=== PATIENT | female | born 1945 | race Caucasian/White ===

== ENCOUNTER 2021-09-23 13:00 | Outpatient (REF) | payer OTHER, SELFPAY | END 2021-09-23 13:01 | disposition home or self-care (01) | LOC: HO.HMGCLDS 13:00 | PROVIDERS: Visit Provider Internal Medicine | DX: Z20.822 Contact with and (suspected) exposure to COVID-19 (principal) | CPT/HCPCS: C9803; U0003; U0005 ==

== ENCOUNTER 2023-06-17 12:40 | Outpatient (AMB) | payer OTHER, SELFPAY ==
--- OUTSIDE RECORDS SUMMARY | 2023-06-17 12:43 | XMS_ITS | Continuity of Care Document ---
Author Name Unknown Organization [facility] ter Address [address] [place] [address]- Care Team Providers Care Senior Gl Accountant Name Role Phone Natanael Rodas MD Primary Care Physician [facility] Date(s): 10/05/19 - 10/12/[address] [address]- [facility] Attending Physician: Natanael Rodas MD Allergies, Adverse Reactions, Alerts Substance Reaction Severity Status NKA Active Immunizations Given and Recorded Vaccine Date Status Refusal Reason Influenza Virus Vaccine (oldterm) 07/10/19 Recorde d Influenza Virus Vaccine (oldterm) 09/26/18 Recorde d influenza virus vaccine, inactivated 1 08/10/18 Gi sarah influenza virus vaccine, inactivated 2 07/19/18 Re corded influenza virus vaccine, inactivated 3, 4 07/25/17 Given pneumococcal 13-valent vaccine 5 02/13/18 Given tetanus/diphtheria/pertussis, acel(Tdap) 6, 7 07/25/17 Given pneumococcal 23-valent vaccine 8 09/26/16 Recorded 1Result Comment: [08/10/2018] [facility] [id number] 2Result Comment: [08/10/2018] big y[08/10/2018 Uncharted] pt states she has not had the flu vaccine this year as previously stated 3Result Comment: enterred in error 4Result Comment: [07/25/2017] [id number] 5Result Comment: [02/13/2018] [facility] 0005 1971 01 6Result Comment: [07/25/2017] [id number] 7Admin Note: [id number] 8Result Comment: [07/25/2017] historical Medications acetaminophen 325 mg oral tablet 650 mg, By Mouth, Every 4 hours, PRN, Refills 0, Maintenance, Pain , Moderate, 05/18/18 9:59:35 EDT Start Date: 05/18/18 Status: Ordered amLODIPine 10 mg oral tablet 10 mg, 1, tablet, By Mouth, Daily, # 90 tablet, Refills 1, Tot. Refills 1, Maintenance, 06/11/19 16:50:00 EDT, Route to Pharmacy Electronically, [id number], [facility]/pharmacy #[id number] Start Date: 06/11/19 Status: Ordered atenolol-chlorthalidone 100 mg-25 mg oral tablet 1 tablet, By Mouth, Daily, # 90 tablet, 1 Refills, Maintenance, 06/11/19 16:49:08 EDT, 1 tablet By Mouth Daily Start Date: 06/11/19 Status: Ordered atorvastatin 40 mg oral tablet 1 tablet = 40 mg, By Mouth, Daily, # 90 tablet, 1 Refills, Maintenance, 06/11/19 15:16:54 EDT Start Date: 06/11/19 Status: Ordered Finacea 15% topical gel 1 application, Topically, 2 times a day, # 30 Gm, 0 Refills, Maintenance, 03/25/17 16:55:18, Gel Start Date: 03/25/17 Status: Ordered sertraline 100 mg oral tablet 2 tablet = 200 mg, By Mouth, Daily, # 180 tablet, 1 Refills, Maintenance, 06/11/19 15:51:08 EDT, D/C rx on file for 100mg 1 tab daily Start Date: 06/11/19 Status: Ordered Problem List Condition Effective Dates Status Health Status Inform ant Benign hypertension(Confirmed) Active Vitamin B 12 deficiency(Confirmed) Active History of osteopenia(Confirmed) Active Personal history of colonic polyps(Confirmed) Active Hyperlipidemia(Confirmed) Active Anxiety and depression(Confirmed) Active Varicose vein(Confirmed) Active Edema of both lower legs due to peripheral venous insufficiency(Confirmed) Active Social History Social History Type Response Smoking Status Former smoker entered on: 05/30/18 Sex
--- OUTSIDE RECORDS SUMMARY | 2023-06-17 12:44 | XMS_ITS | Continuity of Care Document ---
Author Name Unknown Organization [facility] lt Address [address] [place] [address]- Care Team Providers Care Ballistics Professor Name Role Phone Natanael Rodas MD Primary Care Physician [phone] [facility]counter [facility] Date(s): 11/13/20 - 11/20/20 [facility] [address] [place] [address]- Attending Physician: Natanael Rodas MD Allergies, Adverse Reactions, Alerts Substance Reaction Severity Status NKA Active Immunizations Given and Recorded Vaccine Date Status Refusal Reason SARS-CoV-2 (COVID-19) mRNA BNT-162b2 vac 11/05/20 Given Influenza Virus Vaccine (oldterm) 1 06/09/20 Recor ded Influenza Virus Vaccine (oldterm) 07/10/19 Recorde d Influenza Virus Vaccine (oldterm) 09/26/18 Recorde d influenza virus vaccine, inactivated 2 08/10/18 Gi sarah influenza virus vaccine, inactivated 3 07/19/18 Re corded influenza virus vaccine, inactivated 4, 5 07/25/17 Given pneumococcal 13-valent vaccine 6 02/13/18 Given tetanus/diphtheria/pertussis, acel(Tdap) 7, 8 07/25/17 Given pneumococcal 23-valent vaccine 9 09/26/16 Recorded 1Result Comment: influenza [facility] 2Result Comment: [08/10/2018] [facility] [id number] 3Result Comment: [08/10/2018] big y[08/10/2018 Uncharted] pt states she has not had the flu vaccine this year as previously stated 4Result Comment: enterred in error 5Result Comment: [07/25/2017] [id number] 6Result Comment: [02/13/2018] [facility] 0005 1971 01 7Result Comment: [07/25/2017] [id number] 8Admin Note: [id number] 9Result Comment: [07/25/2017] historical Medications amLODIPine 10 mg oral tablet 1 tablet, By Mouth, Daily, # 90 tablet, 11 Refills, Maintenance, 12/05/19 16:46:00 EDT, [facility], 164, cm, 11/27/19 13:41:00 EST, Height, 74.5, kg, 01/03/19 18:01:00 EDT, Dry Weight Start Date: 12/05/19 Status: Ordered atenolol-chlorthalidone 100 mg-25 mg oral tablet 1 tablet, By Mouth, Daily, # 90 tablet, 11 Refills, Maintenance, 12/05/19 16:47:00 EDT, [facility], 90, TAKE 1 TABLET BY MOUTH EVERY DAY, 164, cm, 11/27/19 13:41:00 EST, Height, 74.5, kg, 01/03/19 18:01:00 EDT, Dry Weight Start Date: 12/05/19 Status: Ordered atorvastatin 40 mg oral tablet 1 tablet = 40 mg, By Mouth, Daily, # 90 tablet, 1 Refills, Maintenance, 12/05/19 14:01:00 EDT, [facility]/pharmacy #[id number], 164, cm, 11/27/19 13:41:00 EST, Height, 74.5, kg, 01/03/19 18:01:00 EDT, Dry Weight Start Date: 12/05/19 Status: Ordered Colace sodium 100 mg oral capsule 100 mg, 1, capsule, By Mouth, 2 times a day, PRN, with plenty of water, # 20 capsule, Refills 1, Tot. Refills 1, Maintenance, for constipation, 06/13/20 8:34:00 EDT, Route to Pharmacy Electronically,[facility], 168, cm, 06/13/20 5:15:00... Start Date: 06/13/20 Status: Ordered Finacea 15% topical gel 1 application, Topically, 2 times a day, # 30 Gm, 0 Refills, Maintenance, 03/25/17 16:55:18, Gel Start Date: 03/25/17 Status: Ordered sertraline 100 mg oral tablet 2 tablet = 200 mg, By Mouth, Daily, # 180 tablet, 0 Refills, Maintenance, 05/27/20 16:27:00 EDT, [facility]/pharmacy #[id number], D/C rx on file for 100mg 1 tab daily, 164, cm, 05/24/20 8:51:00 EDT, Height, 74.5,kg, 01/03/19 18:01:00 EDT, Dry Weight Start Date: 05/27/20 Status: Ordered spironolactone 25 mg oral tablet 25 mg, 1, tablet, By Mouth, Daily, # 90 tablet, Refills 3, Tot. Refills 3, Maintenance, 11/08/19 10:43:00 EST, Route to Pharmacy Electronically, [facility]/pharmacy #[id number], 164, cm, 11/08/19 9:45:00 EST, Height, 74.5, kg, 01/03/19 18:01:00 EDT, Dry Weight Start Date: 11/08/19 Status: Ordered Problem List Condition Effective Dates Status Health Status Inform ant AAA - Abdominal aortic aneurysm(Confirmed) Active Benign hypertension(Confirmed) Active Vitamin B 12 deficiency(Confirmed) Active History of osteopenia(Confirmed) Active Personal history of colonic polyps(Confirmed) Active Hyperlipidemia(Confirmed) Active Anxiety and depression(Confirmed) Active Varicose vein(Confirmed) Active Edema of both lower legs due to peripheral venous insufficiency(Confirmed) Active Vital Signs Most recent to oldest [Reference Range]: 1 Height 167 cm (11/13/20 9:26 AM) Weight 84.0 kg (11/13/20 9:26 AM) Body Mass Index [18.5-24.99] 30.12 *>HHI* (11/13/20 9:26 AM) Social History Social History Type Response Smoking Status Former smoker entered on: 05/30/18 Sex Medical Equipment Implanted Date:06/11/20Target Site:Abdomen Description Quantity MRI Company Model MESH VENTRALIGHT ECHO CIR 6 - BARD ([id number]) 1 Bard Unknown BÁRBARA:No Information Assigning Authority: FDA MESH VENTRALIGHT ECHO20.3X25 .4 - BARD ([id number]) 1 Bard Unknown BÁRBARA:No Information Assigning Authority: FDA
--- OUTSIDE RECORDS SUMMARY | 2023-06-17 12:44 | XMS_ITS | Continuity of Care Document ---
Author Name Unknown Organization [facility] Address [address] [place] [address]- Care Team Providers Care Distributor Publications Name Role Phone Natanael Rodas MD Primary Care Physician Encounter [facility] Date(s): 06/22/21 - 06/29/21 [facility] [address] [place] [address]- Attending Physician: Victor M Bryson MD Admitting Physician: Victor M Bryson MD Referring Physician: Natanael Rodas MD Allergies, Adverse Reactions, Alerts Substance Reaction Severity Status NKA Active Immunizations Given and Recorded Vaccine Date Status Refusal Reason SARS-CoV-2 (COVID-19) mRNA BNT-162b2 vac 11/26/20 Given SARS-CoV-2 (COVID-19) mRNA BNT-162b2 vac 11/05/20 Given [...] 1Result Comment: influenza [facility] 2Result Comment: [08/10/2018] [facility] [id number] 3Result Comment: [08/10/2018] big y[08/10/2018 Uncharted] pt states she has not had the flu vaccine this year as previously stated 4Result Comment: enterred in error 5Result Comment: [07/25/2017] [id number] 6Result Comment: [02/13/2018] [facility] 0005 1971 01 7Result Comment: [07/25/2017] [id number] 8Admin Note: [id number] 9Result Comment: [07/25/2017] historical Medications amLODIPine 10 mg oral tablet 1 tablet, By Mouth, Daily, # 90 tablet, 11 Refills, Maintenance, 12/05/19 16:46:00 EDT, [facility], 164, cm, 11/27/19 13:41:00 EST, Height, 74.5, kg, 01/03/19 18:01:00 EDT, Dry Weight Start Date: 12/05/19 Status: Ordered atenolol-chlorthalidone 100 mg-25 mg oral tablet 1 tablet, By Mouth, Daily, # 90 tablet, 11 Refills, Maintenance, 12/05/19 16:47:00 EDT, [facility], 90, TAKE 1 TABLET BY MOUTH EVERY DAY, 164, cm, 11/27/19 13:41:00 EST, Height, 74.5, kg, 01/03/19 18:01:00 EDT, Dry Weight Start Date: 12/05/19 Status: Ordered atorvastatin 40 mg oral tablet 1 tablet = 40 mg, By Mouth, Daily, # 90 tablet, 1 Refills, Maintenance, 12/05/19 14:01:00 EDT, [facility]/pharmacy #[id number], 164, cm, 11/27/19 13:41:00 EST, Height, 74.5, kg, 01/03/19 18:01:00 EDT, Dry Weight Start Date: 12/05/19 Status: Ordered Colace sodium 100 mg oral capsule 100 mg, 1, capsule, By Mouth, 2 times a day, PRN, with plenty of water, # 20 capsule, Refills 1, Tot. Refills 1, Maintenance, for constipation, 06/13/20 8:34:00 EDT, Route to Pharmacy Electronically,[facility], 168, cm, 06/13/20 5:15:00... Start Date: 06/13/20 Status: Ordered Finacea 15% topical gel 1 application, Topically, 2 times a day, # 30 Gm, 0 Refills, Maintenance, 03/25/17 16:55:18, Gel Start Date: 03/25/17 Status: Ordered sertraline 100 mg oral tablet 2 tablet = 200 mg, By Mouth, Daily, # 180 tablet, 0 Refills, Maintenance, 05/27/20 16:27:00 EDT, [facility]/pharmacy #[id number], D/C rx on file for 100mg 1 tab daily, 164, cm, 05/24/20 8:51:00 EDT, Height, 74.5,kg, 01/03/19 18:01:00 EDT, Dry Weight Start Date: 05/27/20 Status: Ordered spironolactone 25 mg oral tablet 25 mg, 1, tablet, By Mouth, Daily, # 90 tablet, Refills 3, Tot. Refills 3, Maintenance, 11/08/19 10:43:00 EST, Route to Pharmacy Electronically, [facility]/pharmacy #[id number], 164, cm, 11/08/19 9:45:00 EST, Height, 74.5, kg, 01/03/19 18:01:00 EDT, Dry Weight Start Date: 11/08/19 Status: Ordered Problem List Condition Effective Dates Status Health Status Inform ant AAA - Abdominal aortic aneur ysm - 4.1 cm, next CTA due 05/2021(Confirmed) Active Benign hypertension(Confirmed) Active Vitamin B 12 [...] MESH VENTRALIGHT ECHO CIR 6 - BARD ([id number]) 1 Bard Unknown BÁRBARA:No Information Assigning Authority: FDA MESH VENTRALIGHT ECHO20.3X25 .4 - BARD ([id number]) 1 Bard Unknown BÁRBARA:No Information Assigning Authority: FDA
--- OUTSIDE RECORDS SUMMARY | 2023-06-17 12:44 | XMS_ITS | Continuity of Care Document ---
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 Name Role Phone Natanael Rodas MD Primary Care Physician [facility] Date(s): 07/28/21 - 08/27/21 [facility] Adult [address] [place] [address]- Allergies, Adverse Reactions, Alerts Substance Reaction Severity Status NKA Active Immunizations Given and Recorded Vaccine Date Status Refusal Reason influenza virus vaccine, inactivated 07/01/21 Sundeep rded influenza virus vaccine, inactivated 1 08/10/18 Gi sarah influenza virus vaccine, inactivated 2 07/19/18 Re corded influenza virus vaccine, inactivated 3, 4 07/25/17 Given SARS-CoV-2 (COVID-19) mRNA BNT-162b2 vac 07/01/21 Recorded SARS-CoV-2 (COVID-19) mRNA BNT-162b2 vac 11/26/20 Given SARS-CoV-2 (COVID-19) mRNA BNT-162b2 vac 11/05/20 Given Influenza Virus Vaccine (oldterm) 5 06/09/20 Recor ded Influenza Virus Vaccine (oldterm) 07/10/19 Recorde d Influenza Virus Vaccine (oldterm) 09/26/18 Recorde d pneumococcal 13-valent vaccine 6 02/13/18 Given tetanus/diphtheria/pertussis, acel(Tdap) 7, 8 07/25/17 Given pneumococcal 23-valent vaccine 9 09/26/16 Recorded 1Result Comment: [08/10/2018] [facility] [id number] 2Result Comment: [08/10/2018] big y[08/10/2018 Uncharted] pt states she has not had the flu vaccine this year as previously stated 3Result Comment: enterred in error 4Result Comment: [07/25/2017] [id number] 5Result Comment: influenza [facility] 6Result Comment: [02/13/2018] [facility] 0005 1971 01 7Result Comment: [07/25/2017] [id number] 8Admin Note: [id number] 9Result Comment: [07/25/2017] historical Medications amLODIPine 10 mg oral tablet 1 tablet, By Mouth, Daily, # 90 tablet, 11 Refills, [facility], 168, cm, 08/07/21 12:51:00 EST, Height, 83.8, kg, 06/17/21 13:41:00 EDT, Dry Weight Start Date: 08/13/21 Status: Ordered atenolol-chlorthalidone 100 mg-25 mg oral tablet 1 tablet, By Mouth, Daily, # 90 tablet, 11 Refills, [facility], 90, TAKE 1 TABLET BY MOUTH EVERY DAY, 168, cm, 08/07/21 12:51:00 EST, Height, 83.8, kg, 06/17/21 13:41:00 EDT, Dry Weight Start Date: 08/13/21 Status: Ordered atorvastatin 40 mg oral tablet 1 tablet, By Mouth, Daily, # 90 tablet, 1 Refills, [facility], 168, cm, 08/07/21 12:51:00 EST,Height, 83.8, kg, 06/17/21 13:41:00 EDT, Dry Weight Start Date: 08/13/21 Status: Ordered Finacea 15% topical gel 1 application, Topically, 2 times a day, # 30 Gm, 0 Refills, Maintenance, 03/25/17 16:55:18, Gel Start Date: 03/25/17 Status: Ordered sertraline 100 mg oral tablet 2 tablet, By Mouth, Daily, # 180 tablet, 0 Refills, [facility], 168, cm, 08/07/21 12:51:00 EST, Height, 83.8, kg, 06/17/21 13:41:00 EDT, Dry Weight Start Date: 08/13/21 Status: Ordered spironolactone 50 mg oral tablet 1 tablet = 50 mg, By Mouth, Daily, # 90 tablet, 3 Refills, Maintenance, 08/07/21 13:07:00 EST, Tablet, [facility]/pharmacy #[id number], Partial fill upon patient request if the prescription is for a schedule II opioid drug., 168, cm, 08/07/21 12:51:00 EST, Height,... Start Date: 08/07/21 Status: Ordered Problem List Condition Effective Dates Status Health Status Inform ant AAA - Abdominal aortic aneur ysm - 4.1 cm, next CTA due 05/2021(Confirmed) Active Benign hypertension(Confirmed) Active Vitamin B 12 deficiency(Confirmed) Active History of osteopenia(Confirmed) Active Personal history of colonic polyps(Confirmed) Active Hyperlipidemia(Confirmed) Active Anxiety and depression(Confirmed) Active Obese class I(Confirmed) Active Varicose vein(Confirmed) Active Edema of both lower legs due to peripheral venous insufficiency(Confirmed) Active Social History Social History Type Response Smoking Status Former smoker entered on: 05/30/18 Sex Medical Equipment Implanted Date:06/11/20Target Site:Abdomen Description Quantity MRI Company Model MESH VENTRALIGHT ECHO CIR 6 - BARD ([id number]) 1 Bard Unknown BÁRBARA:No Information Assigning Authority: FDA MESH VENTRALIGHT ECHO20.3X25 .4 - BARD ([id number]) 1 Bard Unknown BÁRBARA:No Information Assigning Authority: FDA
--- OUTSIDE RECORDS SUMMARY | 2023-06-17 12:44 | XMS_ITS | Continuity of Care Document ---
Author Name Unknown Organization [facility] Address [address] [place] [address]- Care Team Providers Care Manager Organizational Name Role Phone Natanael Rodas MD Primary Care Physician [facility] Date[facility]s): 08/11/21 - 09/10/21 [facility] Adult [address] [place] [address]- Allergies, Adverse Reactions, Alerts Substance Reaction Severity [...] vaccine 9 09/26/16 Recorded 1Result Comment: [08/10/2018] [facility] [id number] 2Result Comment: [08/10/2018] big y[08/10/2018 Uncharted] pt states she has not had the flu vaccine this year as previously stated 3Result Comment: enterred in error 4Result Comment: [07/25/2017] [id number] 5Result Comment: influenza [facility] 6Result Comment: [02/13/2018] [facility] 0005 1971 01 7Result Comment: [07/25/2017] [id number] 8Admin Note: [id number] 9Result Comment: [07/25/2017] historical Medications amLODIPine 10 mg oral tablet 1 tablet, By Mouth, Daily, # 90 tablet, 11 Refills, [facility], 168, cm, 08/07/21 12:51:00 EST, Height, 83.8, kg, 06/17/21 13:41:00 EDT, Dry Weight Start Date: 08/13/21 Status: Ordered atenolol-chlorthalidone 100 mg-25 mg oral tablet 1 tablet, By Mouth, Daily, # 90 tablet, 11 Refills, [facility], 90, TAKE 1 TABLET BY MOUTH EVERY DAY, 168, cm, 08/07/21 12:51:00 EST, Height, 83.8, kg, 06/17/21 13:41:00 EDT, Dry Weight Start Date: 08/13/21 Status: Ordered atorvastatin 40 mg oral tablet 1 tablet, By Mouth, Daily, # 90 tablet, 1 Refills, [facility], 168, cm, 08/07/21 12:51:00 EST,Height, 83.8, kg, 06/17/21 13:41:00 EDT, Dry Weight Start Date: 08/13/21 Status: Ordered Finacea 15% topical gel 1 application, Topically, 2 times a day, # 30 Gm, 0 Refills, Maintenance, 03/25/17 16:55:18, Gel Start Date: 03/25/17 Status: Ordered sertraline 100 mg oral tablet 2 tablet, By Mouth, Daily, # 180 tablet, 0 Refills, [facility], 168, cm, 08/07/21 12:51:00 EST, Height, 83.8, kg, 06/17/21 13:41:00 EDT, Dry Weight Start Date: 08/13/21 Status: Ordered spironolactone 50 mg oral tablet 1 tablet = 50 mg, By Mouth, Daily, # 90 tablet, 3 Refills, Maintenance, 08/07/21 13:07:00 EST, Tablet, [facility]/pharmacy #[id number], Partial fill upon patient request if the [...] MESH VENTRALIGHT ECHO CIR 6 - BARD ([id number]) 1 Bard Unknown BÁRBARA:No Information Assigning Authority: FDA MESH VENTRALIGHT ECHO20.3X25 .4 - BARD ([id number]) 1 Bard Unknown BÁRBARA:No Information Assigning Authority: FDA
--- OUTSIDE RECORDS SUMMARY | 2023-06-17 12:44 | XMS_ITS | Continuity of Care Document ---
Author Name Unknown Organization [facility] Address [address] [place] [address]- Care Team Providers Care Support Specialist Name Role Phone Alaina WEBB, Hill Jones Primary Care Physician [place] [facility] [place](s): 04/13/22 - 08/07/22 [facility] [address] [address]- Attending Physician: Leticia Savage MD Admitting Physician: Leticia Savage MD Referring Physician: Hill Foley MD Allergies, Adverse Reactions, Alerts No Known Allergies Immunizations Given and Recorded Vaccine Date Status [...] vaccine 9 09/26/16 Recorded 1Result Comment: [08/10/2018] ndc [id number] 2Result Comment: [08/10/2018] big y[08/10/2018 Uncharted] pt states she has not had the flu vaccine this year as previously stated 3Result Comment: enterred in error 4Result Comment: [07/25/2017] [id number] 5Result Comment: influenza [facility] 6Result Comment: [02/13/2018] [facility] 0005 1971 01 7Result Comment: [07/25/2017] [id number] 8Admin Note: [id number] 9Result Comment: [07/25/2017] historical Medications atenolol-chlorthalidone 100 mg-25 mg oral tablet 1 tablet, By Mouth, Daily, # 90 tablet, 11 Refills, 12/01/21 12:21:00 EST, [facility]/pharmacy #[id number], 90, 1 tablet By Mouth Daily, 168, cm, 12/01/21 11:53:00 EST, Height, 83.8, kg, 06/17/21 13:41:00 EDT, Dry Weight Start Date: 12/01/21 Status: Ordered atorvastatin 80 mg oral tablet 1 tablet = 80 mg, By Mouth, Daily, DOSAGE INCREASE, # 90 tablet, 1 Refills, Maintenance, 12/10/21 11:32:00 EDT, Tablet, [id number], Partial fill upon patient request if the prescription is for a schedule II opioid drug., 168, cm, 12/10/21 10:1... Start Date: 12/10/21 Status: Ordered Cane See Instructions, # 1 each, Maintenance, Unsteady gait, 12/01/21 12:24:00 EST, Supply Start Date: 12/01/21 Status: Ordered Cane Cane, See Instructions, # 1 each, Refills 0, Tot. Refills 0, Maintenance, Use daaily Dx: Unsteady gait., 07/28/22 11:02:00 EDT, Supply Start Date: 07/28/22 Status: Ordered Centrum Silver Ultra Women's oral tablet By Mouth, Daily, 0 Refills, Maintenance, 12/01/21 12:40:00 EST, Partial fill upon patient request if the prescription is for a schedule II opioid drug. Start Date: 12/01/21 Status: Ordered cyanocobalamin 1000 mcg/ml injectable solution See Instructions, 1,000 mcg Intramuscular Vitamin B12 1000mcg q1week x 1 month and then monthly x 6months, # 10 mL, 0 Refills, Maintenance, 12/14/21 10:09:00 EDT, Partial fill upon patient request if the prescription is for a schedule II opioid drug. Start Date: 12/14/21 Status: Ordered Eligen B12 1000 mcg oral tablet 1 tablet, By Mouth, Daily, # 30 tablet, 11 Refills, Maintenance, 07/23/22 10:48:00 EDT, [id number], Partial fill upon patient request if the prescription is for a schedule II opioid drug., 167, cm, 06/14/22 15:45:00 EDT, Height, 83.8, kg, 05/28... Start Date: 07/23/22 Status: Ordered Finacea 15% topical gel 1 application, Topically, 2 times a day, # 30 Gm, 0 Refills, Maintenance, 03/25/17 16:55:18, Gel Start Date: 03/25/17 Status: Ordered sertraline 100 mg oral tablet 2 tablet, By Mouth, Daily, # 180 tablet, 3 Refills, 12/01/21 12:21:00 EST, [id number], 168,cm, 12/01/21 11:53:00 EST, Height, 83.8, kg, 06/17/21 13:41:00 EDT, Dry Weight Start Date: 12/01/21 Status: Ordered spironolactone 50 mg oral tablet 1 tablet = 50 mg, By Mouth, Daily, # 90 tablet, 3 Refills, Maintenance, 12/01/21 12:21:00 EST, Tablet, [id number], Partial fill upon patient request if the prescription is for a schedule II opioid drug., 168, cm, 12/01/21 11:53:00 EST, Height,... Start Date: 12/01/21 Status: Ordered Problem List Condition Confirmation Course Effective Dates Status H ealth Status Informant AAA - Abdominal aortic aneurysm - 4.1 cm, next CTA due 05/2021 1 Confirmed Active Benign hypertension Confirmed Active Vitamin B 12 deficiency Confirmed Active History of osteopenia Confirmed Active Personal history of colonic polyps Confirmed Active Hyperlipidemia Confirmed Active Depression, major, in partial remission Confirmed Active Abnormal pulmonary function test Confirmed Active Pulmonary hypertension 2 Confirmed Active Varicose vein of leg Confirmed Active Edema of both lower legs due to peripheral venous insufficiency Confirmed Active 1F/U with Vascular 05/2022 Social History Social History Type Response Smoking Status Former smoker entered on: 05/30/18 Sex Implantable Device List Procedure Provider Procedure Date Device Type Site Repair Hernia Ventral Laparoscopic Cory WEBB, Ian 06/11/20 Unknown Abdomen Device Identifier Serial Number Lot or Batch Number Manufacturing Date Expiration Date Distinct Identification Code MRI Safety Implantable Status Assigning Authority Unknown Unknown Unknown Unknown 11/23/20 Unknown Unknown Active Unk nown Procedure Provider Procedure Date Device Type Site Repair Hernia Ventral Laparoscopic Cory WEBB, Ian 06/11/20 Unknown Abdomen Device Identifier Serial Number Lot or Batch Number Manufacturing Date Expiration Date Distinct Identification Code MRI Safety Implantable Status Assigning Authority Unknown Unknown Unknown Unknown 07/23/21 Unknown Unknown Active Un known Patient Care team information Care Team Personnel Name: Claire Serra RN Position: [facility] RN Member Role: Primary Care Nurse Name: Hill Foley MD Position: [facility] Primary Care Physician Member Role: PCP Address: Address: [address] [place] [address]- Name: Katy Romo RN Position: [facility] RN Member Role: Primary Care Nurse Name: Neha Bey RN Position: [facility] SN RN Member Role: Primary Care Nurse Name: Margarita Olson RN Position: [facility] RN Member Role: Primary Care Nurse Name: Thelma Sifuentes RN Position: [facility] RN Member Role: Primary Care Nurse Name: Loren Johnson RN Position: [facility] RN Member Role: Primary Care Nurse Name: Zaida Alan RN Position: [facility] RN Member Role: Primary Care Nurse Name: Carol Brar RN Position: [facility] Onco RN Member Role: Primary Care Nurse Name: Charlotte Thompson RN Position: [facility] Hospital Steam And Gas Turbine Assembler Member Role: Primary Care Nurse Care Team Related Persons Name: LOUIE PACHECO Address: home [address] [place] [address] Name: LOGAN JANE Name: PRAVIN RYAN Address: [place] [address]
--- OUTSIDE RECORDS SUMMARY | 2023-06-17 12:44 | XMS_ITS | Continuity of Care Document ---
Author Name Unknown Organization [facility] Address [address] [place] [address]- Care Team Providers Care Extractive Metallurgist Name Role Phone Natanael Rodas MD Primary Care Physician [place] [facility] [place] 11/25/20 [facility] [address] [place] [address]- Attending Physician: Brady Ruelas Admitting Physician: Brady Ruelas Referring Physician: Brady Ruelas Allergies, Adverse Reactions, Alerts Substance Reaction Severity [...] 1Result Comment: influenza [facility] 2Result Comment: [08/10/2018] [facility] [id number] 3Result Comment: [08/10/2018] big y[08/10/2018 Uncharted] pt states she has not had the flu vaccine this year as previously stated 4Result Comment: enterred in error 5Result Comment: [07/25/2017] [id number] 6Result Comment: [02/13/2018] [facility] 0005 1971 01 7Result Comment: [07/25/2017] [id number] 8Admin Note: [id number] 9Result Comment: [07/25/2017] historical Medications amLODIPine 10 mg oral tablet 1 tablet, By Mouth, Daily, # 90 tablet, 11 Refills, Maintenance, 12/05/19 16:46:00 EDT, [id number], 164, cm, 11/27/19 13:41:00 EST, Height, 74.5, kg, 01/03/19 18:01:00 EDT, Dry Weight Start Date: 12/05/19 Status: Ordered atenolol-chlorthalidone 100 mg-25 mg oral tablet 1 tablet, By Mouth, Daily, # 90 tablet, 11 Refills, Maintenance, 12/05/19 16:47:00 EDT, [id number], 90, TAKE 1 TABLET BY MOUTH EVERY DAY, 164, cm, 11/27/19 13:41:00 EST, Height, 74.5, kg, 01/03/19 18:01:00 EDT, Dry Weight Start Date: 12/05/19 Status: Ordered atorvastatin 40 mg oral tablet 1 tablet = 40 mg, By Mouth, Daily, # 90 tablet, 1 Refills, Maintenance, 12/05/19 14:01:00 EDT, [facility]/pharmacy #[id number], 164, cm, 11/27/19 13:41:00 EST, Height, 74.5, kg, 01/03/19 18:01:00 EDT, Dry Weight Start Date: 12/05/19 Status: Ordered Colace sodium 100 mg oral capsule 100 mg, 1, capsule, By Mouth, 2 times a day, PRN, with plenty of water, # 20 capsule, Refills 1, Tot. Refills 1, Maintenance, for constipation, 06/13/20 8:34:00 EDT, Route to Pharmacy Electronically,[facility], 168, cm, 06/13/20 5:15:00... Start Date: 06/13/20 Status: Ordered Finacea 15% topical gel 1 application, Topically, 2 times a day, # 30 Gm, 0 Refills, Maintenance, 03/25/17 16:55:18, Gel Start Date: 03/25/17 Status: Ordered sertraline 100 mg oral tablet 2 tablet = 200 mg, By Mouth, Daily, # 180 tablet, 0 Refills, Maintenance, 05/27/20 16:27:00 EDT, [facility]/pharmacy #[id number], D/C rx on file for 100mg 1 tab daily, 164, cm, 05/24/20 8:51:00 EDT, Height, 74.5,kg, 01/03/19 18:01:00 EDT, Dry Weight Start Date: 05/27/20 Status: Ordered spironolactone 25 mg oral tablet 25 mg, 1, tablet, By Mouth, Daily, # 90 tablet, Refills 3, Tot. Refills 3, Maintenance, 11/08/19 10:43:00 EST, Route to Pharmacy Electronically, [facility]/pharmacy #[id number], 164, cm, 11/08/19 9:45:00 EST, [...] MESH VENTRALIGHT ECHO CIR 6 - BARD ([id number]) 1 Bard Unknown BÁRBARA:No Information Assigning Authority: FDA MESH VENTRALIGHT ECHO20.3X25 .4 - BARD ([id number]) 1 Bard Unknown BÁRBARA:No Information Assigning Authority: FDA
--- OUTSIDE RECORDS SUMMARY | 2023-06-17 12:44 | XMS_ITS | Continuity of Care Document ---
Author Name Unknown Organization [facility] Milind Address [address] [place] [address]- Care Team Providers Care Merchandise Worker Name Role Phone Alaina WEBB, Hill Jones Primary Care Physician [phone] Encounter [facility] [place] Date(s): 05/13/23 - 06/12/23 [facility] Adult [address] [place] [address]- Attending Physician: Brady Ruelas Admitting Physician: AdmBrady molina Referring Physician: AdmBrady molina Allergies, Adverse Reactions, Alerts No Known Allergies Immunizations Given and Recorded Vaccine Date Status Refusal Reason pneumococcal 20-valent conjugate vaccine 04/22/23 Recorded influenza virus vaccine, inactivated 1 11/02/22 Gi sarah influenza virus vaccine, inactivated 07/01/21 Sundeep rded influenza virus vaccine, inactivated 2 08/10/18 Gi sarah zoster vaccine, inactivated 09/06/22 Recorded [id number] 12y+ bivalent booster vax 09/06/22 Recorded SARS-CoV-2 mRNA ([id number]) vax 03/24/22 Recorded SARS-CoV-2 (COVID-19) mRNA BNT-162b2 vac 07/01/21 Recorded SARS-CoV-2 (COVID-19) mRNA BNT-162b2 vac 11/26/20 Given SARS-CoV-2 (COVID-19) mRNA BNT-162b2 vac 11/05/20 Given Influenza Virus Vaccine (oldterm) 3 06/09/20 Recor ded Influenza Virus Vaccine (oldterm) 07/10/19 Recorde d Influenza Virus Vaccine (oldterm) 09/26/18 Recorde d pneumococcal 13-valent vaccine 4 02/13/18 Given tetanus/diphtheria/pertussis, acel(Tdap) 5, 6 07/25/17 Given pneumococcal 23-valent vaccine 7 09/26/16 Recorded 1Result Comment: Flu [facility]#[id number] 2Result Comment: [08/10/2018] [facility] [id number] 3Result Comment: influenza [facility] 4Result Comment: [02/13/2018] [facility] 0005 1971 01 5Result Comment: [07/25/2017] [id number] 6Admin Note: [id number] 7Result Comment: [07/25/2017] historical Medications amLODIPine 10 mg oral tablet 1 tablet, By Mouth, Daily, # 90 tablet, 1 Refills, Maintenance, 12/27/22 15:59:00 EDT, [facility]/pharmacy#[id number], 167, cm, 12/23/22 9:51:00 EDT, Height, 83.8, kg, 06/17/21 13:41:00 EDT, Dry Weight Start Date: 12/27/22 Status: Ordered aspirin 325 mg oral tablet 325 mg, By Mouth, Daily, # 14 tablet, Refills 0, Tot. Refills 0, Maintenance, 04/20/23 7:14:00 EDT,Print Requisition, Partial fill upon patient request if the prescription is for a schedule II opioid drug. Start Date: 04/20/23 Status: Ordered atenolol-chlorthalidone 100 mg-25 mg oral tablet 1 tablet, By Mouth, Daily, # 90 tablet, 1 Refills, Maintenance, 12/27/22 10:08:00 EDT, [facility], 90, TAKE 1 TABLET BY MOUTH EVERY DAY, 167, cm, 12/23/22 9:51:00 EDT, Height, 83.8, kg, 06/17/2113:41:00 EDT, Dry Weight Start Date: 12/27/22 Status: Ordered atorvastatin 80 mg oral tablet 1 tablet, By Mouth, Daily, # 90 tablet, 1 Refills, Maintenance, 12/27/22 10:10:00 EDT, [id number], 167, cm, 12/23/22 9:51:00 EDT, Height, 83.8, kg, 06/17/21 13:41:00 EDT, Dry Weight Start Date: 12/27/22 Status: Ordered Cane See Instructions, # 1 [...] opioid drug. Start Date: 12/01/21 Status: Ordered CPAP Machine See Instructions, # 1 each, Maintenance, AutoCPAP 8-20 cm H20, use Daily when sleeping, 12/23/22 10:29:00 EDT, Supply Start Date: 12/23/22 Status: Ordered docusate sodium 100 mg oral capsule 100 mg, 1, capsule, By Mouth, 2 times a day, # 60 capsule, Refills 0, Tot. Refills 0, Maintenance, 04/20/23 7:12:00 EDT, Print Requisition, Partial fill upon patient request if the prescription is for a schedule II opioid drug. Start Date: 04/20/23 Status: Ordered Eligen B12 1000 mcg oral tablet 1 tablet, By Mouth, Daily, # 30 tablet, 11 Refills, Maintenance, 07/23/22 10:48:00 EDT, [facility]/pharmacy #[id number], Partial fill upon patient request if [...] tablet, By Mouth, Daily, # 180 tablet, 1 Refills, 12/21/22 14:38:00 EDT, [id number], 167,cm, 11/26/22 11:40:00 EST, Height, 83.8, kg, 06/17/21 13:41:00 EDT, Dry Weight Start Date: 12/21/22 Status: Ordered spironolactone 50 mg oral tablet 1 tablet = 50 mg, By Mouth, Daily, # 90 tablet, 1 Refills, Maintenance, 12/21/22 14:36:00 EDT, Tablet, [id number], Partial fill upon patient request if the prescription is for a schedule II opioid drug., 167, cm, 11/26/22 11:40:00 EST, Height,... Start Date: 12/21/22 Status: Ordered Problem List Condition Confirmation Course Effective Dates Status H ealth Status Informant AAA - Abdominal aortic aneurysm - 4.1 cm, next CTA due 05/2021 1 Confirmed Active Benign hypertension Confirmed Active Vitamin B 12 deficiency Confirmed Active History of osteopenia Confirmed Active History of arthroplasty of left shoulder Confirmed Active Personal history of colonic polyps Confirmed Active Hyperlipidemia Confirmed Active Depression, major, in partial remission Confirmed Active Obese class I Confirmed Active Abnormal pulmonary function test Confirmed Active Pulmonary hypertension 2 Confirmed Active Varicose vein of leg Confirmed Active Edema of both lower legs due to peripheral venous insufficiency Confirmed Active 1F/U with Vascular 05/2022 2Echo 2021 Social History Social History Type Response Smoking Status Former smoker; Other : 0.5 ppd x 15 yrs. quit in .; entered on: 03/25/17 Sex Implantable Device List Procedure Provider Procedure Date Device Type Site Repair Hernia Ventral Laparoscopic Ian Ray MD 06/11/20 Unknown Abdomen Device Identifier Serial Number Lot or Batch Number Manufacturing Date Expiration Date Distinct Identification Code MRI Safety Implantable Status Assigning Authority Unknown Unknown Unknown Unknown 11/23/20 Unknown Unknown Active Unk nown Procedure Provider Procedure Date Device Type Site Repair Hernia Ventral Laparoscopic Ian Ray MD 06/11/20 Unknown Abdomen Device Identifier Serial Number Lot or Batch Number Manufacturing Date Expiration Date Distinct Identification Code MRI Safety Implantable Status Assigning Authority Unknown Unknown Unknown Unknown 07/23/21 Unknown Unknown Active Un known EKG study * Event Display: EKG Authored Date: * Event Display: EKG Authored Date: Laboratory * Event Display: Non BH Lab Results Authored Date: Radiology * Event Display: CT Scan Shoulder, Non- BH Authored Date: Patient Care team information Care Team Personnel Name: Claire Serra RN Position: [facility] RN Member Role: Primary Care Nurse Name: Elana Warren RN Position: [facility] RN Member Role: Primary Care Nurse Name: Hill Foley MD Position: [facility] Physician - Primary Care Member Role: PCP Address: Address: [address] [place] [address] [facility] Name: Christy Peacock RN Position: [facility] RN Member Role: Primary Care Nurse Name: Katy Romo RN Position: [facility] RN Member Role: Primary Care Nurse Name: Neha Bey RN Position: [facility] SN RN Member Role: Primary Care Nurse Name: Zayra Arevalo RN Position: [facility] RN Member Role: Primary Care Nurse Name: Margarita Olson RN Position: [facility] RN Member Role: Primary Care Nurse Name: Thelma Sifuentes RN Position: [facility] RN Member Role: Primary Care Nurse Name: Kandi Cabrera Position: [facility] Dental Director Member Role: Animal Attendant Name: Jyoti Caal RN Position: [facility] RN Member Role: Primary Care Nurse Name: Loren Johnson RN Position: [facility] RN Member Role: Primary Care Nurse Name: Zaida Alan RN Position: [facility] RN Member Role: Primary Care Nurse Name: Carol Brar RN Position: [facility] Onco RN Member Role: Primary Care Nurse Name: Charlotte Thompson RN Position: [facility] Hospital Certified Pesticide Applicator Member Role: Primary Care Nurse Care Team Related Persons Name: JUNIOR LOUIE Address: [address] [place] [address] Name: LOGAN JANE Name: PRAVIN RYAN Address: [place] [address]
--- OUTSIDE RECORDS SUMMARY | 2023-06-17 12:44 | XMS_ITS | Continuity of Care Document ---
Author Name Unknown Organization [facility] Milind Address [address] [place] [address]- Care Team Providers Care Counter Pocket Sewer Name Role Phone Alaina WEBB, Hill Jones Primary Care Physician Encounter [facility] Date(s): 09/02/22 - 10/02/22 [facility] Adult [address] [place] [address]- Allergies, Adverse Reactions, Alerts No Known Allergies [...] vaccine 9 09/26/16 Recorded 1Result Comment: [08/10/2018] [facility] [id number] 2Result Comment: [08/10/2018] big y[08/10/2018 Uncharted] pt states she has not had the flu vaccine this year as previously stated 3Result Comment: enterred in error 4Result Comment: [07/25/2017] [id number] 5Result Comment: influenza [facility] 6Result Comment: [02/13/2018] [facility] 0005 1971 01 7Result Comment: [07/25/2017] [id number] 8Admin Note: [id number] 9Result Comment: [07/25/2017] historical Medications atenolol-chlorthalidone 100 mg-25 mg oral tablet 1 tablet, By Mouth, Daily, # 90 tablet, 11 Refills, 12/01/21 12:21:00 EST, [facility]/pharmacy #[id number], 90, 1 tablet By Mouth Daily, 168, cm, 12/01/21 11:53:00 EST, Height, 83.8, kg, 06/17/21 13:41:00 EDT, Dry Weight Start Date: 12/01/21 Status: Ordered atorvastatin 80 mg oral tablet 1 tablet = 80 mg, By Mouth, Daily, DOSAGE INCREASE, # 90 tablet, 1 Refills, Maintenance, 12/10/21 11:32:00 EDT, Tablet, [facility]/pharmacy #[id number], Partial fill upon patient request [...] Team Personnel Name: Claire Serra RN Position: [facility] RN Member Role: Primary Care Nurse Name: Hill Foley MD Position: [facility] Primary Care Physician Member Role: PCP Address: Address: [address] [place] [address]- Name: Katy Romo RN Position: [facility] RN Member Role: Primary Care Nurse Name: Neha Bey RN Position: [facility] SN RN Member Role: Primary Care Nurse Name: Margarita Olson RN Position: [facility] RN Member Role: Primary Care Nurse Name: Thelma Sifuentes RN Position: [facility] RN Member Role: Primary Care Nurse Name: Loren Johnson RN Position: [facility] RN Member Role: Primary Care Nurse Name: Zaida Alan RN Position: [facility] RN Member Role: Primary Care Nurse Name: Carol Brar RN Position: [facility] Onco RN Member Role: Primary Care Nurse Name: Charlotte Thompson RN Position: [facility] Hospital Color Dipper Member Role: Primary Care Nurse Care Team Related Persons Name: JUNIOR, LOUIE Address: [address] [place] [address] Name: LOGAN JANE Name: PRAVIN RYAN Address: [place] [address]
--- OUTSIDE RECORDS SUMMARY | 2023-06-17 12:44 | XMS_ITS | Continuity of Care Document ---
Author Name Unknown Organization [facility] Address [address] [place] [id number]- Care Team Providers Care Arts Therapist Name Role Phone Alaina WEBB, Hill Jones Primary Care Physician Encounter [facility] Date(s): 03/02/23 - 04/01/23 [facility] [address] [place] [id number]- Allergies, Adverse Reactions, Alerts No Known Allergies Immunizations Given and Recorded Vaccine Date Status Refusal Reason influenza virus vaccine, inactivated 1 11/02/22 Gi sarah influenza virus vaccine, inactivated 07/01/21 Sundeep rded influenza virus vaccine, inactivated 2 08/10/18 Gi sarah influenza virus vaccine, inactivated 3 07/19/18 Re corded influenza virus vaccine, inactivated 4, 5 07/25/17 Given zoster vaccine, inactivated 09/06/22 Recorded [id number] 12y+ bivalent booster vax 09/06/22 Recorded SARS-CoV-2 mRNA ([id number]) vax 03/24/22 Recorded SARS-CoV-2 (COVID-19) mRNA BNT-162b2 vac 07/01/21 Recorded SARS-CoV-2 (COVID-19) mRNA BNT-162b2 vac 11/26/20 Given SARS-CoV-2 (COVID-19) mRNA BNT-162b2 vac 11/05/20 Given Influenza Virus Vaccine (oldterm) 6 06/09/20 Recor ded Influenza Virus Vaccine (oldterm) 07/10/19 Recorde d Influenza Virus Vaccine (oldterm) 09/26/18 Recorde d pneumococcal 13-valent vaccine 7 02/13/18 Given tetanus/diphtheria/pertussis, acel(Tdap) 8, 9 07/25/17 Given pneumococcal 23-valent vaccine 10 09/26/16 Recorde d 1Result Comment: Flu [facility]#[id number] 2Result Comment: [08/10/2018] [facility] 14063 [id number] 3Result Comment: [08/10/2018] big y[08/10/2018 Uncharted] pt states she has not had the flu vaccine this year as previously stated 4Result Comment: enterred in error 5Result Comment: [07/25/2017] [id number] 6Result Comment: influenza [facility] 7Result Comment: [02/13/2018] [facility] 0005 1971 01 8Result Comment: [07/25/2017] [id number] 9Admin Note: [id number] 10Result Comment: [07/25/2017] historical Medications amLODIPine 10 mg oral tablet 1 tablet, By Mouth, Daily, # 90 tablet, 1 Refills, Maintenance, 12/27/22 15:59:00 EDT, [facility], 167, cm, 12/23/22 9:51:00 EDT, Height, 83.8, kg, 06/17/21 13:41:00 EDT, Dry Weight Start Date: 12/27/22 Status: Ordered atenolol-chlorthalidone 100 mg-25 mg oral tablet 1 tablet, By Mouth, Daily, # 90 tablet, 1 Refills, Maintenance, 12/27/22 10:08:00 EDT, [facility], 90, TAKE 1 TABLET BY MOUTH EVERY [...] EDT, Supply Start Date: 12/23/22 Status: Ordered cyanocobalamin 1000 mcg/ml injectable solution [...] Refills, Maintenance, 12/21/22 14:36:00 EDT, Tablet, [facility], Partial fill upon patient request if the [...] Team Personnel Name: Claire Serra RN Position: S RN Member Role: Primary Care Nurse Name: Elana Warren RN Position: S RN Member Role: Primary Care Nurse Name: Hill Foley MD Position: S Physician - Primary Care Member Role: PCP Address: Address: [address] [place] [id number] Name: Katy Romo RN Position: S RN Member Role: Primary Care Nurse Name: Neha Bey RN Position: [facility] SN RN Member Role: Primary Care Nurse Name: Margarita Olson RN Position: [facility] RN Member Role: Primary Care Nurse Name: Thelma Sifuentes RN Position: [facility] RN Member Role: Primary Care Nurse Name: Loren Johnson RN Position: [facility] RN Member Role: Primary Care Nurse Name: Zaida Alan RN Position: [facility] RN Member Role: Primary Care Nurse Name: Carol Brar RN Position: [facility] Onco RN Member Role: Primary Care Nurse Name: Charlotte Thompson RN Position: [facility] Hospital Drapery Sewer Hand Member Role: Primary Care Nurse Care Team Related Persons Name: LOUIE PACHECO Address: home [address] [place] [id number] Name: LOGAN JANE Name: PRAVIN RYAN Address: [place] [address]
--- OUTSIDE RECORDS SUMMARY | 2023-06-17 12:44 | XMS_ITS | Continuity of Care Document ---
Author Name Unknown Organization [facility] Address [address] [place] [address]- Care Team Providers Care Management Technician Name Role Phone Adrianna WEBB, Natanael Yoo Primary Care Physician [facility]counter [facility] Date(s): 05/27/20 - 06/26/20 [facility] Adult [address] [place] [address]- [facility] Allergies, Adverse Reactions, Alerts Substance Reaction Severity [...] vaccine 8 09/26/16 Recorded 1Result Comment: [08/10/2018] [facility] [id number] 2Result Comment: [08/10/2018] big y[08/10/2018 Uncharted] pt states she has not had the flu vaccine this year as previously stated 3Result Comment: enterred in error 4Result Comment: [07/25/2017] [id number] 5Result Comment: [02/13/2018] [facility] 0005 1971 01 6Result Comment: [07/25/2017] [id number] 7Admin Note: [id number] 8Result Comment: [07/25/2017] historical Medications amLODIPine 10 mg oral tablet 1 tablet, By Mouth, Daily, # 90 tablet, 11 Refills, Maintenance, 12/05/19 16:46:00 EDT, [facility] STORE 85143, 164, cm, 11/27/19 13:41:00 EST, Height, 74.5, kg, 01/03/19 18:01:00 EDT, Dry Weight Start Date: 12/05/19 Status: Ordered atenolol-chlorthalidone 100 mg-25 mg oral tablet 1 tablet, By Mouth, Daily, # 90 tablet, 11 Refills, Maintenance, 12/05/19 16:47:00 EDT, [facility] STORE 23550, 90, TAKE 1 TABLET BY MOUTH EVERY DAY, 164, cm, 11/27/19 13:41:00 EST, Height, 74.5, kg, 01/03/19 18:01:00 EDT, Dry Weight Start Date: 12/05/19 Status: Ordered atorvastatin 40 mg oral tablet 1 tablet = 40 mg, By Mouth, Daily, # 90 tablet, 1 Refills, Maintenance, 12/05/19 14:01:00 EDT, [facility]/pharmacy #0693, 164, cm, 11/27/19 13:41:00 EST, Height, 74.5, kg, 01/03/19 18:01:00 EDT, Dry Weight Start Date: 12/05/19 Status: Ordered Colace sodium 100 mg oral capsule 100 mg, 1, capsule, By Mouth, 2 times a day, PRN, with plenty of water, # 20 capsule, Refills 1, Tot. Refills 1, Maintenance, for constipation, 06/13/20 8:34:00 EDT, Route to Pharmacy Electronically,[facility], 168, cm, 06/13/20 5:15:00... Start Date: 06/13/20 Status: Ordered Finacea 15% topical gel 1 application, Topically, 2 times a day, # 30 Gm, 0 Refills, Maintenance, 03/25/17 16:55:18, Gel Start Date: 03/25/17 Status: Ordered gabapentin 100 mg oral capsule 200 mg, 2, capsule, By Mouth, 3 times a day, # 84 capsule, Refills 0, Tot. Refills 0, Maintenance, 06/17/20 13:06:00 EDT, Route to Pharmacy Electronically, [facility], 167, cm, 202:46:00 EDT, Height, 85.6, kg, 06/15/20 14:56:00 ED... Start Date: 06/17/20 Stop Date: 07/01/20 Status: Ordered mupirocin 2% topical ointment small amt, Topically, 3 times a day, 0 Refills, Maintenance, 06/06/20 15:53:00 EDT Start Date: 06/06/20 Status: Ordered oxyCODONE 5 mg oral tablet 5 mg, 1, tablet, By Mouth, Every 4 hours, PRN, The patient may fill in an amount not to exceed the recommended full quantity indicated., # 20 tablet, Refills 0, Tot. Refills 0, Maintenance, for pain,06/17/20 13:06:00 EDT, Route to Pharmacy Electronic... Start Date: 06/17/20 Stop Date: 06/22/20 Status: Ordered sertraline 100 mg oral tablet 2 tablet = 200 mg, By Mouth, Daily, # 180 tablet, 0 Refills, Maintenance, 05/27/20 16:27:00 EDT, [facility]/pharmacy #0693, D/C rx on file for 100mg 1 tab daily, 164, cm, 05/24/20 8:51:00 EDT, Height, 74.5,kg, 01/03/19 18:01:00 EDT, Dry Weight Start Date: 05/27/20 Status: Ordered spironolactone 25 mg oral tablet 25 mg, 1, tablet, By Mouth, Daily, # 90 tablet, Refills 3, Tot. Refills 3, Maintenance, 11/08/19 10:43:00 EST, Route to Pharmacy Electronically, [facility]/pharmacy #[id number], 164, cm, 11/08/19 9:45:00 EST, [...] MESH VENTRALIGHT ECHO CIR 6 - BARD ([id number]) 1 Bard Unknown BÁRBARA:No Information Assigning Authority: FDA MESH VENTRALIGHT ECHO20.3X25 .4 - BARD ([id number]) 1 Bard Unknown BÁRBARA:No Information Assigning Authority: FDA
--- OUTSIDE RECORDS SUMMARY | 2023-06-17 12:44 | XMS_ITS | Continuity of Care Document ---
Author Name Unknown Organization [facility] Address [address] [place] [address]- Care Team Providers Care Card Seller Name Role Phone Alaina WEBB, Hill Jones Primary Care Physician [facility] Date(s): 09/13/22 - 10/13/22 [facility] Adult [address] [place] [address]- Attending Physician: Brady Ruelas Admitting Physician: AdmBrady molina Referring Physician: AdmtrBrady Allergies, Adverse Reactions, Alerts No Known Allergies [...] vaccine 9 09/26/16 Recorded 1Result Comment: [08/10/2018] [facility] [id number] 2Result Comment: [08/10/2018] big y[08/10/2018 Uncharted] pt states she has not had the flu vaccine this year as previously stated 3Result Comment: enterred in error 4Result Comment: [07/25/2017] [id number] 5Result Comment: influenza [facility] 6Result Comment: [02/13/2018] [facility] 0005 1971 01 7Result Comment: [07/25/2017] [id number] 8Admin Note: [id number] 9Result Comment: [07/25/2017] historical Medications atenolol-chlorthalidone 100 mg-25 mg oral tablet 1 tablet, By Mouth, Daily, # 90 tablet, 11 Refills, 12/01/21 12:21:00 EST, [facility]/pharmacy #0693, 90, 1 tablet By Mouth Daily, [...] Date: * Event Display: EKG Authored Date: Note * Event Display: Non BH Lab Results Authored Date: Patient Care team information Care Team Personnel Name: Claire Serra RN Position: [facility] RN Member Role: Primary Care Nurse Name: Hill Foley MD Position: [facility] Primary Care Physician Member Role: PCP Address: Address: [address] [place] [address]- Name: Katy Romo RN Position: [facility] RN Member Role: Primary Care Nurse Name: Neha Bey RN Position: [facility] SN RN Member Role: Primary Care Nurse Name: Margarita Olson RN Position: [facility] RN Member Role: Primary Care Nurse Name: Thelma Sifuentes RN Position: [facility] RN Member Role: Primary Care Nurse Name: Loren Johnson RN Position: [facility] RN Member Role: Primary Care Nurse Name: Zaida Alan RN Position: [facility] RN Member Role: Primary Care Nurse Name: Carol Brar RN Position: [facility] Onco RN Member Role: Primary Care Nurse Name: Charlotte Thompson RN Position: [facility] Hospital Cleaning Laborer Member Role: Primary Care Nurse Care Team Related Persons Name: LOUIE PACHECO Address: home [address] [place] [address] Name: LOGAN JANE Name: PRAVIN RYAN Address: [place] [address]
--- OUTSIDE RECORDS SUMMARY | 2023-06-17 12:44 | XMS_ITS | Continuity of Care Document ---
Author Name Unknown Organization [facility] Address [address] [place] [address]- Care Team Providers Care Inside Finisher Name Role Phone Adrianna WEBB, Natanael Yoo Primary Care Physician [facility] Date(s): 05/24/20 - 06/23/20 [facility] [address] [place] [address]- [facility] Attending Physician: Brady Ruelas Admitting Physician: Brady Ruelas Referring Physician: AdmtrBrady Allergies, Adverse Reactions, Alerts Substance Reaction Severity [...] vaccine 8 09/26/16 Recorded 1Result Comment: [08/10/2018] [facility] [id number] 403 [id number] 2Result Comment: [08/10/2018] big y[08/10/2018 Uncharted] pt states she has not had the flu vaccine this year as previously stated 3Result Comment: enterred in error 4Result Comment: [07/25/2017] [id number] 5Result Comment: [02/13/2018] [facility] 0005 1971 01 6Result Comment: [07/25/2017] [id number] 7Admin Note: [id number] 8Result Comment: [07/25/2017] historical Medications amLODIPine 10 mg oral tablet 1 tablet, By Mouth, Daily, # 90 tablet, 11 Refills, Maintenance, 12/05/19 16:46:00 EDT, [facility] STORE 00391, 164, cm, 11/27/19 13:41:00 EST, Height, 74.5, kg, 01/03/19 18:01:00 EDT, Dry Weight Start Date: 12/05/19 Status: Ordered atenolol-chlorthalidone 100 mg-25 mg oral tablet 1 tablet, By Mouth, Daily, # 90 tablet, 11 Refills, Maintenance, 12/05/19 16:47:00 EDT, [facility] STORE 51279, 90, TAKE 1 TABLET BY MOUTH EVERY DAY, 164, cm, 11/27/19 13:41:00 EST, Height, 74.5, kg, 01/03/19 18:01:00 EDT, Dry Weight Start Date: 12/05/19 Status: Ordered atorvastatin 40 mg oral tablet 1 tablet = 40 mg, By Mouth, Daily, # 90 tablet, 1 Refills, Maintenance, 12/05/19 14:01:00 EDT, [facility]/pharmacy #0693, 164, cm, 11/27/19 13:41:00 EST, Height, 74.5, kg, 01/03/19 18:01:00 EDT, Dry Weight Start Date: 12/05/19 Status: Ordered Colace sodium 100 mg oral capsule 100 mg, 1, capsule, By Mouth, 2 times a day, PRN, with plenty of water, # 20 capsule, Refills 1, Tot. Refills 1, Maintenance, for constipation, 06/13/20 8:34:00 EDT, Route to Pharmacy Electronically,[facility], 168, cm, 06/13/20 5:15:00... Start Date: [...] 06/17/20 13:06:00 EDT, Route to Pharmacy Electronically, [facility], 167, cm, :46:00 EDT, Height, 85.6, kg, 06/15/20 14:56:00 ED... [...] tablet, 0 Refills, Maintenance, 05/27/20 16:27:00 EDT, [facility]/pharmacy #0693, D/C rx on file for 100mg 1 tab daily, 164, cm, 05/24/20 8:51:00 EDT, Height, 74.5,kg, 01/03/19 18:01:00 EDT, Dry Weight Start Date: 05/27/20 Status: Ordered spironolactone 25 mg oral tablet 25 mg, 1, tablet, By Mouth, Daily, # 90 tablet, Refills 3, Tot. Refills 3, Maintenance, 11/08/19 10:43:00 EST, Route to Pharmacy Electronically, [facility]/pharmacy #0693, 164, cm, 11/08/19 9:45:00 [...] MESH VENTRALIGHT ECHO CIR 6 - BARD ([id number]) 1 Bard Unknown BÁRBARA:No Information Assigning Authority: FDA MESH VENTRALIGHT ECHO20.3X25 .4 - BARD ([id number]) 1 Bard Unknown BÁRBARA:No Information Assigning Authority: FDA
--- OUTSIDE RECORDS SUMMARY | 2023-06-17 12:44 | XMS_ITS | Continuity of Care Document ---
Author Name Unknown Organization [facility] Address [address] [place] [address]- Care Team Providers Care Soda Room Operator Name Role Phone Natanael Rodas MD Primary Care Physician [facility] Date(s): 11/19/20 - 11/26/20 [facility] Adult [address] [place] [address]- Attending Physician: Dean Rushing MD Referring Physician: Natanael Rodas MD Allergies, [...] [facility] 2Result Comment: [08/10/2018] [facility] [address] 403 [id number] 3Result Comment: [08/10/2018] big y[08/10/2018 Uncharted] pt states she has not had the flu vaccine this year as previously stated 4Result Comment: enterred in error 5Result Comment: [07/25/2017] [id number] 6Result Comment: [02/13/2018] [facility] 0005 1971 01 7Result Comment: [07/25/2017] [id number] 8Admin Note: [id number] 9Result Comment: [07/25/2017] historical Medications amLODIPine 10 mg oral tablet 1 tablet, By Mouth, Daily, # 90 tablet, 11 Refills, Maintenance, 12/05/19 16:46:00 EDT, [facility], 164, cm, 11/27/19 13:41:00 EST, Height, 74.5, kg, 01/03/19 18:01:00 EDT, Dry Weight Start Date: 12/05/19 Status: Ordered atenolol-chlorthalidone 100 mg-25 mg oral tablet 1 tablet, By Mouth, Daily, # 90 tablet, 11 Refills, Maintenance, 12/05/19 16:47:00 EDT, [facility], 90, TAKE 1 TABLET BY MOUTH EVERY DAY, 164, cm, 11/27/19 13:41:00 EST, Height, 74.5, kg, 01/03/19 18:01:00 EDT, Dry Weight Start Date: 12/05/19 Status: Ordered atorvastatin 40 mg oral tablet 1 tablet = 40 mg, By Mouth, Daily, # 90 tablet, 1 Refills, Maintenance, 12/05/19 14:01:00 EDT, [facility]/pharmacy #0693, 164, cm, 11/27/19 13:41:00 EST, Height, 74.5, kg, 01/03/19 18:01:00 EDT, Dry Weight Start Date: 12/05/19 Status: Ordered Colace sodium 100 mg oral capsule 100 mg, 1, capsule, By Mouth, 2 times a day, PRN, with plenty of water, # 20 capsule, Refills 1, Tot. Refills 1, Maintenance, for constipation, 06/13/20 8:34:00 EDT, Route to Pharmacy Electronically,[facility], 168, cm, 06/13/20 5:15:00... Start Date: 06/13/20 Status: Ordered Finacea 15% topical gel 1 application, Topically, 2 times a day, # 30 Gm, 0 Refills, Maintenance, 03/25/17 16:55:18, Gel Start Date: 03/25/17 Status: Ordered sertraline 100 mg oral tablet 2 tablet = 200 mg, By Mouth, Daily, # 180 tablet, 0 Refills, Maintenance, 05/27/20 16:27:00 EDT, [facility]/pharmacy #0693, D/C rx on file for 100mg 1 tab daily, 164, cm, 05/24/20 8:51:00 EDT, Height, 74.5,kg, 01/03/19 18:01:00 EDT, Dry Weight Start Date: 05/27/20 Status: Ordered spironolactone 25 mg oral tablet 25 mg, 1, tablet, By Mouth, Daily, # 90 tablet, Refills 3, Tot. Refills 3, Maintenance, 11/08/19 10:43:00 EST, Route to Pharmacy Electronically, [facility]/pharmacy #0693, 164, cm, 11/08/19 9:45:00 EST, [...] oldest [Reference Range]: 1 Height 167 cm (11/19/20 9:08 AM) Weight 84.09 kg (11/19/20 9:08 AM) Body Mass Index [18.5-24.99] 30.15 *>HHI* (11/19/20 9:08 AM) Weight Obtained Via Standing scale (11/19/20 9:08 AM) Social History Social History Type Response Smoking Status Former smoker entered on: 05/30/18 Sex Medical Equipment Implanted Date:06/11/20Target Site:Abdomen Description Quantity MRI [employer] Model MESH VENTRALIGHT ECHO CIR 6 - BARD ([id number]) 1 Bard Unknown BÁRBARA:No Information Assigning Authority: FDA MESH VENTRALIGHT ECHO20.3X25 .4 - BARD ([id number]) 1 Bard Unknown BÁRBARA:No Information Assigning Authority: FDA
--- OUTSIDE RECORDS SUMMARY | 2023-06-17 12:44 | XMS_ITS | Continuity of Care Document ---
Author Name Unknown Organization [facility] Address [address] [place] [address]- Care Team Providers Care Oral Health Therapist Name Role Phone Natanael Rodas MD Primary Care Physician [phone] [facility]counter [facility] Date(s): 06/16/21 - 07/17/[address] [address] Attending Physician: Natanael Rodas MD Admitting Physician: Natanael Rodas MD Referring Physician: Natanael Rodas MD Allergies, [...] vaccine 9 09/26/16 Recorded 1Result Comment: [08/10/2018] [facility] [id number] 2Result Comment: [08/10/2018] big y[08/10/2018 Uncharted] pt states she has not had the flu vaccine this year as previously stated 3Result Comment: enterred in error 4Result Comment: [07/25/2017] [id number] 5Result Comment: influenza [facility] 6Result Comment: [02/13/2018] [facility] 0005 1971 01 7Result Comment: [07/25/2017] [id number] 8Admin Note: [id number] 9Result Comment: [07/25/2017] historical Medications amLODIPine 10 mg oral tablet 1 tablet, By Mouth, Daily, # 90 tablet, 11 Refills, Maintenance, 12/05/19 16:46:00 EDT, [facility], 164, cm, 11/27/19 13:41:00 EST, Height, 74.5, kg, 01/03/19 18:01:00 EDT, Dry Weight Start Date: 12/05/19 Status: Ordered atenolol-chlorthalidone 100 mg-25 mg oral tablet 1 tablet, By Mouth, Daily, # 90 tablet, 11 Refills, Maintenance, 12/05/19 16:47:00 EDT, [facility], 90, TAKE 1 TABLET BY MOUTH EVERY DAY, 164, cm, 11/27/19 13:41:00 EST, Height, 74.5, kg, 01/03/19 18:01:00 EDT, Dry Weight Start Date: 12/05/19 Status: Ordered atorvastatin 40 mg oral tablet 1 tablet = 40 mg, By Mouth, Daily, # 90 tablet, 1 Refills, Maintenance, 12/05/19 14:01:00 ED[facility], [facility], 164, cm, 11/27/19 13:41:00 EST, Height, 74.5, kg, 01/03/19 18:01:00 EDT, Dry Weight Start Date: 12/05/19 Status: Ordered Colace sodium 100 mg oral capsule 100 mg, 1, capsule, By Mouth, 2 times a day, PRN, with plenty of water, # 20 capsule, Refills 1, Tot. Refills 1, Maintenance, for constipation, 06/13/20 8:34:00 EDT, Route to Pharmacy Electronically,[facility], 168, cm, 06/13/20 5:15:00... Start Date: 06/13/20 Status: Ordered Finacea 15% topical gel 1 application, Topically, 2 times a day, # 30 Gm, 0 Refills, Maintenance, 03/25/17 16:55:18, Gel Start Date: 03/25/17 Status: Ordered sertraline 100 mg oral tablet 2 tablet = 200 mg, By Mouth, Daily, # 180 tablet, 0 Refills, Maintenance, 05/27/20 16:27:00 EDT, [facility]/pharmacy #0693, D/C rx on file for 100mg 1 tab daily, 164, cm, 05/24/20 8:51:00 EDT, Height, 74.5,kg, 01/03/19 18:01:00 EDT, Dry Weight Start Date: 05/27/20 Status: Ordered spironolactone 25 mg oral tablet 25 mg, 1, tablet, By Mouth, Daily, # 90 tablet, Refills 3, Tot. Refills 3, Maintenance, 11/08/19 10:43:00 EST, Route to Pharmacy Electronically, [facility]/pharmacy #0693, 164, cm, 11/08/19 9:45:00 EST, Height, [...] MESH VENTRALIGHT ECHO CIR 6 - BARD ([id number]) 1 Bard Unknown BÁRBARA:No Information Assigning Authority: FDA MESH VENTRALIGHT ECHO20.3X25 .4 - BARD ([id number]) 1 Bard Unknown BÁRBARA:No Information Assigning Authority: FDA
--- OUTSIDE RECORDS SUMMARY | 2023-06-17 12:44 | XMS_ITS | Continuity of Care Document ---
Author Name Unknown Organization [facility] ter Address [address] [place] [address]- Care Team Providers Care Orientation And Mobility Instructor Name Role Phone Adrianna WEBB, Natanael Yoo Primary Care Physician [facility] Date[facility] 06/15/20 - 06/17/[address] [address]- [facility] Encounter Diagnosis Pain(Final) - 06/15/20 Abscess(Final) - 06/15/20 Discharge Disposition: A-D/C Home Attending Physician: Ian Ray MD Admitting Physician: Ian Ray MD Referring Physician: Not on Staff, Referring MD Allergies, Adverse Reactions, Alerts Substance Reaction [...] vaccine 8 09/26/16 Recorded 1Result Comment: [08/10/2018] [facility] [address] 403 [id number] 2Result Comment: [08/10/2018] big y[08/10/2018 Uncharted] pt states she has not had the flu vaccine this year as previously stated 3Result Comment: enterred in error 4Result Comment: [07/25/2017] [id number] 5Result Comment: [02/13/2018] [facility] 0005 1971 01 6Result Comment: [07/25/2017] [id number] 7Admin Note: [id number] 8Result Comment: [07/25/2017] historical Medications amLODIPine 10 mg oral tablet 1 tablet, By Mouth, Daily, # 90 tablet, 11 Refills, Maintenance, 12/05/19 16:46:00 EDT, [facility], 164, cm, 11/27/19 13:41:00 EST, Height, 74.5, kg, 01/03/19 18:01:00 EDT, Dry Weight Start Date: 12/05/19 Status: Ordered atenolol-chlorthalidone 100 mg-25 mg oral tablet 1 tablet, By Mouth, Daily, # 90 tablet, 11 Refills, Maintenance, 12/05/19 16:47:00 EDT, [facility] STORE 54202, 90, TAKE 1 TABLET BY MOUTH EVERY DAY, 164, cm, 11/27/19 13:41:00 EST, Height, 74.5, kg, 01/03/19 18:01:00 EDT, Dry Weight Start Date: 12/05/19 Status: Ordered atorvastatin 40 mg oral tablet 1 tablet = 40 mg, By Mouth, Daily, # 90 tablet, 1 Refills, Maintenance, 12/05/19 14:01:00 EDT, [facility]/pharmacy #0693, 164, cm, 11/27/19 13:41:00 EST, Height, 74.5, kg, 01/03/19 18:01:00 EDT, Dry Weight Start Date: 12/05/19 Status: Ordered Colace sodium 100 mg oral capsule 100 mg, 1, capsule, By Mouth, 2 times a day, PRN, with plenty of water, # 20 capsule, Refills 1, Tot. Refills 1, Maintenance, for constipation, 06/13/20 8:34:00 EDT, Route to Pharmacy Electronically,[facility], 168, cm, 06/13/20 5:15:00... Start Date: [...] 06/17/20 13:06:00 EDT, Route to Pharmacy Electronically, [facility], 167, cm, :46:00 EDT, [...] tablet, 0 Refills, Maintenance, 05/27/20 16:27:00 EDT, [facility]/pharmacy #0693, D/C rx on file for 100mg 1 tab daily, 164, cm, 05/24/20 8:51:00 EDT, Height, 74.5,kg, 01/03/19 18:01:00 EDT, Dry Weight Start Date: 05/27/20 Status: Ordered spironolactone 25 mg oral tablet 25 mg, 1, tablet, By Mouth, Daily, # 90 tablet, Refills 3, Tot. Refills 3, Maintenance, 11/08/19 10:43:00 EST, Route to Pharmacy Electronically, [facility]/pharmacy #0693, 164, cm, 11/08/19 9:45:00 EST, [...] Most recent to oldest [Reference Range]: 1 2 3 Height 167 cm (06/17/20 2:46 AM) 167 cm (06/16/20 10:57 PM) 167 cm (06/16/20 8:08 PM) Weight 85.6 kg (06/15/20 2:56 PM) 82 kg (06/15/20 9:36 AM) Oxygen Saturation [94-100 %] 94 % (06/17/20 11:00 AM) 93 % *L* (06/17/20 7:00 AM) 98 % (06/17/20 2:46 AM) Pulse Rate [55-90 bpm] 57 bpm (06/17/20 11:00 AM) 54 bpm *L* (06/17/20 7:00 AM) 60 bpm (06/17/20 2:46 AM) Body Mass Index [18.5-24.99] 30.69 *>HHI* (06/15/20 2:56 PM) Blood Pressure [90-138/55-84 mm Hg] 115/80mm Hg (06/17/20 11:00 AM) 126/80mm Hg (06/17/20 8:35 AM) 126/80mm Hg (06/17/20 7:00 AM) Respiratory Rate [16-30 br/min] 18 br/min (06/17/20 2:58 PM) 18 br/min (06/17/20 2:53 PM) 18 br/min (06/17/20 11:00 AM) Temperature [96.8-100.4 DegF] 97.9 DegF (06/17/20 11:00 AM) 98.4 DegF (06/17/20 7:00 AM) 97.3 DegF (06/17/20 2:46 AM) Mode of Delivery (Oxygen) Room air (06/17/20 11:00 AM) Room air (06/17/20 7:00 AM) Room air (06/17/20 2:46 AM) Blood pressure sites Arm, left (06/17/20 11:00 AM) Arm, left (06/17/20 7:00 AM) Arm, right (06/16/20 11:18 AM) Temperature Route Oral (06/17/20 11:00 AM) Oral (06/17/20 7:00 AM) Oral (06/17/20 2:46 AM) Dry Weight 85.6 kg (06/15/20 2:56 PM) Weight Obtained Via Bed scale (06/15/20 2:56 PM) Dry Weight Obtained Via Bed scale (06/15/20 2:56 PM) Social History Social History Type Response Smoking Status Former smoker entered on: 05/30/18 Sex Medical Equipment Implanted Date:06/11/20Target Site:Abdomen Description Quantity [employer] Model MESH VENTRALIGHT ECHO CIR 6 - BARD ([id number]) 1 Bard Unknown BÁRBARA:No Information Assigning Authority: FDA MESH VENTRALIGHT ECHO20.3X25 .4 - BARD ([id number]) 1 Bard Unknown BÁRBARA:No Information Assigning Authority: FDA
--- OUTSIDE RECORDS SUMMARY | 2023-06-17 12:44 | XMS_ITS | Continuity of Care Document ---
Author Name Unknown Organization [facility] Address [address] [place] [address]- Care Team Providers Care Tank Builder Helper Name Role Phone Hill Foley MD Primary Care Physician [facility] Date(s): 10/14/22 - 11/13/22 [facility] Adult [address] [place] [address]- Allergies, Adverse Reactions, Alerts No Known Allergies Immunizations Given and Recorded Vaccine Date Status Refusal Reason influenza virus vaccine, inactivated 1 11/02/22 Gi sarah influenza virus vaccine, inactivated 07/01/21 Sundeep rded influenza virus vaccine, inactivated 2 08/10/18 Gi sarah influenza virus vaccine, inactivated 3 07/19/18 Re corded influenza virus vaccine, inactivated 4, 5 07/25/17 Given zoster vaccine, inactivated 09/06/22 Recorded [id number] 12y+ bivalent booster vax 09/06/22 Recorded SARS-CoV-2 mRNA (ieankzu-bkog-oomde) vax 03/24/22 Recorded SARS-CoV-2 (COVID-19) mRNA BNT-162b2 [...] 09/26/16 Recorde d 1Result Comment: Flu HD [facility]#38131-431-71 2Result Comment: [08/10/2018] [facility] [address] 403 [id number] 3Result Comment: [08/10/2018] big y[08/10/2018 Uncharted] pt states she has not had the flu vaccine this year as previously stated 4Result Comment: enterred in error 5Result Comment: [07/25/2017] [id number] 6Result Comment: influenza [facility] 7Result Comment: [02/13/2018] [facility] 0005 1971 01 8Result Comment: [07/25/2017] [id number] 9Admin Note: [id number] 10Result Comment: [07/25/2017] historical Medications atenolol-chlorthalidone 100 mg-25 mg oral tablet 1 tablet, By Mouth, Daily, # 90 tablet, 11 Refills, 12/01/21 12:21:00 EST, [facility]/pharmacy #0693, 90, 1 tablet By Mouth Daily, [...] Team Personnel Name: Claire Serra RN Position: [facility] RN Member Role: Primary Care Nurse Name: Hill Foley MD Position: [facility] Primary Care Physician Member Role: PCP Address: Address: [address] [place] [address]- Name: Katy Romo RN Position: [facility] RN Member Role: Primary Care Nurse Name: Neha Bey RN Position: [facility] SN RN Member Role: Primary Care Nurse Name: Margarita Olson RN Position: [facility] RN Member Role: Primary Care Nurse Name: Thelma Sifuentes RN Position: [facility] RN Member Role: Primary Care Nurse Name: Loren Johnson RN Position: [facility] RN Member Role: Primary Care Nurse Name: Zaida Alan RN Position: [facility] RN Member Role: Primary Care Nurse Name: Carol Brar RN Position: [facility] Onco RN Member Role: Primary Care Nurse Name: Charlotte Thompson RN Position: [facility] Hospital Retail Service Representative Member Role: Primary Care Nurse Care Team Related Persons Name: LOUIE PACEHCO Address: home [address] [place] [id number] Name: LOGAN JANE Name: PRAVIN RYAN Address: [place] [address]
--- OUTSIDE RECORDS SUMMARY | 2023-06-17 12:44 | XMS_ITS | Continuity of Care Document ---
Author Name Unknown Organization [facility] Address [address] [place] [address]- Care Team Providers Care Sales Development Director Name Role Phone Alaina WEBB, Hill Jones Primary Care Physician Encounter [facility] Date(s): 07/23/22 - 10/07/22 [facility] [address] [place] [id number] Attending Physician: Nai Ayon MD Admitting Physician: Nai Ayon MD Referring Physician: Hill Foley MD Allergies, [...] vaccine 9 09/26/16 Recorded 1Result Comment: [08/10/2018] [facility] [address] 403 [id number] 2Result Comment: [08/10/2018] big y[08/10/2018 Uncharted] pt states she has not had the flu vaccine this year as previously stated 3Result Comment: enterred in error 4Result Comment: [07/25/2017] [id number] 5Result Comment: influenza [facility] 6Result Comment: [02/13/2018] [facility] 0005 1971 01 7Result Comment: [07/25/2017] [id number] 8Admin Note: [id number] 9Result Comment: [07/25/2017] historical Medications atenolol-chlorthalidone 100 mg-25 mg oral tablet 1 tablet, By Mouth, Daily, # 90 tablet, 11 Refills, 12/01/21 12:21:00 EST, [facility]/pharmacy #0693, 90, 1 tablet By Mouth [...] Team Personnel Name: Claire Serra RN Position: [facility] RN Member Role: Primary Care Nurse Name: Hill Foley MD Position: [facility] Primary Care Physician Member Role: PCP Address: Address: [address] [place] [address]- Name: Katy Romo RN Position: [facility] RN Member Role: Primary Care Nurse Name: Neha Bey RN Position: [facility] SN RN Member Role: Primary Care Nurse Name: Margarita Olson RN Position: [facility] RN Member Role: Primary Care Nurse Name: Thelma Sifuentes RN Position: [facility] RN Member Role: Primary Care Nurse Name: Loren Johnson RN Position: [facility] RN Member Role: Primary Care Nurse Name: Zaida Alan RN Position: [facility] RN Member Role: Primary Care Nurse Name: Carol Brar RN Position: [facility] Onco RN Member Role: Primary Care Nurse Name: Charlotte Thompson RN Position: [facility] Hospital Telecasting Engineer Member Role: Primary Care Nurse Care Team Related Persons Name: LOUIE PACHECO Address: home [address] [place] [address] Name: LOGAN JANE Name: PRAVIN RYAN Address: [place] [address]
--- OUTSIDE RECORDS SUMMARY | 2023-06-17 12:44 | XMS_ITS | Continuity of Care Document ---
Author Name Unknown Organization [facility] lt Address [address] [place] [address]- Care Team Providers Care Extractions Technologist Name Role Phone Hill Foley MD Primary Care Physician Encounter [facility] Date(s): 05/13/23 - 05/20/[address] [facility] Adult [address] [place] [address]- Attending Physician: Hill Foley MD Allergies, Adverse Reactions, Alerts No Known Allergies Immunizations Given and Recorded Vaccine Date Status Refusal Reason pneumococcal 20-valent conjugate vaccine 04/22/23 Recorded influenza virus vaccine, inactivated 1 11/02/22 Gi sarah influenza virus vaccine, inactivated 07/01/21 Sundeep rded influenza virus vaccine, inactivated 2 08/10/18 Gi sarah zoster vaccine, inactivated 09/06/22 Recorded [id number] 12y+ bivalent booster vax 09/06/22 Recorded SARS-CoV-2 mRNA (lyajshh-pvsh-mgocc) vax 03/24/22 Recorded SARS-CoV-2 (COVID-19) mRNA BNT-162b2 [...] 7 09/26/16 Recorded 1Result Comment: Flu HD [facility]#90800-314-01 2Result Comment: [08/10/2018] [facility] [address] 403 65 3Result Comment: influenza [facility] 4Result Comment: [02/13/2018] [facility] 0005 1971 01 5Result Comment: [07/25/2017] [id number] 6Admin Note: [id number] 7Result Comment: [07/25/2017] historical Medications amLODIPine 10 mg oral tablet 1 tablet, By Mouth, Daily, # 90 tablet, 1 Refills, Maintenance, 12/27/22 15:59:00 EDT, [facility]/pharmacy#0693, 167, cm, 12/23/22 9:51:00 EDT, Height, 83.8, [...] Refills, Maintenance, 12/27/22 10:08:00 EDT, [facility], 90, TAKE 1 TABLET BY MOUTH EVERY DAY, 167, cm, 12/23/22 9:51:00 EDT, Height, 83.8, kg, 06/17/2113:41:00 EDT, Dry Weight Start Date: 12/27/22 Status: Ordered atorvastatin 80 mg oral tablet 1 tablet, By Mouth, Daily, # 90 tablet, 1 Refills, Maintenance, 12/27/22 10:10:00 EDT, [facility]/pharmacy#0693, 167, cm, 12/23/22 9:51:00 EDT, Height, 83.8, [...] Refills, Maintenance, 12/21/22 14:36:00 EDT, Tablet, [facility], Partial fill upon patient request if the [...] Active 1F/U with Vascular 05/2022 2Echo 2021 Vital Signs Most recent to oldest [Reference Range]: 1 Height 168 cm (05/13/23 3:07 PM) Weight 90.5 kg (05/13/23 3:07 PM) Oxygen Saturation [94-100 %] 93 % *L* (05/13/23 3:07 PM) Pulse Rate [55-90 bpm] 57 bpm (05/13/23 3:07 PM) Body Mass Index [18.5-24.99 kg/m2] 32.06 kg/m2 *>HHI* (05/13/23 3:07 PM) Blood Pressure [90-138/55-84 mm Hg] 108/ 61mm Hg (05/13/23 3:07 PM) Mode of Delivery (Oxygen) Room air (05/13/23 3:07 PM) Blood pressure sites Arm, left (05/13/23 3:07 PM) Weight Obtained Via Standing scale (05/13/23 3:07 PM) Social History Social History Type Response Smoking Status Former smoker; Other : 0.5 ppd x 15 yrs. quit in s.; entered on: 03/25/17 Sex Implantable Device List [...] Team Personnel Name: Claire Serra RN Position: [facility] RN Member Role: Primary Care Nurse Name: Elana Warren RN Position: [facility] RN Member Role: Primary Care Nurse Name: Hill Foley MD Position: [facility] Physician - Primary Care Member Role: PCP Address: Address: [address] [place] [id number] Name: Christy Peacock RN Position: [facility] RN Member Role: Primary Care Nurse Name: Katy Romo RN Position: [facility] RN Member Role: Primary Care Nurse Name: Neha Bey RN Position: [facility] SN RN Member Role: Primary Care Nurse Name: Zayra Arevalo RN Position: [facility] RN Member Role: Primary Care Nurse Name: Margarita Olson RN Position: [facility] RN Member Role: Primary Care Nurse Name: Thelma Sifuentes RN Position: [facility] RN Member Role: Primary Care Nurse Name: Kandi Cabrera Position: [facility] Cattle Sprayer Member Role: Coil Maker Name: Jyoti Caal RN Position: [facility] RN Member Role: Primary Care Nurse Name: Loren Johnson RN Position: [facility] RN Member Role: Primary Care Nurse Name: Zaida Alan RN Position: [facility] RN Member Role: Primary Care Nurse Name: Carol Brar RN Position: [facility] Onco RN Member Role: Primary Care Nurse Name: Charlotte Thompson RN Position: [facility] Hospital Decatizer Member Role: Primary Care Nurse Care Team Related Persons Name: JUNIOR LOUIE Address: home [address] [place] [address] Name: LOGAN JANE Name: PRAVIN RYAN Address: [facility] [place] [address]
--- OUTSIDE RECORDS SUMMARY | 2023-06-17 12:44 | XMS_ITS | Continuity of Care Document ---
Author Name Unknown Organization [facility] Milind lt Address [address] [place] [address]- Care Team Providers Care Batch Room Technician Name Role Phone Alaina WEBB, Hill Jones Primary Care Physician [facility] Date[facility]s): 09/14/22 - 10/14/22 [facility] Adult [address] [place] [address]- Allergies, Adverse Reactions, Alerts No Known Allergies [...] vaccine 9 09/26/16 Recorded 1Result Comment: [08/10/2018] [facility] [address] 403 [id number] 2Result Comment: [08/10/2018] big y[08/10/2018 Uncharted] pt states she has not had the flu vaccine this year as previously stated 3Result Comment: enterred in error 4Result Comment: [07/25/2017] [id number] 5Result Comment: influenza [facility] 6Result Comment: [02/13/2018] [facility] 0005 1971 01 7Result Comment: [07/25/2017] [id number] 8Admin Note: [id number] 9Result Comment: [07/25/2017] historical Medications atenolol-chlorthalidone 100 mg-25 mg oral tablet 1 tablet, By Mouth, Daily, # 90 tablet, 11 Refills, 12/01/21 12:21:00 EST, [facility]/pharmacy #0693, 90, 1 tablet By Mouth Daily, 168, cm, 12/01/21 11:53:00 EST, Height, 83.8, kg, 06/17/21 13:41:00 EDT, Dry Weight Start Date: 12/01/21 Status: Ordered atorvastatin 80 mg oral tablet 1 tablet = 80 mg, By Mouth, Daily, DOSAGE INCREASE, # 90 tablet, 1 Refills, Maintenance, 12/10/21 11:32:00 EDT, Tablet, [facility]/pharmacy #0693, Partial fill upon patient request [...] Team Personnel Name: Claire Serra RN Position: [facility] RN Member Role: Primary Care Nurse Name: Hill Foley MD Position: [facility] Primary Care Physician Member Role: PCP Address: Address: [address] [place] [address]- Name: Katy Romo RN Position: [facility] RN Member Role: Primary Care Nurse Name: Neha Bey RN Position: [facility] SN RN Member Role: Primary Care Nurse Name: Margarita Olson RN Position: [facility] RN Member Role: Primary Care Nurse Name: Thelma Sifuentes RN Position: [facility] RN Member Role: Primary Care Nurse Name: Loren Johnson RN Position: [facility] RN Member Role: Primary Care Nurse Name: Zaida Alan RN Position: [facility] RN Member Role: Primary Care Nurse Name: Carol Brar RN Position: [facility] Onco RN Member Role: Primary Care Nurse Name: Charlotte Thompson RN Position: [facility] Hospital Service Station Operator Member Role: Primary Care Nurse Care Team Related Persons Name: LOUIE PACHECO Address: home [address] [place] [address] Name: LOGAN JANE Name: PRAVIN RYAN Address: [place] [address]
--- OUTSIDE RECORDS SUMMARY | 2023-06-17 12:44 | XMS_ITS | Continuity of Care Document ---
Author Name Unknown Organization [facility] Mil[facility] lt Address [address] [place] [address]- Care Team Providers Care Veterans Employment Representative Name Role Phone Natanael Rodas MD Primary Care Physician [phone] Encounter [facility] Date(s): 10/28/20 - 11/27/20 [facility] Adult [address] [place] [address]- Allergies, Adverse Reactions, Alerts Substance Reaction Severity [...] 1Result Comment: influenza [facility] 2Result Comment: [08/10/2018] [facility] [id number] 403 [id number] 3Result Comment: [08/10/2018] big y[08/10/2018 Uncharted] pt states she has not had the flu vaccine this year as previously stated 4Result Comment: enterred in error 5Result Comment: [07/25/2017] [id number] 6Result Comment: [02/13/2018] [facility] 0005 1971 01 7Result Comment: [07/25/2017] [id number] 8Admin Note: [id number] 9Result Comment: [07/25/2017] historical Medications amLODIPine 10 mg oral tablet 1 tablet, By Mouth, Daily, # 90 tablet, 11 Refills, Maintenance, 12/05/19 16:46:00 EDT, [facility], 164, cm, 11/27/19 13:41:00 EST, Height, 74.5, kg, 01/03/19 18:01:00 EDT, Dry Weight Start Date: 12/05/19 Status: Ordered atenolol-chlorthalidone 100 mg-25 mg oral tablet 1 tablet, By Mouth, Daily, # 90 tablet, 11 Refills, Maintenance, 12/05/19 16:47:00 EDT, [facility], 90, TAKE 1 TABLET BY MOUTH EVERY DAY, 164, cm, 11/27/19 13:41:00 EST, Height, 74.5, kg, 01/03/19 18:01:00 EDT, Dry Weight Start Date: 12/05/19 Status: Ordered atorvastatin 40 mg oral tablet 1 tablet = 40 mg, By Mouth, Daily, # 90 tablet, 1 Refills, Maintenance, 12/05/19 14:01:00 EDT, [facility]/pharmacy #0693, 164, cm, 11/27/19 13:41:00 EST, Height, 74.5, kg, 01/03/19 18:01:00 EDT, Dry Weight Start Date: 12/05/19 Status: Ordered Colace sodium 100 mg oral capsule 100 mg, 1, capsule, By Mouth, 2 times a day, PRN, with plenty of water, # 20 capsule, Refills 1, Tot. Refills 1, Maintenance, for constipation, 06/13/20 8:34:00 EDT, Route to Pharmacy Electronically,[facility], 168, cm, 06/13/20 5:15:00... Start Date: 06/13/20 Status: Ordered Finacea 15% topical gel 1 application, Topically, 2 times a day, # 30 Gm, 0 Refills, Maintenance, 03/25/17 16:55:18, Gel Start Date: 03/25/17 Status: Ordered sertraline 100 mg oral tablet 2 tablet = 200 mg, By Mouth, Daily, # 180 tablet, 0 Refills, Maintenance, 05/27/20 16:27:00 EDT, [facility]/pharmacy #0693, D/C rx on file for 100mg 1 tab daily, 164, cm, 05/24/20 8:51:00 EDT, Height, 74.5,kg, 01/03/19 18:01:00 EDT, Dry Weight Start Date: 05/27/20 Status: Ordered spironolactone 25 mg oral tablet 25 mg, 1, tablet, By Mouth, Daily, # 90 tablet, Refills 3, Tot. Refills 3, Maintenance, 11/08/19 10:43:00 EST, Route to Pharmacy Electronically, [facility]/pharmacy #[id number], 164, cm, 11/08/19 9:45:00 [...] MESH VENTRALIGHT ECHO CIR 6 - BARD ([id number]) 1 Bard Unknown BÁRBARA:No Information Assigning Authority: FDA MESH VENTRALIGHT ECHO20.3X25 .4 - BARD ([id number]) 1 Bard Unknown BÁRBARA:No Information Assigning Authority: FDA
--- OUTSIDE RECORDS SUMMARY | 2023-06-17 12:44 | XMS_ITS | Continuity of Care Document ---
Author Name Unknown Organization [facility] Milind Address [address] [place] [address]- Care Team Providers Care Greenhouse Or Nursery Transplanter Name Role Phone Natanael Rodas MD Primary Care Physician [phone] [facility] Date[facility]): 06/09/21 - 07/09/21 [facility] Adult [address] [place] [address]- Allergies, Adverse Reactions, Alerts Substance Reaction Severity [...] vaccine 9 09/26/16 Recorded 1Result Comment: [08/10/2018] [facility] [id number] 2Result Comment: [08/10/2018] big y[08/10/2018 Uncharted] pt states she has not had the flu vaccine this year as previously stated 3Result Comment: enterred in error 4Result Comment: [07/25/2017] [id number] 5Result Comment: influenza [facility] 6Result Comment: [02/13/2018] [facility] 0005 1971 01 7Result Comment: [07/25/2017] [id number] 8Admin Note: [id number] 9Result Comment: [07/25/2017] historical Medications amLODIPine 10 mg oral tablet 1 tablet, By Mouth, Daily, # 90 tablet, 11 Refills, Maintenance, 12/05/19 16:46:00 EDT, [facility], 164, cm, 11/27/19 13:41:00 EST, Height, 74.5, kg, 01/03/19 18:01:00 EDT, Dry Weight Start Date: 12/05/19 Status: Ordered atenolol-chlorthalidone 100 mg-25 mg oral tablet 1 tablet, By Mouth, Daily, # 90 tablet, 11 Refills, Maintenance, 12/05/19 16:47:00 EDT, [facility], 90, TAKE 1 TABLET BY MOUTH EVERY DAY, 164, cm, 11/27/19 13:41:00 EST, Height, 74.5, kg, 01/03/19 18:01:00 EDT, Dry Weight Start Date: 12/05/19 Status: Ordered atorvastatin 40 mg oral tablet 1 tablet = 40 mg, By Mouth, Daily, # 90 tablet, 1 Refills, Maintenance, 12/05/19 14:01:00 EDT, [facility]/pharmacy #0693, 164, cm, 11/27/19 13:41:00 EST, Height, 74.5, kg, 01/03/19 18:01:00 EDT, Dry Weight Start Date: 12/05/19 Status: Ordered Colace sodium 100 mg oral capsule 100 mg, 1, capsule, By Mouth, 2 times a day, PRN, with plenty of water, # 20 capsule, Refills 1, Tot. Refills 1, Maintenance, for constipation, 06/13/20 8:34:00 EDT, Route to Pharmacy Electronically,[facility], 168, cm, 06/13/20 5:15:00... Start Date: 06/13/20 Status: Ordered Finacea 15% topical gel 1 application, Topically, 2 times a day, # 30 Gm, 0 Refills, Maintenance, 03/25/17 16:55:18, Gel Start Date: 03/25/17 Status: Ordered sertraline 100 mg oral tablet 2 tablet = 200 mg, By Mouth, Daily, # 180 tablet, 0 Refills, Maintenance, 05/27/20 16:27:00 EDT, [facility]/pharmacy #0693, D/C rx on file for 100mg 1 tab daily, 164, cm, 05/24/20 8:51:00 EDT, Height, 74.5,kg, 01/03/19 18:01:00 EDT, Dry Weight Start Date: 05/27/20 Status: Ordered spironolactone 25 mg oral tablet 25 mg, 1, tablet, By Mouth, Daily, # 90 tablet, Refills 3, Tot. Refills 3, Maintenance, 11/08/19 10:43:00 EST, [facility] to [facility], [facility], 164, cm, 11/08/19 9:45:00 EST, Height, [...] MESH VENTRALIGHT ECHO CIR 6 - BARD ([id number]) 1 Bard Unknown BÁRBARA:No Information Assigning Authority: FDA MESH VENTRALIGHT ECHO20.3X25 .4 - BARD ([id number]) 1 Bard Unknown BÁRBARA:No Information Assigning Authority: FDA
--- OUTSIDE RECORDS SUMMARY | 2023-06-17 12:44 | XMS_ITS | Continuity of Care Document ---
Author Name Unknown Organization [facility] Milind lt Address [address] [place] [address]- Care Team Providers Care Dbas Name Role Phone Hill Foley MD Primary Care Physician [phone] [facility] 04/05/22 - 04/12/22 [facility] Adult [address] [place] [address]- Attending Physician: Hill Foley MD Allergies, Adverse [...] vaccine 9 09/26/16 Recorded 1Result Comment: [08/10/2018] [facility] [id number] 2Result Comment: [08/10/2018] big y[08/10/2018 Uncharted] pt states she has not had the flu vaccine this year as previously stated 3Result Comment: enterred in error 4Result Comment: [07/25/2017] [id number] 5Result Comment: influenza [facility] 6Result Comment: [02/13/2018] [facility] 0005 1971 01 7Result Comment: [07/25/2017] [id number] 8Admin Note: [id number] 9Result Comment: [07/25/2017] historical Medications atenolol-chlorthalidone 100 mg-25 mg oral tablet 1 tablet, By Mouth, Daily, # 90 tablet, 11 Refills, 12/01/21 12:21:00 EST, [facility], 90, 1 tablet By Mouth Daily, [...] EST, Supply Start Date: 12/01/21 Status: Ordered Centrum Silver Ultra Women's oral [...] opioid drug. Start Date: 12/14/21 Status: Ordered Finacea 15% topical gel 1 [...] Date: 12/01/21 Status: Ordered Problem List Condition Effective Dates Status Health Status Inform ant AAA - Abdominal aortic aneur ysm - 4.1 cm, next CTA due 05/2021(Confirmed) 1 Active Benign hypertension(Confirmed) Active Vitamin B 12 deficiency(Confirmed) Active History of osteopenia(Confirmed) Active Personal history of colonic polyps(Confirmed) Active Hyperlipidemia(Confirmed) Active Depression, major, in partia l remission(Confirmed) Active Abnormal pulmonary function test(Confirmed) Active Varicose vein of leg(Confirmed) Active Edema of both lower legs due to peripheral venous insufficiency(Confirmed) Active 1F/U with Vascular 05/2022 Social History Social History Type Response Smoking Status Former smoker entered on: 05/30/18 Sex Medical Equipment Implanted Date:06/11/20Target Site:Abdomen Description Quantity MRI Company Model MESH VENTRALIGHT ECHO CIR 6 - BARD ([id number]) 1 Bard Unknown BÁRBARA:No Information Assigning Authority: FDA MESH VENTRALIGHT ECHO20.3X25 .4 - BARD ([id number]) 1 Bard Unknown BÁRBARA:No Information Assigning Authority: FDA
--- OUTSIDE RECORDS SUMMARY | 2023-06-17 12:44 | XMS_ITS | Continuity of Care Document ---
Author Name Unknown Organization [facility] Milind lt Address [address] [place] [address]- Care Team Providers Care Wheel Blocker Name Role Phone Hill Foley MD Primary Care Physician [phone] Encounter [facility] Date(s): 12/01/22 - 12/31/22 [facility] [place] Adult [address] [place] [address]- Allergies, Adverse Reactions, Alerts No Known Allergies Immunizations Given and Recorded Vaccine Date Status Refusal Reason influenza virus vaccine, inactivated 1 11/02/22 Gi sarah influenza virus vaccine, inactivated 07/01/21 Sundeep rded influenza virus vaccine, inactivated 2 08/10/18 Gi sarah influenza virus vaccine, inactivated 3 07/19/18 Re corded influenza virus vaccine, inactivated 4, 5 07/25/17 Given zoster vaccine, inactivated 09/06/22 Recorded [id number] 12y+ bivalent booster vax 09/06/22 Recorded SARS-CoV-2 mRNA ([id number]) vax 03/24/22 Recorded SARS-CoV-2 (COVID-19) mRNA BNT-162b2 [...] 09/26/16 Recorde d 1Result Comment: Flu [facility]#[id number] 2Result Comment: [08/10/2018] [facility] [id number] 3Result Comment: [08/10/2018] big y[08/10/2018 Uncharted] pt states she has not had the flu vaccine this year as previously stated 4Result Comment: enterred in error 5Result Comment: [07/25/2017] [id number] 6Result Comment: influenza [facility] 7Result Comment: [02/13/2018] [facility] 0005 1971 01 8Result Comment: [07/25/2017] [id number] 9Admin Note: [id number] 10Result Comment: [07/25/2017] historical Medications amLODIPine 10 [...] Refills, Maintenance, 12/27/22 10:08:00 EDT, [facility], 90, TAKE 1 TABLET BY MOUTH EVERY [...] Refills, Maintenance, 12/21/22 14:36:00 EDT, Tablet, [facility], Partial fill upon patient request if the [...] Care Nurse Name: Hill Foley MD Position: [facility] Primary Care Physician Member Role: PCP Address: Address: [address] [place] [id number] Name: Katy Romo RN Position: S RN Member Role: Primary Care Nurse Name: Neha Bey RN Position: [facility] SN RN Member Role: Primary Care Nurse Name: Margariat Olson RN Position: [facility] RN Member Role: Primary Care Nurse Name: Thelma Sifuentes RN Position: [facility] RN Member Role: Primary Care Nurse Name: Loren Johnson RN Position: [facility] RN Member Role: Primary Care Nurse Name: Zaida Alan RN Position: [facility] RN Member Role: Primary Care Nurse Name: Carol Brar RN Position: [facility] Onco RN Member Role: Primary Care Nurse Name: Charlotte Thompson RN Position: [facility] Hospital Labor Law Professor Member Role: Primary Care Nurse Care Team Related Persons Name: LOUIE PACHCEO Address: home [address] [place] [id number] Name: LOGAN JANE Name: PRAVIN RYAN Address: [place] [address]
--- OUTSIDE RECORDS SUMMARY | 2023-06-17 12:45 | XMS_ITS | Continuity of Care Document ---
Author Name Unknown Organization [facility] Milind Address [address] [place] [address]- Care Team Providers Care Physics And Astronomy Professor Name Role Phone Hill Foley MD Primary Care Physician Encounter [facility] Date(s): 12/28/21 - 01/04/22 [facility] Adult [address] [place] [address]- Attending Physician: Hill oFley MD Allergies, Adverse Reactions, Alerts No Known [...] vaccine 9 09/26/16 Recorded 1Result Comment: [08/10/2018] [facility] [id number] 2Result Comment: [08/10/2018] big y[08/10/2018 Uncharted] pt states she has not had the flu vaccine this year as previously stated 3Result Comment: enterred in error 4Result Comment: [07/25/2017] [id number] 5Result Comment: influenza [facility] 6Result Comment: [02/13/2018] [facility] 0005 1971 01 7Result Comment: [07/25/2017] [id number] 8Admin Note: [id number] 9Result Comment: [07/25/2017] historical Medications amLODIPine 5 mg oral tablet 5 mg, 1, tablet, By Mouth, Daily, # 90 tablet, Refills 1, Tot. Refills 1, Maintenance, 12/24/21 11:13:00 EDT, Do Not Route, Partial fill upon patient request if the prescription is for a schedule II opioid drug. Start Date: 12/24/21 Status: Ordered atenolol-chlorthalidone 100 mg-25 mg oral [...] 1 Refills, Maintenance, 12/10/21 11:32:00 EDT, Tablet, [facility]/pharmacy #0693, Partial fill upon patient request if [...] Depression, major, in partia l remission(Confirmed) Active Varicose vein of leg(Confirmed) Active Edema of both lower legs due to peripheral venous insufficiency(Confirmed) Active Social History Social History Type Response Smoking Status Former smoker entered on: 05/30/18 Sex Medical Equipment Implanted Date:06/11/20Target Site:Abdomen Description Quantity MRI Company Model MESH VENTRALIGHT ECHO CIR 6 - BARD ([id number]) 1 Bard Unknown BÁRBARA:No Information Assigning Authority: FDA MESH VENTRALIGHT ECHO20.3X25 .4 - BARD ([id number]) 1 Bard Unknown BÁRBARA:No Information Assigning Authority: FDA
--- OUTSIDE RECORDS SUMMARY | 2023-06-17 12:45 | XMS_ITS | Continuity of Care Document ---
Author Name Unknown Organization [facility] Milind Address [address] [place] [address]- Care Team Providers Care Setter Machine Name Role Phone Natanael Rodas MD Primary Care Physician [facility]s): 06/19/20 - 06/26/20 [facility] Adult [address] [place] [address]- [facility] Encounter Diagnosis Abdominal pain in female(Discharge Diagnosis) - 06/19/20 Attending Physician: Natanael Rodas MD Allergies, Adverse [...] vaccine 8 09/26/16 Recorded 1Result Comment: [08/10/2018] [facility] [id number] 403 65 2Result Comment: [08/10/2018] big y[08/10/2018 Uncharted] pt states she has not had the flu vaccine this year as previously stated 3Result Comment: enterred in error 4Result Comment: [07/25/2017] [id number] 5Result Comment: [02/13/2018] [facility] 0005 1971 01 6Result Comment: [07/25/2017] [id number] 7Admin Note: [id number] 8Result Comment: [07/25/2017] historical Medications amLODIPine 10 mg oral tablet 1 tablet, By Mouth, Daily, # 90 tablet, 11 Refills, Maintenance, 12/05/19 16:46:00 EDT, [facility], 164, cm, 11/27/19 13:41:00 EST, Height, 74.5, kg, 01/03/19 18:01:00 EDT, Dry Weight Start Date: 12/05/19 Status: Ordered atenolol-chlorthalidone 100 mg-25 mg oral tablet 1 tablet, By Mouth, Daily, # 90 tablet, 11 Refills, Maintenance, 12/05/19 16:47:00 EDT, [facility], 90, TAKE 1 TABLET BY MOUTH EVERY DAY, 164, cm, 11/27/19 13:41:00 EST, Height, 74.5, kg, 01/03/19 18:01:00 EDT, Dry Weight Start Date: 12/05/19 Status: Ordered atorvastatin 40 mg oral tablet 1 tablet = 40 mg, By Mouth, Daily, # 90 tablet, 1 Refills, Maintenance, 12/05/19 14:01:00 EDT, [facility]/pharmacy #0693, 164, cm, 11/27/19 13:41:00 EST, Height, 74.5, kg, 01/03/19 18:01:00 EDT, Dry Weight Start Date: 12/05/19 Status: Ordered Colace sodium 100 mg oral capsule 100 mg, 1, capsule, By Mouth, 2 times a day, PRN, with plenty of water, # 20 capsule, Refills 1, Tot. Refills 1, Maintenance, for constipation, 06/13/20 8:34:00 EDT, Route to Pharmacy Electronically,[facility], 168, cm, 06/13/20 5:15:00... [...] 06/17/20 13:06:00 EDT, Route to Pharmacy Electronically, [facility], 167, cm, 202:46:00 EDT, Height, 85.6, [...] tablet, 0 Refills, Maintenance, 05/27/20 16:27:00 EDT, [facility]/pharmacy #0693, D/C rx on file for 100mg 1 tab daily, 164, cm, 05/24/20 8:51:00 EDT, Height, 74.5,kg, 01/03/19 18:01:00 EDT, Dry Weight Start Date: 05/27/20 Status: Ordered spironolactone 25 mg oral tablet 25 mg, 1, tablet, By Mouth, Daily, # 90 tablet, Refills 3, Tot. 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
--- OUTSIDE RECORDS SUMMARY | 2023-06-17 12:45 | XMS_ITS | Continuity of Care Document ---
Author Name Unknown Organization [facility] Milind lt Address [address] [place] [address]- Care Team Providers Care Clinical Research Spec Name Role Phone Alaina WEBB, Hill Jones Primary Care Physician [facility] Date[facility]s): 09/13/22 - 10/13/22 [facility] Adult [address] [place] [address]- Allergies, Adverse Reactions, Alerts No Known Allergies [...] 1Result Comment: [08/10/2018] [facility] [id number] 403 [id number] 2Result Comment: [08/10/2018] big y[08/10/2018 Uncharted] pt states she has not had the flu vaccine this year as previously stated 3Result Comment: enterred in error 4Result Comment: [07/25/2017] [id number] 5Result Comment: influenza [facility] 6Result Comment: [02/13/2018] [facility] 0005 1971 01 7Result Comment: [07/25/2017] [id number] 8Admin Note: [id number] 9Result Comment: [07/25/2017] historical Medications atenolol-chlorthalidone 100 mg-25 mg oral tablet 1 tablet, By Mouth, Daily, # 90 tablet, 11 Refills, 12/01/21 12:21:00 EST, [facility]/pharmacy #0693, 90, 1 tablet By Mouth Daily, 168, cm, 12/01/21 11:53:00 EST, Height, 83.8, kg, 06/17/21 13:41:00 EDT, Dry Weight Start Date: 12/01/21 Status: Ordered atorvastatin 80 mg oral tablet 1 tablet = 80 mg, By Mouth, Daily, DOSAGE INCREASE, # 90 tablet, 1 Refills, Maintenance, 12/10/21 11:32:00 EDT, Tablet, [facility]/pharmacy #0693, Partial fill upon patient request [...] Team Personnel Name: Claire Serra RN Position: [facility] RN Member Role: Primary Care Nurse Name: Hill Foley MD Position: [facility] Primary Care Physician Member Role: PCP Address: Address: [address] [place] [address]- Name: Katy Romo RN Position: [facility] RN Member Role: Primary Care Nurse Name: Neha Bey RN Position: [facility] SN RN Member Role: Primary Care Nurse Name: Margarita Olson RN Position: [facility] RN Member Role: Primary Care Nurse Name: Thelma Sifuentes RN Position: [facility] RN Member Role: Primary Care Nurse Name: Loren Johnson RN Position: [facility] RN Member Role: Primary Care Nurse Name: Zaida Alan RN Position: [facility] RN Member Role: Primary Care Nurse Name: Carol Brar RN Position: [facility] Onco RN Member Role: Primary Care Nurse Name: Charlotte Thompson RN Position: [facility] Hospital Final Operations Technician Member Role: Primary Care Nurse Care Team Related Persons Name: LOUIE PACHECO Address: home [address] [place] [address] Name: LOGAN JANE Name: PRAVIN YRAN Address: [place] [address]
--- OUTSIDE RECORDS SUMMARY | 2023-06-17 12:45 | XMS_ITS | Continuity of Care Document ---
Author Name Unknown Organization [facility] Milind lt Address [address] [place] [address]- Care Team Providers Care Clinical Trial Data Manager Name Role Phone Natanael Rodas MD Primary Care Physician Encounter [facility] Date(s): 11/28/20 - 12/28/20 [facility] [place] Adult [address] [place] [address]- Attending Physician: Brady Ruelas Admitting Physician: AdmBrady [...] 1Result Comment: influenza [facility] 2Result Comment: [08/10/2018] [facility] [id number] 3Result Comment: [08/10/2018] big y[08/10/2018 Uncharted] pt states she has not had the flu vaccine this year as previously stated 4Result Comment: enterred in error 5Result Comment: [07/25/2017] [id number] 6Result Comment: [02/13/2018] [facility] 0005 1971 01 7Result Comment: [07/25/2017] [id number] 8Admin Note: [id number] 9Result Comment: [07/25/2017] historical Medications amLODIPine 10 mg oral tablet 1 tablet, By Mouth, Daily, # 90 tablet, 11 Refills, Maintenance, 12/05/19 16:46:00 EDT, [facility], 164, cm, 11/27/19 13:41:00 EST, Height, 74.5, kg, 01/03/19 18:01:00 EDT, Dry Weight Start Date: 12/05/19 Status: Ordered atenolol-chlorthalidone 100 mg-25 mg oral tablet 1 tablet, By Mouth, Daily, # 90 tablet, 11 Refills, Maintenance, 12/05/19 16:47:00 EDT, [facility], 90, TAKE 1 TABLET BY MOUTH EVERY DAY, 164, cm, 11/27/19 13:41:00 EST, Height, 74.5, kg, 01/03/19 18:01:00 EDT, Dry Weight Start Date: 12/05/19 Status: Ordered atorvastatin 40 mg oral tablet 1 tablet = 40 mg, By Mouth, Daily, # 90 tablet, 1 Refills, Maintenance, 12/05/19 14:01:00 EDT, [facility]/pharmacy #0693, 164, cm, 11/27/19 13:41:00 [...] [facility], 168, cm, 06/13/20 5:15:00... Start Date: 06/13/20 Status: Ordered Finacea 15% topical gel 1 application, Topically, 2 times a day, # 30 Gm, 0 Refills, Maintenance, 03/25/17 16:55:18, Gel Start Date: 03/25/17 Status: Ordered sertraline 100 mg oral tablet 2 tablet = 200 mg, By Mouth, Daily, # 180 tablet, 0 Refills, Maintenance, 05/27/20 16:27:00 EDT, [facility], D/C rx on file for 100mg 1 tab daily, 164, cm, 05/24/20 8:51:00 EDT, Height, 74.5,kg, 01/03/19 18:01:00 EDT, Dry Weight Start Date: 05/27/20 Status: Ordered spironolactone 25 mg oral tablet 25 mg, 1, tablet, By Mouth, Daily, # 90 tablet, Refills 3, Tot. Refills 3, Maintenance, 11/08/19 10:43:00 EST, Route to Pharmacy Electronically, [facility]/pharmacy #0693, 164, cm, 11/08/19 9:45:00 [...] MESH VENTRALIGHT ECHO CIR 6 - BARD ([id number]) 1 Bard Unknown BÁRBARA:No Information Assigning Authority: FDA MESH VENTRALIGHT ECHO20.3X25 .4 - BARD ([id number]) 1 Bard Unknown BÁRBARA:No Information Assigning Authority: FDA
--- OUTSIDE RECORDS SUMMARY | 2023-06-17 12:45 | XMS_ITS | Continuity of Care Document ---
Author Name Unknown Organization [facility] Address [address] [place] [address]- Care Team Providers Care Senior Product Marketing Manager Name Role Phone Alaina WEBB, Hill Jones Primary Care Physician [phone] Encounter [facility] Date(s): 09/07/22 - 10/07/22 [facility] [address] [place] [address] Attending Physician: Brady Ruelas Admitting Physician: Brady Ruelas Referring Physician: AdmBrady molina Allergies, Adverse Reactions, [...] vaccine 9 09/26/16 Recorded 1Result Comment: [08/10/2018] [facility] [id number] 403 [id number] 2Result Comment: [08/10/2018] big y[08/10/2018 Uncharted] pt states she has not had the flu vaccine this year as previously stated 3Result Comment: enterred in error 4Result Comment: [07/25/2017] [id number] 5Result Comment: influenza [facility] 6Result Comment: [02/13/2018] [facility] 0005 1971 01 7Result Comment: [07/25/2017] [id number] 8Admin Note: [id number] 9Result Comment: [07/25/2017] historical Medications atenolol-chlorthalidone 100 mg-25 mg oral tablet 1 tablet, By Mouth, Daily, # 90 tablet, 11 Refills, 12/01/21 12:21:00 EST, [facility]/pharmacy #0693, 90, 1 tablet By Mouth [...] Team Personnel Name: Claire Serra RN Position: [facility] RN Member Role: Primary Care Nurse Name: Hill Foley MD Position: [facility] Primary Care Physician Member Role: PCP Address: Address: [address] [place] [address]- Name: Katy Romo RN Position: [facility] RN Member Role: Primary Care Nurse Name: Neha Bey RN Position: [facility] SN RN Member Role: Primary Care Nurse Name: Margarita Olson RN Position: [facility] RN Member Role: Primary Care Nurse Name: Thelma Sifuentes RN Position: [facility] RN Member Role: Primary Care Nurse Name: Loren Johnson RN Position: [facility] RN Member Role: Primary Care Nurse Name: Zaida Alan RN Position: [facility] RN Member Role: Primary Care Nurse Name: Carol Brar RN Position: [facility] Onco RN Member Role: Primary Care Nurse Name: Charlotte Thompson RN Position: [facility] Hospital Dyed Yarn Operator Member Role: Primary Care Nurse Care Team Related Persons Name: LOUIE PACHECO Address: home [address] [place] [address] Name: LOGAN JANE Name: PRAVIN RYAN Address: [place] [address]
--- OUTSIDE RECORDS SUMMARY | 2023-06-17 12:45 | XMS_ITS | Continuity of Care Document ---
Author Name Unknown Organization [facility] Milind Address [address] [place] [address]- Care Team Providers Care Gallery Or Museum Technician Name Role Phone Natanael Rodas MD Primary Care Physician [facility] Date[facility]20 - 04/26/20 [facility] Adult [address] [place] [address]- [facility] Attending Physician: Natanael Rodas MD Allergies, Adverse [...] vaccine 8 09/26/16 Recorded 1Result Comment: [08/10/2018] [facility] [id number] 2Result Comment: [08/10/2018] big y[08/10/2018 Uncharted] pt states she has not had the flu vaccine this year as previously stated 3Result Comment: enterred in error 4Result Comment: [07/25/2017] [id number] 5Result Comment: [02/13/2018] nd 0005 1971 01 6Result Comment: [07/25/2017] [id number] 7Admin Note: [id number] 8Result Comment: [07/25/2017] historical Medications acetaminophen 325 mg oral tablet 650 mg, By Mouth, Every 4 hours, PRN, Refills 0, Maintenance, Pain , Moderate, 05/18/18 9:59:35 EDT Start Date: 05/18/18 Status: Ordered amLODIPine 10 mg oral tablet 1 tablet, By Mouth, Daily, # 90 tablet, 11 Refills, Maintenance, 12/05/19 16:46:00 EDT, [facility], 164, cm, 11/27/19 13:41:00 EST, Height, 74.5, kg, 01/03/19 18:01:00 EDT, Dry Weight Start Date: 12/05/19 Status: Ordered atenolol-chlorthalidone 100 mg-25 mg oral tablet 1 tablet, By Mouth, Daily, # 90 tablet, 11 Refills, Maintenance, 12/05/19 16:47:00 EDT, [facility], 90, TAKE 1 TABLET BY MOUTH EVERY DAY, 164, cm, 11/27/19 13:41:00 EST, Height, 74.5, kg, 01/03/19 18:01:00 EDT, Dry Weight Start Date: 12/05/19 Status: Ordered atorvastatin 40 mg oral tablet 1 tablet = 40 mg, By Mouth, Daily, # 90 tablet, 1 Refills, Maintenance, 12/05/19 14:01:00 EDT, [facility]/pharmacy #0693, 164, cm, 11/27/19 13:41:00 EST, Height, 74.5, kg, 01/03/19 18:01:00 EDT, Dry Weight Start Date: 12/05/19 Status: Ordered Finacea 15% topical gel 1 application, Topically, 2 times a day, # 30 Gm, 0 Refills, Maintenance, 03/25/17 16:55:18, Gel Start Date: 03/25/17 Status: Ordered Readi-Cat 2 oral suspension See Instructions, Dispense : 2 Bottles 450 ml each Dx: Hernia, # 900 mL, 0 Refills, Maintenance, 12/12/19 11:02:00 EDT, [facility], Dispense : 2 Bottles; 450 ml each; Dx: Hernia, 164, cm, 11/27/19 13:41:00 EST, Height, 74.5, kg, 01/03/19 18:... Start Date: 12/12/19 Status: Ordered sertraline 100 mg oral tablet 2 tablet = 200 mg, By Mouth, Daily, # 180 tablet, 0 Refills, Maintenance, 02/25/20 16:12:00 EDT, [facility]/pharmacy #0693, D/C rx on file for 100mg 1 tab daily, 164, cm, 11/27/19 13:41:00 EST, Height, 74.5, kg, 01/03/19 18:01:00 EDT, Dry Weight Start Date: 02/25/20 Status: Ordered spironolactone 25 mg oral tablet 25 mg, 1, tablet, By Mouth, Daily, # 90 tablet, Refills 3, Tot. Refills 3, Maintenance, 11/08/19 10:43:00 EST, Route to Pharmacy Electronically, [facility]/pharmacy #0693, 164, cm, 11/08/19 9:45:00 [...] recent to oldest [Reference Range]: 1 Height 164 cm (03/27/20 11:34 AM) Social History Social History Type Response Smoking Status Former smoker entered on: 05/30/18 Sex
--- OUTSIDE RECORDS SUMMARY | 2023-06-17 12:45 | XMS_ITS | Continuity of Care Document ---
Author Name Unknown Organization [facility] Luis Carlos Milind Address [address] [place] [address]- Care Team Providers Care Quality Assurance Lab Technician Name Role Phone Alaina WEBB, Hill Jones Primary Care Physician [facility]s): 05/03/23 - 06/02/23 [facility] Luis Carlos Adult [address] [place] [address]- Allergies, Adverse Reactions, Alerts No Known Allergies Immunizations Given and Recorded Vaccine Date Status Refusal Reason pneumococcal 20-valent conjugate vaccine 04/22/23 Recorded influenza virus vaccine, inactivated 1 11/02/22 Gi sarah influenza virus vaccine, inactivated 07/01/21 Sundeep rded influenza virus vaccine, inactivated 2 08/10/18 Gi sarah zoster vaccine, inactivated 09/06/22 Recorded [id number] 12y+ bivalent booster vax 09/06/22 Recorded SARS-CoV-2 mRNA ([id number]) vax 03/24/22 Recorded SARS-CoV-2 (COVID-19) mRNA BNT-162b2 [...] 7 09/26/16 Recorded 1Result Comment: Flu [facility]#[id number] 2Result Comment: [08/10/2018] [facility] 89367 403 [id number] 3Result Comment: influenza [facility] 4Result Comment: [02/13/2018] [facility] 0005 1971 01 5Result Comment: [07/25/2017] [id number] 6Admin Note: [id number] 7Result Comment: [07/25/2017] historical Medications amLODIPine 10 mg oral tablet 1 tablet, By Mouth, Daily, # 90 tablet, 1 Refills, Maintenance, 12/27/22 15:59:00 EDT, [facility]/pharmacy#0693, 167, cm, 12/23/22 9:51:00 EDT, Height, 83.8, [...] Refills, Maintenance, 12/27/22 10:08:00 EDT, [facility], 90, TAKE 1 TABLET BY MOUTH EVERY DAY, 167, cm, 12/23/22 9:51:00 EDT, Height, 83.8, kg, 06/17/2113:41:00 EDT, Dry Weight Start Date: 12/27/22 Status: Ordered atorvastatin 80 mg oral tablet 1 tablet, By Mouth, Daily, # 90 tablet, 1 Refills, Maintenance, 12/27/22 10:10:00 EDT, [facility]/pharmacy#0693, 167, cm, 12/23/22 9:51:00 EDT, Height, 83.8, [...] tablet, 11 Refills, Maintenance, 07/23/22 10:48:00 EDT, [facility]/pharmacy #0693, Partial fill upon patient request if [...] Refills, Maintenance, 12/21/22 14:36:00 EDT, Tablet, [facility], Partial fill upon patient request if the [...] Team Personnel Name: Claire Serra RN Position: [facility] RN Member Role: Primary Care Nurse Name: Elana Warren RN Position: S RN Member Role: Primary Care Nurse Name: Hill Foley MD Position: S Physician - Primary Care Member Role: PCP Address: Address: [address] [place] [address]- Name: Christy Peacock RN Position: [facility] RN Member Role: Primary Care Nurse Name: Katy Romo RN Position: [facility] RN Member Role: Primary Care Nurse Name: Neha Bey RN Position: [facility] SN RN Member Role: Primary Care Nurse Name: Zayra Arevalo RN Position: [facility] RN Member Role: Primary Care Nurse Name: Margarita Olson RN Position: [facility] RN Member Role: Primary Care Nurse Name: Thelma Sifuentes RN Position: [facility] RN Member Role: Primary Care Nurse Name: Kandi Cabrera Position: [facility] Mail Room Member Role: Puttying And Calking Supervisor Name: Jyoti Caal RN Position: [facility] RN Member Role: Primary Care Nurse Name: Loren Johnson RN Position: [facility] RN Member Role: Primary Care Nurse Name: Zaida Alan RN Position: [facility] RN Member Role: Primary Care Nurse Name: Carol Brar RN Position: [facility] Onco RN Member Role: Primary Care Nurse Name: Charlotte Thompson RN Position: [facility] Lead Section Supervisor Member Role: Primary Care Nurse Care Team Related Persons Name: LOUIE PACHECO Address: [address] [address] Name: LOGAN JANE Name: PRAVIN RYAN Address: [place] [address]
--- OUTSIDE RECORDS SUMMARY | 2023-06-17 12:45 | XMS_ITS | Continuity of Care Document ---
Author Name Unknown Organization [facility] Address [address] [place] [address]- Care Team Providers Care Living Skills Advisor Name Role Phone Adrianna WEBB, Natanael Yoo Primary Care Physician Encounter [facility] Date(s): 07/20/21 - 08/19/21 [facility] [address] [place], [place] [address] Attending Physician: Brady Ruelas Admitting Physician: Brady [...] 9 09/26/16 Recorded 1Result Comment: [08/10/2018] [facility] [id number] 2Result Comment: [08/10/2018] big y[08/10/2018 Uncharted] pt states she has not had the flu vaccine this year as previously stated 3Result Comment: enterred in error 4Result Comment: [07/25/2017] [id number] 5Result Comment: influenza [facility] 6Result Comment: [02/13/2018] [facility] 0005 1971 01 7Result Comment: [07/25/2017] [id number] 8Admin Note: [id number] 9Result Comment: [07/25/2017] historical Medications amLODIPine 10 mg oral tablet 1 tablet, By Mouth, Daily, # 90 tablet, 11 Refills, [facility], 168, cm, 08/07/21 12:51:00 EST, Height, 83.8, kg, 06/17/21 13:41:00 EDT, Dry Weight Start Date: 08/13/21 Status: Ordered atenolol-chlorthalidone 100 mg-25 mg oral tablet 1 tablet, By Mouth, Daily, # 90 tablet, 11 Refills, [facility], 90, TAKE 1 TABLET BY MOUTH EVERY DAY, 168, cm, 08/07/21 12:51:00 EST, Height, 83.8, kg, 06/17/21 13:41:00 EDT, Dry Weight Start Date: 08/13/21 Status: Ordered atorvastatin 40 mg oral tablet 1 tablet, By Mouth, Daily, # 90 tablet, 1 Refills, [facility], 168, cm, 08/07/21 12:51:00 EST,Height, 83.8, kg, 06/17/21 13:41:00 EDT, Dry Weight Start Date: 08/13/21 Status: Ordered Finacea 15% topical gel 1 application, Topically, 2 times a day, # 30 Gm, 0 Refills, Maintenance, 03/25/17 16:55:18, Gel Start Date: 03/25/17 Status: Ordered sertraline 100 mg oral tablet 2 tablet, By Mouth, Daily, # 180 tablet, 0 Refills, [facility], 168, cm, 08/07/21 12:51:00 EST, Height, 83.8, kg, 06/17/21 13:41:00 EDT, Dry Weight Start Date: 08/13/21 Status: Ordered spironolactone 50 mg oral tablet 1 tablet = 50 mg, By Mouth, Daily, # 90 tablet, 3 Refills, Maintenance, 08/07/21 13:07:00 EST, Tablet, [facility], Partial fill upon patient request if the [...] MESH VENTRALIGHT ECHO CIR 6 - BARD ([id number]) 1 Bard Unknown BÁRBARA:No Information Assigning Authority: FDA MESH VENTRALIGHT ECHO20.3X25 .4 - BARD ([id number]) 1 Bard Unknown BÁRBARA:No Information Assigning Authority: FDA
--- OUTSIDE RECORDS SUMMARY | 2023-06-17 12:45 | XMS_ITS | Continuity of Care Document ---
Author Name Unknown Organization [facility] Milind Address [address] [place] [address]- Care Team Providers Care Electrician Substation Supervisor Name Role Phone Alaina WEBB, Hill Jones Primary Care Physician [facility] Date[facility]s): 06/03/22 - 07/03/22 [facility] Adult [address] [place] [address]- Allergies, Adverse Reactions, Alerts No Known Allergies [...] vaccine 9 09/26/16 Recorded 1Result Comment: [08/10/2018] [facility] [id number] 403 [id number] 2Result Comment: [08/10/2018] big y[08/10/2018 Uncharted] pt states she has not had the flu vaccine this year as previously stated 3Result Comment: enterred in error 4Result Comment: [07/25/2017] [id number] 5Result Comment: influenza [facility] 6Result Comment: [02/13/2018] [facility] 0005 1971 01 7Result Comment: [07/25/2017] [id number] 8Admin Note: [id number] 9Result Comment: [07/25/2017] historical Medications atenolol-chlorthalidone 100 mg-25 mg oral tablet 1 tablet, By Mouth, Daily, # 90 tablet, 11 Refills, 12/01/21 12:21:00 EST, [facility]/pharmacy #0693, 90, 1 tablet By Mouth Daily, 168, cm, 12/01/21 11:53:00 EST, Height, 83.8, kg, 06/17/21 13:41:00 EDT, Dry Weight Start Date: 12/01/21 Status: Ordered atorvastatin 80 mg oral tablet 1 tablet = 80 mg, By Mouth, Daily, DOSAGE INCREASE, # 90 tablet, 1 Refills, Maintenance, 12/10/21 11:32:00 EDT, Tablet, [facility]/pharmacy #0693, Partial fill upon patient request [...] Active Un known Patient Care team information Personnel Name: Alaina WEBB, Hill Jones Address: Address: [address] [place] [address]-
--- OUTSIDE RECORDS SUMMARY | 2023-06-17 12:45 | XMS_ITS | Continuity of Care Document ---
Author Name Unknown Organization [facility] Address [address] [place] [address]- Care Team Providers Care Clinical Documentation Manager Name Role Phone Alaina WEBB, Hill Jones Primary Care Physician Encounter [facility] Date(s): 06/07/22 - 09/02/22 [facility] [address] [place] [address] Attending Physician: Nai Ayon MD Admitting Physician: [...] vaccine 9 09/26/16 Recorded 1Result Comment: [08/10/2018] [facility] [address]3790 403 65 2Result Comment: [08/10/2018] big y[08/10/2018 Uncharted] pt states she has not had the flu vaccine this year as previously stated 3Result Comment: enterred in error 4Result Comment: [07/25/2017] [id number] 5Result Comment: influenza [facility] 6Result Comment: [02/13/2018] [facility] 0005 1971 01 7Result Comment: [07/25/2017] [id number] 8Admin Note: [id number] 9Result Comment: [07/25/2017] historical Medications atenolol-chlorthalidone 100 mg-25 mg oral tablet 1 tablet, By Mouth, Daily, # 90 tablet, 11 Refills, 12/01/21 12:21:00 EST, [facility]/pharmacy #0693, 90, 1 tablet By Mouth [...] Team Personnel Name: Claire Serra RN Position: [facility] RN Member Role: Primary Care Nurse Name: Hill Foley MD Position: [facility] Primary Care Physician Member Role: PCP Address: Address: [address] [place] [id number]- Name: Katy Romo RN Position: [facility] RN Member Role: Primary Care Nurse Name: Neha Bey RN Position: [facility] SN RN Member Role: Primary Care Nurse Name: Margarita Olson RN Position: [facility] RN Member Role: Primary Care Nurse Name: Thelma Sifuentes RN Position: [facility] RN Member Role: Primary Care Nurse Name: Loren Johnson RN Position: [facility] RN Member Role: Primary Care Nurse Name: Zaida Alan RN Position: [facility] RN Member Role: Primary Care Nurse Name: Carol Brar RN Position: [facility] Onco RN Member Role: Primary Care Nurse Name: Charlotte Thompson RN Position: [facility] Hospital Social Studies Teacher Member Role: Primary Care Nurse Care Team Related Persons Name: LOUIE PACHECO Address: home [address] [place] [address] Name: LOGAN JANE Name: PRAVIN RYAN Address: [place] [address]
--- OUTSIDE RECORDS SUMMARY | 2023-06-17 12:45 | XMS_ITS | Continuity of Care Document ---
Author Name Unknown Organization [facility] Luis Carlos Milind Address [address] [place] [address]- Care Team Providers Care Manager Automotive Name Role Phone Alaina WEBB, Hill Jones Primary Care Physician [facility] Date[facility]s): 11/15/21 - 12/15/21 [facility] Adult [address] [place] [address]- Allergies, Adverse Reactions, Alerts No Known Allergies [...] Recorded 1Result Comment: [08/10/2018] [facility] [id number] 403 65 2Result Comment: [08/10/2018] big y[08/10/2018 Uncharted] pt states she has not had the flu vaccine this year as previously stated 3Result Comment: enterred in error 4Result Comment: [07/25/2017] [id number] 5Result Comment: influenza [facility] 6Result Comment: [02/13/2018] [facility] 0005 1971 01 7Result Comment: [07/25/2017] [id number] 8Admin Note: [id number] 9Result Comment: [07/25/2017] historical Medications amLODIPine 10 mg oral tablet 1 tablet, By Mouth, Daily, # 90 tablet, 11 Refills, 12/01/21 12:21:00 EST, [facility]/pharmacy #0693, 168,cm, 12/01/21 11:53:00 EST, Height, 83.8, kg, 06/17/21 13:41:00 EDT, Dry Weight Start Date: 12/01/21 Status: Ordered atenolol-chlorthalidone 100 mg-25 mg oral tablet 1 tablet, By Mouth, Daily, # 90 tablet, 11 Refills, 12/01/21 12:21:00 EST, [facility]/pharmacy #0693, 90, 1 tablet By Mouth Daily, 168, cm, 12/01/21 11:53:00 EST, Height, 83.8, kg, 06/17/21 13:41:00 EDT, Dry Weight Start Date: 12/01/21 Status: Ordered atorvastatin 80 mg oral tablet 1 tablet = 80 mg, By Mouth, Daily, DOSAGE INCREASE, # 90 tablet, 1 Refills, Maintenance, 12/10/21 11:32:00 EDT, Tablet, [facility]/pharmacy #0693, Partial fill upon patient request [...] major, in partia l remission(Confirmed) Active Varicose vein(Confirmed) Active Edema of both lower legs due to peripheral venous insufficiency(Confirmed) Active Social History Social History Type Response Smoking Status Former smoker entered on: 05/30/18 Sex Medical Equipment Implanted Date:06/11/20Target Site:Abdomen Description Quantity [employer] Model MESH VENTRALIGHT ECHO CIR 6 - BARD ([id number]) 1 Bard Unknown BÁRBARA:No Information Assigning Authority: FDA MESH VENTRALIGHT ECHO20.3X25 .4 - BARD ([id number]) 1 Bard Unknown BÁRBARA:No Information Assigning Authority: FDA
--- OUTSIDE RECORDS SUMMARY | 2023-06-17 12:45 | XMS_ITS | Continuity of Care Document ---
Author Name Unknown Organization [facility] Address [address] [place] [address]- Care Team Providers Care Low Vision Therapist Name Role Phone Adrianna WEBB, Natanael Yoo Primary Care Physician [facility] Date[facility]s): 05/12/20 - 05/19/20 [facility] [address] [place] [address]- [facility] Attending Physician: Victor M Bryson MD Admitting Physician: Victor M Bryson MD Referring Physician: Ian Ray MD Allergies, Adverse Reactions, Alerts Substance Reaction [...] vaccine 8 09/26/16 Recorded 1Result Comment: [08/10/2018] [facility] [id number] 403 65 2Result Comment: [08/10/2018] big y[08/10/2018 Uncharted] pt states she has not had the flu vaccine this year as previously stated 3Result Comment: enterred in error 4Result Comment: [07/25/2017] [id number] 5Result Comment: [02/13/2018] [facility] 0005 1971 01 6Result Comment: [07/25/2017] [id number] 7Admin Note: [id number] 8Result Comment: [07/25/2017] historical Medications amLODIPine 10 mg oral tablet 1 tablet, By Mouth, Daily, # 90 tablet, 11 Refills, Maintenance, 12/05/19 16:46:00 EDT, [facility], 164, cm, 11/27/19 13:41:00 EST, Height, 74.5, kg, 01/03/19 18:01:00 EDT, Dry Weight Start Date: 12/05/19 Status: Ordered atenolol-chlorthalidone 100 mg-25 mg oral tablet 1 tablet, By Mouth, Daily, # 90 tablet, 11 Refills, Maintenance, 12/05/19 16:47:00 EDT, [facility], 90, TAKE 1 TABLET BY MOUTH EVERY [...] tablet, 0 Refills, Maintenance, 02/25/20 16:12:00 EDT, [facility]/pharmacy #0693, D/C rx on file for 100mg 1 tab daily, 164, cm, 11/27/19 13:41:00 EST, Height, 74.5, kg, 01/03/19 18:01:00 EDT, Dry Weight Start Date: 02/25/20 Status: Ordered spironolactone 25 mg oral tablet 25 mg, 1, tablet, By Mouth, Daily, # 90 tablet, Refills 3, Tot. Refills 3, Maintenance, 11/08/19 10:43:00 EST, Route to Pharmacy Electronically, [facility]/pharmacy #0693, 164, cm, 11/08/19 9:45:00 [...] oldest [Reference Range]: 1 Height 164 cm (05/12/20 12:56 PM) Weight 79.38 kg (05/12/20 12:56 PM) Oxygen Saturation [94-100 %] 96 % (05/12/20 12:56 PM) Pulse Rate [55-90 bpm] 65 bpm (05/12/20 12:56 PM) Body Mass Index [18.5-24.99] 29.51 *H* (05/12/20 12:56 PM) Blood Pressure [90-138/55-84 mm Hg] 108/ 64mm Hg (05/12/20 12:56 PM) Blood pressure sites Arm, right (05/12/20 12:56 PM) Weight Obtained Via Patient/family state d (05/12/20 12:56 PM) Social History Social History Type Response Smoking Status Former smoker entered on: 05/30/18 Sex
--- OUTSIDE RECORDS SUMMARY | 2023-06-17 12:45 | XMS_ITS | Continuity of Care Document ---
Author Name Unknown Organization [facility] Address [address] [place] [address]- Care Team Providers Care Senior Art Director Name Role Phone Natanael Rodas MD Primary Care Physician [phone] [facility](s): 05/24/20 - 05/31/20 [facility] [address] [place] [address]- [facility] Attending Physician: Shy Heard MD Referring Physician: Natanael Rodas MD Allergies, [...] vaccine 8 09/26/16 Recorded 1Result Comment: [08/10/2018] [facility] [id number] 403 [id number] 2Result Comment: [08/10/2018] big y[08/10/2018 Uncharted] pt states she has not had the flu vaccine this year as previously stated 3Result Comment: enterred in error 4Result Comment: [07/25/2017] [id number] 5Result Comment: [02/13/2018] [facility] 0005 1971 01 6Result Comment: [07/25/2017] [id number] 7Admin Note: [id number] 8Result Comment: [07/25/2017] historical Medications amLODIPine 10 mg oral tablet 1 tablet, By Mouth, Daily, # 90 tablet, 11 Refills, Maintenance, 12/05/19 16:46:00 EDT, [facility], 164, cm, 11/27/19 13:41:00 EST, Height, 74.5, kg, 01/03/19 18:01:00 EDT, Dry Weight Start Date: 12/05/19 Status: Ordered atenolol-chlorthalidone 100 mg-25 mg oral tablet 1 tablet, By Mouth, Daily, # 90 tablet, 11 Refills, Maintenance, 12/05/19 16:47:00 EDT, [facility], 90, TAKE 1 TABLET BY MOUTH EVERY [...] Dry Weight Start Date: 12/05/19 Status: Ordered Cephalexin Capsule By Mouth, Maintenance, 05/24/20 8:52:00 EDT Start Date: 05/24/20 Status: Ordered Finacea 15% topical gel 1 [...] 11/08/19 10:43:00 EST, Route to Pharmacy Electronically, [facility]/pharmacy #[id number], 164, cm, 11/08/19 9:45:00 [...] oldest [Reference Range]: 1 Height 164 cm (05/24/20 8:51 AM) Oxygen Saturation [94-100 %] 97 % (05/24/20 8:51 AM) Pulse Rate [55-90 bpm] 88 bpm (05/24/20 8:51 AM) Blood Pressure [90-138/55-84 mm Hg] 146/ 84mm Hg *H* (05/24/20 8:51 AM) Respiratory Rate [16-30 br/min] 18 br/mi n (05/24/20 8:51 AM) Temperature [96.8-100.4 DegF] 97.7 DegF (05/24/20 8:51 AM) Blood pressure sites Arm, right (05/24/20 8:51 AM) Temperature Route Temporal (05/24/20 8:51 AM) Social History Social History Type Response Smoking Status Former smoker entered on: 05/30/18 Sex
--- OUTSIDE RECORDS SUMMARY | 2023-06-17 12:45 | XMS_ITS | Continuity of Care Document ---
Author Name Unknown Organization [facility] Address [address] [facility] [place] [address] [place] [address]- Care Team Providers Care Nurse Staff Industrial Name Role Phone Hill Foley MD Primary Care Physician Encounter 09/22/22 - 09/29/22 [facility] [address], [address] [place] [address]- Attending Physician: Hill Foley MD Admitting Physician: Hill Foley MD Referring Physician: Hill Foley MD Allergies, [...] Recorded 1Result Comment: [08/10/2018] [facility] [id number] 2Result Comment: [08/10/2018] big y[08/10/2018 Uncharted] pt states she has not had the flu vaccine this year as previously stated 3Result Comment: enterred in error 4Result Comment: [07/25/2017] [id number] 5Result Comment: influenza [facility] 6Result Comment: [02/13/2018] [facility] 0005 1971 01 7Result Comment: [07/25/2017] [id number] 8Admin Note: [id number] 9Result Comment: [07/25/2017] historical Medications atenolol-chlorthalidone 100 [...] insufficiency Confirmed Active 1F/U with Vascular 05/2022 2E2021 Results Radiology Reports * Exam Date Time Procedure Performing Provider Status 09/22/22 11:06 AM MM Digital Mammo Screening Angela Arevalo; Les (Verified) Notes: (MM Digital Mammo Screening) Reason For Exam: Z12.31 SCREENING RESULT: MM Digital Mammo Screening PROCEDURE: MM Digital Mammo Screening INDICATION: Screening. No known palpable abnormalities. COMPARISON: 04/21/2021 TECHNIQUE: Full-field digital CC and MLO views of both breasts were obtained. In addition, 3D tomosynthesis images of both breasts were acquired. Computer-aided detection (CAD) was utilized in the interpretation of this study. DENSITY: The breast tissue is heterogeneously dense, which may obscure masses. FINDINGS: No suspicious masses, suspicious microcalcifications, or areas of architectural distortion are seen in either breast to suggest malignancy. There is a stable oval mass with coarse calcifications seen anteriorly and laterally in the left breast. 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 There are numerous other scattered benign calcifications bilaterally. IMPRESSION: No mammographic evidence of malignancy. RECOMMENDATION: Annual mammographic screening BI-RADS: 2 (Benign) Lay letter mailed to patient WSN: [id number] Ordering Physician: Hill Foley Dictated By: Miguel Monterroso MD Dictated Date/Time: 09/22/22 11:33 am Reviewed By: Miguel Monterroso MD Signed By: Miguel Monterroso MD Signed Date/Time: 09/22/22 11:33 am Transcribed By: TITI Property Claims Manager Date/Time: 09/22/22 11:28 am Birads: Social History Social History Type Response Smoking Status Former smoker entered on: 05/30/18 Sex Implantable Device List Procedure Provider Procedure Date Device Type Site Repair Hernia Ventral Laparoscopic Ian Rya MD 06/11/20 Unknown Abdomen Device Identifier Serial [...] Unknown 07/23/21 Unknown Unknown Active Un known MG Breast Screening * BENTON Cleary S: TRANSCRIBE Miguel Monterroso MD: VERIFY Event Display: Result: Authored Date: [id number] PROCEDURE: MM Digital Mammo Screening INDICATION: Screening. No known palpable abnormalities. COMPARISON: 04/21/2021 TECHNIQUE: Full-field digital CC and MLO views of both breasts were obtained. In addition, 3D tomosynthesis images of both breasts were acquired. Computer-aided detection (CAD) was utilized in the interpretation of this study. DENSITY: The breast tissue is heterogeneously dense, which may obscure masses. FINDINGS: No suspicious masses, suspicious microcalcifications, or areas of architectural distortion are seen in either breast to suggest malignancy. There is a stable oval mass with coarse calcifications seen anteriorly and laterally in the left breast. 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 There are numerous other scattered benign calcifications bilaterally. IMPRESSION: No mammographic evidence of malignancy. RECOMMENDATION: Annual mammographic screening BI-RADS: 2 (Benign) Lay letter mailed to patient WSN: [id number] Ordering Physician: Hill Foley Dictated By: Miguel Monterroso MD Dictated Date/Time: 09/22/22 11:33 am Reviewed By: Miguel Monterroso MD Signed By: Miguel Monterroso MD Signed Date/Time: 09/22/22 11:33 am Transcribed By: TITI Property Claims Manager Date/Time: 09/22/22 11:28 am Birads: Patient Care team information Care Team Personnel Name: Claire Serra RN Position: S RN Member Role: Primary Care Nurse Name: Hill Foley MD Position: [facility] Primary Care Physician Member Role: PCP Address: Address: [address] [place] [id number] Name: Katy Romo RN Position: S RN Member Role: Primary Care Nurse Name: Neha Bey RN Position: [facility] RN Member Role: Primary Care Nurse Name: Margarita Olson RN Position: S RN Member Role: Primary Care Nurse Name: Thelma Sifuentes RN Position: S RN Member Role: Primary Care Nurse Name: Loren Johnson RN Position: [facility] RN Member Role: Primary Care Nurse Name: Zaida Alan RN Position: [facility] RN Member Role: Primary Care Nurse Name: Carol Brar RN Position: [facility] Onco RN Member Role: Primary Care Nurse Name: Charlotte Thompson RN Position: [facility] Hospital Manager Valuation Member Role: Primary Care Nurse Care Team Related Persons Name: LOUIE PACHECO Address: [address] [address] Name: LOGAN JANE Name: PRAVIN RYAN Address: [place] [address]
--- OUTSIDE RECORDS SUMMARY | 2023-06-17 12:45 | XMS_ITS | Continuity of Care Document ---
Author Name Unknown Organization [facility] Address [address] [place] [address]- Care Team Providers Care Director Of Institutional Sales Name Role Phone Hill Foley MD Primary Care Physician [phone] Encounter [facility] Date(s): 12/01/21 - 12/08/21 [facility] Adult [address] [place] [address]- Attending Physician: Hill Foley MD Allergies, Adverse [...] affairs [facility] [id number] 2Result Comment: [08/10/2018] big y[08/10/2018 Uncharted] pt states she has not had the flu vaccine this year as previously stated 3Result Comment: enterred in error 4Result Comment: [07/25/2017] [id number] 5Result Comment: influenza [facility] 6Result Comment: [02/13/2018] [facility] 0005 1971 01 7Result Comment: [07/25/2017] [id number] 8Admin Note: [id number] 9Result Comment: [07/25/2017] historical Medications amLODIPine 10 mg oral tablet 1 tablet, By Mouth, Daily, # 90 tablet, 11 Refills, 12/01/21 12:21:00 EST, [facility]/pharmacy #0693, 168,cm, 12/01/21 11:53:00 EST, Height, 83.8, [...] Weight Start Date: 12/01/21 Status: Ordered atorvastatin 40 mg oral tablet 1 tablet, By Mouth, Daily, # 90 tablet, 1 Refills, 12/01/21 12:21:00 EST, [facility]/pharmacy #0693, 168, cm, 12/01/21 11:53:00 EST, Height, 83.8, kg, 06/17/21 13:41:00 EDT, Dry Weight Start Date: 12/01/21 Status: Ordered Cane See Instructions, # 1 each, Maintenance, Unsteady gait, 12/01/21 12:24:00 EST, Supply Start Date: 12/01/21 Status: Ordered Centrum Silver Ultra Women's oral tablet By Mouth, Daily, 0 Refills, Maintenance, 12/01/21 12:40:00 EST, Partial fill upon patient request if the prescription is for a schedule II opioid drug. Start Date: 12/01/21 Status: Ordered Finacea 15% topical gel 1 [...] oldest [Reference Range]: 1 Height 168 cm (12/01/21 11:53 AM) Weight 81.4 kg (12/01/21 11:53 AM) Oxygen Saturation [94-100 %] 98 % (12/01/21 11:53 AM) Pulse Rate [55-90 bpm] 72 bpm (12/01/21 11:53 AM) Body Mass Index [18.5-24.99] 28.84 *H* (12/01/21 11:53 AM) Blood Pressure [90-138/55-84 mm Hg] 116/ 62mm Hg (12/01/21 11:53 AM) Mode of Delivery (Oxygen) Room air (12/01/21 11:53 AM) Blood pressure sites Arm, left (12/01/21 11:53 AM) Weight Obtained Via Standing scale (12/01/21 11:53 AM) Social History Social History Type Response Smoking Status Former smoker entered on: 05/30/18 Sex Medical Equipment Implanted Date:06/11/20Target Site:Abdomen Description Quantity MRI Company Model MESH VENTRALIGHT ECHO CIR 6 - BARD ([id number]) 1 Bard Unknown BÁRBARA:No Information Assigning Authority: FDA MESH VENTRALIGHT ECHO20.3X25 .4 - BARD ([id number]) 1 Bard Unknown BÁRBARA:No Information Assigning Authority: FDA
--- OUTSIDE RECORDS SUMMARY | 2023-06-17 12:46 | XMS_ITS | Continuity of Care Document ---
Author Name Unknown Organization [facility] Address [address] [place] [address]- Care Team Providers Care Traveling Auditor Name Role Phone Natanael Rodas MD Primary Care Physician Encounter [facility] Date(s): 10/26/20 - 11/25/20 [facility] [address] [place] [address]- Attending Physician: Not on Staff, Attending MD Allergies, Adverse Reactions, Alerts Substance Reaction [...] 1Result Comment: influenza [facility] 2Result Comment: [08/10/2018] [facility] [id number] 3Result Comment: [08/10/2018] big y[08/10/2018 Uncharted] pt states she has not had the flu vaccine this year as previously stated 4Result Comment: enterred in error 5Result Comment: [07/25/2017] [id number] 6Result Comment: [02/13/2018] [facility] 0005 1971 01 7Result Comment: [07/25/2017] [id number] 8Admin Note: [id number] 9Result Comment: [07/25/2017] historical Medications amLODIPine 10 mg oral tablet 1 tablet, By Mouth, Daily, # 90 tablet, 11 Refills, Maintenance, 12/05/19 16:46:00 EDT, [facility], 164, cm, 11/27/19 13:41:00 EST, Height, 74.5, kg, 01/03/19 18:01:00 EDT, Dry Weight Start Date: 12/05/19 Status: Ordered atenolol-chlorthalidone 100 mg-25 mg oral tablet 1 tablet, By Mouth, Daily, # 90 tablet, 11 Refills, Maintenance, 12/05/19 16:47:00 EDT, [facility], 90, TAKE 1 TABLET BY MOUTH EVERY DAY, 164, cm, 11/27/19 13:41:00 EST, Height, 74.5, kg, 01/03/19 18:01:00 EDT, Dry Weight Start Date: 12/05/19 Status: Ordered atorvastatin 40 mg oral tablet 1 tablet = 40 mg, By Mouth, Daily, # 90 tablet, 1 Refills, Maintenance, 12/05/19 14:01:00 EDT, [facility]/pharmacy #0693, 164, cm, 11/27/19 13:41:00 EST, Height, 74.5, kg, 01/03/19 18:01:00 EDT, Dry Weight Start Date: 12/05/19 Status: Ordered Colace sodium 100 mg oral capsule 100 mg, 1, capsule, By Mouth, 2 times a day, PRN, with plenty of water, # 20 capsule, Refills 1, Tot. Refills 1, Maintenance, for constipation, 06/13/20 8:34:00 EDT, Route to Pharmacy Electronically,[facility], 168, cm, 06/13/20 5:15:00... Start Date: 06/13/20 Status: Ordered Finacea 15% topical gel 1 application, Topically, 2 times a day, # 30 Gm, 0 Refills, Maintenance, 03/25/17 16:55:18, Gel Start Date: 03/25/17 Status: Ordered sertraline 100 mg oral tablet 2 tablet = 200 mg, By Mouth, Daily, # 180 tablet, 0 Refills, Maintenance, 05/27/20 16:27:00 EDT, [facility]/pharmacy #0693, D/C rx on file for 100mg 1 tab daily, 164, cm, 05/24/20 8:51:00 EDT, Height, 74.5,kg, 01/03/19 18:01:00 EDT, Dry Weight Start Date: 05/27/20 Status: Ordered spironolactone 25 mg oral tablet 25 mg, 1, tablet, By Mouth, Daily, # 90 tablet, Refills 3, Tot. Refills 3, Maintenance, 11/08/19 10:43:00 EST, Route to Pharmacy Electronically, [facility]/pharmacy #0693, 164, cm, 11/08/19 9:45:00 EST, Height, [...] MESH VENTRALIGHT ECHO CIR 6 - BARD ([id number]) 1 Bard Unknown BÁRBARA:No Information Assigning Authority: FDA MESH VENTRALIGHT ECHO20.3X25 .4 - BARD ([id number]) 1 Bard Unknown BÁRBARA:No Information Assigning Authority: FDA
--- OUTSIDE RECORDS SUMMARY | 2023-06-17 12:46 | XMS_ITS | Continuity of Care Document ---
Author Name Unknown Organization [facility] Address [address] [place] [address]- Care Team Providers Care Shot Peening Operator Name Role Phone Alaina WEBB, Hill Jones Primary Care Physician [phone] Encounter [facility] Date(s): 06/14/22 - 06/21/22 [facility] [address] [place] [address]- Attending Physician: Victor M Bryson MD Admitting Physician: Victor M Bryson MD Referring Physician: Natanael Rodas MD Allergies, Adverse Reactions, Alerts No Known [...] 1Result Comment: [08/10/2018] [facility] [id number] 2Result Comment: [08/10/2018] big y[08/10/2018 Uncharted] pt states she has not had the flu vaccine this year as previously stated 3Result Comment: enterred in error 4Result Comment: [07/25/2017] [id number] 5Result Comment: influenza [facility] 6Result Comment: [02/13/2018] [facility] 0005 1971 01 7Result Comment: [07/25/2017] [id number] 8Admin Note: [id number] 9Result Comment: [07/25/2017] historical Medications atenolol-chlorthalidone 100 mg-25 mg oral tablet 1 tablet, By Mouth, Daily, # 90 tablet, 11 Refills, 12/01/21 12:21:00 EST, [facility]/pharmacy #0693, 90, 1 tablet By Mouth Daily, [...] remission(Confirmed) Active Abnormal pulmonary function test(Confirmed) Active Pulmonary hypertension(Confirmed) 2 Active Varicose vein of leg(Confirmed) Active Edema of both lower legs due to peripheral venous insufficiency(Confirmed) Active 1F/U with Vascular 05/2022 2Echo 2021 Vital Signs Most recent to oldest [Reference Range]: 1 Height 167 cm (06/14/22 3:45 PM) Weight 83.01 kg (06/14/22 3:45 PM) Oxygen Saturation [94-100 %] 96 % (06/14/22 3:45 PM) Pulse Rate [55-90 bpm] 78 bpm (06/14/22 3:45 PM) Body Mass Index [18.5-24.99] 29.76 *H* (06/14/22 3:45 PM) Blood Pressure [90-138/55-84 mm Hg] 122/ 62mm Hg (06/14/22 3:45 PM) Mode of Delivery (Oxygen) Room air (06/14/22 3:45 PM) Blood pressure sites Arm, right (06/14/22 3:45 PM) Weight Obtained Via Patient/family state d (06/14/22 3:45 PM) Social History Social History Type Response [...] Unknown 07/23/21 Unknown Unknown Active Un known Care Team Personnel Name: Hill Foley MD Address: [address] [place] [address]-
--- OUTSIDE RECORDS SUMMARY | 2023-06-17 12:46 | XMS_ITS | Continuity of Care Document ---
Author Name Unknown Organization [facility] Address [address] [place] [address]- Care Team Providers Care Maintenance Mechanic Name Role Phone Natanael Rodas MD Primary Care Physician Encounter [facility] Date(s): 11/19/20 - 12/19/20 [facility] Adult [address] [place] [address]- Allergies, Adverse Reactions, Alerts Substance Reaction Severity [...] 2Result Comment: [08/10/2018] [facility] [id number] 3Result Comment: [08/10/2018] big y[08/10/2018 Uncharted] pt states she has not had the flu vaccine this year as previously stated 4Result Comment: enterred in error 5Result Comment: [07/25/2017] [id number] 6Result Comment: [02/13/2018] [facility] 0005 1971 01 7Result Comment: [07/25/2017] [id number] 8Admin Note: [id number] 9Result Comment: [07/25/2017] historical Medications amLODIPine 10 mg oral tablet 1 tablet, By Mouth, Daily, # 90 tablet, 11 Refills, Maintenance, 12/05/19 16:46:00 EDT, [facility], 164, cm, 11/27/19 13:41:00 EST, Height, 74.5, kg, 01/03/19 18:01:00 EDT, Dry Weight Start Date: 12/05/19 Status: Ordered atenolol-chlorthalidone 100 mg-25 mg oral tablet 1 tablet, By Mouth, Daily, # 90 tablet, 11 Refills, Maintenance, 12/05/19 16:47:00 EDT, [facility], 90, TAKE 1 TABLET BY MOUTH EVERY DAY, 164, cm, 11/27/19 13:41:00 EST, Height, 74.5, kg, 01/03/19 18:01:00 EDT, Dry Weight Start Date: 12/05/19 Status: Ordered atorvastatin 40 mg oral tablet 1 tablet = 40 mg, By Mouth, Daily, # 90 tablet, 1 Refills, Maintenance, 12/05/19 14:01:00 EDT, [facility]/pharmacy #0693, 164, cm, 11/27/19 13:41:00 EST, Height, 74.5, kg, 01/03/19 18:01:00 EDT, Dry Weight Start Date: 12/05/19 Status: Ordered Colace sodium 100 mg oral capsule 100 mg, 1, capsule, By Mouth, 2 times a day, PRN, with plenty of water, # 20 capsule, Refills 1, Tot. Refills 1, Maintenance, for constipation, 06/13/20 8:34:00 EDT, Route to Pharmacy Electronically,[facility], 168, cm, 06/13/20 5:15:00... Start Date: 06/13/20 Status: Ordered Finacea 15% topical gel 1 application, Topically, 2 times a day, # 30 Gm, 0 Refills, Maintenance, 03/25/17 16:55:18, Gel Start Date: 03/25/17 Status: Ordered sertraline 100 mg oral tablet 2 tablet = 200 mg, By Mouth, Daily, # 180 tablet, 0 Refills, Maintenance, 05/27/20 16:27:00 EDT, [facility]/pharmacy #0693, D/C rx on file for 100mg 1 tab daily, 164, cm, 05/24/20 8:51:00 EDT, Height, 74.5,kg, 01/03/19 18:01:00 EDT, Dry Weight Start Date: 05/27/20 Status: Ordered spironolactone 25 mg oral tablet 25 mg, 1, tablet, By Mouth, Daily, # 90 tablet, Refills 3, Tot. Refills 3, Maintenance, 11/08/19 10:43:00 EST, Route to Pharmacy Electronically, [facility]/pharmacy #0693, 164, cm, 11/08/19 9:45:00 EST, Height, [...] MESH VENTRALIGHT ECHO CIR 6 - BARD ([id number]) 1 Bard Unknown BÁRBARA:No Information Assigning Authority: FDA MESH VENTRALIGHT ECHO20.3X25 .4 - BARD ([id number]) 1 Bard Unknown BÁRBARA:No Information Assigning Authority: FDA
--- OUTSIDE RECORDS SUMMARY | 2023-06-17 12:46 | XMS_ITS | Continuity of Care Document ---
Author Name Unknown Organization [facility] Address [address] [place] [address]- Care Team Providers Care Ditto Machine Operator Name Role Phone Hill Foley MD Primary Care Physician Encounter [facility] Date(s): 02/04/22 - 02/11/22 [facility] Adult [address] [place] [address]- Attending Physician: Heydi Gómez NP Referring Physician: Hill Foley MD Allergies, Adverse [...] vaccine 9 09/26/16 Recorded 1Result Comment: [08/10/2018] [facility] [id number] 2Result Comment: [08/10/2018] big y[08/10/2018 Uncharted] pt states she has not had the flu vaccine this year as previously stated 3Result Comment: enterred in error 4Result Comment: [07/25/2017] [id number] 5Result Comment: influenza [facility] 6Result Comment: [02/13/2018] [facility] 0005 1971 01 7Result Comment: [07/25/2017] [id number] 8Admin Note: [id number] 9Result Comment: [07/25/2017] historical Medications atenolol-chlorthalidone 100 [...] EST, Height,... Start Date: 12/01/21 Status: Ordered Zithromax 250 mg oral tablet 1 pack/packet, By Mouth, Once, # 6 tablet, 0 Refills, Soft Stop, 01/29/22 19:37:00 EDT, [facility]t, [facility], Partial fill upon patient request if the prescription is for a schedule II opioid drug., 168, cm, 12/24/21 10:49:00 EDT, Height, 83.8,... Start Date: 01/29/22 Status: Ordered Problem List Condition Effective Dates [...] oldest [Reference Range]: 1 Height 168 cm (02/04/22 3:00 PM) Weight 79.1 kg (02/04/22 3:00 PM) Oxygen Saturation [94-100 %] 91 % *L* (02/04/22 3:00 PM) Pulse Rate [55-90 bpm] 66 bpm (02/04/22 3:00 PM) Body Mass Index [18.5-24.99] 28.03 *H* (02/04/22 3:00 PM) Blood Pressure [90-138/55-84 mm Hg] 106/ 62mm Hg (02/04/22 3:00 PM) Respiratory Rate [16-30 br/min] 16 br/mi n (02/04/22 3:00 PM) Mode of Delivery (Oxygen) Room air (02/04/22 3:00 PM) Blood pressure sites Arm, left (02/04/22 3:00 PM) Weight Obtained Via Standing scale (02/04/22 3:00 PM) Social History Social History Type Response Smoking Status Former smoker entered on: 05/30/18 Sex Medical Equipment Implanted Date:06/11/20Target Site:Abdomen Description Quantity MRI Company Model MESH VENTRALIGHT ECHO CIR 6 - BARD ([id number]) 1 Bard Unknown BÁRBARA:No Information Assigning Authority: FDA MESH VENTRALIGHT ECHO20.3X25 .4 - BARD ([id number]) 1 Bard Unknown BÁRBARA:No Information Assigning Authority: FDA
--- OUTSIDE RECORDS SUMMARY | 2023-06-17 12:46 | XMS_ITS | Continuity of Care Document ---
Author Name Unknown Organization [facility] Address [address] [place] [address] [address] [place] [address]- Care Team Providers Care Mender Hand Name Role Phone Adrianna WEBB, Natanael Yoo Primary Care Physician Encounter [facility] Date(s): 12/05/19 - 01/20/[address] [place] [address]- [facility] Attending Physician: Ian Ray MD Allergies, Adverse Reactions, [...] vaccine 8 09/26/16 Recorded 1Result Comment: [08/10/2018] [facility] [id number] 2Result Comment: [08/10/2018] big y[08/10/2018 Uncharted] pt states she has not had the flu vaccine this year as previously stated 3Result Comment: enterred in error 4Result Comment: [07/25/2017] [id number] 5Result Comment: [02/13/2018] [facility] 0005 1971 01 6Result Comment: [07/25/2017] [id number] 7Admin Note: [id number] 8Result Comment: [07/25/2017] historical Medications acetaminophen 325 mg oral tablet 650 mg, By Mouth, Every 4 hours, PRN, Refills 0, Maintenance, Pain , Moderate, 05/18/18 9:59:35 EDT Start Date: 05/18/18 Status: Ordered amLODIPine 10 mg oral tablet 1 tablet, By Mouth, Daily, # 90 tablet, 11 Refills, Maintenance, 12/05/19 16:46:00 EDT, [facility], 164, cm, 11/27/19 13:41:00 EST, Height, 74.5, kg, 01/03/19 18:01:00 EDT, Dry Weight Start Date: 12/05/19 Status: Ordered atenolol-chlorthalidone 100 mg-25 mg oral tablet 1 tablet, By Mouth, Daily, # 90 tablet, 11 Refills, Maintenance, 12/05/19 16:47:00 EDT, [facility], 90, TAKE 1 TABLET BY MOUTH EVERY [...] Daily, # 180 tablet, 0 Refills, Maintenance, 12/05/19 14:04:00 EDT, [facility]/pharmacy #0693, D/C rx on file for 100mg 1 tab daily, 164, cm, 11/27/19 13:41:00 EST, Height, 74.5, kg, 01/03/19 18:01:00 EDT, Dry Weight Start Date: 12/05/19 Status: Ordered spironolactone 25 mg oral tablet 25 mg, 1, tablet, By Mouth, Daily, # 90 tablet, Refills 3, Tot. Refills 3, Maintenance, 11/08/19 10:43:00 EST, Route to Pharmacy Electronically, [facility]/pharmacy #0693, 164, cm, 11/08/19 9:45:00 [...]
--- OUTSIDE RECORDS SUMMARY | 2023-06-17 12:46 | XMS_ITS | Continuity of Care Document ---
Author Name Unknown Organization [facility] Address [address] [place] [address]- Care Team Providers Care Foundry Technician Name Role Phone Alaina WEBB, Hill Jones Primary Care Physician [facility]counter [facility] Date(s): 05/12/22 - 06/11/22 [facility] Adult [address] [place] [address]- Allergies, Adverse Reactions, Alerts No Known Allergies [...] vaccine 9 09/26/16 Recorded 1Result Comment: [08/10/2018] [facility] [id number] 2Result Comment: [08/10/2018] big y[08/10/2018 Uncharted] pt states she has not had the flu vaccine this year as previously stated 3Result Comment: enterred in error 4Result Comment: [07/25/2017] [id number] 5Result Comment: influenza [facility] 6Result Comment: [02/13/2018] [facility] 0005 1971 01 7Result Comment: [07/25/2017] [id number] 8Admin Note: [id number] 9Result Comment: [07/25/2017] historical Medications atenolol-chlorthalidone 100 mg-25 mg oral tablet 1 tablet, By Mouth, Daily, # 90 tablet, 11 Refills, 12/01/21 12:21:00 EST, [facility]/pharmacy #0693, 90, 1 tablet By Mouth [...] Active Un known Care Team Personnel Name: Alaina WEBB, Hill Jones Address: [address] [place] [id number]
--- OUTSIDE RECORDS SUMMARY | 2023-06-17 12:46 | XMS_ITS | Continuity of Care Document ---
Author Name Unknown Organization [facility] Address [address] [place] [address] [address] [place] [address]- Care Team Providers Care Neighborhood Aide Name Role Phone Adrianna WEBB, Natanael Yoo Primary Care Physician [phone] Encounter [facility] Date(s): 04/11/20 - 05/11/[address] [place] [address]- [facility] Attending Physician: AdmMynor molina8 Admitting Physician: AdmtrBrady Referring Physician: Admtr, Ar8 Allergies, Adverse Reactions, Alerts Substance Reaction Severity [...] vaccine 8 09/26/16 Recorded 1Result Comment: [08/10/2018] formerly named [facility] [id number] 2Result Comment: [08/10/2018] big y[08/10/2018 Uncharted] pt states she has not had the flu vaccine this year as previously stated 3Result Comment: enterred in error 4Result Comment: [07/25/2017] [id number] 5Result Comment: [02/13/2018] formerly named [facility] 0005 1971 01 6Result Comment: [07/25/2017] [id number] 7Admin Note: [id number] 8Result Comment: [07/25/2017] historical Medications acetaminophen 325 mg oral tablet 650 mg, By Mouth, Every 4 hours, PRN, Refills 0, Maintenance, Pain , Moderate, 05/18/18 9:59:35 EDT Start Date: 05/18/18 Status: Ordered amLODIPine 10 mg oral tablet 1 tablet, By Mouth, Daily, # 90 tablet, 11 Refills, Maintenance, 12/05/19 16:46:00 EDT, [facility], 164, cm, 11/27/19 13:41:00 EST, Height, 74.5, kg, 01/03/19 18:01:00 EDT, Dry Weight Start Date: 12/05/19 Status: Ordered atenolol-chlorthalidone 100 mg-25 mg oral tablet 1 tablet, By Mouth, Daily, # 90 tablet, 11 Refills, Maintenance, 12/05/19 16:47:00 EDT, [facility], 90, TAKE 1 TABLET BY MOUTH EVERY [...] tablet, 0 Refills, Maintenance, 02/25/20 16:12:00 EDT, [facility]/pharmacy #0693, D/C rx on file for 100mg 1 tab daily, 164, cm, 11/27/19 13:41:00 EST, Height, 74.5, kg, 01/03/19 18:01:00 EDT, Dry Weight Start Date: 02/25/20 Status: Ordered spironolactone 25 mg oral tablet 25 mg, 1, tablet, By Mouth, Daily, # 90 tablet, Refills 3, Tot. Refills 3, Maintenance, 11/08/19 10:43:00 EST, Route to Pharmacy Electronically, [facility]/pharmacy #0693, 164, cm, 11/08/19 9:45:00 EST, Height, [...]
--- OUTSIDE RECORDS SUMMARY | 2023-06-17 12:46 | XMS_ITS | Continuity of Care Document ---
Author Name Unknown Organization [facility] Address [address] [place] [address]- Care Team Providers Care Microsoft Bi Consultant Name Role Phone Natanael Rodas MD Primary Care Physician [facility]counter [facility] Date(s): 07/07/21 - 07/14/21 [facility] Adult [address] [place] [address]- Attending Physician: Natanael Rodas MD Allergies, Adverse [...] vaccine 9 09/26/16 Recorded 1Result Comment: [08/10/2018] [facility] [id number] 2Result Comment: [08/10/2018] big y[08/10/2018 Uncharted] pt states she has not had the flu vaccine this year as previously stated 3Result Comment: enterred in error 4Result Comment: [07/25/2017] [id number] 5Result Comment: influenza [facility] 6Result Comment: [02/13/2018] [facility] 0005 1971 01 7Result Comment: [07/25/2017] [id number] 8Admin Note: [id number] 9Result Comment: [07/25/2017] historical Medications amLODIPine 10 mg oral tablet 1 tablet, By Mouth, Daily, # 90 tablet, 11 Refills, Maintenance, 12/05/19 16:46:00 EDT, [facility], 164, cm, 11/27/19 13:41:00 EST, Height, 74.5, kg, 01/03/19 18:01:00 EDT, Dry Weight Start Date: 12/05/19 Status: Ordered atenolol-chlorthalidone 100 mg-25 mg oral tablet 1 tablet, By Mouth, Daily, # 90 tablet, 11 Refills, Maintenance, 12/05/19 16:47:00 EDT, [facility], 90, TAKE 1 TABLET BY MOUTH EVERY [...] constipation, 06/13/20 8:34:00 EDT, Route to Pharmacy Electronically,[facility], 168, cm, 06/13/20 5:15:00... [...] 11/08/19 10:43:00 EST, Route to Pharmacy Electronically, [facility]/pharmacy #[id number], 164, cm, 11/08/19 9:45:00 [...] recent to oldest [Reference Range]: 1 2 Height 168 cm (07/07/21 4:40 PM) 168 cm (07/07/21 4:32 PM) Weight 86.2 kg (07/07/21 4:32 PM) Oxygen Saturation [94-100 %] 96 % (07/07/21 4:32 PM) Pulse Rate [55-90 bpm] 80 bpm (07/07/21 4:32 PM) Body Mass Index [18.5-24.99] 30.54 *>HHI* (07/07/21 4:32 PM) Blood Pressure [90-138/55-84 mm Hg] 130/ 82mm Hg (07/07/21 4:40 PM) 147/86mm Hg *H* (07/07/21 4:32 PM) Temperature [96.8-100.4 DegF] 98.8 DegF (07/07/21 4:32 PM) Mode of Delivery (Oxygen) Room air (07/07/21 4:32 PM) Blood pressure sites Arm, left (07/07/21 4:40 PM) Arm, left (07/07/21 4:32 PM) Temperature Route Oral (07/07/21 4:32 PM) Weight Obtained Via Standing scale (07/07/21 4:32 PM) Social History Social History Type Response Smoking Status Former smoker entered on: 05/30/18 Sex Medical Equipment Implanted Date:06/11/20Target Site:Abdomen Description Quantity MRI Company Model MESH VENTRALIGHT ECHO CIR 6 - BARD ([id number]) 1 Bard Unknown BÁRBARA:No Information Assigning Authority: FDA MESH VENTRALIGHT ECHO20.3X25 .4 - BARD ([id number]) 1 Bard Unknown BÁRBARA:No Information Assigning Authority: FDA
--- OUTSIDE RECORDS SUMMARY | 2023-06-17 12:46 | XMS_ITS | Continuity of Care Document ---
Author Name Unknown Organization [facility] Address [address] [place] [address]- Care Team Providers Care Stem Crusher Name Role Phone Natanael Rodas MD Primary Care Physician Encounter [facility] Date(s): 06/05/21 - 06/12/21 [facility] Adult [address] [place] [address]- Encounter Diagnosis Right hip pain(Discharge Diagnosis) - 06/05/21 Attending Physician: Not on Staff, Attending Referring Physician: Natanael Rodas MD Allergies, Adverse [...] 1Result Comment: influenza [facility] 2Result Comment: [08/10/2018] [facility] [id number] 3Result Comment: [08/10/2018] big y[08/10/2018 Uncharted] pt states she has not had the flu vaccine this year as previously stated 4Result Comment: enterred in error 5Result Comment: [07/25/2017] [id number] 6Result Comment: [02/13/2018] [facility] 0005 1971 01 7Result Comment: [07/25/2017] [id number] 8Admin Note: [id number] 9Result Comment: [07/25/2017] historical Medications amLODIPine 10 mg oral tablet 1 tablet, By Mouth, Daily, # 90 tablet, 11 Refills, Maintenance, 12/05/19 16:46:00 EDT, [facility], 164, cm, 11/27/19 13:41:00 EST, Height, 74.5, kg, 01/03/19 18:01:00 EDT, Dry Weight Start Date: 12/05/19 Status: Ordered atenolol-chlorthalidone 100 mg-25 mg oral tablet 1 tablet, By Mouth, Daily, # 90 tablet, 11 Refills, Maintenance, 12/05/19 16:47:00 EDT, [facility], 90, TAKE 1 TABLET BY MOUTH EVERY DAY, 164, cm, 11/27/19 13:41:00 EST, Height, 74.5, kg, 01/03/19 18:01:00 EDT, Dry Weight Start Date: 12/05/19 Status: Ordered atorvastatin 40 mg oral tablet 1 tablet = 40 mg, By Mouth, Daily, # 90 tablet, 1 Refills, Maintenance, 12/05/19 14:01:00 EDT, [facility]/pharmacy #0693, 164, cm, 11/27/19 13:41:00 EST, Height, 74.5, kg, 01/03/19 18:01:00 EDT, Dry Weight Start Date: 12/05/19 Status: Ordered Colace sodium 100 mg oral capsule 100 mg, 1, capsule, By Mouth, 2 times a day, PRN, with plenty of water, # 20 capsule, Refills 1, Tot. Refills 1, Maintenance, for constipation, 06/13/20 8:34:00 EDT, Route to Pharmacy Electronically,[facility], 168, cm, 06/13/20 5:15:00... Start Date: 06/13/20 Status: Ordered Finacea 15% topical gel 1 application, Topically, 2 times a day, # 30 Gm, 0 Refills, Maintenance, 03/25/17 16:55:18, Gel Start Date: 03/25/17 Status: Ordered sertraline 100 mg oral tablet 2 tablet = 200 mg, By Mouth, Daily, # 180 tablet, 0 Refills, Maintenance, 05/27/20 16:27:00 EDT, [facility]/pharmacy #[id number], D/C rx on file for 100mg 1 tab daily, 164, cm, 05/24/20 8:51:00 EDT, Height, 74.5,kg, 01/03/19 18:01:00 EDT, Dry Weight Start Date: 05/27/20 Status: Ordered spironolactone 25 mg oral tablet 25 mg, 1, tablet, By Mouth, Daily, # 90 tablet, Refills 3, Tot. Refills 3, Maintenance, 11/08/19 10:43:00 EST, Route to Pharmacy Electronically, [facility]/pharmacy #[id number], 164, cm, 11/08/19 9:45:00 [...] Dates Health Status Cl inical Service Informant Right hip pain Discharge Diagnosis 06/05/21 Vital Signs Most recent to oldest [Reference Range]: 1 2 Height 167 cm (06/05/21 1:15 PM) 167 cm (06/05/21 12:46 PM) Weight 83.9 kg (06/05/21 12:46 PM) Oxygen Saturation [94-100 %] 96 % (06/05/21 12:46 PM) Pulse Rate [55-90 bpm] 64 bpm (06/05/21 12:46 PM) Body Mass Index [18.5-24.99] 30.08 *>HHI* (06/05/21 12:46 PM) Blood Pressure [90-138/55-84 mm Hg] 134/ 60mm Hg (06/05/21 1:15 PM) 142/58mm Hg *H* (06/05/21 12:46 PM) Temperature [96.8-100.4 DegF] 98.0 DegF (06/05/21 12:46 PM) Mode of Delivery (Oxygen) Room air (06/05/21 12:46 PM) Blood pressure sites Arm, right (06/05/21 12:46 PM) Temperature Route Oral (06/05/21 12:46 PM) Weight Obtained Via Standing scale (06/05/21 12:46 PM) Social History Social History Type Response Smoking Status Former smoker entered on: 05/30/18 Sex Medical Equipment Implanted Date:06/11/20Target Site:Abdomen Description Quantity MRI Company Model MESH VENTRALIGHT ECHO CIR 6 - BARD ([id number]) 1 Bard Unknown BÁRBARA:No Information Assigning Authority: FDA MESH VENTRALIGHT ECHO20.3X25 .4 - BARD ([id number]) 1 Bard Unknown BÁRBARA:No Information Assigning Authority: FDA
--- OUTSIDE RECORDS SUMMARY | 2023-06-17 12:46 | XMS_ITS | Continuity of Care Document ---
Author Name Unknown Organization [facility] Address [address] [place] [address]- Care Team Providers Care Silk Soaker Name Role Phone Alaina WEBB, Hill Jones Primary Care Physician [phone] En[place] [facility] Date(s): 12/21/21 - 12/28/21 [facility] Adult [address] [place] [address]- Attending Physician: Not on Staff, Attending MD Allergies, Adverse Reactions, Alerts No Known [...] vaccine 9 09/26/16 Recorded 1Result Comment: [08/10/2018] [facility] [id number] 2Result Comment: [08/10/2018] big y[08/10/2018 Uncharted] pt states she has not had the flu vaccine this year as previously stated 3Result Comment: enterred in error 4Result Comment: [07/25/2017] [id number] 5Result Comment: influenza [facility] 6Result Comment: [02/13/2018] [facility] 0005 1971 01 7Result Comment: [07/25/2017] [id number] 8Admin Note: [id number] 9Result Comment: [07/25/2017] historical Medications amLODIPine 5 [...] tablet, 11 Refills, 12/01/21 12:21:00 EST, [facility]/pharmacy #0693, 90, 1 tablet By Mouth Daily, 168, cm, 12/01/21 11:53:00 EST, Height, 83.8, kg, 06/17/21 13:41:00 EDT, Dry Weight Start Date: 12/01/21 Status: Ordered atorvastatin 80 mg oral tablet 1 tablet = 80 mg, By Mouth, Daily, DOSAGE INCREASE, # 90 tablet, 1 Refills, Maintenance, 12/10/21 11:32:00 EDT, Tablet, [facility]/pharmacy #[id number], Partial fill upon patient request if [...] MESH VENTRALIGHT ECHO CIR 6 - BARD ([id number]) 1 Bard Unknown BÁRBARA:No Information Assigning Authority: FDA MESH VENTRALIGHT ECHO20.3X25 .4 - BARD ([id number]) 1 Bard Unknown BÁRBARA:No Information Assigning Authority: FDA
--- OUTSIDE RECORDS SUMMARY | 2023-06-17 12:46 | XMS_ITS | Continuity of Care Document ---
Author Name Unknown Organization [facility] Address [address] [place] [address]- Care Team Providers Care Refinery Operator Coking Name Role Phone Alaina WEBB, Hill Jones Primary Care Physician Encounter [facility] Date(s): 07/08/22 - 08/11/22 [facility] [address] [address]- Attending Physician: Leticia Savage MD Admitting Physician: [...] 9 09/26/16 Recorded 1Result Comment: [08/10/2018] [facility] [id number] 2Result Comment: [08/10/2018] big y[08/10/2018 Uncharted] pt states she has not had the flu vaccine this year as previously stated 3Result Comment: enterred in error 4Result Comment: [07/25/2017] [id number] 5Result Comment: influenza [facility] 6Result Comment: [02/13/2018] [facility] 0005 1971 01 7Result Comment: [07/25/2017] [id number] 8Admin Note: [id number] 9Result Comment: [07/25/2017] historical Medications atenolol-chlorthalidone 100 [...] Team Personnel Name: Claire Serra RN Position: [facility] RN Member Role: Primary Care Nurse Name: Hill Foley MD Position: [facility] Primary Care Physician Member Role: PCP Address: Address: [address] [place] [address]- Name: Katy Romo RN Position: [facility] RN Member Role: Primary Care Nurse Name: Neha Bey RN Position: [facility] SN RN Member Role: Primary Care Nurse Name: Margarita Olson RN Position: [facility] RN Member Role: Primary Care Nurse Name: Thelma Sifuentes RN Position: [facility] RN Member Role: Primary Care Nurse Name: Loren Johnson RN Position: [facility] RN Member Role: Primary Care Nurse Name: Zaida Alan RN Position: [facility] RN Member Role: Primary Care Nurse Name: Carol Brar RN Position: [facility] Onco RN Member Role: Primary Care Nurse Name: Charlotte Thompson RN Position: [facility] Hospital Shaper Setter Member Role: Primary Care Nurse Care Team Related Persons Name: LOUIE PACHECO Address: home [address] [place] [address] Name: LOGAN JANE Name: PRAVIN RYAN Address: [place] [address]
--- OUTSIDE RECORDS SUMMARY | 2023-06-17 12:46 | XMS_ITS | Continuity of Care Document ---
Author Name Unknown Organization [facility] Address [address] [place] [address]- Care Team Providers Care Senior Web Designer Name Role Phone Natanael Rodas MD Primary Care Physician [facility] Date(s): 03/27/20 - 04/03/20 [facility] Adult [address] [place] [address]- [facility] Encounter Diagnosis Seborrheic dermatitis(Discharge Diagnosis) - 03/27/20 Attending Physician: Natanael Rodas MD Allergies, Adverse [...] 8 09/26/16 Recorded 1Result Comment: [08/10/2018] [facility] [id number] 403 [id number] 2Result Comment: [08/10/2018] big y[08/10/2018 Uncharted] pt states she has not had the flu vaccine this year as previously stated 3Result Comment: enterred in error 4Result Comment: [07/25/2017] [id number] 5Result Comment: [02/13/2018] [facility] 0005 1971 01 6Result Comment: [07/25/2017] [id number] 7Admin Note: [id number] 8Result Comment: [07/25/2017] historical Medications acetaminophen 325 mg oral tablet 650 mg, By Mouth, Every 4 hours, PRN, Refills 0, Maintenance, Pain , Moderate, 05/18/18 9:59:35 EDT Start Date: 05/18/18 Status: Ordered amLODIPine 10 mg oral tablet 1 tablet, By Mouth, Daily, # 90 tablet, 11 Refills, Maintenance, 12/05/19 16:46:00 EDT, [facility], 164, cm, 11/27/19 13:41:00 EST, Height, 74.5, kg, 01/03/19 18:01:00 EDT, Dry Weight Start Date: 12/05/19 Status: Ordered atenolol-chlorthalidone 100 mg-25 mg oral tablet 1 tablet, By Mouth, Daily, # 90 tablet, 11 Refills, Maintenance, 12/05/19 16:47:00 EDT, [facility], 90, TAKE 1 TABLET BY MOUTH EVERY [...] 450 ml each; Dx: Hernia, 164, cm, 03/03/20 13:41:00 EST, Height, 74.5, kg, 01/03/19 18:... Start Date: 12/12/19 Status: Ordered sertraline 100 mg oral tablet 2 tablet = 200 mg, By Mouth, Daily, # 180 tablet, 0 Refills, Maintenance, 02/25/20 16:12:00 EDT, [id number], D/C rx on file [...] Diagnosis Diagnosis Type Effective Dates Health Status Clinical Service Informant Seborrheic dermatitis Discharge Diagnosis 03/27/20 Social History Social History Type Response Smoking Status Former smoker entered on: 05/30/18 Sex
--- OUTSIDE RECORDS SUMMARY | 2023-06-17 12:46 | XMS_ITS | Continuity of Care Document ---
Author Name Unknown Organization [facility] Address [address] [place] [address]- Care Team Providers Care Human Resources Analyst Name Role Phone Natanael Rodas MD Primary Care Physician [phone] [facility]counter [facility] Date(s): 11/21/20 - 11/22/[address] [address]- Encounter Diagnosis Right hip pain(Final) - 11/22/20 Discharge Disposition: A-D/C Home Attending Physician: Gracia Lópze DO Admitting Physician: Gracia López DO Referring Physician: Not on Staff, Referring MD [...] 1Result Comment: influenza [facility] 2Result Comment: [08/10/2018] [facility] [address] 403 [id number] 3Result Comment: [08/10/2018] big y[08/10/2018 Uncharted] pt states she has not had the flu vaccine this year as previously stated 4Result Comment: enterred in error 5Result Comment: [07/25/2017] [id number] 6Result Comment: [02/13/2018] [facility] 0005 1971 01 7Result Comment: [07/25/2017] [id number] 8Admin Note: [id number] 9Result Comment: [07/25/2017] historical Medications Acetaminophen Tablet 650 mg, Tablet, By Mouth, Once, STAT, 11/22/20 1:38:00 EST, Stop date 11/22/20 1:38:00 EST Start Date: 11/22/20 Stop Date: 11/22/20 Status: Completed amLODIPine 10 mg oral tablet 1 tablet, By Mouth, Daily, # 90 tablet, 11 Refills, Maintenance, 12/05/19 16:46:00 EDT, [facility], 164, cm, 11/27/19 13:41:00 EST, Height, 74.5, kg, 01/03/19 18:01:00 EDT, Dry Weight Start Date: 12/05/19 Status: Ordered atenolol-chlorthalidone 100 mg-25 mg oral tablet 1 tablet, By Mouth, Daily, # 90 tablet, 11 Refills, Maintenance, 12/05/19 16:47:00 EDT, [facility], 90, TAKE 1 TABLET BY MOUTH EVERY DAY, 164, cm, 11/27/19 13:41:00 EST, Height, 74.5, kg, 01/03/19 18:01:00 EDT, Dry Weight Start Date: 12/05/19 Status: Ordered atorvastatin 40 mg oral tablet 1 tablet = 40 mg, By Mouth, Daily, # 90 tablet, 1 Refills, Maintenance, 12/05/19 14:01:00 EDT, [facility]/pharmacy #0693, 164, cm, 11/27/19 13:41:00 EST, Height, 74.5, kg, 01/03/19 18:01:00 EDT, Dry Weight Start Date: 12/05/19 Status: Ordered Colace sodium 100 mg oral capsule 100 mg, 1, capsule, By Mouth, 2 times a day, PRN, with plenty of water, # 20 capsule, Refills 1, Tot. Refills 1, Maintenance, for constipation, 06/13/20 8:34:00 EDT, Route to Pharmacy Electronically,[facility], 168, cm, 06/13/20 5:15:00... Start Date: 06/13/20 Status: Ordered Finacea 15% topical gel 1 application, Topically, 2 times a day, # 30 Gm, 0 Refills, Maintenance, 03/25/17 16:55:18, Gel Start Date: 03/25/17 Status: Ordered sertraline 100 mg oral tablet 2 tablet = 200 mg, By Mouth, Daily, # 180 tablet, 0 Refills, Maintenance, 05/27/20 16:27:00 EDT, [facility]/pharmacy #[id number], D/C rx on file for 100mg 1 tab daily, 164, cm, 05/24/20 8:51:00 EDT, Height, 74.5,kg, 01/03/19 18:01:00 EDT, Dry Weight Start Date: 05/27/20 Status: Ordered spironolactone 25 mg oral tablet 25 mg, 1, tablet, By Mouth, Daily, # 90 tablet, Refills 3, Tot. Refills 3, Maintenance, 11/08/19 10:43:00 EST, Route to Pharmacy Electronically, [facility]/pharmacy #0693, 164, cm, 11/08/19 9:45:00 EST, [...] to oldest [Reference Range]: 1 2 3 Oxygen Saturation [94-100 %] 99 % (11/22/20 5:08 AM) 97 % (11/22/20 1:03 AM) 100 % (11/21/20 11:03 PM) Pulse Rate [55-90 bpm] 76 bpm (11/22/20 5:08 AM) 71 bpm (11/22/20 1:03 AM) 80 bpm (11/21/20 11:03 PM) Blood Pressure [90-138/55-84 mm Hg] 156/81mm Hg *H* (11/22/20 5:08 AM) 177/74mm Hg *H* (11/22/20 1:03 AM) 169/77mm Hg *H* (11/21/20 11:03 PM) Respiratory Rate [16-30 br/min] 18 br/min (11/22/20 5:08 AM) 18 br/min (11/22/20 3:03 AM) 16 br/min (11/22/20 1:03 AM) Temperature [96.8-100.4 DegF] 98.0 DegF (11/22/20 5:08 AM) 97.6 DegF (11/22/20 1:03 AM) 98.8 DegF (11/21/20 11:03 PM) Mode of Delivery (Oxygen) Room air (11/22/20 5:08 AM) Room air (11/22/20 1:03 AM) Room air (11/21/20 11:03 PM) Blood pressure sites Arm, right (11/22/20 5:08 AM) Arm, right (11/22/20 1:03 AM) Arm, left (11/21/20 11:03 PM) Temperature Route Axillary (11/22/20 5:08 AM) Oral (11/22/20 1:03 AM) Oral (11/21/20 11:03 PM) Social History Social History Type Response Smoking Status Former smoker entered on: 05/30/18 Sex Medical Equipment Implanted Date:06/11/20Target Site:Abdomen Description Quantity MRI Company Model MESH VENTRALIGHT ECHO CIR 6 - BARD ([id number]) 1 Bard Unknown BÁRBARA:No Information Assigning Authority: FDA MESH VENTRALIGHT ECHO20.3X25 .4 - BARD ([id number]) 1 Bard Unknown BÁRBARA:No Information Assigning Authority: FDA
--- OUTSIDE RECORDS SUMMARY | 2023-06-17 12:46 | XMS_ITS | Continuity of Care Document ---
Author Name Unknown Organization [facility] Address [address] [place] [address]- Care Team Providers Care Crabber Name Role Phone Hill Foley MD Primary Care Physician [phone] Encounter [facility] Date(s): 07/20/22 - 09/22/22 [facility] Adult [address] [place] [address]- Attending Physician: Hill Foley MD Allergies, Adverse [...] vaccine 9 09/26/16 Recorded 1Result Comment: [08/10/2018] [facility] [id number] 2Result Comment: [08/10/2018] big y[08/10/2018 Uncharted] pt states she has not had the flu vaccine this year as previously stated 3Result Comment: enterred in error 4Result Comment: [07/25/2017] [id number] 5Result Comment: influenza [facility] 6Result Comment: [02/13/2018] [facility] 0005 1971 01 7Result Comment: [07/25/2017] [id number] 8Admin Note: [id number] 9Result Comment: [07/25/2017] historical Medications atenolol-chlorthalidone 100 [...] Confirmed Active 1F/U with [facility]ascular 05/2022 2E2021 Social History Social History Type Response Smoking [...] Team Personnel Name: Claire Serra RN Position: [facility] RN Member Role: Primary Care Nurse Name: Hill Foley MD Position: [facility] Primary Care Physician Member Role: PCP Address: Address: [address] [place] [address]- Name: aKty Romo RN Position: [facility] RN Member Role: Primary Care Nurse Name: Neha Bey RN Position: [facility] SN RN Member Role: Primary Care Nurse Name: Margarita Olson RN Position: [facility] RN Member Role: Primary Care Nurse Name: Thelma Sifuentes RN Position: S RN Member Role: Primary Care Nurse Name: Loren Johnson RN Position: [facility] RN Member Role: Primary Care Nurse Name: Zaida Alan RN Position: [facility] RN Member Role: Primary Care Nurse Name: Carol Brar RN Position: [facility] Onco RN Member Role: Primary Care Nurse Name: Charlotte Thompson RN Position: [facility] Hospital Interior Design Professor Member Role: Primary Care Nurse Care Team Related Persons Name: LOUIE PACHECO Address: home [address] [place] [address] Name: LOGAN JANE Name: PRAVIN RYAN Address: [place] [address]
--- OUTSIDE RECORDS SUMMARY | 2023-06-17 12:46 | XMS_ITS | Continuity of Care Document ---
Author Name Unknown Organization [facility] Sol tiffanie Address [address] [place] [address] [address] [place] [address]- Care Team Providers Care Green End Man Name Role Phone Adrianna WEBB, Natanael Yoo Primary Care Physician [phone] [facility]counter [facility] Date[facility]s): 09/10/19 - 09/20/19 [facility] [address] [place] [address]- [facility] Attending Physician: Brady Ruelas Admitting Physician: Brady [...] vaccine 8 09/26/16 Recorded 1Result Comment: [08/10/2018] [facility] [id number] 2Result Comment: [08/10/2018] big y[08/10/2018 Uncharted] pt states she has not had the flu vaccine this year as previously stated 3Result Comment: enterred in error 4Result Comment: [07/25/2017] [id number] 5Result Comment: [02/13/2018] [facility] 0005 1971 01 6Result Comment: [07/25/2017] [id number] 7Admin Note: [id number] 8Result Comment: [07/25/2017] historical Medications acetaminophen 325 mg oral tablet 650 mg, By Mouth, Every 4 hours, PRN, Refills 0, Maintenance, Pain , Moderate, 05/18/18 9:59:35 EDT Start Date: 05/18/18 Status: Ordered amLODIPine 10 mg oral tablet 10 mg, 1, tablet, By Mouth, Daily, # 90 tablet, Refills 1, Tot. Refills 1, Maintenance, 06/11/19 16:50:00 EDT, Route to Pharmacy Electronically, [id number], [facility]/pharmacy #[id number] Start Date: 06/11/19 Status: Ordered atenolol-chlorthalidone [...]
--- OUTSIDE RECORDS SUMMARY | 2023-06-17 12:47 | XMS_ITS | Continuity of Care Document ---
Author Name Unknown Organization [facility] Address [address] [place] [address]- Care Team Providers Care Budget Technician Name Role Phone Adrianna WEBB, Natanael Yoo Primary Care Physician [facility] Date[facility]s): 09/12/19 - 09/22/[address] [address]- [facility] Attending Physician: Brady Ruelas Admitting Physician: AdmBrady [...] vaccine 8 09/26/16 Recorded 1Result Comment: [08/10/2018] [facility] [id number] 2Result Comment: [08/10/2018] big y[08/10/2018 Uncharted] pt states she has not had the flu vaccine this year as previously stated 3Result Comment: enterred in error 4Result Comment: [07/25/2017] [id number] 5Result Comment: [02/13/2018] [facility] 0005 1971 01 6Result Comment: [07/25/2017] [id number] 7Admin Note: [id number] 8Result Comment: [07/25/2017] historical Medications acetaminophen 325 mg oral tablet 650 mg, By Mouth, Every 4 hours, PRN, Refills 0, Maintenance, Pain , Moderate, 05/18/18 9:59:35 EDT Start Date: 05/18/18 Status: Ordered amLODIPine 10 mg oral tablet 10 mg, 1, tablet, By Mouth, Daily, # 90 tablet, Refills 1, Tot. Refills 1, Maintenance, 06/11/19 16:50:00 EDT, Route to Pharmacy Electronically, [id number], [facility]/pharmacy #[id number] Start Date: 06/11/19 Status: Ordered atenolol-chlorthalidone [...]
--- OUTSIDE RECORDS SUMMARY | 2023-06-17 12:47 | XMS_ITS | Continuity of Care Document ---
Author Name Unknown Organization [facility] Milind Address [address] [place] [address]- Care Team Providers Care Proof Operator Name Role Phone Natanael Rodas MD Primary Care Physician [facility] Date(s): 08/07/21 - 09/06/21 [facility] Adult [address] [place] [address]- Attending Physician: Brady Ruelas Admitting Physician: AdmBrady [...] 9 09/26/16 Recorded 1Result Comment: [08/10/2018] [facility] [id number] 2Result Comment: [08/10/2018] big y[08/10/2018 Uncharted] pt states she has not had the flu vaccine this year as previously stated 3Result Comment: enterred in error 4Result Comment: [07/25/2017] [id number] 5Result Comment: influenza [facility] 6Result Comment: [02/13/2018] [facility] 0005 1971 01 7Result Comment: [07/25/2017] [id number] 8Admin Note: [id number] 9Result Comment: [07/25/2017] historical Medications amLODIPine 10 mg oral tablet 1 tablet, By Mouth, Daily, # 90 tablet, 11 Refills, [facility], 168, cm, 08/07/21 12:51:00 EST, Height, 83.8, kg, 06/17/21 13:41:00 EDT, Dry Weight Start Date: 08/13/21 Status: Ordered atenolol-chlorthalidone 100 mg-25 mg oral tablet 1 tablet, By Mouth, Daily, # 90 tablet, 11 Refills, [facility], 90, TAKE 1 TABLET BY MOUTH EVERY DAY, 168, cm, 08/07/21 12:51:00 EST, Height, 83.8, kg, 06/17/21 13:41:00 EDT, Dry Weight Start Date: 08/13/21 Status: Ordered atorvastatin 40 mg oral tablet 1 tablet, By Mouth, Daily, # 90 tablet, 1 Refills, [facility], 168, cm, 08/07/21 12:51:00 EST,Height, 83.8, kg, 06/17/21 13:41:00 EDT, Dry Weight Start Date: 08/13/21 Status: Ordered Finacea 15% topical gel 1 application, Topically, 2 times a day, # 30 Gm, 0 Refills, Maintenance, 03/25/17 16:55:18, Gel Start Date: 03/25/17 Status: Ordered sertraline 100 mg oral tablet 2 tablet, By Mouth, Daily, # 180 tablet, 0 Refills, [facility], 168, cm, 08/07/21 12:51:00 EST, Height, 83.8, kg, 06/17/21 13:41:00 EDT, Dry Weight Start Date: 08/13/21 Status: Ordered spironolactone 50 mg oral tablet 1 tablet = 50 mg, By Mouth, Daily, # 90 tablet, 3 Refills, Maintenance, 08/07/21 13:07:00 EST, Tablet, [id number], Partial fill upon patient request if the [...] MESH VENTRALIGHT ECHO CIR 6 - BARD ([id number]) 1 Bard Unknown BÁRBARA:No Information Assigning Authority: FDA MESH VENTRALIGHT ECHO20.3X25 .4 - BARD ([id number]) 1 Bard Unknown BÁRBARA:No Information Assigning Authority: FDA
--- OUTSIDE RECORDS SUMMARY | 2023-06-17 12:47 | XMS_ITS | Continuity of Care Document ---
Author Name Unknown Organization [facility] Luis Carlos Milind lt Address [address] [place] [address]- Care Team Providers Care Student Counselor Name Role Phone Alaina WEBB, Hill Jones Primary Care Physician [facility] Date(s): 08/30/22 - 09/29/22 [facility] [place] Adult [address] [place] [address]- Allergies, Adverse Reactions, Alerts No Known Allergies [...] 9 09/26/16 Recorded 1Result Comment: [08/10/2018] [facility] [id number] 2Result Comment: [08/10/2018] big y[08/10/2018 Uncharted] pt states she has not had the flu vaccine this year as previously stated 3Result Comment: enterred in error 4Result Comment: [07/25/2017] [id number] 5Result Comment: influenza [facility] 6Result Comment: [02/13/2018] [facility] 0005 1971 01 7Result Comment: [07/25/2017] [id number] 8Admin Note: [id number] 9Result Comment: [07/25/2017] historical Medications atenolol-chlorthalidone 100 mg-25 mg oral tablet 1 tablet, By Mouth, Daily, # 90 tablet, 11 Refills, 12/01/21 12:21:00 EST, [facility]/pharmacy #[id number], 90, 1 tablet By Mouth Daily, 168, cm, 12/01/21 11:53:00 EST, Height, 83.8, kg, 06/17/21 13:41:00 EDT, Dry Weight Start Date: 12/01/21 Status: Ordered atorvastatin 80 mg oral tablet 1 tablet = 80 mg, By Mouth, Daily, DOSAGE INCREASE, # 90 tablet, 1 Refills, Maintenance, 12/10/21 11:32:00 EDT, Tablet, [facility]/pharmacy #[id number], Partial fill upon patient request [...] Team Personnel Name: Claire Serra RN Position: [facility] RN Member Role: Primary Care Nurse Name: Hill Foley MD Position: [facility] Primary Care Physician Member Role: PCP Address: Address: [address] [place] [address]- Name: Katy Romo RN Position: [facility] RN Member Role: Primary Care Nurse Name: Neha Bey RN Position: [facility] SN RN Member Role: Primary Care Nurse Name: Margarita Olson RN Position: [facility] RN Member Role: Primary Care Nurse Name: Thelma Sifuentes RN Position: [facility] RN Member Role: Primary Care Nurse Name: Loren Johnson RN Position: [facility] RN Member Role: Primary Care Nurse Name: Zaida Alan RN Position: [facility] RN Member Role: Primary Care Nurse Name: Carol Brar RN Position: [facility] Onco RN Member Role: Primary Care Nurse Name: Charlotte Thompson RN Position: [facility] Hospital Napkin Machine Operator Member Role: Primary Care Nurse Care Team Related Persons Name: LOUIE PACHECO Address: home [address] [place] [address] Name: LOGAN JANE Name: PRAVIN RYAN Address: [place] [address]
--- OUTSIDE RECORDS SUMMARY | 2023-06-17 12:47 | XMS_ITS | Continuity of Care Document ---
Author Name Unknown Organization [facility] Milind lt Address [address] [place] [address]- Care Team Providers Care Binding Dyer Name Role Phone Alaina WEBB, Hill Jones Primary Care Physician [facility] Date(s): 03/31/22 - 04/30/22 [facility] Adult [address] [place] [address]- Allergies, Adverse Reactions, Alerts No Known Allergies [...] vaccine 9 09/26/16 Recorded 1Result Comment: [08/10/2018] [facility] [id number] 2Result Comment: [08/10/2018] big y[08/10/2018 Uncharted] pt states she has not had the flu vaccine this year as previously stated 3Result Comment: enterred in error 4Result Comment: [07/25/2017] [id number] 5Result Comment: influenza [facility] 6Result Comment: [02/13/2018] [facility] 0005 1971 01 7Result Comment: [07/25/2017] [id number] 8Admin Note: [id number] 9Result Comment: [07/25/2017] historical Medications atenolol-chlorthalidone 100 mg-25 mg oral tablet 1 tablet, By Mouth, Daily, # 90 tablet, 11 Refills, 12/01/21 12:21:00 EST, [facility]/pharmacy #[id number], 90, 1 tablet By Mouth Daily, 168, cm, 12/01/21 11:53:00 EST, Height, 83.8, kg, 06/17/21 13:41:00 EDT, Dry Weight Start Date: 12/01/21 Status: Ordered atorvastatin 80 mg oral tablet 1 tablet = 80 mg, By Mouth, Daily, DOSAGE INCREASE, # 90 tablet, 1 Refills, Maintenance, 12/10/21 11:32:00 EDT, Tablet, [facility]/pharmacy #[id number], Partial fill upon patient request [...] MESH VENTRALIGHT ECHO CIR 6 - BARD ([id number]) 1 Bard Unknown BÁRBARA:No Information Assigning Authority: FDA MESH VENTRALIGHT ECHO20.3X25 .4 - BARD ([id number]) 1 Bard Unknown BÁRBARA:No Information Assigning Authority: FDA
--- OUTSIDE RECORDS SUMMARY | 2023-06-17 12:47 | XMS_ITS | Continuity of Care Document ---
Author Name Unknown Organization [facility] Address [address] [place] [address]- Care Team Providers Care Heading Up Machine Operator Name Role Phone Natanael Rodas MD Primary Care Physician [phone] Encounter [facility] Date(s): 06/12/21 - 08/19/21 [facility] [address] [place] [address]- Attending Physician: Natanael Rodas MD Admitting Physician: [...] Recorded 1Result Comment: [08/10/2018] [facility] [id number] 2Result Comment: [08/10/2018] big y[08/10/2018 Uncharted] pt states she has not had the flu vaccine this year as previously stated 3Result Comment: enterred in error 4Result Comment: [07/25/2017] [id number] 5Result Comment: influenza [facility] 6Result Comment: [02/13/2018] [facility] 0005 1971 01 7Result Comment: [07/25/2017] [id number] 8Admin Note: [id number] 9Result Comment: [07/25/2017] historical Medications amLODIPine 10 mg oral tablet 1 tablet, By Mouth, Daily, # 90 tablet, 11 Refills, [facility], 168, cm, 08/07/21 12:51:00 EST, Height, 83.8, kg, 06/17/21 13:41:00 EDT, Dry Weight Start Date: 08/13/21 Status: Ordered atenolol-chlorthalidone 100 mg-25 mg oral tablet 1 tablet, By Mouth, Daily, # 90 tablet, 11 Refills, [facility], 90, TAKE 1 TABLET BY MOUTH EVERY DAY, 168, cm, 08/07/21 12:51:00 EST, Height, 83.8, kg, 06/17/21 13:41:00 EDT, Dry Weight Start Date: 08/13/21 Status: Ordered atorvastatin 40 mg oral tablet 1 tablet, By Mouth, Daily, # 90 tablet, 1 Refills, [facility], 168, cm, 08/07/21 12:51:00 EST,Height, 83.8, kg, 06/17/21 13:41:00 EDT, Dry Weight Start Date: 08/13/21 Status: Ordered Finacea 15% topical gel 1 application, Topically, 2 times a day, # 30 Gm, 0 Refills, Maintenance, 03/25/17 16:55:18, Gel Start Date: 03/25/17 Status: Ordered sertraline 100 mg oral tablet 2 tablet, By Mouth, Daily, # 180 tablet, 0 Refills, [facility], 168, cm, 08/07/21 12:51:00 EST, Height, 83.8, kg, 06/17/21 13:41:00 EDT, Dry Weight Start Date: 08/13/21 Status: Ordered spironolactone 50 mg oral tablet 1 tablet = 50 mg, By Mouth, Daily, # 90 tablet, 3 Refills, Maintenance, 08/07/21 13:07:00 EST, Tablet, [id number], Partial fill upon patient request if the [...] MESH VENTRALIGHT ECHO CIR 6 - BARD ([id number]) 1 Bard Unknown BÁRBARA:No Information Assigning Authority: FDA MESH VENTRALIGHT ECHO20.3X25 .4 - BARD ([id number]) 1 Bard Unknown BÁRBARA:No Information Assigning Authority: FDA
--- OUTSIDE RECORDS SUMMARY | 2023-06-17 12:47 | XMS_ITS | Continuity of Care Document ---
Author Name Unknown Organization [facility] Milind Address [address] [place] [address]- Care Team Providers Care Kitchen Cleaner Name Role Phone Natanael Rodas MD Primary Care Physician [facility] Date(s): 06/09/21 - 07/09/21 [facility] Adult [address] [place] [address]- Allergies, Adverse Reactions, Alerts Substance Reaction Severity [...] vaccine 9 09/26/16 Recorded 1Result Comment: [08/10/2018] [facility] [id number] 2Result Comment: [08/10/2018] big y[08/10/2018 Uncharted] pt states she has not had the flu vaccine this year as previously stated 3Result Comment: enterred in error 4Result Comment: [07/25/2017] [id number] 5Result Comment: influenza [facility] 6Result Comment: [02/13/2018] [facility] 0005 1971 01 7Result Comment: [07/25/2017] [id number] 8Admin Note: [id number] 9Result Comment: [07/25/2017] historical Medications amLODIPine 10 mg oral tablet 1 tablet, By Mouth, Daily, # 90 tablet, 11 Refills, Maintenance, 12/05/19 16:46:00 EDT, [facility], 164, cm, 11/27/19 13:41:00 EST, Height, 74.5, kg, 01/03/19 18:01:00 EDT, Dry Weight Start Date: 12/05/19 Status: Ordered atenolol-chlorthalidone 100 mg-25 mg oral tablet 1 tablet, By Mouth, Daily, # 90 tablet, 11 Refills, Maintenance, 12/05/19 16:47:00 EDT, [facility], 90, TAKE 1 TABLET BY MOUTH EVERY DAY, 164, cm, 11/27/19 13:41:00 EST, Height, 74.5, kg, 01/03/19 18:01:00 EDT, Dry Weight Start Date: 12/05/19 Status: Ordered atorvastatin 40 mg oral tablet 1 tablet = 40 mg, By Mouth, Daily, # 90 tablet, 1 Refills, Maintenance, 12/05/19 14:01:00 EDT, [facility]/pharmacy #[id number], 164, cm, 11/27/19 13:41:00 EST, Height, 74.5, kg, 01/03/19 18:01:00 EDT, Dry Weight Start Date: 12/05/19 Status: Ordered Colace sodium 100 mg oral capsule 100 mg, 1, capsule, By Mouth, 2 times a day, PRN, with plenty of water, # 20 capsule, Refills 1, Tot. Refills 1, Maintenance, for constipation, 06/13/20 8:34:00 EDT, Route to Pharmacy Electronically,[facility], 168, cm, 06/13/20 5:15:00... Start Date: 06/13/20 Status: Ordered Finacea 15% topical gel 1 application, Topically, 2 times a day, # 30 Gm, 0 Refills, Maintenance, 03/25/17 16:55:18, Gel Start Date: 03/25/17 Status: Ordered sertraline 100 mg oral tablet 2 tablet = 200 mg, By Mouth, Daily, # 180 tablet, 0 Refills, Maintenance, 05/27/20 16:27:00 EDT, [facility]/pharmacy #[id number], D/C rx on file [...] MESH VENTRALIGHT ECHO CIR 6 - BARD ([id number]) 1 Bard Unknown BÁRBARA:No Information Assigning Authority: FDA MESH VENTRALIGHT ECHO20.3X25 .4 - BARD ([id number]) 1 Bard Unknown BÁRBARA:No Information Assigning Authority: FDA
--- OUTSIDE RECORDS SUMMARY | 2023-06-17 12:47 | XMS_ITS | Continuity of Care Document ---
Author Name Unknown Organization [facility] Luis Carlos Milind Address [address] [place] [address]- Care Team Providers Care Passport Support Associate Name Role Phone Alaina WEBB, Hill Jones Primary Care Physician [phone] Encounter [facility] Date(s): 11/02/22 - 11/09/22 [facility] Adult [address] [place] [address]- Encounter Diagnosis Benign hypertension(Discharge Diagnosis) - 11/02/22 Edema of both lower legs due to peripheral venous insufficiency(Discharge Diagnosis) - 11/02/22 History of osteopenia(Discharge Diagnosis) - 11/02/22 Hyperlipidemia(Discharge Diagnosis) - 11/02/22 Vitamin B 12 deficiency(Discharge Diagnosis) - 11/02/22 Cerumen impaction(Discharge Diagnosis) - 11/02/22 Attending Physician: Bela Neely NP Allergies, Adverse Reactions, Alerts No Known Allergies Immunizations Given and Recorded Vaccine Date Status Refusal Reason influenza virus vaccine, inactivated 1 11/02/22 Gi sarah influenza virus vaccine, inactivated 07/01/21 Sundeep rded influenza virus vaccine, inactivated 2 08/10/18 Gi sarah influenza virus vaccine, inactivated 3 07/19/18 Re corded influenza virus vaccine, inactivated 4, 5 07/25/17 Given zoster vaccine, inactivated 09/06/22 Recorded [id number] 12y+ bivalent booster vax 09/06/22 Recorded SARS-CoV-2 mRNA ([id number]) vax 03/24/22 Recorded SARS-CoV-2 (COVID-19) mRNA BNT-162b2 [...] 09/26/16 Recorde d 1Result Comment: Flu [facility]#[id number] 2Result Comment: [08/10/2018] [facility] [address]27 [id number] 3Result Comment: [08/10/2018] big y[08/10/2018 Uncharted] pt states she has not had the flu vaccine this year as previously stated 4Result Comment: enterred in error 5Result Comment: [07/25/2017] [id number] 6Result Comment: influenza [facility] 7Result Comment: [02/13/2018] [facility] 0005 1971 01 8Result Comment: [07/25/2017] [id number] 9Admin Note: [id number] 10Result Comment: [07/25/2017] historical Medications atenolol-chlorthalidone 100 [...] tablet, 11 Refills, Maintenance, 07/23/22 10:48:00 EDT, [facility]/pharmacy #[id number], Partial fill upon patient request [...] 180 tablet, 3 Refills, 12/01/21 12:21:00 EST, [facility]/pharmacy #[id number], 168,cm, 12/01/21 11:53:00 EST, Height, [...] Active 1F/U with Vascular 05/2022 2Echo 2021 Diagnosis Diagnosis Type Effective Dates Health Status Clinical Service Informant Benign hypertension Discharge Diagnosis 11/02/22 Edema of both lower legs due to peripheral venous insufficiency Discharge Diagnosis 11/02/22 History of osteopenia Discharge Diagnosis 11/02/22 Hyperlipidemia Discharge Diagnosis 11/02/22 Vitamin B 12 deficiency Discharge Diagnosis 11/02/22 Cerumen impaction Discharge Diagnosis 11/02/22 Vital Signs Most recent to oldest [Reference Range]: 1 Height 167 cm (11/02/22 8:55 AM) Weight 85.4 kg (11/02/22 8:55 AM) Oxygen Saturation [94-100 %] 98 % (11/02/22 8:55 AM) Pulse Rate [55-90 bpm] 63 bpm (11/02/22 8:55 AM) Body Mass Index [18.5-24.99 kg/m2] 30.62 kg/m2 *>HHI* (11/02/22 8:55 AM) Blood Pressure [90-138/55-84 mm Hg] 110/ 52mm Hg (11/02/22 8:55 AM) Respiratory Rate [16-30 br/min] 16 br/mi n (11/02/22 8:55 AM) Temperature [96.8-100.4 DegF] 97.6 DegF (11/02/22 8:55 AM) Mode of Delivery (Oxygen) Room air (11/02/22 8:55 AM) Blood pressure sites Arm, left (11/02/22 8:55 AM) Temperature Route Oral (11/02/22 8:55 AM) Weight Obtained Via Standing scale (11/02/22 8:55 AM) Social History Social History Type Response [...] Team Personnel Name: Claire Serra RN Position: [facility] RN Member Role: Primary Care Nurse Name: Hill Foley MD Position: [facility] Primary Care Physician Member Role: PCP Address: Address: [address] [place] [id number]- Name: Katy Romo RN Position: [facility] RN Member Role: Primary Care Nurse Name: Neha Bey RN Position: [facility] SN RN Member Role: Primary Care Nurse Name: Margarita Olson RN Position: [facility] RN Member Role: Primary Care Nurse Name: Thelma Sifuentes RN Position: [facility] RN Member Role: Primary Care Nurse Name: Loren Johnson RN Position: [facility] RN Member Role: Primary Care Nurse Name: Zaida Alan RN Position: [facility] RN Member Role: Primary Care Nurse Name: Carol Brar RN Position: [facility] Onco RN Member Role: Primary Care Nurse Name: Charlotte Thompson RN Position: [facility] Hospital Web Architect Member Role: Primary Care Nurse Care Team Related Persons Name: LOUIE PACHECO Address: home [address] [place] [address] Name: LOGAN JANE Name: PRAVIN RYAN Address: [place] [address]
--- OUTSIDE RECORDS SUMMARY | 2023-06-17 12:47 | XMS_ITS | Continuity of Care Document ---
Author Name Unknown Organization [facility] Milind Address [address] [place] [address]- Care Team Providers Care Nib Adjuster Name Role Phone Natanael Rodas MD Primary Care Physician [phone] [facility] Date[facility]s): 07/28/21 - 08/27/21 [facility] Adult [address] [place] [address]- Allergies, Adverse Reactions, Alerts Substance Reaction Severity [...] vaccine 9 09/26/16 Recorded 1Result Comment: [08/10/2018] [facility] [address] 403 [id number] 2Result Comment: [08/10/2018] big y[08/10/2018 Uncharted] pt states she has not had the flu vaccine this year as previously stated 3Result Comment: enterred in error 4Result Comment: [07/25/2017] [id number] 5Result Comment: influenza [facility] 6Result Comment: [02/13/2018] [facility] 0005 1971 01 7Result Comment: [07/25/2017] [id number] 8Admin Note: [id number] 9Result Comment: [07/25/2017] historical Medications amLODIPine 10 mg oral tablet 1 tablet, By Mouth, Daily, # 90 tablet, 11 Refills, [facility], 168, cm, 08/07/21 12:51:00 EST, Height, 83.8, kg, 06/17/21 13:41:00 EDT, Dry Weight Start Date: 08/13/21 Status: Ordered atenolol-chlorthalidone 100 mg-25 mg oral tablet 1 tablet, By Mouth, Daily, # 90 tablet, 11 Refills, [facility], 90, TAKE 1 TABLET BY MOUTH EVERY DAY, 168, cm, 08/07/21 12:51:00 EST, Height, 83.8, kg, 06/17/21 13:41:00 EDT, Dry Weight Start Date: 08/13/21 Status: Ordered atorvastatin 40 mg oral tablet 1 tablet, By Mouth, Daily, # 90 tablet, 1 Refills, [facility], 168, cm, 08/07/21 12:51:00 EST,Height, 83.8, kg, 06/17/21 13:41:00 EDT, Dry Weight Start Date: 08/13/21 Status: Ordered Finacea 15% topical gel 1 application, Topically, 2 times a day, # 30 Gm, 0 Refills, Maintenance, 03/25/17 16:55:18, Gel Start Date: 03/25/17 Status: Ordered sertraline 100 mg oral tablet 2 tablet, By Mouth, Daily, # 180 tablet, 0 Refills, [facility], 168, cm, 08/07/21 12:51:00 EST, Height, 83.8, kg, 06/17/21 13:41:00 EDT, Dry Weight Start Date: 08/13/21 Status: Ordered spironolactone 50 mg oral tablet 1 tablet = 50 mg, By Mouth, Daily, # 90 tablet, 3 Refills, Maintenance, 08/07/21 13:07:00 EST, Tablet, [facility]/pharmacy #[id number], Partial fill upon patient request if [...] MESH VENTRALIGHT ECHO CIR 6 - BARD ([id number]) 1 Bard Unknown BÁRBARA:No Information Assigning Authority: FDA MESH VENTRALIGHT ECHO20.3X25 .4 - BARD ([id number]) 1 Bard Unknown BÁRBARA:No Information Assigning Authority: FDA
--- OUTSIDE RECORDS SUMMARY | 2023-06-17 12:47 | XMS_ITS | Continuity of Care Document ---
Author Name Unknown Organization [facility] [place] Milind lt Address [address] [place] [address]- Care Team Providers Care Insurance Verification Representative Name Role Phone Hill Foley MD Primary Care Physician Encounter [facility] Date(s): 03/16/22 - 03/23/22 [facility] [place] Adult [address] [place] [address]- Encounter Diagnosis SOB (shortness of breath)(Discharge Diagnosis) - 03/16/22 Benign hypertension(Discharge Diagnosis) - 03/16/22 AAA - Abdominal aortic aneurysm - 4.1 cm, next CTA due 05/2021(Discharge Diagnosis) - 03/16/22 Attending Physician: Heydi Gómez NP Referring Physician: [...] 9 09/26/16 Recorded 1Result Comment: [08/10/2018] [facility] [id number] 2Result Comment: [08/10/2018] big y[08/10/2018 Uncharted] pt states she has not had the flu vaccine this year as previously stated 3Result Comment: enterred in error 4Result Comment: [07/25/2017] [id number] 5Result Comment: influenza [facility] 6Result Comment: [02/13/2018] [facility] 0005 1971 01 7Result Comment: [07/25/2017] [id number] 8Admin Note: [id number] 9Result Comment: [07/25/2017] historical Medications atenolol-chlorthalidone 100 mg-25 mg oral tablet 1 tablet, By Mouth, Daily, # 90 tablet, 11 Refills, 12/01/21 12:21:00 EST, [facility]/pharmacy #0693, 90, 1 tablet [...] venous insufficiency(Confirmed) Active 1F/U with Vascular 05/2022 Diagnosis Diagnosis Type Effective Dates Health Status Clinical Service Informant SOB (shortness of breath) Discharge Diagnosis 03/16/22 Benign hypertension Discharge Diagnosis 03/16/22 AAA - Abdominal aortic aneurysm - 4.1 cm, next CTA due 05/2021 Discharge Diagnosis 03/16/22 Vital Signs Most recent to oldest [Reference Range]: 1 2 Height 167 cm (03/16/22 3:16 PM) 168 cm (03/16/22 2:51 PM) Weight 79.3 kg (03/16/22 3:16 PM) 79.5 kg (03/16/22 2:51 PM) Oxygen Saturation [94-100 %] 96 % (03/16/22 2:51 PM) Pulse Rate [55-90 bpm] 74 bpm (03/16/22 2:51 PM) Body Mass Index [18.5-24.99] 28.17 *H* (03/16/22 2:51 PM) Blood Pressure [90-138/55-84 mm Hg] 112/ 62mm Hg (03/16/22 2:51 PM) Respiratory Rate [16-30 br/min] 20 br/mi n (03/16/22 2:51 PM) Mode of Delivery (Oxygen) Room air (03/16/22 2:51 PM) Blood pressure sites Arm, left (03/16/22 2:51 PM) Weight Obtained Via Standing scale (03/16/22 2:51 PM) Social History Social History Type Response Smoking Status Former smoker entered on: 05/30/18 Sex Medical Equipment Implanted Date:06/11/20Target Site:Abdomen Description Quantity MRI Company Model MESH VENTRALIGHT ECHO CIR 6 - BARD ([id number]) 1 Bard Unknown BÁRBARA:No Information Assigning Authority: FDA MESH VENTRALIGHT ECHO20.3X25 .4 - BARD ([id number]) 1 Bard Unknown BÁRBARA:No Information Assigning Authority: FDA
--- OUTSIDE RECORDS SUMMARY | 2023-06-17 12:47 | XMS_ITS | Continuity of Care Document ---
Author Name Unknown Organization [facility] Milind Address [address] [place] [address]- Care Team Providers Care Supervisor Plate Forming Name Role Phone Alaina WEBB, Hill Jones Primary Care Physician [facility] Date[facility]s): 11/10/21 - 12/10/21 [facility] Adult [address] [place] [address]- Allergies, Adverse Reactions, Alerts No Known Allergies [...] vaccine 9 09/26/16 Recorded 1Result Comment: [08/10/2018] [facility] [id number] 2Result Comment: [08/10/2018] big y[08/10/2018 Uncharted] pt states she has not had the flu vaccine this year as previously stated 3Result Comment: enterred in error 4Result Comment: [07/25/2017] [id number] 5Result Comment: influenza [facility] 6Result Comment: [02/13/2018] [facility] 0005 1971 01 7Result Comment: [07/25/2017] [id number] 8Admin Note: [id number] 9Result Comment: [07/25/2017] historical Medications amLODIPine 10 mg oral tablet 1 tablet, By Mouth, Daily, # 90 tablet, 11 Refills, 12/01/21 12:21:00 EST, [facility]/pharmacy #0693, 168,cm, 12/01/21 11:53:00 EST, Height, 83.8, kg, 06/17/21 13:41:00 EDT, Dry Weight Start Date: 12/01/21 Status: Ordered atenolol-chlorthalidone 100 mg-25 mg oral tablet 1 tablet, By Mouth, Daily, # 90 tablet, 11 Refills, 12/01/21 12:21:00 EST, [facility]/pharmacy #0693, 90, 1 tablet By Mouth Daily, 168, cm, 12/01/21 11:53:00 EST, Height, 83.8, kg, 06/17/21 13:41:00 EDT, Dry Weight Start Date: 12/01/21 Status: Ordered atorvastatin 80 mg oral tablet 1 tablet = 80 mg, By Mouth, Daily, DOSAGE INCREASE, # 90 tablet, 1 Refills, Maintenance, 12/10/21 11:32:00 EDT, Tablet, [facility]/pharmacy #0693, Partial fill upon patient request [...] MESH VENTRALIGHT ECHO CIR 6 - BARD ([id number]) 1 Bard Unknown BÁRBARA:No Information Assigning Authority: FDA MESH VENTRALIGHT ECHO20.3X25 .4 - BARD ([id number]) 1 Bard Unknown BÁRBARA:No Information Assigning Authority: FDA
--- OUTSIDE RECORDS SUMMARY | 2023-06-17 12:47 | XMS_ITS | Continuity of Care Document ---
Author Name Unknown Organization [facility] [place] Milind lt Address [address] [place] [address]- Care Team Providers Care Brattice Builder Name Role Phone Natanael Rodas MD Primary Care Physician [facility] Date(s): 10/28/20 - 11/28/20 [facility] [place] Adult [address] [place] [address]- Attending Physician: Natanael Rodas MD Allergies, Adverse [...] 1Result Comment: influenza [facility] 2Result Comment: [08/10/2018] [facility] [id number] 3Result Comment: [08/10/2018] big y[08/10/2018 Uncharted] pt states she has not had the flu vaccine this year as previously stated 4Result Comment: enterred in error 5Result Comment: [07/25/2017] [id number] 6Result Comment: [02/13/2018] [facility] 0005 1971 01 7Result Comment: [07/25/2017] [id number] 8Admin Note: [id number] 9Result Comment: [07/25/2017] historical Medications amLODIPine 10 mg oral tablet 1 tablet, By Mouth, Daily, # 90 tablet, 11 Refills, Maintenance, 12/05/19 16:46:00 EDT, [facility], 164, cm, 11/27/19 13:41:00 EST, Height, 74.5, kg, 01/03/19 18:01:00 EDT, Dry Weight Start Date: 12/05/19 Status: Ordered atenolol-chlorthalidone 100 mg-25 mg oral tablet 1 tablet, By Mouth, Daily, # 90 tablet, 11 Refills, Maintenance, 12/05/19 16:47:00 EDT, [facility], 90, TAKE 1 TABLET BY MOUTH EVERY DAY, 164, cm, 11/27/19 13:41:00 EST, Height, 74.5, kg, 01/03/19 18:01:00 EDT, Dry Weight Start Date: 12/05/19 Status: Ordered atorvastatin 40 mg oral tablet 1 tablet = 40 mg, By Mouth, Daily, # 90 tablet, 1 Refills, Maintenance, 12/05/19 14:01:00 EDT, [facility]/pharmacy #0693, 164, cm, 11/27/19 13:41:00 EST, Height, 74.5, kg, 01/03/19 18:01:00 EDT, Dry Weight Start Date: 12/05/19 Status: Ordered Colace sodium 100 mg oral capsule 100 mg, 1, capsule, By Mouth, 2 times a day, PRN, with plenty of water, # 20 capsule, Refills 1, Tot. Refills 1, Maintenance, for constipation, 06/13/20 8:34:00 EDT, Route to Pharmacy Electronically,[facility], 168, cm, 06/13/20 5:15:00... Start Date: 06/13/20 Status: Ordered Finacea 15% topical gel 1 application, Topically, 2 times a day, # 30 Gm, 0 Refills, Maintenance, 03/25/17 16:55:18, Gel Start Date: 03/25/17 Status: Ordered sertraline 100 mg oral tablet 2 tablet = 200 mg, By Mouth, Daily, # 180 tablet, 0 Refills, Maintenance, 05/27/20 16:27:00 EDT, [facility]/pharmacy #0693, D/C rx on file for 100mg 1 tab daily, 164, cm, 05/24/20 8:51:00 EDT, Height, 74.5,kg, 01/03/19 18:01:00 EDT, Dry Weight Start Date: 05/27/20 Status: Ordered spironolactone 25 mg oral tablet 25 mg, 1, tablet, By Mouth, Daily, # 90 tablet, Refills 3, Tot. Refills 3, Maintenance, 11/08/19 10:43:00 EST, Route to Pharmacy Electronically, [facility]/pharmacy #0693, 164, cm, 11/08/19 [...] oldest [Reference Range]: 1 Height 167 cm (10/29/20 1:21 PM) Social History Social History Type Response Smoking Status Former smoker entered on: 05/30/18 Sex Medical Equipment Implanted Date:06/11/20Target Site:Abdomen Description Quantity MRI Company Model MESH VENTRALIGHT ECHO CIR 6 - BARD ([id number]) 1 Bard Unknown BÁRBARA:No Information Assigning Authority: FDA MESH VENTRALIGHT ECHO20.3X25 .4 - BARD ([id number]) 1 Bard Unknown BÁRBARA:No Information Assigning Authority: FDA
--- OUTSIDE RECORDS SUMMARY | 2023-06-17 12:47 | XMS_ITS | Continuity of Care Document ---
Author Name Unknown Organization [facility] Address [address] [place] [address]- Care Team Providers Care Morning News Producer Name Role Phone Alaina WEBB, Hill Jones Primary Care Physician [phone] [facility] Date(s): 01/25/23 - 05/25/[address] [address]- Attending Physician: Leticia Savage MD Admitting Physician: [...] Gi sarah zoster vaccine, inactivated 09/06/22 Recorded [id number] 12y+ bivalent booster vax 09/06/22 Recorded SARS-CoV-2 mRNA (nencyfm-kpnd-lcgvh) vax 03/24/22 Recorded SARS-CoV-2 (COVID-19) mRNA BNT-162b2 [...] 7 09/26/16 Recorded 1Result Comment: Flu [facility]#[id number] 2Result Comment: [08/10/2018] [facility] [id number] 3Result Comment: influenza [facility] 4Result Comment: [02/13/2018] [facility] 0005 1971 01 5Result Comment: [07/25/2017] [id number] 6Admin Note: [id number] 7Result Comment: [07/25/2017] historical Medications amLODIPine 10 [...] Maintenance, 12/27/22 10:08:00 EDT, [facility], 90, TAKE 1 TABLET BY MOUTH EVERY DAY, 167, cm, 12/23/22 9:51:00 EDT, Height, 83.8, kg, 06/17/2113:41:00 EDT, Dry Weight Start Date: 12/27/22 Status: Ordered atorvastatin 80 mg oral tablet 1 tablet, By Mouth, Daily, # 90 tablet, 1 Refills, Maintenance, 12/27/22 10:10:00 EDT, [facility]/pharmacy#0693, 167, cm, 12/23/22 9:51:00 [...] RN Member Role: Primary Care Nurse Name: iHll Foley MD Position: [facility] Physician - Primary Care Member Role: PCP Address: Address: [address] [place] [address]- Name: Christy Peacock RN Position: [facility] RN Member Role: Primary Care Nurse Name: Katy Romo RN Position: [facility] RN Member Role: Primary Care Nurse Name: Neha Bey RN Position: [facility] SN RN Member Role: Primary Care Nurse Name: Zayra Arevalo RN Position: [facility] RN Member Role: Primary Care Nurse Name: Margarita Olson RN Position: [facility] RN Member Role: Primary Care Nurse Name: Thelma Sifuentes RN Position: [facility] RN Member Role: Primary Care Nurse Name: Kandi Cabrera Position: [facility] Pull Socket Assembler Member Role: Tax Consultant Name: Jyoti Caal RN Position: [facility] RN Member Role: Primary Care Nurse Name: Loren Johnson RN Position: [facility] RN Member Role: Primary Care Nurse Name: Zaida Alan RN Position: [facility] RN Member Role: Primary Care Nurse Name: Carol Brar RN Position: [facility] Onco RN Member Role: Primary Care Nurse Name: Charlotte Thompson RN Position: [facility] Hospital Interstate Planner Member Role: Primary Care Nurse Care Team Related Persons Name: LOUIE PACHECO Address: home [address] [place] [address] Name: LOGAN JANE Name: PRAVIN [place]AN Address: [place] [address]
--- OUTSIDE RECORDS SUMMARY | 2023-06-17 12:47 | XMS_ITS | Continuity of Care Document ---
Author Name Unknown Organization [facility] Milind Address [address] [place] [address]- Care Team Providers Care Wood Sash And Frame Carpenter Name Role Phone Alaina WEBB, Hill Jones Primary Care Physician [phone] [facility] Date(s): 10/21/21 - 11/20/21 [facility] Adult [address] [place] [address]- Allergies, Adverse Reactions, Alerts No Known Allergies [...] 9 09/26/16 Recorded 1Result Comment: [08/10/2018] [facility] [id number] 2Result Comment: [08/10/2018] big y[08/10/2018 Uncharted] pt states she has not had the flu vaccine this year as previously stated 3Result Comment: enterred in error 4Result Comment: [07/25/2017] [id number] 5Result Comment: influenza [facility] 6Result Comment: [02/13/2018] [facility] 0005 1971 01 7Result Comment: [07/25/2017] [id number] 8Admin Note: [id number] 9Result Comment: [07/25/2017] historical Medications amLODIPine 10 mg oral tablet 1 tablet, By Mouth, Daily, # 90 tablet, 11 Refills, [facility], 168, cm, 08/07/21 12:51:00 EST, Height, 83.8, kg, 06/17/21 13:41:00 EDT, Dry Weight Start Date: 08/13/21 Status: Ordered atenolol-chlorthalidone 100 mg-25 mg oral tablet 1 tablet, By Mouth, Daily, # 90 tablet, 11 Refills, [facility], 90, TAKE 1 TABLET BY MOUTH EVERY DAY, 168, cm, 08/07/21 12:51:00 EST, Height, 83.8, kg, 06/17/21 13:41:00 EDT, Dry Weight Start Date: 08/13/21 Status: Ordered atorvastatin 40 mg oral tablet 1 tablet, By Mouth, Daily, # 90 tablet, 1 Refills, [facility], 168, cm, 08/07/21 12:51:00 EST,Height, 83.8, kg, 06/17/21 13:41:00 EDT, Dry Weight Start Date: 08/13/21 Status: Ordered Finacea 15% topical gel 1 application, Topically, 2 times a day, # 30 Gm, 0 Refills, Maintenance, 03/25/17 16:55:18, Gel Start Date: 03/25/17 Status: Ordered spironolactone 50 mg oral tablet 1 tablet = 50 mg, By Mouth, Daily, # 90 tablet, 3 Refills, Maintenance, 08/07/21 13:07:00 EST, Tablet, [facility], Partial fill upon [...] MESH VENTRALIGHT ECHO CIR 6 - BARD ([id number]) 1 Bard Unknown BÁRBARA:No Information Assigning Authority: FDA MESH VENTRALIGHT ECHO20.3X25 .4 - BARD ([id number]) 1 Bard Unknown BÁRBARA:No Information Assigning Authority: FDA
--- OUTSIDE RECORDS SUMMARY | 2023-06-17 12:47 | XMS_ITS | Continuity of Care Document ---
Author Name Unknown Organization [facility] [place] Milind lt Address [address] [place] [address]- Care Team Providers Care Asset Manager Name Role Phone Hill Foley MD Primary Care Physician [phone] [facility] Date[facility]s): 12/27/22 - 01/26/23 [facility] Adult [address] [place] [address]- Allergies, Adverse Reactions, Alerts No Known Allergies Immunizations Given and Recorded Vaccine Date Status Refusal Reason influenza virus vaccine, inactivated 1 11/02/22 Gi sarah influenza virus vaccine, inactivated 07/01/21 Sundeep rded influenza virus vaccine, inactivated 2 08/10/18 Gi sarah influenza virus vaccine, inactivated 3 07/19/18 Re corded influenza virus vaccine, inactivated 4, 5 07/25/17 Given zoster vaccine, inactivated 09/06/22 Recorded [id number] 12y+ bivalent booster vax 09/06/22 Recorded SARS-CoV-2 mRNA (hsienov-bhpo-mbzlr) vax 03/24/22 Recorded SARS-CoV-2 (COVID-19) mRNA BNT-162b2 [...] d 1Result Comment: Flu [facility]#35838-445-28 2Result Comment: [08/10/2018] [facility] 94887 [phone] [id number] 3Result Comment: [08/10/2018] big y[08/10/2018 Uncharted] pt states she has not had the flu vaccine this year as previously stated 4Result Comment: enterred in error 5Result Comment: [07/25/2017] [id number] 6Result Comment: influenza [facility] 7Result Comment: [02/13/2018] [facility] 0005 1971 01 8Result Comment: [07/25/2017] [id number] 9Admin Note: [id number] 10Result Comment: [07/25/2017] historical Medications amLODIPine 10 [...] Refills, Maintenance, 12/27/22 10:08:00 EDT, [facility], 90, TAKE 1 TABLET BY MOUTH EVERY [...] Refills, Maintenance, 12/21/22 14:36:00 EDT, Tablet, [facility], Partial fill upon patient request if the [...] Care Nurse Name: Hill Foley MD Position: [facility] Primary Care Physician Member Role: PCP Address: Address: [address] [place] [id number] Name: Katy Romo RN Position: S RN Member Role: Primary Care Nurse Name: Neha Bey RN Position: [facility] SN RN Member Role: Primary Care Nurse Name: Margarita Olson RN Position: [facility] RN Member Role: Primary Care Nurse Name: Thelma Sifuentes RN Position: [facility] RN Member Role: Primary Care Nurse Name: Loren Johnson RN Position: [facility] RN Member Role: Primary Care Nurse Name: Zaida Alan RN Position: [facility] RN Member Role: Primary Care Nurse Name: Carol Brar RN Position: [facility] Onco RN Member Role: Primary Care Nurse Name: Charlotte Thompson RN Position: [facility] Hospital Stock Parts Inspector Member Role: Primary Care Nurse Care Team Related Persons Name: LOUIE PACHECO Address: home [address] [place] [id number] Name: LOGAN JANE Name: PRAVIN RYAN Address: [place] [address]
--- OUTSIDE RECORDS SUMMARY | 2023-06-17 12:47 | XMS_ITS | Continuity of Care Document ---
Author Name Unknown Organization [facility] Address [address] [place] [address] Dr [address] [place] [address]- Care Team Providers Care Client Support Consultant Name Role Phone Adrianna WEBB, Natanael Yoo Primary Care Physician [phone] [facility] Date(s): 11/27/19 - 12/07/[address] [place] [address]- [facility] Attending Physician: Brady Ruelas Admitting Physician: AdmBrady [...] 8 09/26/16 Recorded 1Result Comment: [08/10/2018] [facility] [id number] 403 [id number] 2Result Comment: [08/10/2018] big y[08/10/2018 Uncharted] pt states she has not had the flu vaccine this year as previously stated 3Result Comment: enterred in error 4Result Comment: [07/25/2017] [id number] 5Result Comment: [02/13/2018] [facility] 0005 1971 01 6Result Comment: [07/25/2017] [id number] 7Admin Note: [id number] 8Result Comment: [07/25/2017] historical Medications acetaminophen 325 mg oral tablet 650 mg, By Mouth, Every 4 hours, PRN, Refills 0, Maintenance, Pain , Moderate, 05/18/18 9:59:35 EDT Start Date: 05/18/18 Status: Ordered amLODIPine 10 mg oral tablet 1 tablet, By Mouth, Daily, # 90 tablet, 11 Refills, Maintenance, 12/05/19 16:46:00 EDT, [facility], 164, cm, 11/27/19 13:41:00 EST, Height, 74.5, kg, 01/03/19 18:01:00 EDT, Dry Weight Start Date: 12/05/19 Status: Ordered atenolol-chlorthalidone 100 mg-25 mg oral tablet 1 tablet, By Mouth, Daily, # 90 tablet, 11 Refills, Maintenance, 12/05/19 16:47:00 EDT, [facility], 90, TAKE 1 TABLET BY MOUTH EVERY [...] tablet, 0 Refills, Maintenance, 12/05/19 14:04:00 EDT, [facility], D/C rx on file for 100mg 1 tab daily, 164, cm, 11/27/19 13:41:00 EST, Height, 74.5, kg, 01/03/19 18:01:00 EDT, Dry Weight Start Date: 12/05/19 Status: Ordered spironolactone 25 mg oral tablet 25 mg, 1, tablet, By Mouth, Daily, # 90 tablet, Refills 3, Tot. Refills 3, Maintenance, 11/08/19 10:43:00 EST, Route to Pharmacy Electronically, [facility]/pharmacy #0693, 164, cm, 11/08/19 9:45:00 EST, Height, [...]
--- OUTSIDE RECORDS SUMMARY | 2023-06-17 12:47 | XMS_ITS | Continuity of Care Document ---
Author Name Unknown Organization [facility] Milind lt Address [address] [place] [address]- Care Team Providers Care Security Guards Dispatcher Name Role Phone Hill Foley MD Primary Care Physician [facility] Date[facility]s): 02/01/22 - 02/08/22 [facility] Adult [address] [place] [address]- Attending Physician: Not on Staff, Attending MD [...] 1Result Comment: [08/10/2018] [facility] [id number] 2Result Comment: [08/10/2018] big y[08/10/2018 Uncharted] pt states she has not had the flu vaccine this year as previously stated 3Result Comment: enterred in error 4Result Comment: [07/25/2017] [id number] 5Result Comment: influenza [facility] 6Result Comment: [02/13/2018] [facility] 0005 1971 01 7Result Comment: [07/25/2017] [id number] 8Admin Note: [id number] 9Result Comment: [07/25/2017] historical Medications atenolol-chlorthalidone 100 [...] oldest [Reference Range]: 1 Height 168 cm (02/02/22 11:38 AM) Weight 81.2 kg (02/02/22 11:38 AM) Social History Social History Type Response Smoking Status Former smoker entered on: 05/30/18 Sex Medical Equipment Implanted Date:06/11/20Target Site:Abdomen Description Quantity MRI Company Model MESH VENTRALIGHT ECHO CIR 6 - BARD ([id number]) 1 Bard Unknown BÁRBARA:No Information Assigning Authority: FDA MESH VENTRALIGHT ECHO20.3X25 .4 - BARD ([id number]) 1 Bard Unknown BÁRBARA:No Information Assigning Authority: FDA
--- OUTSIDE RECORDS SUMMARY | 2023-06-17 12:47 | XMS_ITS | Continuity of Care Document ---
Author Name Unknown Organization [facility] Address [address] [place] [address]- Care Team Providers Care Office Workforce Planner Name Role Phone Natanael Rodas MD Primary Care Physician [facility] Date[facility]s): 05/28/20 - 06/27/20 [facility] [address] [address]- [facility] Attending Physician: Brady Ruelas Admitting Physician: Brady Ruelas Referring Physician: AdmBrady molina Allergies, Adverse Reactions, Alerts Substance Reaction Severity [...] vaccine 8 09/26/16 Recorded 1Result Comment: [08/10/2018] [facility] [id number] 2Result Comment: [08/10/2018] big y[08/10/2018 Uncharted] pt states she has not had the flu vaccine this year as previously stated 3Result Comment: enterred in error 4Result Comment: [07/25/2017] [id number] 5Result Comment: [02/13/2018] [facility] 0005 1971 01 6Result Comment: [07/25/2017] [id number] 7Admin Note: [id number] 8Result Comment: [07/25/2017] historical Medications amLODIPine 10 mg oral tablet 1 tablet, By Mouth, Daily, # 90 tablet, 11 Refills, Maintenance, 12/05/19 16:46:00 EDT, [facility], 164, cm, 11/27/19 13:41:00 EST, Height, 74.5, kg, 01/03/19 18:01:00 EDT, Dry Weight Start Date: 12/05/19 Status: Ordered atenolol-chlorthalidone 100 mg-25 mg oral tablet 1 tablet, By Mouth, Daily, # 90 tablet, 11 Refills, Maintenance, 12/05/19 16:47:00 EDT, [facility], 90, TAKE 1 TABLET BY MOUTH EVERY DAY, 164, cm, 11/27/19 13:41:00 EST, Height, 74.5, kg, 01/03/19 18:01:00 EDT, Dry Weight Start Date: 12/05/19 Status: Ordered atorvastatin 40 mg oral tablet 1 tablet = 40 mg, By Mouth, Daily, # 90 tablet, 1 Refills, Maintenance, 12/05/19 14:01:00 EDT, [facility]/pharmacy #0693, 164, cm, 11/27/19 13:41:00 EST, Height, 74.5, kg, 01/03/19 18:01:00 EDT, Dry Weight Start Date: 12/05/19 Status: Ordered Colace sodium 100 mg oral capsule 100 mg, 1, capsule, By Mouth, 2 times a day, PRN, with plenty of water, # 20 capsule, Refills 1, Tot. Refills 1, Maintenance, for constipation, 06/13/20 8:34:00 EDT, Route to Pharmacy Electronically,[facility], 168, cm, 06/13/20 5:15:00... Start Date: [...] 06/17/20 13:06:00 EDT, Route to Pharmacy Electronically, [facility], 167, cm, 202:46:00 EDT, Height, [...] tablet, 0 Refills, Maintenance, 05/27/20 16:27:00 EDT, [facility]/pharmacy #0693, D/C rx on file for 100mg 1 tab daily, 164, cm, 05/24/20 8:51:00 EDT, Height, 74.5,kg, 01/03/19 18:01:00 EDT, Dry Weight Start Date: 05/27/20 Status: Ordered spironolactone 25 mg oral tablet 25 mg, 1, tablet, By Mouth, Daily, # 90 tablet, Refills 3, Tot. Refills 3, Maintenance, 11/08/19 10:43:00 EST, Route to Pharmacy Electronically, [facility]/pharmacy #0693, 164, cm, 11/08/19 9:45:00 EST, [...] MESH VENTRALIGHT ECHO CIR 6 - BARD ([id number]) 1 Bard Unknown BÁRBARA:No Information Assigning Authority: FDA MESH VENTRALIGHT ECHO20.3X25 .4 - BARD ([id number]) 1 Bard Unknown BÁRBARA:No Information Assigning Authority: FDA
--- OUTSIDE RECORDS SUMMARY | 2023-06-17 12:47 | XMS_ITS | Continuity of Care Document ---
Author Name Unknown Organization [facility] Luis Carlos Milind lt Address [address] [place] [address]- Care Team Providers Care Field Logistics Coordinator Name Role Phone Alaina WEBB, Hill Jones Primary Care Physician [place] [facility] [place] 12/21/22 - 01/20/23 [facility] [place] Adult [address] [place] [address]- Allergies, Adverse Reactions, Alerts No Known Allergies Immunizations Given and Recorded Vaccine Date Status Refusal Reason influenza virus vaccine, inactivated 1 11/02/22 Gi sarah influenza virus vaccine, inactivated 07/01/21 Sundeep rded influenza virus vaccine, inactivated 2 08/10/18 Gi sarah influenza virus vaccine, inactivated 3 07/19/18 Re corded influenza virus vaccine, inactivated 4, 5 07/25/17 Given zoster vaccine, inactivated 09/06/22 Recorded [id number] 12y+ bivalent booster vax 09/06/22 Recorded SARS-CoV-2 mRNA (rwkidnh-qtlj-dcxgl) vax 03/24/22 Recorded SARS-CoV-2 (COVID-19) mRNA BNT-162b2 [...] Recorde d 1Result Comment: Flu HD [facility]#[id number] 2Result Comment: [08/10/2018] [facility] [id number] 3Result Comment: [08/10/2018] big y[08/10/2018 Uncharted] pt states she has not had the flu vaccine this year as previously stated 4Result Comment: enterred in error 5Result Comment: [07/25/2017] [id number] 6Result Comment: influenza [facility] 7Result Comment: [02/13/2018] [facility] 0005 1971 01 8Result Comment: [07/25/2017] [id number] 9Admin Note: [id number] 10Result Comment: [07/25/2017] historical Medications amLODIPine 10 mg oral tablet 1 tablet, By Mouth, Daily, # 90 tablet, 1 Refills, Maintenance, 12/27/22 15:59:00 EDT, [facility]/pharmacy#0693, 167, cm, 12/23/22 9:51:00 EDT, Height, 83.8, kg, 06/17/21 13:41:00 EDT, Dry Weight Start Date: 12/27/22 Status: Ordered atenolol-chlorthalidone 100 mg-25 mg oral tablet 1 tablet, By Mouth, Daily, # 90 tablet, 1 Refills, Maintenance, 12/27/22 10:08:00 EDT, [facility], 90, TAKE 1 TABLET BY MOUTH EVERY [...] Care Nurse Name: Hill Foley MD Position: [facility] Primary Care Physician Member Role: PCP Address: Address: [address] [place] [address]- Name: Katy Romo RN Position: [facility] RN Member Role: Primary Care Nurse Name: Neha Bey RN Position: [facility] SN RN Member Role: Primary Care Nurse Name: Margarita Olson RN Position: [facility] RN Member Role: Primary Care Nurse Name: Thelma Sifuentes RN Position: [facility] RN Member Role: Primary Care Nurse Name: Loren Johnson RN Position: [facility] RN Member Role: Primary Care Nurse Name: Zaida Alan RN Position: [facility] RN Member Role: Primary Care Nurse Name: Carol Brar RN Position: [facility] Onco RN Member Role: Primary Care Nurse Name: Charlotte Thompson RN Position: [facility] Hospital Independent Sales Representative Member Role: Primary Care Nurse Care Team Related Persons Name: LOUIE PACHECO Address: [address] [address] Name: LOGAN JANE Name: PRAVIN RYAN Address: [place] [address]
--- OUTSIDE RECORDS SUMMARY | 2023-06-17 12:47 | XMS_ITS | Continuity of Care Document ---
Author Name Unknown Organization [facility] Address Unknown Care Team Providers Care Criminal Justice Department Chair Name Role Phone Adrianna WEBB, Natanael Yoo Primary Care Physician [phone] Encounter [facility] Date(s): 09/04/21 - 10/04/21 [facility] Attending Physician: Admtracy, Brady Admitting Physician: Admtr, Brady Referring Physician: Admtr, Ar8 Allergies, Adverse Reactions, [...] 9 09/26/16 Recorded 1Result Comment: [08/10/2018] [facility] [id number] 2Result Comment: [08/10/2018] big y[08/10/2018 Uncharted] pt states she has not had the flu vaccine this year as previously stated 3Result Comment: enterred in error 4Result Comment: [07/25/2017] [id number] 5Result Comment: influenza [facility] 6Result Comment: [02/13/2018] [facility] 0005 1971 01 7Result Comment: [07/25/2017] [id number] 8Admin Note: [id number] 9Result Comment: [07/25/2017] historical Medications amLODIPine 10 mg oral tablet 1 tablet, By Mouth, Daily, # 90 tablet, 11 Refills, [facility], 168, cm, 08/07/21 12:51:00 EST, Height, 83.8, kg, 06/17/21 13:41:00 EDT, Dry Weight Start Date: 08/13/21 Status: Ordered atenolol-chlorthalidone 100 mg-25 mg oral tablet 1 tablet, By Mouth, Daily, # 90 tablet, 11 Refills, [facility], 90, TAKE 1 TABLET BY MOUTH EVERY DAY, 168, cm, 08/07/21 12:51:00 EST, Height, 83.8, kg, 06/17/21 13:41:00 EDT, Dry Weight Start Date: 08/13/21 Status: Ordered atorvastatin 40 mg oral tablet 1 tablet, By Mouth, Daily, # 90 tablet, 1 Refills, [facility], 168, cm, 08/07/21 12:51:00 EST,Height, 83.8, kg, [...] MESH VENTRALIGHT ECHO CIR 6 - BARD ([id number]) 1 Bard Unknown BÁRBARA:No Information Assigning Authority: FDA MESH VENTRALIGHT ECHO20.3X25 .4 - BARD ([id number]) 1 Bard Unknown BÁRBARA:No Information Assigning Authority: FDA
--- OUTSIDE RECORDS SUMMARY | 2023-06-17 12:47 | XMS_ITS | Continuity of Care Document ---
Author Name Unknown Organization [facility] Milind lt Address [address] [place] [address]- Care Team Providers Care Franchise Broker Name Role Phone Natanael Rodas MD Primary Care Physician [phone] [place] [facility] [place] 11[place]05[place]20 - 11/12/20 [facility] Adult [address] [place] [address]- Encounter Diagnosis Generalized pruritus(Discharge Diagnosis) - 11/05/20 Transaminitis(Discharge Diagnosis) - 11/05/20 Alcoholism(Discharge Diagnosis) - 11/05/20 Elevated serum creatinine(Discharge Diagnosis) - 11/05/20 Attending Physician: Natanael Rodas MD Allergies, Adverse [...] 2Result Comment: [08/10/2018] [facility] [id number] 3Result Comment: [08/10/2018] big y[08/10/2018 Uncharted] pt states she has not had the flu vaccine this year as previously stated 4Result Comment: enterred in error 5Result Comment: [07/25/2017] [id number] 6Result Comment: [02/13/2018] [facility] 0005 1971 01 7Result Comment: [07/25/2017] [id number] 8Admin Note: [id number] 9Result Comment: [07/25/2017] historical Medications amLODIPine 10 mg oral tablet 1 tablet, By Mouth, Daily, # 90 tablet, 11 Refills, Maintenance, 12/05/19 16:46:00 EDT, [facility], 164, cm, 11/27/19 13:41:00 EST, Height, 74.5, kg, 01/03/19 18:01:00 EDT, Dry Weight Start Date: 12/05/19 Status: Ordered atenolol-chlorthalidone 100 mg-25 mg oral tablet 1 tablet, By Mouth, Daily, # 90 tablet, 11 Refills, Maintenance, 12/05/19 16:47:00 EDT, [facility], 90, TAKE 1 TABLET BY MOUTH EVERY DAY, 164, cm, 11/27/19 13:41:00 EST, Height, 74.5, kg, 01/03/19 18:01:00 EDT, Dry Weight Start Date: 12/05/19 Status: Ordered atorvastatin 40 mg oral tablet 1 tablet = 40 mg, By Mouth, Daily, # 90 tablet, 1 Refills, Maintenance, 12/05/19 14:01:00 EDT, [facility]/pharmacy #0693, 164, cm, 11/27/19 13:41:00 EST, Height, 74.5, kg, 01/03/19 18:01:00 EDT, Dry Weight Start Date: 12/05/19 Status: Ordered Colace sodium 100 mg oral capsule 100 mg, 1, capsule, By Mouth, 2 times a day, PRN, with plenty of water, # 20 capsule, Refills 1, Tot. Refills 1, Maintenance, for constipation, 06/13/20 8:34:00 EDT, Route to Pharmacy Electronically,[facility], 168, cm, 06/13/20 5:15:00... Start Date: 06/13/20 Status: Ordered doxepin 25 mg oral capsule 1 capsule = 25 mg, By Mouth, Daily at bedtime, PRN Itch, # 10 capsule, 0 Refills, Maintenance, 11/05/20 16:07:00 EST, Capsule, [facility]/pharmacy #0693, Partial fill upon patient request if the prescription is for a schedule II opioid drug., 167, cm, ... Start Date: 11/05/20 Status: Ordered Finacea 15% topical gel 1 application, Topically, 2 times a day, # 30 Gm, 0 Refills, Maintenance, 03/25/17 16:55:18, Gel Start Date: 03/25/17 Status: Ordered hydrOXYzine hydrochloride 10 mg oral tablet 1 tablet = 10 mg, By Mouth, 2 times a day, PRN for itching, # 60 tablet, 0 Refills, Maintenance, 10/31/20 8:49:00 EST, Tablet, [facility]/pharmacy #0693, Partial fill upon patient request if the prescription is for a schedule II opioid drug., 167, cm, ... Start Date: 10/31/20 Status: Ordered permethrin 5% topical cream 1 application, Topically, Once, to skin head to feet, remove by washing after 8 to 14 hours, # 60 Gm, 0 Refills, Soft Stop, 10/26/20 14:15:00 EST, Cream, [facility]/pharmacy #0693, Partial fill upon patientrequest if the prescription is for a schedule II op... Start Date: 10/26/20 Status: Ordered sertraline 100 mg oral tablet 2 tablet = 200 mg, By Mouth, Daily, # 180 tablet, 0 Refills, Maintenance, 05/27/20 16:27:00 EDT, [facility]/pharmacy #0693, D/C rx on file for 100mg [...] Effective Dates Health Status Clinical Service Informant Generalized pruritus Discharge Diagnosis 11/05/20 Transaminitis Discharge Diagnosis 11/05/20 Alcoholism Discharge Diagnosis 11/05/20 Elevated serum creatinine Discharge Diagnosis 11/05/20 Social History Social History Type Response Smoking Status Former smoker entered on: 05/30/18 Sex Medical Equipment Implanted Date:06/11/20Target Site:Abdomen Description Quantity [employer] Model MESH VENTRALIGHT ECHO CIR 6 - BARD ([id number]) 1 Bard Unknown BÁRBARA:No Information Assigning Authority: FDA MESH VENTRALIGHT ECHO20.3X25 .4 - BARD ([id number]) 1 Bard Unknown BÁRBARA:No Information Assigning Authority: FDA
--- OUTSIDE RECORDS SUMMARY | 2023-06-17 12:47 | XMS_ITS | Continuity of Care Document ---
Author Name Unknown Organization [facility] Address [address] [place] [address] Dr [address] [place] [address]- Care Team Providers Care Acid Correction Hand Name Role Phone Adrianna WEBB, Natanael Yoo Primary Care Physician Encounter [facility] Date(s): 11/27/19 - 12/04/[address] [place] [address] Encounter Diagnosis Ventral incisional hernia without gangrene(Discharge Diagnosis) - 11/27/19 Attending Physician: Ian Ray MD Referring Physician: Not [...] 1Result Comment: [08/10/2018] [facility] [id number] 2Result Comment: [08/10/2018] big y[08/10/2018 Uncharted] pt states she has not had the flu vaccine this year as previously stated 3Result Comment: enterred in error 4Result Comment: [07/25/2017] [id number] 5Result Comment: [02/13/2018] [facility] 0005 1971 01 6Result Comment: [07/25/2017] [id number] 7Admin Note: [id number] 8Result Comment: [07/25/2017] historical Medications acetaminophen 325 mg oral tablet 650 mg, By Mouth, Every 4 hours, PRN, Refills 0, Maintenance, Pain , Moderate, 05/18/18 9:59:35 EDT Start Date: 05/18/18 Status: Ordered amLODIPine 10 mg oral tablet 10 mg, 1, tablet, By Mouth, Daily, # 90 tablet, Refills 1, Tot. Refills 1, Maintenance, 06/11/19 16:50:00 EDT, Route to Pharmacy Electronically, [id number], [facility]/pharmacy #[id number] Start Date: 06/11/19 Status: Ordered [...] tab daily Start Date: 06/11/19 Status: Ordered spironolactone 25 mg oral tablet 25 mg, 1, tablet, By Mouth, Daily, # 90 tablet, Refills 3, Tot. Refills 3, Maintenance, 11/08/19 10:43:00 EST, Route to Pharmacy Electronically, [facility]/pharmacy #[id number], 164, cm, 11/08/19 9:45:00 [...] Effective Dates Health Status Clinical Service Informant Ventral incisional hernia without gangrene Discharge Diagnosis 11/27/19 Vital Signs Most recent to oldest [Reference Range]: 1 Height 164 cm (11/27/19 1:41 PM) Weight 79.8 kg (11/27/19 1:41 PM) Pulse Rate [55-90 bpm] 60 bpm (11/27/19 1:41 PM) Body Mass Index [18.5-24.99] 29.67 *H* (11/27/19 1:41 PM) Blood Pressure [90-138/55-84 mm Hg] 133/ 63mm Hg (11/27/19 1:41 PM) Blood pressure sites Arm, right (11/27/19 1:41 PM) Social History Social History Type Response Smoking Status Former smoker entered on: 05/30/18 Sex
--- OUTSIDE RECORDS SUMMARY | 2023-06-17 12:47 | XMS_ITS | Continuity of Care Document ---
Author Name Unknown Organization [facility] Carlos Milind lt Address [address] [place] [address]- Care Team Providers Care Unix Developer Name Role Phone Hill Foley MD Primary Care Physician [place] [facility] [place]23 [place] 05/29/23 [facility] Adult [address] [place] [address]- Attending Physician: Heydi Gómez NP Referring Physician: Hill Foley MD Allergies, Adverse Reactions, Alerts No Known Allergies Immunizations Given and Recorded Vaccine Date Status Refusal Reason pneumococcal 20-valent conjugate vaccine 04/22/23 Recorded influenza virus vaccine, inactivated 1 11/02/22 Gi sarah influenza virus vaccine, inactivated 07/01/21 Sundeep rded influenza virus vaccine, inactivated 2 08/10/18 Gi sarah zoster vaccine, inactivated 09/06/22 Recorded [id number] 12y+ bivalent booster vax 09/06/22 Recorded SARS-CoV-2 mRNA (xjgmurs-pngr-fgiwn) vax 03/24/22 Recorded SARS-CoV-2 (COVID-19) mRNA BNT-162b2 [...] 7 09/26/16 Recorded 1Result Comment: Flu HD [facility]#[id number] 2Result Comment: [08/10/2018] [facility] [id number] 403 [id number] 3Result Comment: influenza [facility] 4Result Comment: [02/13/2018] [facility] 0005 1971 01 5Result Comment: [07/25/2017] [id number] 6Admin Note: [id number] 7Result Comment: [07/25/2017] historical Medications amLODIPine 10 mg oral tablet 1 tablet, By Mouth, Daily, # 90 tablet, 1 Refills, Maintenance, 12/27/22 15:59:00 EDT, [facility]/pharmacy#0693, 167, cm, 12/23/22 9:51:00 EDT, Height, [...] Refills, Maintenance, 12/27/22 10:08:00 EDT, [facility], 90, TAKE 1 TABLET BY MOUTH EVERY [...] Team Personnel Name: Claire Serra RN Position: [facility] RN Member Role: Primary Care Nurse Name: Elana Warren RN Position: S RN Member Role: Primary Care Nurse Name: Hill Foley MD Position: [facility] Physician - Primary Care Member Role: PCP Address: Address: [address] [place] [address]- [place] Name: Christy Peacock RN Position: [facility] RN Member Role: Primary Care Nurse Name: Katy Romo RN Position: [facility] RN Member Role: Primary Care Nurse Name: Neha Bey RN Position: [facility] SN RN Member Role: Primary Care Nurse Name: Zayra Arevalo RN Position: [facility] RN Member Role: Primary Care Nurse Name: Margarita Olson RN Position: [facility] RN Member Role: Primary Care Nurse Name: Thelma Sifuentes RN Position: [facility] RN Member Role: Primary Care Nurse Name: Kandi Cabrera Position: [facility] Switching Clerk Member Role: Construction Site Crossing Guard Name: Jyoti Caal RN Position: [facility] RN Member Role: Primary Care Nurse Name: Loren Johnson RN Position: [facility] RN Member Role: Primary Care Nurse Name: Zaida Alan RN Position: [facility] RN Member Role: Primary Care Nurse Name: Carol Brar RN Position: [facility] Onco RN Member Role: Primary Care Nurse Name: Charlotte Thompson RN Position: [facility] Gis Analyst Developer Member Role: Primary Care Nurse Care Team Related Persons Name: LOUIE PACHECO Address: home [address] [place] [address] Name: LOGAN JANE Name: PRAVIN RYAN Address: [place] [address]
--- OUTSIDE RECORDS SUMMARY | 2023-06-17 12:47 | XMS_ITS | Continuity of Care Document ---
Author Name Unknown Organization [facility] Carlos Milind lt Address [address] [place] [address]- Care Team Providers Care Underwriting Account Representative Name Role Phone Hill Foley MD Primary Care Physician [place] [facility] [place]07[place] - 07/07/22 [facility] Adult [address] [place] [address]- Attending Physician: Hill Foley MD Allergies, Adverse [...] vaccine 9 09/26/16 Recorded 1Result Comment: [08/10/2018] [facility] 68818 403 65 2Result Comment: [08/10/2018] big y[08/10/2018 Uncharted] pt states she has not had the flu vaccine this year as previously stated 3Result Comment: enterred in error 4Result Comment: [07/25/2017] [id number] 5Result Comment: influenza [facility] 6Result Comment: [02/13/2018] [facility] 0005 1971 01 7Result Comment: [07/25/2017] [id number] 8Admin Note: [id number] 9Result Comment: [07/25/2017] historical Medications atenolol-chlorthalidone 100 [...] Name: Alaina WEBB, Hill Jones Address: Address: [address] [place] [address]
--- OUTSIDE RECORDS SUMMARY | 2023-06-17 12:48 | XMS_ITS | Continuity of Care Document ---
Author Name Unknown Organization [facility] Address [address] [place] [address]- Care Team Providers Care Grain Shoveler Name Role Phone Alaina WEBB, Hill Jones Primary Care Physician [place] [facility] [place](s): 04/13/23 - 05/13/[address] [address]- Allergies, Adverse Reactions, Alerts No Known Allergies Immunizations Given and Recorded Vaccine Date Status Refusal Reason pneumococcal 20-valent conjugate vaccine 04/22/23 Recorded influenza virus vaccine, inactivated 1 11/02/22 Gi sarah influenza virus vaccine, inactivated 07/01/21 Sundeep rded influenza virus vaccine, inactivated 2 08/10/18 Gi sarah zoster vaccine, inactivated 09/06/22 Recorded [id number] 12y+ bivalent booster vax 09/06/22 Recorded SARS-CoV-2 mRNA (msswvac-gnpo-csbfd) vax 03/24/22 Recorded SARS-CoV-2 (COVID-19) mRNA BNT-162b2 [...] 7 09/26/16 Recorded 1Result Comment: Flu HD [facility]#[id number] 2Result Comment: [08/10/2018] [facility] [address]505 403 65 3Result Comment: influenza [facility] 4Result Comment: [02/13/2018] [facility] 0005 1971 01 5Result Comment: [07/25/2017] [id number] 6Admin Note: [id number] 7Result Comment: [07/25/2017] historical Medications amLODIPine 10 mg oral tablet 1 tablet, By Mouth, Daily, # 90 tablet, 1 Refills, Maintenance, 12/27/22 15:59:00 EDT, [facility]/pharmacy#0693, 167, cm, 12/23/22 9:51:00 EDT, Height, 83.8, [...] Refills, Maintenance, 12/27/22 10:08:00 EDT, [facility], 90, TAKE 1 TABLET BY MOUTH EVERY DAY, 167, cm, 12/23/22 9:51:00 EDT, Height, 83.8, kg, 06/17/2113:41:00 EDT, Dry Weight Start Date: 12/27/22 Status: Ordered atorvastatin 80 mg oral tablet 1 tablet, By Mouth, Daily, # 90 tablet, 1 Refills, Maintenance, 12/27/22 10:10:00 EDT, [facility]/pharmacy#0693, 167, cm, 12/23/22 9:51:00 EDT, Height, 83.8, [...] Refills, Maintenance, 12/21/22 14:36:00 EDT, Tablet, [facility], Partial fill upon patient request if the [...] Team Personnel Name: Claire Serra RN Position: [facility] RN Member Role: Primary Care Nurse Name: Elana Warren RN Position: S RN Member Role: Primary Care Nurse Name: Hill Foley MD Position: [facility] Physician - Primary Care Member Role: PCP Address: Address: [address] [place] [address]- Name: Christy Peacock RN Position: [facility] RN Member Role: Primary Care Nurse Name: Katy Romo RN Position: [facility] RN Member Role: Primary Care Nurse Name: Neha Bey RN Position: [facility] SN RN Member Role: Primary Care Nurse Name: Zayra Arevalo RN Position: [facility] RN Member Role: Primary Care Nurse Name: Margarita Olson RN Position: [facility] RN Member Role: Primary Care Nurse Name: Thelma Sifuentes RN Position: [facility] RN Member Role: Primary Care Nurse Name: Kandi Cabrera Position: [facility] Master Planner Member Role: Ingredient Mixer Name: Joyti Caal RN Position: [facility] RN Member Role: Primary Care Nurse Name: Loren Johnson RN Position: [facility] RN Member Role: Primary Care Nurse Name: Zaida Alan RN Position: [facility] RN Member Role: Primary Care Nurse Name: Carol Brar RN Position: [facility] Onco RN Member Role: Primary Care Nurse Name: Charlotte Thompson RN Position: [facility] Tray Filler Member Role: Primary Care Nurse Care Team Related Persons Name: LOUIE PACHECO Address: [address] [address] Name: LOGAN JANE Name: PRAVIN RYAN Address: [place] [address]
--- OUTSIDE RECORDS SUMMARY | 2023-06-17 12:48 | XMS_ITS | Continuity of Care Document ---
Author Name Unknown Organization [facility] Luis Carlos Milind Address [address] [place] [address]- Care Team Providers Care Curb Hop Name Role Phone Alaina WEBB, Hill Jones Primary Care Physician [place] [facility] [place] - 12/[place]/[address] [facility] [place] [address] [place] [address]- Attending Physician: Not on Staff, Attending MD [...] vaccine 9 09/26/16 Recorded 1Result Comment: [08/10/2018] [facility] [id number] 2Result Comment: [08/10/2018] big y[08/10/2018 Uncharted] pt states she has not had the flu vaccine this year as previously stated 3Result Comment: enterred in error 4Result Comment: [07/25/2017] [id number] 5Result Comment: influenza [facility] 6Result Comment: [02/13/2018] [facility] 0005 1971 01 7Result Comment: [07/25/2017] [id number] 8Admin Note: [id number] 9Result Comment: [07/25/2017] historical Medications amLODIPine 10 mg oral tablet 1 tablet, By Mouth, Daily, # 90 tablet, 11 Refills, 12/01/21 12:21:00 EST, [facility]/pharmacy #0693, 168,cm, 12/01/21 11:53:00 EST, Height, 83.8, kg, 06/17/21 13:41:00 EDT, Dry Weight Start Date: 12/01/21 Status: Ordered atenolol-chlorthalidone 100 mg-25 mg oral tablet 1 tablet, By Mouth, Daily, # 90 tablet, 11 Refills, 12/01/21 12:21:00 EST, [facility]/pharmacy #0693, 90, 1 tablet By Mouth Daily, 168, cm, 12/01/21 11:53:00 EST, Height, 83.8, kg, 06/17/21 13:41:00 EDT, Dry Weight Start Date: 12/01/21 Status: Ordered atorvastatin 80 mg oral tablet 1 tablet = 80 mg, By Mouth, Daily, DOSAGE INCREASE, # 90 tablet, 1 Refills, Maintenance, 12/10/21 11:32:00 EDT, Tablet, [facility]/pharmacy #0693, Partial [...] MESH VENTRALIGHT ECHO CIR 6 - BARD ([id number]) 1 Bard Unknown BÁRBARA:No Information Assigning Authority: FDA MESH VENTRALIGHT ECHO20.3X25 .4 - BARD ([id number]) 1 Bard Unknown BÁRBARA:No Information Assigning Authority: FDA
--- OUTSIDE RECORDS SUMMARY | 2023-06-17 12:48 | XMS_ITS | Continuity of Care Document ---
Author Name Unknown Organization [facility] Address [address] [address]- Care Team Providers Care Virtual Classroom Manager Name Role Phone Adrianna WEBB, Natanael Yoo Primary Care Physician Encounter [facility] Date(s): 05/28/20 - 06/04/20 [facility] [address] [address]- [facility] Attending Physician: Desi Noonan MD Referring Physician: Ian Ray MD Allergies, [...] vaccine 8 09/26/16 Recorded 1Result Comment: [08/10/2018] [facility] [id number] 2Result Comment: [08/10/2018] big y[08/10/2018 Uncharted] pt states she has not had the flu vaccine this year as previously stated 3Result Comment: enterred in error 4Result Comment: [07/25/2017] [id number] 5Result Comment: [02/13/2018] [facility] 0005 1971 01 6Result Comment: [07/25/2017] [id number] 7Admin Note: [id number] 8Result Comment: [07/25/2017] historical Medications amLODIPine 10 mg oral tablet 1 tablet, By Mouth, Daily, # 90 tablet, 11 Refills, Maintenance, 12/05/19 16:46:00 EDT, [facility], 164, cm, 11/27/19 13:41:00 EST, Height, 74.5, kg, 01/03/19 18:01:00 EDT, Dry Weight Start Date: 12/05/19 Status: Ordered atenolol-chlorthalidone 100 mg-25 mg oral tablet 1 tablet, By Mouth, Daily, # 90 tablet, 11 Refills, Maintenance, 12/05/19 16:47:00 EDT, [facility], 90, TAKE 1 TABLET BY MOUTH EVERY [...] tablet, 0 Refills, Maintenance, 05/27/20 16:27:00 EDT, [facility]/pharmacy #[id number], D/C rx on file for 100mg 1 tab daily, 164, cm, 05/24/20 8:51:00 EDT, Height, 74.5,kg, 01/03/19 18:01:00 EDT, Dry Weight Start Date: 05/27/20 Status: Ordered spironolactone 25 mg oral tablet 25 mg, 1, tablet, By Mouth, Daily, # 90 tablet, Refills 3, Tot. Refills 3, Maintenance, 11/08/19 10:43:00 EST, Route to Pharmacy Electronically, [facility]/pharmacy #[id number], 164, cm, 11/08/19 9:45:00 EST, [...] oldest [Reference Range]: 1 Height 164 cm (05/28/20 8:30 AM) Weight 83.7 kg (05/28/20 8:30 AM) Oxygen Saturation [94-100 %] 97 % (05/28/20 8:30 AM) Pulse Rate [55-90 bpm] 62 bpm (05/28/20 8:30 AM) Body Mass Index [18.5-24.99] 31.12 *>HHI* (05/28/20 8:30 AM) Blood Pressure [90-138/55-84 mm Hg] 133/ 65mm Hg (05/28/20 8:30 AM) Respiratory Rate [16-30 br/min] 15 br/mi n *L* (05/28/20 8:30 AM) Temperature [96.8-100.4 DegF] 97.7 DegF (05/28/20 8:30 AM) Blood pressure sites Arm, left (05/28/20 8:30 AM) Temperature Route Temporal (05/28/20 8:30 AM) Social History Social History Type Response Smoking Status Former smoker entered on: 05/30/18 Sex
--- OUTSIDE RECORDS SUMMARY | 2023-06-17 12:48 | XMS_ITS | Continuity of Care Document ---
Author Name Unknown Organization [facility] Address [address] [place] [address] [address] [place] [address]- Care Team Providers Care Special Education Associate Name Role Phone Adrianna WEBB, Natanael Yoo Primary Care Physician Encounter [facility] Date(s): 04/11/20 - 04/18/[address] [place] [address]- [facility] Encounter Diagnosis Ventral incisional hernia(Discharge Diagnosis) - 04/11/20 Attending Physician: Ian Ray MD Referring Physician: Natanael Rodas MD Allergies, [...] [facility] [id number] 2Result Comment: [08/10/2018] big y[08/10/2018 Uncharted] pt states she has not had the flu vaccine this year as previously stated 3Result Comment: enterred in error 4Result Comment: [07/25/2017] [id number] 5Result Comment: [02/13/2018] [facility] 0005 1971 01 6Result Comment: [07/25/2017] [id number] 7Admin Note: [id number] 8Result Comment: [07/25/2017] historical Medications acetaminophen 325 mg oral tablet 650 mg, By Mouth, Every 4 hours, PRN, Refills 0, Maintenance, Pain , Moderate, 05/18/18 9:59:35 EDT Start Date: 05/18/18 Status: Ordered amLODIPine 10 mg oral tablet 1 tablet, By Mouth, Daily, # 90 tablet, 11 Refills, Maintenance, 12/05/19 16:46:00 EDT, [facility], 164, cm, 11/27/19 13:41:00 EST, Height, 74.5, kg, 01/03/19 18:01:00 EDT, Dry Weight Start Date: 12/05/19 Status: Ordered atenolol-chlorthalidone 100 mg-25 mg oral tablet 1 tablet, By Mouth, Daily, # 90 tablet, 11 Refills, Maintenance, 12/05/19 16:47:00 EDT, [facility], 90, TAKE 1 TABLET BY MOUTH EVERY [...] Status Clinical Service Informant Ventral incisional hernia Discharge Diagnosis 04/11/20 Vital Signs Most recent to oldest [Reference Range]: 1 Height 164 cm (04/11/20 1:49 PM) Weight 80 kg (04/11/20 1:49 PM) Pulse Rate [55-90 bpm] 57 bpm (04/11/20 1:49 PM) Body Mass Index [18.5-24.99] 29.74 *H* (04/11/20 1:49 PM) Blood Pressure [90-138/55-84 mm Hg] 121/ 71mm Hg (04/11/20 1:49 PM) Respiratory Rate [16-30 br/min] 16 br/mi n (04/11/20 1:49 PM) Temperature [96.8-100.4 DegF] 96.5 DegF *L* (04/11/20 1:49 PM) Blood pressure sites Arm, right (04/11/20 1:49 PM) Temperature Route Temporal (04/11/20 1:49 PM) Weight Obtained Via Standing scale (04/11/20 1:49 PM) Social History Social History Type Response Smoking Status Former smoker entered on: 05/30/18 Sex
--- OUTSIDE RECORDS SUMMARY | 2023-06-17 12:48 | XMS_ITS | Continuity of Care Document ---
Author Name Unknown Organization [facility] Address [address] [place] [address]- Care Team Providers Care Ager Operator Name Role Phone Hill Foley MD Primary Care Physician [place] [facility] [place] - 07/27/22 [facility] [address] [place] [address]- Attending Physician: Heydi Gómez NP Referring Physician: [...] Comment: [08/10/2018] [facility] [id number] 2Result Comment: [08/10/2018] big y[08/10/2018 Uncharted] pt states she has not had the flu vaccine this year as previously stated 3Result Comment: enterred in error 4Result Comment: [07/25/2017] [id number] 5Result Comment: influenza [facility] 6Result Comment: [02/13/2018] [facility] 0005 1971 01 7Result Comment: [07/25/2017] [id number] 8Admin Note: [id number] 9Result Comment: [07/25/2017] historical Medications atenolol-chlorthalidone 100 [...] Name: Alaina WEBB, Hill Jones Address: Address: [address] [place] [address]
--- OUTSIDE RECORDS SUMMARY | 2023-06-17 12:48 | XMS_ITS | Continuity of Care Document ---
Author Name Unknown Organization [facility] Address [address] [place] [address]- Care Team Providers Care Separator Operator Name Role Phone Natanael Rodas MD Primary Care Physician [phone] Encounter [facility] Date(s): 06/17/21 - 06/17/[address] [address]- Discharge Disposition: A-D/C Walkout Attending Physician: Not on Staff, Attending MD Admitting Physician: Not on Staff, Admitting MD Referring Physician: Not on Staff, Referring [...] 2Result Comment: [08/10/2018] [facility] [id number] [phone] 3Result Comment: [08/10/2018] big y[08/10/2018 Uncharted] pt states she has not had the flu vaccine this year as previously stated 4Result Comment: enterred in error 5Result Comment: [07/25/2017] [id number] 6Result Comment: [02/13/2018] [facility] 0005 1971 01 7Result Comment: [07/25/2017] [id number] 8Admin Note: [id number] 9Result Comment: [07/25/2017] historical Medications amLODIPine 10 mg oral tablet 1 tablet, By Mouth, Daily, # 90 tablet, 11 Refills, Maintenance, 12/05/19 16:46:00 EDT, [facility], 164, cm, 11/27/19 13:41:00 EST, Height, 74.5, kg, 01/03/19 18:01:00 EDT, Dry Weight Start Date: 12/05/19 Status: Ordered atenolol-chlorthalidone 100 mg-25 mg oral tablet 1 tablet, By Mouth, Daily, # 90 tablet, 11 Refills, Maintenance, 12/05/19 16:47:00 EDT, [facility], 90, TAKE 1 TABLET BY MOUTH EVERY DAY, 164, cm, 11/27/19 13:41:00 EST, Height, 74.5, kg, 01/03/19 18:01:00 EDT, Dry Weight Start Date: 12/05/19 Status: Ordered atorvastatin 40 mg oral tablet 1 tablet = 40 mg, By Mouth, Daily, # 90 tablet, 1 Refills, Maintenance, 12/05/19 14:01:00 EDT, [facility]/pharmacy #0693, 164, cm, 11/27/19 13:41:00 EST, Height, 74.5, kg, 01/03/19 18:01:00 EDT, Dry Weight Start Date: 12/05/19 Status: Ordered Colace sodium 100 mg oral capsule 100 mg, 1, capsule, By Mouth, 2 times a day, PRN, with plenty of water, # 20 capsule, Refills 1, Tot. Refills 1, Maintenance, for constipation, 06/13/20 8:34:00 EDT, Route to Pharmacy Electronically,[facility], 168, cm, 06/13/20 5:15:00... Start Date: 06/13/20 Status: Ordered Finacea 15% topical gel 1 application, Topically, 2 times a day, # 30 Gm, 0 Refills, Maintenance, 03/25/17 16:55:18, Gel Start Date: 03/25/17 Status: Ordered sertraline 100 mg oral tablet 2 tablet = 200 mg, By Mouth, Daily, # 180 tablet, 0 Refills, Maintenance, 05/27/20 16:27:00 EDT, [facility]/pharmacy #[id number], D/C rx on [...] [Reference Range]: 1 2 Height 168 cm (06/17/21 1:41 PM) Weight 83.8 kg (06/17/21 1:41 PM) Oxygen Saturation [94-100 %] 96 % (06/17/21 1:41 PM) 96 % (06/17/21 1:38 PM) Pulse Rate [55-90 bpm] 85 bpm (06/17/21 1:41 PM) 88 bpm (06/17/21 1:38 PM) Body Mass Index [18.5-24.99] 29.69 *H* (06/17/21 1:41 PM) Blood Pressure [90-138/55-84 mm Hg] 155/ 86mm Hg 1 *H* (06/17/21 1:41 PM) Respiratory Rate [16-30 br/min] 16 br/mi n (06/17/21 1:41 PM) 18 br/min (06/17/21 1:38 PM) Temperature [96.8-100.4 DegF] 98.8 DegF (06/17/21 1:41 PM) Mode of Delivery (Oxygen) Room air (06/17/21 1:41 PM) Room air (06/17/21 1:38 PM) Blood pressure sites Arm, right (06/17/21 1:41 PM) Temperature Route Oral (06/17/21 1:41 PM) Dry Weight 83.8 kg (06/17/21 1:41 PM) Weight Obtained Via Standing scale (06/17/21 1:41 PM) Dry Weight Obtained Via Standing scale (06/17/21 1:41 PM) 1Result Comment: pt reports not taking bp meds today Social History Social History Type Response Smoking Status Former smoker entered on: 05/30/18 Sex Medical Equipment Implanted Date:06/11/20Target Site:Abdomen Description Quantity MRI Company Model MESH VENTRALIGHT ECHO CIR 6 - BARD ([id number]) 1 Bard Unknown BÁRBARA:No Information Assigning Authority: [facility] MESH VENTRALIGHT ECHO20.3X25 .4 - BARD ([id number]) 1 Bard Unknown BÁRBARA:No Information Assigning Authority: FDA
--- OUTSIDE RECORDS SUMMARY | 2023-06-17 12:48 | XMS_ITS | Continuity of Care Document ---
Author Name Unknown Organization [facility] Address [address] [place] [address]- Care Team Providers Care S[employer] Special[employer] Cook Name Role Phone Hill Foley MD Primary Care Physician [phone] [place] [facility] [place] Date(s): 05/07/22 - 05/14/22 [facility] Adult [address] [place] [address]- Attending Physician: Hill Foley MD Allergies, Adverse [...] vaccine 9 09/26/16 Recorded 1Result Comment: [08/10/2018] [facility] [id number] 2Result Comment: [08/10/2018] big y[08/10/2018 Uncharted] pt states she has not had the flu vaccine this year as previously stated 3Result Comment: enterred in error 4Result Comment: [07/25/2017] [id number] 5Result Comment: influenza [facility] 6Result Comment: [02/13/2018] [facility] 0005 1971 01 7Result Comment: [07/25/2017] [id number] 8Admin Note: [id number] 9Result Comment: [07/25/2017] historical Medications atenolol-chlorthalidone 100 [...] MESH VENTRALIGHT ECHO CIR 6 - BARD ([id number]) 1 Bard Unknown BÁRBARA:No Information Assigning Authority: FDA MESH VENTRALIGHT ECHO20.3X25 .4 - BARD ([id number]) 1 Bard Unknown BÁRBARA:No Information Assigning Authority: FDA
--- OUTSIDE RECORDS SUMMARY | 2023-06-17 12:48 | XMS_ITS | Continuity of Care Document ---
Author Name Unknown Organization [facility] Address [address] [place] [address] [address] [place] [address]- Care Team Providers Care Cafe Assistant Name Role Phone Natanael Rodas MD Primary Care Physician Encounter [facility] Date(s): 06/27/20 - 07/04/20 [facility] [address] [place] [address]- [facility] Encounter Diagnosis Ventral hernia(Discharge Diagnosis) - 06/27/20 Attending Physician: Ian Ray MD Referring Physician: [...] vaccine 8 09/26/16 Recorded 1Result Comment: [08/10/2018] [facility] [id number] 2Result Comment: [08/10/2018] big y[08/10/2018 Uncharted] pt states she has not had the flu vaccine this year as previously stated 3Result Comment: enterred in error 4Result Comment: [07/25/2017] [id number] 5Result Comment: [02/13/2018] [facility] 0005 1971 01 6Result Comment: [07/25/2017] [id number] 7Admin Note: [id number] 8Result Comment: [07/25/2017] historical Medications amLODIPine 10 mg oral tablet 1 tablet, By Mouth, Daily, # 90 tablet, 11 Refills, Maintenance, 12/05/19 16:46:00 EDT, [facility] 16[facility], 164, cm, 11/27/19 13:41:00 EST, Height, 74.5, kg, 01/03/19 18:01:00 EDT, Dry Weight Start Date: 12/05/19 Status: Ordered atenolol-chlorthalidone 100 mg-25 mg oral tablet 1 tablet, By Mouth, Daily, # 90 tablet, 11 Refills, Maintenance, 12/05/19 16:47:00 EDT, [facility], 90, TAKE 1 TABLET BY MOUTH EVERY DAY, 164, cm, 11/27/19 13:41:00 EST, Height, 74.5, kg, 01/03/19 18:01:00 EDT, Dry Weight Start Date: 12/05/19 Status: Ordered atorvastatin 40 mg oral tablet 1 tablet = 40 mg, By Mouth, Daily, # 90 tablet, 1 Refills, Maintenance, 12/05/19 14:01:00 EDT, [facility]/pharmacy #0693, 164, cm, 11/27/19 13:41:00 EST, Height, 74.5, kg, 01/03/19 18:01:00 EDT, Dry Weight Start Date: 12/05/19 Status: Ordered Colace sodium 100 mg oral capsule 100 mg, 1, capsule, By Mouth, 2 times a day, PRN, with plenty of water, # 20 capsule, Refills 1, Tot. Refills 1, Maintenance, for constipation, 06/13/20 8:34:00 EDT, Route to Pharmacy Electronically,[facility], 168, cm, 06/13/20 5:15:00... Start [...] 06/17/20 13:06:00 EDT, Route to Pharmacy Electronically, [facility], 167, cm, 202:46:00 EDT, Height, [...] tablet, 0 Refills, Maintenance, 05/27/20 16:27:00 EDT, [facility]/pharmacy #[id number], D/C rx on file for 100mg 1 tab daily, 164, cm, 05/24/20 8:51:00 EDT, Height, 74.5,kg, 01/03/19 18:01:00 EDT, Dry Weight Start Date: 05/27/20 Status: Ordered spironolactone 25 mg oral tablet 25 mg, 1, tablet, By Mouth, Daily, # 90 tablet, Refills 3, Tot. Refills 3, Maintenance, 11/08/19 10:43:00 EST, Route to Pharmacy Electronically, [facility]/pharmacy #[id number], 164, cm, 11/08/19 9:45:00 [...] Dates Health Status Cl inical Service Informant Ventral hernia Discharge Diagnosis 06/27/20 Vital Signs Most recent to oldest [Reference Range]: 1 Height 167 cm (06/27/20 1:48 PM) Weight 81 kg (06/27/20 1:48 PM) Pulse Rate [55-90 bpm] 76 bpm (06/27/20 1:48 PM) Body Mass Index [18.5-24.99] 29.04 *H* (06/27/20 1:48 PM) Blood Pressure [90-138/55-84 mm Hg] 146/ 78mm Hg *H* (06/27/20 1:48 PM) Respiratory Rate [16-30 br/min] 16 br/mi n (06/27/20 1:48 PM) Temperature [96.8-100.4 DegF] 98.9 DegF (06/27/20 1:48 PM) Blood pressure sites Arm, right (06/27/20 1:48 PM) Temperature Route Temporal (06/27/20 1:48 PM) Weight Obtained Via Standing scale (06/27/20 1:48 PM) Social History Social History Type Response Smoking Status Former smoker entered on: 05/30/18 Sex Medical Equipment Implanted Date:06/11/20Target Site:Abdomen Description Quantity MRI Company Model MESH VENTRALIGHT ECHO CIR 6 - BARD ([id number]) 1 Bard Unknown BÁRBARA:No Information Assigning Authority: FDA MESH VENTRALIGHT ECHO20.3X25 .4 - BARD ([id number]) 1 Bard Unknown BÁRBARA:No Information Assigning Authority: FDA
--- OUTSIDE RECORDS SUMMARY | 2023-06-17 12:48 | XMS_ITS | Continuity of Care Document ---
Author Name Unknown Organization [facility] ter Address [address] [place] [id number]- Care Team Providers Care Physician Relations Representative Name Role Phone Hill Foley MD Primary Care Physician [phone] Encounter [facility] Date(s): 04/19/23 - 04/21/[address] [address]- Discharge Disposition: A-Transfer SNF Attending Physician: Jyoti Cameron MD, V Admitting Physician: Jyoti Cameron MD, V Referring Physician: Jyoti Cameron MD, V Allergies, Adverse Reactions, Alerts No Known Allergies Immunizations Given and Recorded Vaccine Date Status Refusal Reason influenza virus vaccine, inactivated 1 11/02/22 Gi sarah influenza virus vaccine, inactivated 07/01/21 Sundeep rded influenza virus vaccine, inactivated 2 08/10/18 Gi sarah influenza virus vaccine, inactivated 3 07/19/18 Re corded influenza virus vaccine, inactivated 4, 5 07/25/17 Given zoster vaccine, inactivated 09/06/22 Recorded [id number] 12y+ bivalent booster vax 09/06/22 Recorded SARS-CoV-2 mRNA ([id number]) vax 03/24/22 Recorded SARS-CoV-2 (COVID-19) mRNA BNT-162b2 [...] 09/26/16 Recorde d 1Result Comment: Flu HD [facility]#[id number] 2Result Comment: [08/10/2018] [facility] [id number] 3Result Comment: [08/10/2018] big y[08/10/2018 Uncharted] pt states she has not had the flu vaccine this year as previously stated 4Result Comment: enterred in error 5Result Comment: [07/25/2017] [id number] 6Result Comment: influenza [facility] 7Result Comment: [02/13/2018] [facility] [id number] 01 8Result Comment: [07/25/2017] [id number] 9Admin Note: [id number] 10Result Comment: [07/25/2017] historical Medications acetaminophen 325 mg oral tablet 975 mg, By Mouth, Every 8 hours, # 100 tablet, Refills 0, Tot. Refills 0, Acute 05/03/23 9:00:00 EDT, 04/20/23 7:11:00 EDT, Print Requisition, Partial fill upon patient request if the prescription isfor a schedule II opioid drug. Start Date: 04/20/23 Stop Date: 05/03/23 Status: Ordered acetaminophen 325 mg oral tablet 975 mg, Tablet, By Mouth, 04/21/23 13:30:00 EDT Start Date: 04/21/23 Stop Date: 04/21/23 Status: Completed amLODIPine 10 mg oral tablet 1 tablet, By Mouth, Daily, # 90 tablet, 1 Refills, Maintenance, 12/27/22 15:59:00 EDT, [facility]/pharmacy#[id number], 167, cm, 12/23/22 9:51:00 EDT, Height, 83.8, kg, 06/17/21 13:41:00 EDT, Dry Weight Start Date: 12/27/22 Status: Ordered amLODIPine 10 mg oral tablet 10 mg, Tablet, By Mouth, 04/21/23 9:00:00 EDT Start Date: 04/21/23 Stop Date: 04/21/23 Status: Completed aspirin 325 mg oral tablet 325 mg, By Mouth, Daily, # 14 tablet, Refills 0, Tot. Refills 0, Maintenance, 04/20/23 7:14:00 EDT,Print Requisition, Partial fill upon patient request if the prescription is for a schedule II opioid drug. Start Date: 04/20/23 Status: Ordered atenolol-chlorthalidone 100 mg-25 mg oral tablet 1 tablet, By Mouth, Daily, # 90 tablet, 1 Refills, Maintenance, 12/27/22 10:08:00 EDT, [facility] STORE [id number], 90, TAKE 1 TABLET BY MOUTH EVERY DAY, 167, cm, 12/23/22 9:51:00 EDT, Height, 83.8, kg, 06/17/2113:41:00 EDT, Dry Weight Start Date: 12/27/22 Status: Ordered atorvastatin 80 mg oral tablet 1 tablet, By Mouth, Daily, # 90 tablet, 1 Refills, Maintenance, 12/27/22 10:10:00 EDT, [facility]/pharmacy#[id number], 167, cm, 12/23/22 9:51:00 EDT, [...] tablet, 11 Refills, Maintenance, 07/23/22 10:48:00 EDT, [facility]/pharmacy #[id number], Partial fill upon patient request if the prescription is for a schedule II opioid drug., 167, cm, 06/14/22 15:45:00 EDT, Height, 83.8, kg, 05/28... Start Date: 07/23/22 Status: Ordered Finacea 15% topical gel 1 application, Topically, 2 times a day, # 30 Gm, 0 Refills, Maintenance, 03/25/17 16:55:18, Gel Start Date: 03/25/17 Status: Ordered oxyCODONE 5 mg oral tablet 5 mg, By Mouth, Every 4 hours, PRN, # 42 tablet, Refills 0, Tot. Refills 0, Acute 04/26/23 9:00:00 EDT, Pain , Severe, 04/20/23 7:12:00 EDT, Print Requisition, Partial fill upon patient request if the prescription is for a schedule II opioid drug. Start Date: 04/20/23 Stop Date: 04/26/23 Status: Ordered oxyCODONE 5 mg oral tablet 5 mg, Tablet, By Mouth, Every 4 hours, PRN for Pain , Moderate, Routine, 04/19/23 9:31:00 EDT Start Date: 04/19/23 Stop Date: 04/22/23 Status: Discontinued sertraline 100 mg oral tablet 2 tablet, By Mouth, Daily, # 180 tablet, 1 Refills, 12/21/22 14:38:00 EDT, [facility]/pharmacy #[id number], 167,cm, 11/26/22 11:40:00 EST, Height, 83.8, kg, 06/17/21 13:41:00 EDT, Dry Weight Start Date: 12/21/22 Status: Ordered spironolactone 50 mg oral tablet 1 tablet = 50 mg, By Mouth, Daily, # 90 tablet, 1 Refills, Maintenance, 12/21/22 14:36:00 EDT, Tablet, [facility]/pharmacy #[id number], Partial fill upon patient request if the [...] Active 1F/U with Vascular 05/2022 2Echo 2021 Results Radiology Reports * Exam Date Time Procedure Performing Provider Status 04/19/23 10:07 AM Shoulder 1 View Bela Denney; Auth (Verified) Notes: (Shoulder 1 View Left) Reason For Exam: s/p Left reverse total shoulder arthroplasty;Other: RESULT: Shoulder 1 View Left Shoulder 1 View Left, 1 view, AP upright Reason: Other:; s p Left reverse total shoulder arthroplasty; Clinical Question(s): Dislocation COMPARISON: None. FINDINGS: A single postoperative image shows total reverse shoulder arthroplasty with the hardware appearing well seated and normally located. No fractures or other unusual findings. Mild left basilar atelectasis. AC joint intact and visualized clavicle unremarkable. IMPRESSION: Satisfactory appearance status post total reverse shoulder arthroplasty. Patchy left basilar atelectasis. WSN: [id number] Ordering Physician: Jyoti Cameron V Dictated By: Justen Chapman MD Dictated Date/Time: 04/19/23 12:43 p Reviewed By: Justen Chapman MD Signed By: Justen Chapman MD Signed Date/Time: 04/19/23 12:43 pm Transcribed By: TITI Transcribed Date/Time: 04/19/23 12:40 pm Vital Signs Most recent to oldest [Reference Range]: 1 2 3 4 Height 168 cm (04/21/23 3:02 PM) 168 cm (04/21/23 6:55 AM) 168 cm (04/21/23 4:15 AM) Weight 90.7 kg (04/19/23 2:28 PM) 86.5 kg (04/19/23 6:10 AM) 86.5 kg (04/13/23 5:06 PM) Oxygen Saturation [94-100 %] 94 % (04/21/23 3:02 PM) 93 % *L* (04/21/23 6:55 AM) 94 % (04/21/23 4:59 AM) Pulse Rate [55-90 bpm] 66 bpm (04/21/23 3:02 PM) 63 bpm (04/21/23 6:55 AM) 66 bpm (04/21/23 4:15 AM) Body Mass Index [18.5-24.99 kg/m2] 32.14 kg/m2 *>HHI* (04/19/23 2:28 PM) 30.65 kg/m2 *>HHI* (04/19/23 6:10 AM) 30.65 kg/m2 *>HHI* (04/13/23 5:06 PM) Blood Pressure [90-138/55-84 mm Hg] 112/50mm Hg (04/21/23 3:02 PM) 104/48mm Hg (04/21/23 8:18 AM) 104/48mm Hg (04/21/23 6:55 AM) Respiratory Rate [16-30 br/min] 16 br/min (04/21/23 6:54 PM) 16 br/min (04/21/23 3:02 PM) 20 br/min (04/21/23 2:04 PM) 20 br/min (04/21/23 2:04 PM) Temperature [96.8-100.4 DegF] 98.5 DegF (04/21/23 3:02 PM) 98.5 DegF (04/21/23 6:55 AM) 98 DegF (04/20/23 11:43 PM) Liters per Minute 2 L/min (04/20/23 11:43 PM) 2 L/min (04/19/23 11:45 PM) 1 L/min (04/19/23 2:41 PM) Mode of Delivery (Oxygen) Room air (04/21/23 3:02 PM) Room air (04/21/23 6:55 AM) CPAP (04/21/23 4:15 AM) Blood pressure sites Arm, left (04/21/23 3:02 PM) Arm, right (04/21/23 6:55 AM) Arm, right (04/21/23 4:15 AM) Temperature Route Oral (04/21/23 3:02 PM) Oral (04/21/23 6:55 AM) Oral (04/20/23 11:43 PM) Dry Weight 90.7 kg (04/19/23 2:28 PM) 90.7 kg (04/19/23 6:10 AM) 86.5 kg (04/13/23 5:06 PM) Dry Weight Obtained Via Standing scale (04/19/23 6:10 AM) Patient/family stated (04/13/23 5:06 PM) Social History Social History Type Response [...] Unknown 07/23/21 Unknown Unknown Active Un known History and physical note * Event Display: History and Physical Hospital Authored Date: * Event Display: History and Physical Hospital Authored Date: Note * Bela Rojo RN: PERFORM Event Display: Discharge/Transfer Note Hospital Authored Date: [id number] Nursing Discharge Note Entered On: 04/21/2023 19:06 EDT Performed On: 04/21/2023 19:06 EDT by Bela Rojo RN Nursing Discharge Note 2 Discharge Time : 04/21/2023 19:06 EDT Discharge Level of Care at Discharge : half-way facility Discharge Nursing Homes/Rehab Facilities : [facility] at [address] [place] [address] Patient Left Unit Via : Ambulance Patient Accompanied Off Unit with : Ambulance/Chair Van Personnel Handover Given to Transport Personnel : Yes DC Instructions Provided & Signed by Pt : Yes Patient Understands D/C Instructions : Yes Patient Instructions Discharge Signed : Yes Did Pt have Specialty Bed or Wound Vac : No Bela Rojo RN - 04/21/2023 19:06 EDT * Tio Cunningham: PERFORM, SIGN, VERIFY Event Display: Discharge/Transfer Note Hospital Authored Date: [id number] Patient: AVERY FAROOQ Age: 77 years Sex: Female : 1945 Associated Diagnoses: None Author: Tio Cunningham Discharge Summary Admission Date: 04/19/2023 Discharge Date: 04/21/2023 Admitting Diagnosis: Left shoulder cuff tear arthropathy Discharge Diagnosis: Left shoulder cuff tear arthropathy Final Diagnosis : Left shoulder cuff tear arthropathy Procedure: Left reverse total shoulder arthroplasty with glenoid autograft reconstruction (BIO-RSA), Long head of biceps tenodesis??? Surgeon: Jyoti Cameron M.D. Orthopedics: The patient is status post left reverse total shoulder arthroplasty. It is anticipatedthat she will be discharged to rehab pending placement. The patient is doing well from a surgical standpoint. Her incision is healing well. Neurovascular status is intact. Calves are supple and nontender. Pain is well controlled on his current regimen, Acetaminophen 650 mg every 6 hours and Oxycodone 2.5-5 mg every 4 hours. Patient is tolerating this well. She will be sent home with a prescription for this medication. Prescription: Oxycodone IR 5mg tablet. Take 1-2 tablets every 4 hours as needed for pain x 5 days. # 42 tablets Hospital course: Relatively uneventful medically. Patient had a slight increase in her creatine 1.2, baseline 0.8-1.0. Repeat labs showed trending in right direction at 1.1. Will repeat lab work prior to discharge. Current Medication List: Acetaminophen (acetaminophen 325 mg oral tablet) 975 Milligram By Mouth Every 8 hours Amlodipine (amLODIPine 10 mg oral tablet) 1 tab(s) By Mouth Daily Aspirin (aspirin 325 mg oral tablet) 325 Milligram By Mouth Daily Atenolol-Chlorthalidone (atenolol-chlorthalidone 100 mg-25 mg oral tablet) 1 tab(s) By Mouth Daily Atorvastatin (atorvastatin 80 mg oral tablet) 1 tab(s) By Mouth Daily Azelaic Acid Topical (Finacea 15% topical gel) 1 trinh Topically 2 times a day Cyanocobalamin (Eligen B12 1000 mcg oral tablet) 1 tab(s) By Mouth Daily Docusate (docusate sodium 100 mg oral capsule) 100 Milligram 1 capsule By Mouth 2 times a day Durable Medical Equipment (Cane) See Instructions Unsteady gait Durable Medical Equipment (Cane) See Instructions Use daailyDx: Unsteady gait. Durable Medical Equipment (CPAP Machine) See Instructions AutoCPAP 8-20 cm H20, use Daily when sleeping Multivitamin With Minerals (Centrum Silver Ultra Women's oral tablet) By Mouth Daily Oxycodone (oxyCODONE 5 mg oral tablet) 5 Milligram By Mouth Every 4 hours as needed Pain , Severe Sertraline (sertraline 100 mg oral tablet) 2 tab(s) By Mouth Daily Spironolactone (spironolactone 50 mg oral tablet) 1 tab(s) 50 Milligram By Mouth Daily Allergies: Allergies (Active and Proposed Allergies Only) NKA (Severity: Unknown severity, Onset: Unknown) Current Labs: Last 24 Hours Basic Metabolic Panel: Hematology: Sodium: 137 mmol/L (04/21/23) Hgb: 10.6 Gm/dL (04/21/23) Potassium (POC): 3.2 mmol/L (04/21/23) Hemoglobin A1C (Monitoring): ------ Phosphorus: ------ WBC: 8.4 k/mm3 (04/21/23) Magnesium: ------ Platelets: 96 k/mm3 (04/21/23) BUN (POC) POC Cartridge: 30 mg/dL (04/21/23) INR Level: ------ Creatinine-Blood: 1.1 mg/dL (04/21/23) Creatinine Clearance: ------ Additional - Last 24 Hours Abs. NRBC: 0.0 k/mm3 (04/21/23) Anion Gap: 14 (04/21/23) Bicarbonate Level: 26 mmol/L (04/21/23) BUN: BUN (04/21/23) Chloride: 97 mmol/L (04/21/23) Creatinine, Blood: Creatinine, Blood (04/21/23) Est Creatinine Clearance: 40.32 (04/21/23) Estimated GFR Creatinine: 50 ML/MIN/1.73 M2 (04/21/23) Hct: 32.0 % (04/21/23) MCH: 34.9 pg (04/21/23) MCHC: 33.1 g/dL (04/21/23) MCV: 105.3 femtoliters (04/21/23) MPV: 9.6 femtoliters (04/21/23) Nucleated RBC (Automated): 0.0 #/100 WBC'S (04/21/23) RBC: 3.04 m/mm3 (04/21/23) RDW-SD: 50.7 femtoliters (04/21/23) DVT prophylaxis ASA EC 325 mg p o bid x 30 days Disposition: Anticipates being discharged today to rehab facility. Follow up at [facility] in 2 weeks. The patient has an Aquacel dressing in place. He may shower with it and the dressing can be discontinued on POD 14. Continue NWB of MARGARET. Discharge Information Admission Date: 04/19/2023 Principal Discharge Diagnosis * Colin GRUBBS, Angela Sam: PERFORM, SIGN, VERIFY Event Display: Case Management Discharge Plan Authored Date: [id number] Patient: AVERY FAROOQ Age: 77 years Sex: Female : 1945 Associated Diagnoses: None Author: Angela Shaw RN Discharge Plan Case Management Discharge Plan : Case Management Discharge Plan Data 04/21/2023 15:36 EDT Discharge Level of Care at Discharge half-way facility Discharge Nursing Homes/Rehab Facilities [facility] at [address] [place] [address] Discharge Transportation Arranged [facility] [address] [place] [address] Discharge Arranged Transport Date/Time 04/21/2023 17:00 Mode of Transportation Arranged Chair Van Name of Agency #1 [facility] Service Categories #1 Occupational Therapy, Physical Therapy, Prison Service Comments #1 You will be going to [facility] for Rehab leaving today 04/21/23 5:00 PM by chair van. cost of chair van will be billed to you by [employer] (Modified) * Angela Shaw RN: VERIFY, PERFORM, SIGN Event Display: Case Management Discharge Plan Authored Date: [id number] Patient: AVERY FAROOQ Age: 77 years Sex: Female : 1945 Associated Diagnoses: None Author: Angela Shaw RN Discharge Plan Case Management Discharge Plan : Case Management Discharge Plan Data 04/21/2023 15:36 EDT Discharge Level of Care at Discharge half-way facility Discharge Nursing Homes/Rehab Facilities [facility] at [address] [place] [address] Discharge Transportation Arranged [employer] [address] [place] [address] Discharge Arranged Transport Date/Time 04/21/2023 17:00 Mode of Transportation Arranged Chair Van Name of Agency #1 [facility] Service Categories #1 Occupational Therapy, Physical Therapy, Prison Service Comments #1 You will be going to [facility] for Rehab leaving today 04/21/23 5:00 PM by chair van. cost of chair van will be billed to you by [employer] * Jyoti Caal RN: PERFORM Event Display: Patient Education/Instruction Authored Date: [id number] Inpatient Adult Discharge Instructions [address] [address] Name: AVERY FAROOQ : 1945 Visit: 04/19/2023 07:30:00 Current Date: 04/21/2023 15:58 Account: [id number] Inpatient Adult Discharge Instructions We would like to thank you for allowing us to assist you with your healthcare needs. The following includes patient education materials and information regarding your injury/illness. Our entire staffstrives to provide an excellent experience for our patients and their families. PLEASE ENSURE YOU FOLLOW-UP PER THE INSTRUCTIONS BELOW! ?? YOUR OPINION IS IMPORTANT TO US! Please complete the survey you may receive by mail or email. Your feedback will be used to make improvements to the healthcare experiences of our patients and their families. Surveys are administered by [employer] ?? If further treatment with your primary care physician or another doctor is recommended, it is important for you to keep the appointment. Call your primary care physician or return to the Emergency Department immediately if your condition worsens, fails to improve, or new symptoms develop. If you need to find a doctor, you can call [facility] [email or web address] for a referral at [phone] or toll free at [phone] or log in to [email or web address].. ?? You can view and manage your care through the patient portal or by using a health care trinh of your choosing. [employer] is a website that allows you to securely view your medical information including your hospital discharge summary, office visit summaries, medications and follow-up visits. You can also request appointments, renew medications, and request access to your medical information using a health care trinh of your choosing, or just ask a question. You can enroll at [email or web address] or register during your next office visit. You have been discharged from [facility], Patient Care Unit: SW7. If you have any questions regarding these instructions after you leave, please call us and we will be happy to assist you. [facility] Your Care Team Attending Physician Rakesh WEBB, Jyoti Hanson Discharging Providers Tio Cunningham Reason for Admission LEFT SHOULDER OSTEOARTHRITIS 23OVN Your Diagnosis Left rotator cuff tear arthropathy Tests Performed Below is a partial list of the tests performed during your hospitalization. You may have had other tests and procedures not included in this list. Please discuss all test results with your provider. BUN Calcium Level CBC Creatinine Electrolytes Glucose Level XR Shoulder 1 View Left Primary Care Provider Alaina WEBB, Hill Jones Advance Directive Health Care Proxy on File Yes - Health Care Proxy Discharge Vitals Temperature: 98.5 DegF Height: 168 cm Pulse Rate: 66 bpm Weight: 90.7 kg Respiratory Rate: 16 br/min Body Mass Index:??32.14 kg/m2??Critical Systolic Blood Pressure: 112 mm Hg Body surface area: 2.06 Diastolic Blood Pressure:??50 mm Hg??Low ?? Oxygen Saturation: 94 % ?? Studies Pending All tests and labs ordered during this hospital stay have been completed unless listed below. Please discuss all pending results with your provider listed above in these instructions. ?? No incomplete studies found What to do next Instructions From Your Doctor Discharge Orders Scheduled Follow-Up Appointments Tuesday 10:10 AM EDT ?? With: Heydi Gómez NP Where: [facility] [address] [place] [address]- Status: Pending Tuesday 11:00 AM EDT ?? With: Nai Ayon MD Where: [facility] [address] [place] [address]- Status: Pending Tuesday 11:00 AM EDT ?? With: Adelaide WEBB, Victor M Castro Where: [facility] [address] [place] [address]- Status: Pending You Need to Schedule the Following Appointments Follow Up with??Rakesh WEBB, Jyoti Hanson Why: Please keep all follow-ups as arranged with Dr. Cameron Where: [address] [place] [address] [place] [address]- Discharge Medications AVERY FAROOQ :1945 Visit Date:04/19/2023 Medications: Please continue your medications until treatment is completed or stopped by your provider. Medications not listed below should be discontinued. Discuss any questions related to medications with your provider. What How Much When Why Instructions Next Dose New Acetaminophen (acetaminophen 325 mg oral tablet) 975 Milligram Oral Every 8 hours Printed Prescription 04/21 @ 9pm New Aspirin (aspirin 325 mg oral tablet) 325 Milligram Oral Daily Printed Prescription 04/21 @ 9pm *Prevents a blood clot New Docusate (docusate sodium 100 mg oral capsule) 1 capsule Oral Twice a day Printed Prescription 04/21 @ 9pm *Stool softener New Oxycodone (oxyCODONE 5 mg oral tablet) 5 Milligram Oral Every 4 hours as needed for Pain , Severe Printed Prescription As needed for severe pain Unchanged Amlodipine (amLODIPine 10 mg oral tablet) 1 tab(s) Oral Daily 04/22 @ 9am Unchanged Atenolol-Chlorthalidone (atenolol-chlorthalidone 100 mg-25 mg oral tablet) 1 tab(s) Oral Daily 04/22 @ 9am Unchanged Atorvastatin (atorvastatin 80 mg oral tablet) 1 tab(s) Oral Daily 04/22 @ 9am Unchanged Azelaic Acid Topical (Finacea 15% topical gel) 1 trinh Topically Twice a day Per home regimen Unchanged Cyanocobalamin (Eligen B12 1000 mcg oral tablet) 1 tab(s) Oral Daily 04/22 @ 9am Unchanged Durable Medical Equipment (Cane) See instructions Unsteady gait Unsteady gait ?? Unchanged Durable Medical Equipment (Cane) See instructions Use daaily Dx: Unsteady gait. ?? Unchanged Durable Medical Equipment (CPAP Machine) See instructions AutoCPAP 8-20 cm H20, use Daily when sleeping ?? Unchanged Multivitamin With Minerals (Centrum Silver Ultra Women's oral tablet) Oral Daily 04/22 @ 9am Unchanged Sertraline (sertraline 100 mg oral tablet) 2 tab(s) Oral Daily 04/22 @ 9am Unchanged Spironolactone (spironolactone 50 mg oral tablet) 1 tab(s) Oral Daily 04/22 @ 9am Test Results Below is a partial list of the most recent Laboratory test results done prior to this discharge. You may have had other tests and procedures not included in this list. Please discuss all test resultswith your provider. Est Creatinine Clearance - 40.32 mL/min (04/21/2023) BUN (04/21/2023) ???BUN - 28 mg/dL Calcium Level (04/21/2023) ???Calcium - 9.5 mg/dL CBC (04/21/2023) ???WBC - 7.7 k/mm3???RBC - 2.92 m/mm3???Hgb - 10.1 Gm/dL???Hct - 30.9 %???MCV - 105.8 femtoliters???MCH - 34.6 pg???MCHC - 32.7 g/dL???Platelet Count - 101 k/mm3???RDW-SD - 50.2 femtoliters???MPV - 10.0 femtoliters???Nucleated RBC (Automated) - 0.0 #/100 WBC'S???Abs. NRBC - 0.0 k/mm3 Creatinine (04/21/2023) ???Creatinine-Blood - 1.1 mg/dL???Estimated GFR Creatinine - 52 ML/MIN/1.73 M2 Electrolytes (04/21/2023) ???Sodium - 136 mmol/L???Potassium - 3.5 mmol/L???Chloride - 97 mmol/L???Bicarbonate Level - 27 mmol/L???Anion Gap - 12 Glucose Level (04/21/2023) ???Glucose Level - 121 mg/dL Allergies (NKA means No Known Allergies) NKA Problems Active Problems??(13) AAA - Abdominal aortic aneurysm - 4.1 cm, next CTA due 05/2021?? Abnormal pulmonary function test?? Alcoholism?? Benign hypertension?? Depression, major, in partial remission?? Edema of both lower legs due to peripheral venous insufficiency?? History of osteopenia?? Hyperlipidemia?? Obese class I?? Personal history of colonic polyps?? Pulmonary hypertension?? Varicose vein of leg?? Vitamin B 12 deficiency?? Education Materials Below is the list of Educational Leaflet Providered with your Discharge Instructions. Valuables and Belongings I fully understand and agree that [facility] accepts no responsibility for all my personal property including clothing, toilet articles, radios, jewelry, dentures, hearing aids, rings, money, or any other property that is in my possession or is brought to me after admission. I understand certain valuables may be placed in a hospital safe for a short period of time. I understand that the hospital is not liable for loss or damage due to accident, fire, or other natural occurrence while said property is in the safe. I accept full responsibility for any personal property that I keep with me, and will not hold the hospital responsible in case of loss or disappearance. I acknowledge that i have been encouraged to send valuables and belongings home. ?? Review of Valuable and Belonging List: With patient Date for Pt to Sign Valuables/Belongings: 04/20/23 12:47:00 ?? Other Discharge Information ? Case Management Discharge Plan?? Discharge Plan?? Discharge Agency Information?? Discharge Level of Care at Discharge: half-way facility Name of Agency #1: [facility] Discharge Transportation Arranged: [facility] [address] [facility] ??[phone] Service Categories #1: Occupational Therapy, Physical Therapy, Prison Mode of Transportation Arranged: [facility] Service Comments #1: You will be going to [facility] for Rehab leaving today 04/21/23 5:00 PM by chair van. cost of chair van will be billed to you by [employer] Discharge Arranged Transport Date/Time: 04/21/23 17:00:00 ?? Discharge Nursing Homes/Rehab Facilities: [facility] at [address] [place] [address] ? Pulmonary Rehab Status?? Pulmonary Rehab Discharge Status?? CPAP/BiPAP Mask Type: Full CPAP/BiPAP Mask Size: Large Respiratory Rate: 16 br/min ? Common Emergency Awareness Tips IS IT A STROKE? Act FAST and Check for these signs: FACE Does the face look uneven? ARM Does one arm drift down? SPEECH Does their speech sound strange? TIME Call at any sign of stroke ?? Heart Attack Signs Chest discomfort: Most heart attacks involve discomfort in the center of the chest and lasts more than a few minutes, or goes away and comes back. It can feel like uncomfortable pressure, squeezing, fullness or pain. Discomfort in upper body: Symptoms can include pain or discomfort in one or both arms, back, neck, jaw or stomach. Shortness of breath: With or without discomfort. Other signs: Breaking out in a cold sweat, nausea, or lightheaded. Remember, MINUTES DO MATTER. If you experience any of these heart attack warning signs, call to get immediate medical attention! ?? Smoking can increase your chances of developing chronic health problems and can cause harmful effects to other family members in your house. If you smoke, you are strongly encouraged to quit. Please call [facility] [employer] [facility] at [phone] or [phone] ([phone]) or log in to [email or web address] for referrals to smoking cessation programs. ?? 427 Suicide & Crisis Lifeline is available 18/04 if you or someone you know needs to find a reason to keep living. By calling 587 you'll be connected to a skilled, trained counselor at a crisis center in your area. INPATIENT DISCHARGE INSTRUCTIONS SIGNATURE PAGE AVERY FAROOQ Location:[facility] Registration Date and Time:04/19/2023 07:30 EDT Primary Care Physician: Hill Foley MD, Attending Physician: Jyoti Cameron MD, V, I AVERY FAROOQ, have received the above patient education materials/instructions and have verbalized understanding. If ambulance or transport services are being used I further acknowledge being given a choice of service. ?? If you need to contact me, please call me at this number: . Patient/Commercial Lending Vice President Name: Patient/Commercial Lending Vice President Signature: Relationship to Patient: Witness Name/Signature: Date: * Event Display: Adult Preadmission Health Questionnaire Authored Date: * Jyoti Cameron MD, V: MODIFY, PERFORM, MODIFY Event Display: Discharge/Transfer Note Hospital Authored Date: [id number] Date of Admission: 04/19/2023 Date of Discharge: 04/20/2023 Primary Diagnosis: Left shoulder cuff tear arthopathy Final/Discharge Diagnosis: Left shoulder cuff tear arthropathy Surgery: Left reverse total shoulder arthroplasty, 04/19/2023 Surgeon: Dr. Jyoti Cameron Hospital Summary: The patient was admitted for surgery as above. Surgery was uneventful. Pain has been controlled on Oxycodone 5-7.5mg q4h prn and Acetaminophen 1000mg q8h scheduled. DVT prophylaxis in the hospital was Aspirin 325 daily, and this will be continued for 2 weeks postoperatively. Dressing is clean, dry and intact. Calves are soft and nontender. Able to ambulate with PT/OT without difficulty. Labs have been satisfactory during the course of stay: Hb 10.6, electrolytes within normal limits. Hospital course has been unremarkable. Anticipates being discharged to rehab today. The patient will follow up with Dr. Cameron at [facility] in approximately 2 weeks. Discharge Medications: Italics = NEW medications Acetaminophen (acetaminophen 325 mg oral tablet) 975 Milligram By Mouth Every 8 hours Amlodipine (amLODIPine 10 mg oral tablet) 1 tab(s) By Mouth Daily Aspirin (aspirin 325 mg oral tablet) 325 Milligram By Mouth Daily Atenolol-Chlorthalidone (atenolol-chlorthalidone 100 mg-25 mg oral tablet) 1 tab(s) By Mouth Daily Atorvastatin (atorvastatin 80 mg oral tablet) 1 tab(s) By Mouth Daily Azelaic Acid Topical (Finacea 15% topical gel) 1 trinh Topically 2 times a day Cyanocobalamin (Eligen B12 1000 mcg oral tablet) 1 tab(s) By Mouth Daily Docusate (docusate sodium 100 mg oral capsule) 100 Milligram 1 capsule By Mouth 2 times a day Durable Medical Equipment (Cane) See Instructions Unsteady gait Durable Medical Equipment (Cane) See Instructions Use daailyDx: Unsteady gait. Durable Medical Equipment (CPAP Machine) See Instructions AutoCPAP 8-20 cm H20, use Daily when sleeping Multivitamin With Minerals (Centrum Silver Ultra Women's oral tablet) By Mouth Daily Oxycodone (oxyCODONE 5 mg oral tablet) 5 Milligram By Mouth Every 4 hours as needed Pain , Severe Sertraline (sertraline 100 mg oral tablet) 2 tab(s) By Mouth Daily Spironolactone (spironolactone 50 mg oral tablet) 1 tab(s) 50 Milligram By Mouth Daily Discharge Instructions: Activity: - Wear the sling to your operated arm at all times with no range of motion of the shoulder allowed for the first 6 weeks postop. - Do not bear weight (no pushing, pulling or lifting) with the operated arm for at least 12 weeks postoperatively - When in bed or a chair, place a small blanket or pillow BEHIND (not underneath) the elbow to keepthe arm in front of your body - Okay to move the elbow/wrist/fingers as tolerated - Intermittently apply ice to the shoulder for 20 minutes as needed for pain. Keep a close eye on your skin to prevent ice john while your limb is still numb. Dressings: Keep the Aquacel dressing placed in the operating room in place for 7 days (until 04/26/2023). After 04/26/2023, you may remove the dressings and leave the incision open to air. If the Aquacel dressing becomes saturated or non-adherent, you may remove and replace with clean dry dressings, which should be changed daily until 04/26/2023. Leave the underlying steri-strips in place to falloff on their own. Bathing/showering: - You should keep your incision dry until 7 days postop (until 04/26/2023) - The postop dressing you have on currently is waterproof as long as the edges are stuck down, and you may shower with this in place. If this dressing becomes soiled or the edges start to peel up, you may replace with a new waterproof dressing (can be obtained from the pharmacy) or simply leave theright shoulder out of the water while showering. - After 04/26/2023, you may remove dressings and shower normally: allow soapy water to run over theincision but do not scrub. - Do not submerge the incision under water unti 4 weeks postop. - You may take your sling off to shower but may only let the arm dangle at your side while the sling is off. - It may be easier to sponge bathe for now. Medications: - You have been prescribed Oxycodone, a short-acting narcotic medication. Take this medication for pain as needed. Try to taper your use over the next week or two as your post-operative pain improves. - In addition, you should take Acetaminophen (Tylenol). Take this medication around the clock (but do not exceed 3 grams in a 24-hour period). This will help with your pain and decrease your need forthe narcotic medications. - Avoid anti-inflammatory type medications (also called NSAIDs) including ibuprofen, motrin, Advil,naproxen, naprosyn, and Alleve for the next 3 months. There is some evidence that these may slow bone remodeling, which would inhibit healing. - The pain medication you are on can cause constipation, so increase your intake of fluids and fiber while you are taking them. You may also take an [id number] stool softener, like Docusate or Senokot, to facilitate a bowel movement. - If you need a renewal on your narcotic pain medication, you need to give the Orthopedic clinic enough time to process your request. This can take up to three days, so plan accordingly. - No driving is allowed if taking narcotic pain medications. Anticoagulation: You have also been prescribed Aspirin. This medication is being used for its blood-thinning properties to help prevent blood clots while you are less mobile and active. Take this medication 325mg once a day for 14 days. Again, this medication has not been prescribed as a pain-reliever, so you should take it even when you are feeling comfortable. After 14 days, you may resume youraspirin at your usual dose, if you were taking it prior to surgery. Cardiology * Event Display: Cardiac Rhythm Strips Authored Date: Hospital Progress note * Jyoti Caal RN: SIGN Jyoti Caal RN: SIGN, MODIFY Jyoti Caal RN: MODIFY, SIGN, VERIFY Event Display: Progress Note Hospital Authored Date: Patient: AVERY FAROOQ Age: 77 years Sex: Female : 1945 Associated Diagnoses: None Author: Christy Peacock RN Findings Problem Related to Alteration in Musculoskeletal : Alteration in Musculoskeletal Func/new 04/21/2023 10:00 EDT Alteration in Musculoskeletal Related to Mobility, Orthopedic Procedure, Other:left reverse total shoulder POD#0 04/19 Goals & Outcomes, Musculoskeletal Affected extremity will maintain color/motion/sensation, Pt able to perform ADL's to best of ability, Pt demonstrates precautions/exercise/ transfers per protocol, Pt will ambulate safely with assistive device, Pt will be free from complications of immobility, Pt will demonstrate ability to participate in ADL's, Pt will report acceptable level of comfort/painrelief Interventions, Musculoskeletal Monitor patients ambulation status, monitor Color/Motion/Sensation, Encourage deep breathing & coughing exercises, Teach & Encourage use of Incentive spirometer, Teach Pt/caregiver on exercises, Teach pt/caregiver on use of pain scale, Teach Pt/caregiver complications of immobility, Teach Pt/caregiver on safety precautions BH Goals/Interventions, Musculoskeletal Yes Musculoskeletal, Problem Start 04/19/2023 15:04 Reviewed Plan with, Musculoskeletal Patient Patient Progression, Musculoskeletal Pt progressing according to plan . Nursing Data Vital Signs : VITAL SIGNS SECTION 04/21/2023 6:55 EDT Temperature 98.5 DegF Temperature Route Oral Pulse Rate 63 bpm Respiratory Rate 18 br/min Systolic Blood Pressure 104 mm Hg Diastolic Blood Pressure 48 mm Hg L Blood pressure sites Arm, right Mean Arterial Pressure 67 mm Hg Pulse Pressure 56 mm Hg Oxygen Saturation 93 % L Mode of Delivery (Oxygen) Room air . Narrative/Incidental P: Alteration in Muskeloskelatal system I: See listed interventions in care plan above E: L reverse total shoulder on 04/19/23. Immobilzer in place. Aquacel D/I with some shadowing. Brusing is present around the incision site. Ice applied to site. Cap refill is <2 seconds. Pt has no numbness or tingling, + sensation, and + wiggle. Awaiting for PT/OT and then plan is to discharge torehab.. Evaluation Pt A&Ox4. Seems a little sleepy this morning but responds to questions appropriately. Pt had some trouble swallowing morning pills but had no problem swallowing with apple sauce. Incentive Spirometry education provided and return/demonstration given. OOB with 1 assist to the bathroom. Urine clear and yellow. Pt is resting comfortably in bed with call bed and tray table within reach. No further issues at this time. . Discharge Information Pulmonary Rehab Discharge : Pulmonary Rehab Discharge Status 04/21/2023 4:59 EDT CPAP/BiPAP Mask Type Full CPAP/BiPAP Mask Size Large 04/21/2023 0:44 EDT CPAP/BiPAP Mask Type Full CPAP/BiPAP Mask Size Large 04/20/2023 23:33 EDT CPAP/BiPAP Mask Type Full CPAP/BiPAP Mask Size Large 04/20/2023 4:12 EDT CPAP/BiPAP Mask Type Full CPAP/BiPAP Mask Size Small 04/20/2023 0:01 EDT CPAP/BiPAP Mask Type Full CPAP/BiPAP Mask Size Small (Modified) Rehabilitation Discharge : Rehab Discharge Index 04/20/2023 8:30 EDT Comments on treatment indicated 77 yo F s/p L reverse TSA on 04/[address] Cameron. NWB L UE with sling, no L shoulder ROM, pillow behind L elbow at rest. Skilled PT for therex, transfers, amb with cane, balance. Rec rehab. Distance pt will ambulate 100 ft with cane Full chart review completed Yes Hospital course see comment Other findings see comment Plan of care PT Gait training, Transfer training, Therapeutic exercise, Functional Activities, Balance training 04/20/2023 8:21 EDT Comments on treatment indicated adls fucnlt mob safety pt edu UE function Full chart review completed Yes Hospital course 77 yo F POD #1 s/p Left reverse total shoulder arthroplasty * Jyoti Caal RN: PERFORM Event Display: Progress Note Hospital Authored Date: Patient reporting +nausea this afternoon, given IV Zofran with +relief. Per case management, patient has a bed available at [facility]- report called to HUMERA Aquino. IV removed, tip intact. Patient resting in room at this time, awaiting for chair van for transport.. * Tio Cunningham: PERFORM, SIGN, VERIFY Event Display: Progress Note Hospital Authored Date: [id number] Patient: AVERY FAROOQ Age: 77 years Sex: Female : 1945 Associated Diagnoses: None Author: Tio Cunningham Ortho POD 2 s/p Left reverse total shoulder arthroplasty S: The patient denies any SOB/CP, N/V. Voiding spontanesouly. Pain well controlled on current regimen of Oxycodone and Tylenol. Patient's creatine was elevated yesterday at 1.2, (baseline 0.8-1.0). Patient had a 500 ml bolus of fluids and held chlorthalidone. Repeat labs this morning show a creatine of 1.1. O: Vitals Temperature 98.5 (06:56) Systolic Blood Pressure 104 (06:56) Diastolic Blood Pressure 48 (06:56) Pulse 63 (06:56) SpO2 93 (06:56) Respiratory Rate 19 (07:13) Last 24 Hours Basic Metabolic Panel: Hematology: Sodium: 137 mmol/L (04/21/23) Hgb: 10.6 Gm/dL (04/21/23) Potassium (POC): 3.2 mmol/L (04/21/23) Hemoglobin A1C (Monitoring): ------ Phosphorus: ------ WBC: 8.4 k/mm3 (04/21/23) Magnesium: ------ Platelets: 96 k/mm3 (04/21/23) BUN (POC) POC Cartridge: 30 mg/dL (04/21/23) INR Level: ------ Creatinine-Blood: 1.1 mg/dL (04/21/23) Creatinine Clearance: ------ Additional - Last 24 Hours Abs. NRBC: 0.0 k/mm3 (04/21/23) Anion Gap: 14 (04/21/23) Bicarbonate Level: 26 mmol/L (04/21/23) BUN: BUN (04/21/23) Chloride: 97 mmol/L (04/21/23) Creatinine, Blood: Creatinine, Blood (04/21/23) Est Creatinine Clearance: 40.32 (04/21/23) Estimated GFR Creatinine: 50 ML/MIN/1.73 M2 (04/21/23) Hct: 32.0 % (04/21/23) MCH: 34.9 pg (04/21/23) MCHC: 33.1 g/dL (04/21/23) MCV: 105.3 femtoliters (04/21/23) MPV: 9.6 femtoliters (04/21/23) Nucleated RBC (Automated): 0.0 #/100 WBC'S (04/21/23) RBC: 3.04 m/mm3 (04/21/23) RDW-SD: 50.7 femtoliters (04/21/23) General: alert, lucid, in NAD Heart: RRR, normal S1S2 Lungs: CTAB Abdomen: soft NT BS active Neurovascular: calves soft NT, +DF/+PF Dressing: Aquacel in place on left shoulder. CDI. A/P: 77 year old female who is POD 2 s/p left reverse total shoulder replacement. Plan: - Issues: Cr 1.1 (baseline 0.8-1.0): encourage PO fluids, bolus of 1000 mL normal saline, will holdchlorthalidone - Activity: - NWB RUE, no shoulder ROM. May move elbow/wrist/fingers as tolerated. - Pillow behind elbow at all times to prevent shoulder hyperextension - Pain management: - scheduled tylenol, oxycodone 2.5-5mg q4h prn, IV dilaudid available for breakthrough only - continue intermittent ice - no indication for reblock at this time - PPx: - DVT ppx: Aspirin 325 daily x2 weeks. SCDs at all times when in bed, encourage OOB - Incentive spirometer - Voiding without difficulty - Discharge planning: Discharge will be to rehab facility once placement is found. Will repeat labseither before discharge or tomorrow morning to monitor creatine. * Sirena GRUBBS, Isreal Casiano: VERIFY, PERFORM, SIGN Event Display: Progress Note Hospital Authored Date: [id number] Patient: AVERY FAROOQ Age: 77 years Sex: Female : 1945 Associated Diagnoses: None Author: Isreal Pack RN Findings Problem Related to Alteration in Comfort : Alteration in Comfort/new 04/21/2023 0:00 EDT Alteration in Comfort Related to Injury, Surgery, Other: left reverse total shoulder POD#0 04/19 Goals & Outcomes: Comfort Pt will report acceptable level of comfort & pain control, Pt will state importance of adhering to pain strategy regime, Pt will demonstrate necessary skills to manage pain, Non-verbal indicators will indicate comfort/pain control Interventions Implemented: Comfort Assess pain using appropriate pain scale/tools, Assess aggravating factors & prevent them accordingly, Assess alleviating factors & promote them accordingly BH Goals/Interventions, Comfort Yes Comfort, Problem Start 04/19/2023 20:00 Reviewed plan with, Comfort Patient Patient Progression, Comfort Pt progressing according to plan Comfort, Problem Ongoing Yes . Alteration in Musculoskeletal : Alteration in Musculoskeletal Func/new 04/21/2023 0:00 EDT Alteration in Musculoskeletal Related to Mobility, Orthopedic Procedure, Other: left reverse total shoulder POD#0 04/19 Goals & Outcomes, Musculoskeletal Affected extremity will maintain color/motion/sensation, Pt able to perform ADL's to best of ability, Pt demonstrates precautions/exercise/ transfers per protocol, Pt will ambulate safely with assistive device, Pt will be free from complications of immobility, Pt will demonstrate ability to participate in ADL's, Pt will report acceptable level of comfort/painrelief Interventions, Musculoskeletal Monitor patients ambulation status, monitor Color/Motion/Sensation, Assist with repositioning, Encourage deep breathing & coughing exercises, Notify MD immediately if tissue perfusion deteriorates, Obtain assistive devices as needed, Teach & Encourage use of Incentive spirometer, Teach Pt/caregiver on ADL's & adaptive equipment, Teach Pt/caregiver on exercises, Teach pt/caregiver on use of pain scale, Teach Pt/caregiver complications of immobility, Teach Pt/caregiver techniques to increase mobility, Incision care as ordered Goals/Interventions, Musculoskeletal Yes Musculoskeletal, Problem Start 04/19/2023 15:04 Reviewed Plan with, Musculoskeletal Patient Patient Progression, Musculoskeletal Pt progressing according to plan . Evaluation P-Per Nsg Plan of Care I-Per Nsg Interventions E-A+O x 4, WHALEN with generalized weakness. Shoulder sling and swathe in place, +CMS +cap refill, palp radial pulse. Denies N/T. OOB with assist to bathroom, voiding QS. C/O pain 10/10 to left shoulderincisional area, Aquacel dsg intact with minimal shadowing. Medicated prior to bedtime with Oxycodone 7.5 mg with relief of discomfort, slept the night with CPAP on. Plan for discharge to rehab when cleared by MD.. Patient Care team information Care Team Personnel Name: Maryse GRUBBS, Claire Position: [facility] RN Member Role: Primary Care Nurse Name: Elana Warren RN Position: S RN Member Role: Primary Care Nurse Name: Hill Foley MD Position: [facility] Physician - Primary Care Member Role: PCP Address: Address: [address] [place] [id number]- [place] Name: Christy Peacock RN Position: S RN Member Role: Primary Care Nurse Name: Katy Romo RN Position: S RN Member Role: Primary Care Nurse Name: Neha Bey RN Position: [facility] SN RN Member Role: Primary Care Nurse Name: Zayra Arevalo RN Position: [facility] RN Member Role: Primary Care Nurse Name: Margarita Olson RN Position: [facility] RN Member Role: Primary Care Nurse Name: Thelma Sifuentes RN Position: [facility] RN Member Role: Primary Care Nurse Name: Jyoti Caal RN Position: [facility] RN Member Role: Primary Care Nurse Name: Loren Johnson RN Position: [facility] RN Member Role: Primary Care Nurse Name: Zaida Alan RN Position: [facility] RN Member Role: Primary Care Nurse Name: Carol Brar RN Position: [facility] Onco RN Member Role: Primary Care Nurse Name: Charlotte Thompson RN Position: [facility] Customer Service Teller Member Role: Primary Care Nurse Name: Christy Peacock RN Position: [facility] RN Member Role: Nursing Name: Jyoti Caal RN Position: [facility] RN Member Role: Nursing Care Team Related Persons Name: LOUIE PACHECO Address: home [address] [place] [id number] Name: LOGAN JANE Name: PRAVIN RYAN Address: [place] [address]
--- OUTSIDE RECORDS SUMMARY | 2023-06-17 12:48 | XMS_ITS | Continuity of Care Document ---
Author Name Unknown Organization [facility] Address [address] [place] [address]- Care Team Providers Care Retanner Name Role Phone Natanael Rodas MD Primary Care Physician Encounter [facility] Date(s): 11/08/19 - 11/15/19 [facility] Adult [address] [place] [address] Encounter Diagnosis Benign hypertension(Discharge Diagnosis) - 11/08/19 Skin pustule(Discharge Diagnosis) - 11/08/19 Ventral hernia(Discharge Diagnosis) - 11/08/19 Rhinitis(Discharge Diagnosis) - 11/08/19 Dry mouth(Discharge Diagnosis) - 11/08/19 Alcoholism(Discharge Diagnosis) - 11/08/19 Attending Physician: Natanael Rodas MD Allergies, Adverse [...] Comment: [08/10/2018] [facility] [phone] 2Result Comment: [08/10/2018] big y[08/10/2018 Uncharted] pt states she has not had the flu vaccine this year as previously stated 3Result Comment: enterred in error 4Result Comment: [07/25/2017] [id number] 5Result Comment: [02/13/2018] [facility] [id number] 6Result Comment: [07/25/2017] [id number] 7Admin Note: [id number] 8Result Comment: [07/25/2017] historical Medications acetaminophen 325 mg oral tablet 650 mg, By Mouth, Every 4 hours, PRN, Refills 0, Maintenance, Pain , Moderate, 05/18/18 9:59:35 EDT Start Date: 05/18/18 Status: Ordered amLODIPine 10 mg oral tablet 10 mg, 1, tablet, By Mouth, Daily, # 90 tablet, Refills 1, Tot. Refills 1, Maintenance, 06/11/19 16:50:00 EDT, Route to Pharmacy Electronically, [id number], [facility]/pharmacy #[id number] Start Date: 06/11/19 Status: Ordered [...] Clinical Service Informant Benign hypertension Discharge Diagnosis 11/08/19 Skin pustule Discharge Diagnosis 11/08/19 Ventral hernia Discharge Diagnosis 11/08/19 Rhinitis Discharge Diagnosis 11/08/19 Dry mouth Discharge Diagnosis 11/08/19 Alcoholism Discharge Diagnosis 11/08/19 Vital Signs Most recent to oldest [Reference Range]: 1 Height 164 cm (11/08/19 9:45 AM) Weight 81.5 kg (11/08/19 9:45 AM) Oxygen Saturation [94-100 %] 97 % (11/08/19 9:45 AM) Pulse Rate [55-90 bpm] 76 bpm (11/08/19 9:45 AM) Body Mass Index [18.5-24.99] 30.3 *>HHI* (11/08/19 9:45 AM) Blood Pressure [90-138/55-84 mm Hg] 162/ 76mm Hg *H* (11/08/19 9:45 AM) Temperature [96.8-100.4 DegF] 98.8 DegF (11/08/19 9:45 AM) Mode of Delivery (Oxygen) Room air (11/08/19 9:45 AM) Blood pressure sites Arm, left (11/08/19 9:45 AM) Temperature Route Oral (11/08/19 9:45 AM) Weight Obtained Via Standing scale (11/08/19 9:45 AM) Social History Social History Type Response Smoking Status Former smoker entered on: 05/30/18 Sex
--- OUTSIDE RECORDS SUMMARY | 2023-06-17 12:48 | XMS_ITS | Continuity of Care Document ---
Author Name Unknown Organization [facility] Milind lt Address [address] [place] [address]- Care Team Providers Care Hi Lo Driver Name Role Phone Alaina WEBB, Hill Jones Primary Care Physician [phone] [facility] Date[facility] 01/28/22 - 02/27/22 [facility] Adult [address] [place] [address]- Allergies, Adverse Reactions, Alerts No Known Allergies [...] Recorded 1Result Comment: [08/10/2018] [facility] [id number] 2Result Comment: [08/10/2018] big y[08/10/2018 Uncharted] pt states she has not had the flu vaccine this year as previously stated 3Result Comment: enterred in error 4Result Comment: [07/25/2017] [id number] 5Result Comment: influenza [facility] 6Result Comment: [02/13/2018] [facility] 0005 1971 01 7Result Comment: [07/25/2017] [id number] 8Admin Note: [id number] 9Result Comment: [07/25/2017] historical Medications atenolol-chlorthalidone 100 mg-25 mg oral tablet 1 tablet, By Mouth, Daily, # 90 tablet, 11 Refills, 12/01/21 12:21:00 EST, [facility]/pharmacy #[id number], 90, 1 tablet By Mouth Daily, 168, cm, 12/01/21 11:53:00 EST, Height, 83.8, kg, 06/17/21 13:41:00 EDT, Dry Weight Start Date: 12/01/21 Status: Ordered atorvastatin 80 mg oral tablet 1 tablet = 80 mg, By Mouth, Daily, DOSAGE INCREASE, # 90 tablet, 1 Refills, Maintenance, 12/10/21 11:32:00 EDT, Tablet, [facility]/pharmacy #0693, Partial fill upon patient [...] MESH VENTRALIGHT ECHO CIR 6 - BARD ([id number]) 1 Bard Unknown BÁRBARA:No Information Assigning Authority: FDA MESH VENTRALIGHT ECHO20.3X25 .4 - BARD ([id number]) 1 Bard Unknown BÁRBARA:No Information Assigning Authority: FDA
--- OUTSIDE RECORDS SUMMARY | 2023-06-17 12:49 | XMS_ITS | Continuity of Care Document ---
Author Name Unknown Organization [facility] Address [address] [place] [address] ve [address] [place] [address]- Care Team Providers Care Epic Trainer Name Role Phone Natanael Rodas MD Primary Care Physician [facility] Date[facility] 06/27/20 - 07/27/[address] [place] [address]- [facility] Attending Physician: Brady Ruelas Admitting Physician: [...] 8 09/26/16 Recorded 1Result Comment: [08/10/2018] [facility] [id number] 2Result Comment: [08/10/2018] big y[08/10/2018 Uncharted] pt states she has not had the flu vaccine this year as previously stated 3Result Comment: enterred in error 4Result Comment: [07/25/2017] [id number] 5Result Comment: [02/13/2018] [facility] 0005 1971 01 6Result Comment: [07/25/2017] [id number] 7Admin Note: [id number] 8Result Comment: [07/25/2017] historical Medications amLODIPine 10 mg oral tablet 1 tablet, By Mouth, Daily, # 90 tablet, 11 Refills, Maintenance, 12/05/19 16:46:00 EDT, [facility], 164, cm, 11/27/19 13:41:00 EST, Height, 74.5, kg, 01/03/19 18:01:00 EDT, Dry Weight Start Date: 12/05/19 Status: Ordered atenolol-chlorthalidone 100 mg-25 mg oral tablet 1 tablet, By Mouth, Daily, # 90 tablet, 11 Refills, Maintenance, 12/05/19 16:47:00 EDT, [facility], 90, TAKE 1 TABLET BY MOUTH EVERY [...] constipation, 06/13/20 8:34:00 EDT, Route to Pharmacy Electronically,[facility], 168, cm, 06/13/20 5:15:00... [...] 06/17/20 13:06:00 EDT, Route to Pharmacy Electronically, [facility], 167, cm, 202:46:00 EDT, [...] MESH VENTRALIGHT ECHO CIR 6 - BARD ([id number]) 1 Bard Unknown BÁRBARA:No Information Assigning Authority: FDA MESH VENTRALIGHT ECHO20.3X25 .4 - BARD ([id number]) 1 Bard Unknown BÁRBARA:No Information Assigning Authority: FDA
--- OUTSIDE RECORDS SUMMARY | 2023-06-17 12:49 | XMS_ITS | Continuity of Care Document ---
Author Name Unknown Organization [facility] Jayjay Aldridge Milind Address [address] [place] [address]- Care Team Providers Care Project Development Engineer Name Role Phone Natanael Rodas MD Primary Care Physician [facility] Date[facility]s): 10/22/21 - 10/29/21 [facility] Adult [address] [place] [address]- Attending Physician: Natanael Rodas MD Allergies, Adverse [...] Recorded 1Result Comment: [08/10/2018] [facility] 17179 403 65 2Result Comment: [08/10/2018] big y[08/10/2018 Uncharted] pt states she has not had the flu vaccine this year as previously stated 3Result Comment: enterred in error 4Result Comment: [07/25/2017] [id number] 5Result Comment: influenza [facility] 6Result Comment: [02/13/2018] [facility] 0005 1971 01 7Result Comment: [07/25/2017] [id number] 8Admin Note: [id number] 9Result Comment: [07/25/2017] historical Medications amLODIPine 10 mg oral tablet 1 tablet, By Mouth, Daily, # 90 tablet, 11 Refills, [facility], 168, cm, 08/07/21 12:51:00 EST, Height, 83.8, kg, 06/17/21 13:41:00 EDT, Dry Weight Start Date: 08/13/21 Status: Ordered atenolol-chlorthalidone 100 mg-25 mg oral tablet 1 tablet, By Mouth, Daily, # 90 tablet, 11 Refills, [facility], 90, TAKE 1 TABLET BY MOUTH EVERY DAY, 168, cm, 08/07/21 12:51:00 EST, Height, 83.8, kg, 06/17/21 13:41:00 EDT, Dry Weight Start Date: 08/13/21 Status: Ordered atorvastatin 40 mg oral tablet 1 tablet, By Mouth, Daily, # 90 tablet, 1 Refills, [facility], 168, cm, 08/07/21 12:51:00 EST,Height, 83.8, kg, [...] oldest [Reference Range]: 1 Height 168 cm (10/22/21 11:04 AM) Blood Pressure [90-138/55-84 mm Hg] 125/ 79mm Hg (10/22/21 11:04 AM) Blood pressure sites Arm, left (10/22/21 11:04 AM) Social History Social History Type Response Smoking Status Former smoker entered on: 05/30/18 Sex Medical Equipment Implanted Date:06/11/20Target Site:Abdomen Description Quantity MRI Company Model MESH VENTRALIGHT ECHO CIR 6 - BARD ([id number]) 1 Bard Unknown BÁRBARA:No Information Assigning Authority: FDA MESH VENTRALIGHT ECHO20.3X25 .4 - BARD ([id number]) 1 Bard Unknown BÁRBARA:No Information Assigning Authority: FDA
--- OUTSIDE RECORDS SUMMARY | 2023-06-17 12:49 | XMS_ITS | Continuity of Care Document ---
Author Name Unknown Organization [facility] Milind lt Address [address] [place] [address]- Care Team Providers Care Bolt Maker Name Role Phone Alaina WEBB, Hill Jones Primary Care Physician [facility] Date[facility]s): 06/03/22 - 07/03/22 [facility] Adult [address] [place] [address]- Allergies, Adverse Reactions, Alerts No Known Allergies [...] Recorded 1Result Comment: [08/10/2018] [facility] 33559 403 65 2Result Comment: [08/10/2018] big y[08/10/2018 Uncharted] pt states she has not had the flu vaccine this year as previously stated 3Result Comment: enterred in error 4Result Comment: [07/25/2017] [id number] 5Result Comment: influenza [facility] 6Result Comment: [02/13/2018] [facility] 0005 1971 01 7Result Comment: [07/25/2017] [id number] 8Admin Note: [id number] 9Result Comment: [07/25/2017] historical Medications atenolol-chlorthalidone 100 mg-25 mg oral tablet 1 tablet, By Mouth, Daily, # 90 tablet, 11 Refills, 12/01/21 12:21:00 EST, [facility]/pharmacy #[id number], 90, 1 tablet [...] Name: Alaina WEBB, Hill Jones Address: Address: [address] [place] [address]-
--- OUTSIDE RECORDS SUMMARY | 2023-06-17 12:49 | XMS_ITS | Continuity of Care Document ---
Author Name Unknown Organization [facility] Milind lt Address [address] [place] [address]- Care Team Providers Care Grinding Supervisor Name Role Phone Hill Foley MD Primary Care Physician Encounter [facility] [place] Date(s): 03/05/22 - 03/12/22 [facility] Adult [address] [place] [address]- Attending Physician: Not on Staff, Attending MD [...] 9 09/26/16 Recorded 1Result Comment: [08/10/2018] [facility] 07147 403 65 2Result Comment: [08/10/2018] big y[08/10/2018 Uncharted] pt states she has not had the flu vaccine this year as previously stated 3Result Comment: enterred in error 4Result Comment: [07/25/2017] [id number] 5Result Comment: influenza [facility] 6Result Comment: [02/13/2018] [facility] 0005 1971 01 7Result Comment: [07/25/2017] [id number] 8Admin Note: [id number] 9Result Comment: [07/25/2017] historical Medications atenolol-chlorthalidone 100 [...] MESH VENTRALIGHT ECHO CIR 6 - BARD ([id number]) 1 Bard Unknown BÁRBARA:No Information Assigning Authority: FDA MESH VENTRALIGHT ECHO20.3X25 .4 - BARD ([id number]) 1 Bard Unknown BÁRBARA:No Information Assigning Authority: FDA
--- OUTSIDE RECORDS SUMMARY | 2023-06-17 12:49 | XMS_ITS | Continuity of Care Document ---
Author Name Unknown Organization [facility] Milind Address [address] [place] [address]- Care Team Providers Care Assembler Fluorescent Lights Name Role Phone Alaina WEBB, Hill Jones Primary Care Physician [facility]s): 12/10/21 - 12/17/21 [facility] Adult [address] [place] [address]- Attending Physician: Dalia CHU, Heydi Fiore Allergies, Adverse Reactions, Alerts No Known Allergies [...] vaccine 9 09/26/16 Recorded 1Result Comment: [08/10/2018] [facility] [address] 403 65 2Result Comment: [08/10/2018] big y[08/10/2018 Uncharted] pt states she has not had the flu vaccine this year as previously stated 3Result Comment: enterred in error 4Result Comment: [07/25/2017] [id number] 5Result Comment: influenza [facility] 6Result Comment: [02/13/2018] [facility] 0005 1971 01 7Result Comment: [07/25/2017] [id number] 8Admin Note: [id number] 9Result Comment: [07/25/2017] historical Medications amLODIPine 10 mg oral tablet 1 tablet, By Mouth, Daily, # 90 tablet, 11 Refills, 12/01/21 12:21:00 EST, [facility]/pharmacy #0693, 168,cm, 12/01/21 11:53:00 EST, Height, 83.8, kg, 06/17/21 13:41:00 EDT, Dry Weight Start Date: 12/01/21 Status: Ordered atenolol-chlorthalidone 100 mg-25 mg oral tablet 1 tablet, By Mouth, Daily, # 90 tablet, 11 Refills, 12/01/21 12:21:00 EST, [facility]/pharmacy #0693, 90, 1 tablet By Mouth Daily, 168, cm, 12/01/21 11:53:00 EST, Height, 83.8, kg, 06/17/21 13:41:00 EDT, Dry Weight Start Date: 12/01/21 Status: Ordered atorvastatin 80 mg oral tablet 1 tablet = 80 mg, By Mouth, Daily, DOSAGE INCREASE, # 90 tablet, 1 Refills, Maintenance, 12/10/21 11:32:00 EDT, Tablet, [facility]/pharmacy #0693, Partial fill upon patient [...] oldest [Reference Range]: 1 Height 168 cm (12/10/21 10:13 AM) Weight 81.3 kg (12/10/21 10:13 AM) Body Mass Index [18.5-24.99] 28.81 *H* (12/10/21 10:13 AM) Weight Obtained Via Patient/family state d (12/10/21 10:13 AM) Social History Social History Type Response Smoking Status Former smoker entered on: 05/30/18 Sex Medical Equipment Implanted Date:06/11/20Target Site:Abdomen Description Quantity MRI Company Model MESH VENTRALIGHT ECHO CIR 6 - BARD ([id number]) 1 Bard Unknown BÁRBARA:No Information Assigning Authority: FDA MESH VENTRALIGHT ECHO20.3X25 .4 - BARD ([id number]) 1 Bard Unknown BÁRBARA:No Information Assigning Authority: FDA
--- OUTSIDE RECORDS SUMMARY | 2023-06-17 12:49 | XMS_ITS | Continuity of Care Document ---
Author Name Unknown Organization [facility] Address [address] [place] [address]- Care Team Providers Care Computer Network Specialist Name Role Phone Adrianna WEBB, Natanael Yoo Primary Care Physician Encounter [facility] Date(s): 06/22/21 - 07/22/21 [facility] [address] [place], [place] [address] Attending Physician: Brady Ruelas Admitting Physician: AdmBrady [...] 9 09/26/16 Recorded 1Result Comment: [08/10/2018] [facility] [id number] 403 65 2Result Comment: [08/10/2018] big y[08/10/2018 Uncharted] pt states she has not had the flu vaccine this year as previously stated 3Result Comment: enterred in error 4Result Comment: [07/25/2017] [id number] 5Result Comment: influenza [facility] 6Result Comment: [02/13/2018] [facility] 0005 1971 01 7Result Comment: [07/25/2017] [id number] 8Admin Note: [id number] 9Result Comment: [07/25/2017] historical Medications amLODIPine 10 mg oral tablet 1 tablet, By Mouth, Daily, # 90 tablet, 11 Refills, Maintenance, 12/05/19 16:46:00 EDT, [facility], 164, cm, 11/27/19 13:41:00 EST, Height, 74.5, kg, 01/03/19 18:01:00 EDT, Dry Weight Start Date: 12/05/19 Status: Ordered atenolol-chlorthalidone 100 mg-25 mg oral tablet 1 tablet, By Mouth, Daily, # 90 tablet, 11 Refills, Maintenance, 12/05/19 16:47:00 EDT, [facility], 90, TAKE 1 TABLET BY MOUTH EVERY [...] constipation, 06/13/20 8:34:00 EDT, Route to Pharmacy Electronically,[facility], 168, cm, 06/13/20 [...] MESH VENTRALIGHT ECHO CIR 6 - BARD ([id number]) 1 Bard Unknown BÁRBARA:No Information Assigning Authority: FDA MESH VENTRALIGHT ECHO20.3X25 .4 - BARD ([id number]) 1 Bard Unknown BÁRBARA:No Information Assigning Authority: FDA
--- OUTSIDE RECORDS SUMMARY | 2023-06-17 12:49 | XMS_ITS | Continuity of Care Document ---
Author Name Unknown Organization [facility] Address [address] [place] [address] Dr [address] [place] [address]- Care Team Providers Care House Mover Supervisor Name Role Phone Adrianna WEBB, Natanael Yoo Primary Care Physician [facility]s): 03/14/20 - 03/21/[address] [place] [address]- [facility] Encounter Diagnosis Ventral incisional hernia(Discharge Diagnosis) - 03/14/20 Attending Physician: Ian Ray MD Referring Physician: [...] vaccine 8 09/26/16 Recorded 1Result Comment: [08/10/2018] [facility] 64241 403 65 2Result Comment: [08/10/2018] big y[08/10/2018 Uncharted] pt states she has not had the flu vaccine this year as previously stated 3Result Comment: enterred in error 4Result Comment: [07/25/2017] [id number] 5Result Comment: [02/13/2018] [facility] 0005 1971 01 6Result Comment: [07/25/2017] [id number] 7Admin Note: [id number] 8Result Comment: [07/25/2017] historical Medications acetaminophen 325 mg oral tablet 650 mg, By Mouth, Every 4 hours, PRN, Refills 0, Maintenance, Pain , Moderate, 05/18/18 9:59:35 EDT Start Date: 05/18/18 Status: Ordered amLODIPine 10 mg oral tablet 1 tablet, By Mouth, Daily, # 90 tablet, 11 Refills, Maintenance, 12/05/19 16:46:00 EDT, [facility], 164, cm, 11/27/19 13:41:00 EST, Height, 74.5, kg, 01/03/19 18:01:00 EDT, Dry Weight Start Date: 12/05/19 Status: Ordered atenolol-chlorthalidone 100 mg-25 mg oral tablet 1 tablet, By Mouth, Daily, # 90 tablet, 11 Refills, Maintenance, 12/05/19 16:47:00 EDT, [facility], 90, TAKE 1 TABLET BY MOUTH EVERY [...] Service Informant Ventral incisional hernia Discharge Diagnosis 03/14/20 Vital Signs Most recent to oldest [Reference Range]: 1 Height 164 cm (03/14/20 8:23 AM) Weight 81 kg (03/14/20 8:23 AM) Pulse Rate [55-90 bpm] 76 bpm (03/14/20 8:23 AM) Body Mass Index [18.5-24.99] 30.12 *>HHI* (03/14/20 8:23 AM) Blood Pressure [90-138/55-84 mm Hg] 155/ 82mm Hg *H* (03/14/20 8:23 AM) Respiratory Rate [16-30 br/min] 16 br/mi n (03/14/20 8:23 AM) Temperature [96.8-100.4 DegF] 97.4 DegF (03/14/20 8:23 AM) Blood pressure sites Arm, right (03/14/20 8:23 AM) Temperature Route Temporal (03/14/20 8:23 AM) Social History Social History Type Response Smoking Status Former smoker entered on: 05/30/18 Sex
--- OUTSIDE RECORDS SUMMARY | 2023-06-17 12:49 | XMS_ITS | Continuity of Care Document ---
Author Name Unknown Organization [facility] Milidn lt Address [address] [place] [address]- Care Team Providers Care Mechanical System Technician Name Role Phone Hill Foley MD Primary Care Physician Encounter [facility] Date(s): 02/24/23 - 03/26/23 [facility] Adult [address] [place] [address]- Allergies, Adverse Reactions, Alerts No Known Allergies Immunizations Given and Recorded Vaccine Date Status Refusal Reason influenza virus vaccine, inactivated 1 11/02/22 Gi sarah influenza virus vaccine, inactivated 07/01/21 Sundeep rded influenza virus vaccine, inactivated 2 08/10/18 Gi sarah influenza virus vaccine, inactivated 3 07/19/18 Re corded influenza virus vaccine, inactivated 4, 5 07/25/17 Given zoster vaccine, inactivated 09/06/22 Recorded [id number] 12y+ bivalent booster vax 09/06/22 Recorded SARS-CoV-2 mRNA ([id number]) vax 03/24/22 Recorded SARS-CoV-2 (COVID-19) mRNA BNT-162b2 [...] 09/26/16 Recorde d 1Result Comment: Flu [facility]#90781-350-42 2Result Comment: [08/10/2018] [facility] 61103 403 65 3Result Comment: [08/10/2018] big y[08/10/2018 Uncharted] pt states she has not had the flu vaccine this year as previously stated 4Result Comment: enterred in error 5Result Comment: [07/25/2017] [id number] 6Result Comment: influenza [facility] 7Result Comment: [02/13/2018] [facility] 0005 1971 01 8Result Comment: [07/25/2017] [id number] 9Admin Note: [id number] 10Result Comment: [07/25/2017] historical Medications amLODIPine 10 [...] Refills, Maintenance, 12/27/22 10:08:00 EDT, [facility], 90, TAKE 1 TABLET BY MOUTH EVERY [...] Refills, Maintenance, 12/21/22 14:36:00 EDT, Tablet, [facility], Partial fill upon patient request if the [...] Primary Care Member Role: PCP Address: Address: [address] [place] [id number] Name: Katy Romo RN Position: S RN Member Role: Primary Care Nurse Name: Neha Bey RN Position: [facility] SN RN Member Role: Primary Care Nurse Name: Margarita Olson RN Position: [facility] RN Member Role: Primary Care Nurse Name: Thelma Sifuentes RN Position: [facility] RN Member Role: Primary Care Nurse Name: Loren Johnson RN Position: [facility] RN Member Role: Primary Care Nurse Name: Zaida Alan RN Position: [facility] RN Member Role: Primary Care Nurse Name: Carol Brar RN Position: [facility] Onco RN Member Role: Primary Care Nurse Name: Charlotte Thompson RN Position: [facility] Hospital Mold Carpenter Member Role: Primary Care Nurse Care Team Related Persons Name: LOUIE PACHECO Address: home [address] [place] [address] Name: LOGAN JANE Name: PRAVIN RYAN Address: [place] [address]
--- OUTSIDE RECORDS SUMMARY | 2023-06-17 12:49 | XMS_ITS | Continuity of Care Document ---
Author Name Unknown Organization [facility] Address [address] [facility] [address] [address] [place] [address]- Care Team Providers Care Vending Route Driver Name Role Phone Alaina WEBB, Hill Jones Primary Care Physician Encounter 12/02/22 - 12/09/22 [facility] [address], [address] [place] [address]- Attending Physician: Florinda CHU, Bela Peoples Admitting Physician: Bela Neely NP Referring Physician: Bela Neely NP Allergies, Adverse Reactions, [...] 07/25/17 Given zoster vaccine, inactivated 09/06/22 Recorded [id number] 12y+ bivalent booster vax 09/06/22 Recorded SARS-CoV-2 mRNA (upgqonm-zwft-ovohm) vax 03/24/22 Recorded SARS-CoV-2 (COVID-19) mRNA BNT-162b2 [...] 09/26/16 Recorde d 1Result Comment: Flu HD [facility]#90457-612-79 2Result Comment: [08/10/2018] [facility] [id number] 3Result Comment: [08/10/2018] big y[08/10/2018 Uncharted] pt states she has not had the flu vaccine this year as previously stated 4Result Comment: enterred in error 5Result Comment: [07/25/2017] [id number] 6Result Comment: influenza [facility] 7Result Comment: [02/13/2018] [facility] 0005 1971 01 8Result Comment: [07/25/2017] [id number] 9Admin Note: [id number] 10Result Comment: [07/25/2017] historical Medications atenolol-chlorthalidone 100 mg-25 mg oral tablet 1 tablet, By Mouth, Daily, # 90 tablet, 11 Refills, 12/01/21 12:21:00 EST, [facility]/pharmacy #[id number], 90, 1 tablet By Mouth Daily, 168, cm, 12/01/21 11:53:00 EST, Height, 83.8, kg, 06/17/21 13:41:00 EDT, Dry Weight Start Date: 12/01/21 Status: Ordered atorvastatin 80 mg oral tablet 1 tablet = 80 mg, By Mouth, Daily, DOSAGE INCREASE, # 90 tablet, 1 Refills, Maintenance, 12/10/21 11:32:00 EDT, Tablet, [facility]/pharmacy #[id number], Partial fill upon patient request [...] Condition Confirmation Course Effective Dates Status H ealt Status Informant AAA - Abdominal aortic aneurysm [...] Exam Date Time Procedure Performing Provider Status 12/02/22 11:31 AM Dexa Bone Density (Axial) Janeen Cook; Les (Verified) Notes: (Dexa Bone Density (Axial)) Reason For Exam: Post Menopausal RESULT: DEXA BONE DENSITY (AXIAL) Bone Density Report Name: AVERY FAROOQ Age: 77 Sex: Female Ethnicity: White Date of : 1945 Indication: SCREENING FOR OSTEOPOROSIS. Referring Provider: BELA NEELY Study: Bone densitometry was performed. Exam Date: December 02, 2022 Accession number: [id number] Bone Density: Region BMD T-score Z-score Classification AP Spine(L1, L2, L4) 1.285 2.3 4.8 Normal Femoral Neck (Right) 0.666 -1.6 0.5 Osteopenia Total Hip (Right) 0.889 -0.4 1.5 Normal World Health Organization criteria for BMD impression classify patients as: Normal (T-score at or above -1.0), Osteopenia (T-score between -1.0 and -2.5), or Osteoporosis (T-score at or below -2.5). 10-year Fracture Risk(1): Major Osteoporotic Fracture 12% Hip Fracture 2.7% Reported Risk Factors: [place] (), Neck BMD=0.666, BMI=31.6 (1) FRAX(R) Version 3.00. Fracture probability calculated for an untreated patient. Fracture probability may be lower if the patient has received treatment. Previous Exams: Region Exam Age BMD T-score BMD Change BMD Change Date g/cm2 vs Baseline vs Previous AP Spine(L1, L2, L4) 12/02/2022 77 1.285 2.3 8.9%* 8.9%* 10/19/2017 72 1.180 1.3 Total Hip(Right) 12/02/2022 77 0.889 -0.4 -10.0%* -10.0%* 10/19/2017 72 0.987 0.4 Femoral Neck(Right) 12/02/2022 77 0.666 -1.6 -9.5%* -9.5%* 10/19/2017 72 0.736 -1.0 *Denotes significance at 95% confidence level, LSC for AP Spine = 0.022 g/cm2, LSC for Total Hip = 0.027 g/cm2 Clinical Information Provided by Patient: Has used the following medications: Fosamax (i.e. alendronate) Has the following medical conditions: Hysterectomy Patient maximum height was 66.0 Menopause Age: 55 Onset of menses at age 13 Number of children 0 Impression: The patient has osteopenia as determined by WHO criteria. Based on the results of the patient's bone density assessment, the risk of future fracture increases approximately two fold for each 1.0 SD decrease in T-score. However, low BMD is not the only risk factor for a future fragility fracture. Other clinical risk factors for osteoporotic fracture should be considered in ascertaining this patient's future fracture risk including the patient's age, previous osteoporotic (fragility) fracture, estrogen deficiency/hypogonadism, risk of falling, use of medications implicated in bone loss (glucocorticoids), family history of osteoporotic fracture, diseases and conditions associated with bone loss, low body weight, smoking, high bone turnover, etc. Combining low BMD and other clinical risk factors result in a more precise assessment of future fracture risk. Secondary causes for osteoporosis, such as osteomalacia, other metabolic bone disorders, and diseases and conditions that may contribute to accelerated bone loss may have to be considered depending on the clinical situation. A repeat bone density assessment should be considered in two years. Reported by: Jayashree Eaton M.D. on 12/07/2022 3:01:00 PM. Dictated By: Jayashree Eaton MD Dictated Date/Time: 12/07/22 3:02 pm Reviewed By: Jayashree Eaton MD Signed By: Jayashree Eaton MD Signed Date/Time: 12/07/22 3:02 pm Transcribed By: TITI Transcribed Date/Time: 12/07/22 3:02 pm Social History Social History Type Response Smoking [...] Unknown 07/23/21 Unknown Unknown Active Un known DXA Skeletal system.axial Views for bone density * [facility] , CIS S: TRANSCRIBE [facility] , CIS S: TRANSCRIBE, VERIFY Angelito WEBB, Jayashree Casiano: VERIFY, VERIFY Jayashree Eaton MD: VERIFY Event Display: Result: Authored Date: Bone Density Report Name: AVERY FAROOQ Age: 77 Sex: Female Ethnicity: White Date of : 1945 Indication: SCREENING FOR OSTEOPOROSIS. Referring Provider: BELA NEELY Study: Bone densitometry was performed. Exam Date: December 02, 2022 Accession number: [id number] Bone Density: Region BMD T-score Z-score Classification AP Spine(L1, L2, L4) 1.285 2.3 4.8 Normal Femoral Neck (Right) 0.666 -1.6 0.5 Osteopenia Total Hip (Right) 0.889 -0.4 1.5 Normal World Health Organization criteria for BMD impression classify patients as: Normal (T-score at or above -1.0), Osteopenia (T-score between -1.0 and -2.5), or Osteoporosis (T-score at or below -2.5). 10-year Fracture Risk(1): Major Osteoporotic Fracture 12% Hip Fracture 2.7% Reported Risk Factors: [place] (), Neck BMD=0.666, BMI=31.6 (1) FRAX(R) Version 3.00. Fracture probability calculated for an untreated patient. Fracture probability may be lower if the patient has received treatment. Previous Exams: Region Exam Age BMD T-score BMD Change BMD Change Date g/cm2 vs Baseline vs Previous AP Spine(L1, L2, L4) 12/02/2022 77 1.285 2.3 8.9%* 8.9%* 10/19/2017 72 1.180 1.3 Total Hip(Right) 12/02/2022 77 0.889 -0.4 -10.0%* -10.0%* 10/19/2017 72 0.987 0.4 Femoral Neck(Right) 12/02/2022 77 0.666 -1.6 -9.5%* -9.5%* 10/19/2017 72 0.736 -1.0 *Denotes significance at 95% confidence level, LSC for AP Spine = 0.022 g/cm2, LSC for Total Hip = 0.027 g/cm2 Clinical Information Provided by Patient: Has used the following medications: Fosamax (i.e. alendronate) Has the following medical conditions: Hysterectomy Patient maximum height was 66.0 Menopause Age: 55 Onset of menses at age 13 Number of children 0 Impression: The patient has osteopenia as determined by WHO criteria. Based on the results of the patient's bone density assessment, the risk of future fracture increases approximately two fold for each 1.0 SD decrease in T-score. However, low BMD is not the only risk factor for a future fragility fracture. Other clinical risk factors for osteoporotic fracture should be considered in ascertaining this patient's future fracture risk including the patient's age, previous osteoporotic (fragility) fracture, estrogen deficiency/hypogonadism, risk of falling, use of medications implicated in bone loss (glucocorticoids), family history of osteoporotic fracture, diseases and conditions associated with bone loss, low body weight, smoking, high bone turnover, etc. Combining low BMD and other clinical risk factors result in a more precise assessment of future fracture risk. Secondary causes for osteoporosis, such as osteomalacia, other metabolic bone disorders, and diseases and conditions that may contribute to accelerated bone loss may have to be considered depending on the clinical situation. A repeat bone density assessment should be considered in two years. Reported by: Jayashree Eaton M.D. on 12/07/2022 3:01:00 PM. Dictated By: Jayashree Eaton MD Dictated Date/Time: 12/07/22 3:02 pm Reviewed By: Jayashree Eaton MD Signed By: Jayashree Eaton MD Signed Date/Time: 12/07/22 3:02 pm Transcribed By: TITI Transcribed Date/Time: 12/07/22 3:02 pm Patient Care team information Care Team Personnel Name: Claire Serra RN Position: [facility] RN Member Role: Primary Care Nurse Name: Elana Warren RN Position: [facility] RN Member Role: Primary Care Nurse Name: Hill Foley MD Position: [facility] Primary Care Physician Member Role: PCP Address: Address: [address] [place] [id number] Name: Katy Romo RN Position: [facility] RN Member Role: Primary Care Nurse Name: Neha Bey RN Position: [facility] RN Member Role: Primary Care Nurse Name: Margarita Olson RN Position: [facility] RN Member Role: Primary Care Nurse Name: Thelma Sifuentes RN Position: S RN Member Role: Primary Care Nurse Name: Loren Johnson RN Position: S RN Member Role: Primary Care Nurse Name: Zaida Alan RN Position: S RN Member Role: Primary Care Nurse Name: Carol Brar RN Position: [facility] Moe RN Member Role: Primary Care Nurse Name: Charlotte Thompson RN Position: [facility] Medical Device Assembler Member Role: Primary Care Nurse Care Team Related Persons Name: LOUIE PACHECO Address: [address] [address] Name: LOGAN JANE Name: PRAVIN RYAN Address: [place] [address]
--- OUTSIDE RECORDS SUMMARY | 2023-06-17 12:49 | XMS_ITS | Continuity of Care Document ---
Author Name Unknown Organization [facility] Address Unknown Care Team Providers Care Medical Facilities Section Director Name Role Phone Natanael Rodas MD Primary Care Physician Encounter [facility] Date(s): 09/04/21 - 09/11/21 [facility] Attending Physician: Ian Ray MD Referring Physician: [...] vaccine 9 09/26/16 Recorded 1Result Comment: [08/10/2018] [facility] [id number] 2Result Comment: [08/10/2018] big y[08/10/2018 Uncharted] pt states she has not had the flu vaccine this year as previously stated 3Result Comment: enterred in error 4Result Comment: [07/25/2017] [id number] 5Result Comment: influenza [facility] 6Result Comment: [02/13/2018] [facility] 0005 1971 01 7Result Comment: [07/25/2017] [id number] 8Admin Note: [id number] 9Result Comment: [07/25/2017] historical Medications amLODIPine 10 mg oral tablet 1 tablet, By Mouth, Daily, # 90 tablet, 11 Refills, [facility], 168, cm, 08/07/21 12:51:00 EST, Height, 83.8, kg, 06/17/21 13:41:00 EDT, Dry Weight Start Date: 08/13/21 Status: Ordered atenolol-chlorthalidone 100 mg-25 mg oral tablet 1 tablet, By Mouth, Daily, # 90 tablet, 11 Refills, [facility], 90, TAKE 1 TABLET BY MOUTH EVERY DAY, 168, cm, 08/07/21 12:51:00 EST, Height, 83.8, kg, 06/17/21 13:41:00 EDT, Dry Weight Start Date: 08/13/21 Status: Ordered atorvastatin 40 mg oral tablet 1 tablet, By Mouth, Daily, # 90 tablet, 1 Refills, [facility], 168, cm, 08/07/21 12:51:00 EST,Height, 83.8, kg, 06/17/21 13:41:00 EDT, Dry Weight Start Date: 08/13/21 Status: Ordered Finacea 15% topical gel 1 application, Topically, 2 times a day, # 30 Gm, 0 Refills, Maintenance, 03/25/17 16:55:18, Gel Start Date: 03/25/17 Status: Ordered sertraline 100 mg oral tablet 2 tablet, By Mouth, Daily, # 180 tablet, 0 Refills, [facility], 168, cm, 08/07/21 12:51:00 EST, Height, 83.8, [...] oldest [Reference Range]: 1 Height 168 cm (09/04/21 2:19 PM) Weight 83.7 kg (09/04/21 2:19 PM) Pulse Rate [55-90 bpm] 76 bpm (09/04/21 2:19 PM) Body Mass Index [18.5-24.99] 29.66 *H* (09/04/21 2:19 PM) Blood Pressure [90-138/55-84 mm Hg] 164/ 84mm Hg *H* (09/04/21 2:19 PM) Respiratory Rate [16-30 br/min] 16 br/mi n (09/04/21 2:19 PM) Temperature [96.8-100.4 DegF] 98.0 DegF (09/04/21 2:19 PM) Blood pressure sites Arm, left (09/04/21 2:19 PM) Temperature Route Temporal (09/04/21 2:19 PM) Weight Obtained Via Standing scale (09/04/21 2:19 PM) Social History Social History Type Response Smoking Status Former smoker entered on: 05/30/18 Sex Medical Equipment Implanted Date:06/11/20Target Site:Abdomen Description Quantity MRI [employer] Model MESH VENTRALIGHT ECHO CIR 6 - BARD ([id number]) 1 Bard Unknown BÁRBARA:No Information Assigning Authority: FDA MESH VENTRALIGHT ECHO20.3X25 .4 - BARD ([id number]) 1 Bard Unknown BÁRBARA:No Information Assigning Authority: FDA
--- OUTSIDE RECORDS SUMMARY | 2023-06-17 12:49 | XMS_ITS | Continuity of Care Document ---
Author Name Unknown Organization [facility] Address [address] [place] [address]- Care Team Providers Care Social Science Manager Name Role Phone Alaina WEBB, Hill Jones Primary Care Physician [phone] Encounter [facility] Date(s): 04/15/23 - 05/15/23 [facility] [address] [place], [place] [address] Attending Physician: Brady Ruelas Admitting Physician: Brady Ruelas Referring Physician: Brady Ruelas Allergies, Adverse Reactions, Alerts No Known Allergies Immunizations Given and Recorded Vaccine Date Status Refusal Reason pneumococcal 20-valent conjugate vaccine 04/22/23 Recorded influenza virus vaccine, inactivated 1 11/02/22 Gi sarah influenza virus vaccine, inactivated 07/01/21 Sundeep rded influenza virus vaccine, inactivated 2 08/10/18 Gi sarah zoster vaccine, inactivated 09/06/22 Recorded [id number] 12y+ bivalent booster vax 09/06/22 Recorded SARS-CoV-2 mRNA (uyhlddz-xngj-jcqbj) vax 03/24/22 Recorded SARS-CoV-2 (COVID-19) mRNA BNT-162b2 [...] 09/26/16 Recorded 1Result Comment: Flu HD [facility]#[id number] 2Result Comment: [08/10/2018] [facility] [id number] 3Result Comment: influenza [facility] 4Result Comment: [02/13/2018] [facility] 0005 1971 01 5Result Comment: [07/25/2017] [id number] 6Admin Note: [id number] 7Result Comment: [07/25/2017] historical Medications amLODIPine 10 mg oral tablet 1 tablet, By Mouth, Daily, # 90 tablet, 1 Refills, Maintenance, 12/27/22 15:59:00 EDT, [facility]/pharmacy#[id number], 167, cm, 12/23/22 9:51:00 EDT, Height, [...] tablet, 1 Refills, Maintenance, 12/27/22 10:08:00 EDT, [facility], 90, TAKE 1 TABLET BY MOUTH EVERY DAY, 167, cm, 12/23/22 9:51:00 EDT, Height, 83.8, kg, 06/17/2113:41:00 EDT, Dry Weight Start Date: 12/27/22 Status: Ordered atorvastatin 80 mg oral tablet 1 tablet, By Mouth, Daily, # 90 tablet, 1 Refills, Maintenance, 12/27/22 10:10:00 EDT, [facility]/pharmacy#0693, 167, cm, 12/23/22 9:51:00 EDT, Height, [...] tablet, 11 Refills, Maintenance, 07/23/22 10:48:00 EDT, [facility]/pharmacy #[id number], Partial fill upon patient request [...] Position: [facility] Physician - Primary Care Member Role: PCP Address: Address: [address] [facility] [address]- [place] Name: Christy Peacock RN Position: [facility] RN Member Role: Primary Care Nurse Name: Katy Romo RN Position: [facility] RN Member Role: Primary Care Nurse Name: Neha Bey RN Position: [facility] SN RN Member Role: Primary Care Nurse Name: Zayra Arevalo RN Position: [facility] RN Member Role: Primary Care Nurse Name: Margarita Olson RN Position: [facility] RN Member Role: Primary Care Nurse Name: Thelma Sifuentes RN Position: [facility] RN Member Role: Primary Care Nurse Name: Kandi Cabrera Position: [facility] Livestock Brands Inspector Member Role: Corn Miller Name: Jyoti Caal RN Position: [facility] [...] [facility] Hospital Visual Stylist Member Role: Primary Care Nurse Care Team Related Persons Name: LOUIE PACHECO Address: [address] [place] [address] Name: LOGAN JANE Name: PRAVIN RYAN Address: [place] [address]
--- OUTSIDE RECORDS SUMMARY | 2023-06-17 12:49 | XMS_ITS | Continuity of Care Document ---
Author Name Unknown Organization [facility] Address [address] [place] [address]- Care Team Providers Care Assembling Inspector Name Role Phone Natanael Rodas MD Primary Care Physician [phone] Encounter [facility] Date(s): 12/05/19 - 01/11/20 [facility] [address] [place] [address]- [facility] Attending Physician: Natanael Rodas MD Allergies, Adverse [...] 8 09/26/16 Recorded 1Result Comment: [08/10/2018] [facility] [id number] 2Result Comment: [08/10/2018] big y[08/10/2018 Uncharted] pt states she has not had the flu vaccine this year as previously stated 3Result Comment: enterred in error 4Result Comment: [07/25/2017] [id number] 5Result Comment: [02/13/2018] [facility] 0005 1971 01 6Result Comment: [07/25/2017] [id number] 7Admin Note: [id number] 8Result Comment: [07/25/2017] historical Medications acetaminophen 325 mg oral tablet 650 mg, By Mouth, Every 4 hours, PRN, Refills 0, Maintenance, Pain , Moderate, 05/18/18 9:59:35 EDT Start Date: 05/18/18 Status: Ordered amLODIPine 10 mg oral tablet 1 tablet, By Mouth, Daily, # 90 tablet, 11 Refills, Maintenance, 12/05/19 16:46:00 EDT, [facility], 164, cm, 11/27/19 13:41:00 EST, Height, 74.5, kg, 01/03/19 18:01:00 EDT, Dry Weight Start Date: 12/05/19 Status: Ordered atenolol-chlorthalidone 100 mg-25 mg oral tablet 1 tablet, By Mouth, Daily, # 90 tablet, 11 Refills, Maintenance, 12/05/19 16:47:00 EDT, [facility], 90, TAKE 1 TABLET BY MOUTH EVERY DAY, 164, cm, 11/27/19 13:41:00 EST, Height, 74.5, kg, 01/03/19 18:01:00 EDT, Dry Weight Start Date: 12/05/19 Status: Ordered atorvastatin 40 mg oral tablet 1 tablet = 40 mg, By Mouth, Daily, # 90 tablet, 1 Refills, Maintenance, 12/05/19 14:01:00 EDT, [facility]/pharmacy #[id number], 164, cm, 11/27/19 13:41:00 EST, [...] tablet, 0 Refills, Maintenance, 12/05/19 14:04:00 EDT, [facility]/pharmacy #[id number], D/C rx on file for 100mg 1 tab daily, 164, cm, 11/27/19 13:41:00 EST, Height, 74.5, kg, 01/03/19 18:01:00 EDT, Dry Weight Start Date: 12/05/19 Status: Ordered spironolactone 25 mg oral tablet 25 mg, 1, tablet, By Mouth, Daily, # 90 tablet, Refills 3, Tot. Refills 3, Maintenance, 11/08/19 10:43:00 EST, Route to Pharmacy Electronically, [facility]/pharmacy #[id number], 164, cm, 11/08/19 9:45:00 EST, [...]
--- OUTSIDE RECORDS SUMMARY | 2023-06-17 12:49 | XMS_ITS | Continuity of Care Document ---
Author Name Unknown Organization [facility] Address [address] [place] [address]- Care Team Providers Care Keno Writer / Runner Name Role Phone Natanael Rodas MD Primary Care Physician [phone] [facility]): 10/26/20 - 11/02/20 [facility] [address] [place] [address]- Encounter Diagnosis Rash and nonspecific skin eruption(Discharge Diagnosis) - 10/26/20 Hypertension(Discharge Diagnosis) - 10/26/20 Attending Physician: Tray Henning MD Referring Physician: Natanael Rodas MD Allergies, Adverse Reactions, Alerts Substance Reaction Severity Status NKA Active Immunizations Given and Recorded Vaccine Date Status Refusal Reason Influenza Virus Vaccine (oldterm) 1 06/09/20 Recor [...] 1Result Comment: influenza [facility] 2Result Comment: [08/10/2018] [facility] [id number] 3Result Comment: [08/10/2018] big y[08/10/2018 Uncharted] pt states she has not had the flu vaccine this year as previously stated 4Result Comment: enterred in error 5Result Comment: [07/25/2017] [id number] 6Result Comment: [02/13/2018] [facility] 0005 1971 01 7Result Comment: [07/25/2017] [id number] 8Admin Note: [id number] 9Result Comment: [07/25/2017] historical Medications amLODIPine 10 mg oral tablet 1 tablet, By Mouth, Daily, # 90 tablet, 11 Refills, Maintenance, 12/05/19 16:46:00 EDT, [facility], 164, cm, 11/27/19 13:41:00 EST, Height, 74.5, kg, 01/03/19 18:01:00 EDT, Dry Weight Start Date: 12/05/19 Status: Ordered atenolol-chlorthalidone 100 mg-25 mg oral tablet 1 tablet, By Mouth, Daily, # 90 tablet, 11 Refills, Maintenance, 12/05/19 16:47:00 EDT, [facility] 57913, 90, TAKE 1 TABLET BY MOUTH EVERY DAY, 164, cm, 11/27/19 13:41:00 EST, Height, 74.5, kg, 01/03/19 18:01:00 EDT, Dry Weight Start Date: 12/05/19 Status: Ordered atorvastatin 40 mg oral tablet 1 tablet = 40 mg, By Mouth, Daily, # 90 tablet, 1 Refills, Maintenance, 12/05/19 14:01:00 EDT, [facility]/pharmacy #0693, 164, cm, 11/27/19 13:41:00 EST, Height, 74.5, kg, 01/03/19 18:01:00 EDT, Dry Weight Start Date: 12/05/19 Status: Ordered Colace sodium 100 mg oral capsule 100 mg, 1, capsule, By Mouth, 2 times a day, PRN, with plenty of water, # 20 capsule, Refills 1, Tot. Refills 1, Maintenance, for constipation, 06/13/20 8:34:00 EDT, Route to Pharmacy Electronically,[facility], 168, cm, 06/13/20 [...] 0 Refills, Maintenance, 10/31/20 8:49:00 EST, Tablet, [facility]/pharmacy #0693, Partial fill upon patient request if the prescription is for a schedule II opioid drug., 167, cm, ... Start Date: 10/31/20 Status: Ordered permethrin 5% topical cream 1 application, Topically, Once, to skin head to feet, remove by washing after 8 to 14 hours, # 60 Gm, 0 Refills, Soft Stop, 10/26/20 14:15:00 EST, Cream, [facility]/pharmacy #0693, Partial fill upon patientrequest if the prescription is for a schedule II op... Start Date: 10/26/20 Status: Ordered sertraline 100 mg oral tablet 2 tablet = 200 mg, By Mouth, Daily, # 180 tablet, 0 Refills, Maintenance, 05/27/20 16:27:00 EDT, [facility]/pharmacy #0693, D/C rx on file for 100mg 1 tab daily, 164, cm, 05/24/20 8:51:00 EDT, Height, 74.5,kg, 01/03/19 18:01:00 EDT, Dry Weight Start Date: 05/27/20 Status: Ordered spironolactone 25 mg oral tablet 25 mg, 1, tablet, By Mouth, Daily, # 90 tablet, Refills 3, Tot. Refills 3, Maintenance, 11/08/19 10:43:00 EST, Route to Pharmacy Electronically, [facility]/pharmacy #[id number], 164, cm, 11/08/19 9:45:00 EST, [...] Effective Dates Health Status Clinical Service Informant Rash and nonspecific skin eruption Discharge Diagnosis 10/26/20 Hypertension Discharge Diagnosis 10/26/20 Vital Signs Most recent to oldest [Reference Range]: 1 Height 167 cm (10/26/20 1:31 PM) Weight 83.6 kg (10/26/20 1:31 PM) Oxygen Saturation [94-100 %] 100 % (10/26/20 1:31 PM) Pulse Rate [55-90 bpm] 65 bpm (10/26/20 1:31 PM) Body Mass Index [18.5-24.99] 29.98 *H* (10/26/20 1:31 PM) Blood Pressure [90-138/55-84 mm Hg] 186/ 88mm Hg *H* (10/26/20 1:31 PM) Respiratory Rate [16-30 br/min] 16 br/mi n (10/26/20 1:31 PM) Temperature [96.8-100.4 DegF] 97.7 DegF (10/26/20 1:31 PM) Mode of Delivery (Oxygen) Room air (10/26/20 1:31 PM) Blood pressure sites Arm, right (10/26/20 1:31 PM) Temperature Route Temporal (10/26/20 1:31 PM) Dry Weight 83.6 kg (10/26/20 1:31 PM) Weight Obtained Via Standing scale (10/26/20 1:31 PM) Dry Weight Obtained Via Standing scale (10/26/20 1:31 PM) Social History Social History Type Response Smoking Status Former smoker entered on: 05/30/18 Sex Medical Equipment Implanted Date:06/11/20Target Site:Abdomen Description Quantity MRI Company Model MESH VENTRALIGHT ECHO CIR 6 - BARD ([id number]) 1 Bard Unknown BÁRBARA:No Information Assigning Authority: FDA MESH VENTRALIGHT ECHO20.3X25 .4 - BARD ([id number]) 1 Bard Unknown BÁRBARA:No Information Assigning Authority: FDA
--- OUTSIDE RECORDS SUMMARY | 2023-06-17 12:49 | XMS_ITS | Continuity of Care Document ---
Author Name Unknown Organization [facility] Address [address] [place] [address]- Care Team Providers Care Accounts Receivable Processor Name Role Phone Natanael Rodas MD Primary Care Physician [phone] [facility] Date[facility]s): 11/19/20 - 12/19/20 [facility] [address] [place] [address]- Allergies, Adverse Reactions, Alerts Substance Reaction Severity [...] 1Result Comment: influenza [facility] 2Result Comment: [08/10/2018] [facility] [id number] 3Result Comment: [08/10/2018] big y[08/10/2018 Uncharted] pt states she has not had the flu vaccine this year as previously stated 4Result Comment: enterred in error 5Result Comment: [07/25/2017] [id number] 6Result Comment: [02/13/2018] [facility] 0005 1971 01 7Result Comment: [07/25/2017] [id number] 8Admin Note: [id number] 9Result Comment: [07/25/2017] historical Medications amLODIPine 10 mg oral tablet 1 tablet, By Mouth, Daily, # 90 tablet, 11 Refills, Maintenance, 12/05/19 16:46:00 EDT, [facility], 164, cm, 11/27/19 13:41:00 EST, Height, 74.5, kg, 01/03/19 18:01:00 EDT, Dry Weight Start Date: 12/05/19 Status: Ordered atenolol-chlorthalidone 100 mg-25 mg oral tablet 1 tablet, By Mouth, Daily, # 90 tablet, 11 Refills, Maintenance, 12/05/19 16:47:00 EDT, [facility], 90, TAKE 1 TABLET BY MOUTH EVERY [...] constipation, 06/13/20 8:34:00 EDT, Route to Pharmacy Electronically,[facility], 168, cm, 06/13/20 5:15:00... [...] MESH VENTRALIGHT ECHO CIR 6 - BARD ([id number]) 1 Bard Unknown BÁRBARA:No Information Assigning Authority: FDA MESH VENTRALIGHT ECHO20.3X25 .4 - BARD ([id number]) 1 Bard Unknown BÁRBARA:No Information Assigning Authority: FDA
--- OUTSIDE RECORDS SUMMARY | 2023-06-17 12:49 | XMS_ITS | Continuity of Care Document ---
Author Name Unknown Organization [facility] Address [address] [place] [address]- Care Team Providers Care Enterprise Applications Manager Name Role Phone Alaina WEBB, Hill Jones Primary Care Physician [facility]s): 05/04/23 - 06/03/23 [facility] Adult [address] [place] [address]- Allergies, Adverse Reactions, Alerts No Known Allergies Immunizations Given and Recorded Vaccine Date Status Refusal Reason pneumococcal 20-valent conjugate vaccine 04/22/23 Recorded influenza virus vaccine, inactivated 1 11/02/22 Gi sarah influenza virus vaccine, inactivated 07/01/21 Sundeep rded influenza virus vaccine, inactivated 2 08/10/18 Gi sarah zoster vaccine, inactivated 09/06/22 Recorded [id number] 12y+ bivalent booster vax 09/06/22 Recorded SARS-CoV-2 mRNA ([id number]) vax 03/24/22 Recorded SARS-CoV-2 (COVID-19) mRNA BNT-162b2 [...] 7 09/26/16 Recorded 1Result Comment: Flu [facility]#[id number] 2Result Comment: [08/10/2018] [facility] [id number] 3Result Comment: influenza [facility] 4Result Comment: [02/13/2018] [facility] 0005 1971 01 5Result Comment: [07/25/2017] [id number] 6Admin Note: [id number] 7Result Comment: [07/25/2017] historical Medications amLODIPine 10 mg oral tablet 1 tablet, By Mouth, Daily, # 90 tablet, 1 Refills, Maintenance, 12/27/22 15:59:00 EDT, [facility]/pharmacy#0693, 167, cm, 12/23/22 9:51:00 EDT, Height, [...] Refills, Maintenance, 12/27/22 10:08:00 EDT, [facility], 90, TAKE 1 TABLET BY MOUTH EVERY DAY, 167, cm, 12/23/22 9:51:00 EDT, Height, 83.8, kg, 06/17/2113:41:00 EDT, Dry Weight Start Date: 12/27/22 Status: Ordered atorvastatin 80 mg oral tablet 1 tablet, By Mouth, Daily, # 90 tablet, 1 Refills, Maintenance, 12/27/22 10:10:00 EDT, [facility]/pharmacy#0693, 167, cm, 12/23/22 9:51:00 EDT, Height, [...] tablet, 11 Refills, Maintenance, 07/23/22 10:48:00 EDT, [facility]/pharmacy #0693, Partial fill upon patient request [...] Refills, Maintenance, 12/21/22 14:36:00 EDT, Tablet, [facility], Partial fill upon patient request if the [...] Team Personnel Name: Claire Serra RN Position: [facility] RN Member Role: Primary Care Nurse Name: Elana Warren RN Position: S RN Member Role: Primary Care Nurse Name: Hill Foley MD Position: S Physician - Primary Care Member Role: PCP Address: Address: [address] [place] [address]- Name: Christy Peacock RN Position: [facility] RN Member Role: Primary Care Nurse Name: Katy Romo RN Position: [facility] RN Member Role: Primary Care Nurse Name: Neha Bey RN Position: [facility] SN RN Member Role: Primary Care Nurse Name: Zayra Arevalo RN Position: [facility] RN Member Role: Primary Care Nurse Name: Margarita Olson RN Position: [facility] RN Member Role: Primary Care Nurse Name: Thelma Sifuentes RN Position: [facility] RN Member Role: Primary Care Nurse Name: Kandi Cabrera Position: [facility] Bowling Alley Operator Member Role: Seed Tester Name: Jyoti Caal RN Position: [facility] RN Member Role: Primary Care Nurse Name: Loren Johnson RN Position: [facility] RN Member Role: Primary Care Nurse Name: Zaida Alan RN Position: [facility] RN Member Role: Primary Care Nurse Name: Carol Brar RN Position: [facility] Onco RN Member Role: Primary Care Nurse Name: Charlotte Thompson RN Position: [facility] Kennel Technician Member Role: Primary Care Nurse Care Team Related Persons Name: LOUIE PACHECO Address: [address] [address] Name: LOGAN JANE Name: PRAVIN RYAN Address: [place] [address]
--- OUTSIDE RECORDS SUMMARY | 2023-06-17 12:50 | XMS_ITS | Continuity of Care Document ---
Author Name Unknown Organization [facility] Address [address] [place] [address]- Care Team Providers Care Rescue Worker Name Role Phone Adrianna WEBB, Natanael Yoo Primary Care Physician [facility]): 05/02/20 - 06/01/20 [facility] Adult [address] [place] [address]- [facility] Allergies, Adverse Reactions, Alerts Substance Reaction [...] 8 09/26/16 Recorded 1Result Comment: [08/10/2018] [facility] [address] [id number] 2Result Comment: [08/10/2018] big y[08/10/2018 Uncharted] pt states she has not had the flu vaccine this year as previously stated 3Result Comment: enterred in error 4Result Comment: [07/25/2017] [id number] 5Result Comment: [02/13/2018] [facility] 0005 1971 01 6Result Comment: [07/25/2017] [id number] 7Admin Note: [id number] 8Result Comment: [07/25/2017] historical Medications amLODIPine 10 mg oral tablet 1 tablet, By Mouth, Daily, # 90 tablet, 11 Refills, Maintenance, 12/05/19 16:46:00 EDT, [facility], 164, cm, 11/27/19 13:41:00 EST, Height, 74.5, kg, 01/03/19 18:01:00 EDT, Dry Weight Start Date: 12/05/19 Status: Ordered atenolol-chlorthalidone 100 mg-25 mg oral tablet 1 tablet, By Mouth, Daily, # 90 tablet, 11 Refills, Maintenance, 12/05/19 16:47:00 EDT, [facility], 90, TAKE 1 TABLET BY MOUTH EVERY [...]
--- OUTSIDE RECORDS SUMMARY | 2023-06-17 12:50 | XMS_ITS | Continuity of Care Document ---
Author Name Unknown Organization [facility] Address [address] [place] [address]- Care Team Providers Care Ring Sorter Name Role Phone Natanael Rodas MD Primary Care Physician [phone] [facility]s): 05/14/21 - 06/13/21 [facility] Adult [address] [place] [address]- Allergies, Adverse Reactions, Alerts Substance Reaction Severity [...] Comment: influenza [facility] 2Result Comment: [08/10/2018] [facility] [id number] 3Result Comment: [08/10/2018] big y[08/10/2018 Uncharted] pt states she has not had the flu vaccine this year as previously stated 4Result Comment: enterred in error 5Result Comment: [07/25/2017] [id number] 6Result Comment: [02/13/2018] [facility] 0005 1971 01 7Result Comment: [07/25/2017] [id number] 8Admin Note: [id number] 9Result Comment: [07/25/2017] historical Medications amLODIPine 10 mg oral tablet 1 tablet, By Mouth, Daily, # 90 tablet, 11 Refills, Maintenance, 12/05/19 16:46:00 EDT, [facility], 164, cm, 11/27/19 13:41:00 EST, Height, 74.5, kg, 01/03/19 18:01:00 EDT, Dry Weight Start Date: 12/05/19 Status: Ordered atenolol-chlorthalidone 100 mg-25 mg oral tablet 1 tablet, By Mouth, Daily, # 90 tablet, 11 Refills, Maintenance, 12/05/19 16:47:00 EDT, [facility], 90, TAKE 1 TABLET BY MOUTH EVERY DAY, 164, cm, 11/27/19 13:41:00 EST, Height, 74.5, kg, 01/03/19 18:01:00 EDT, Dry Weight Start Date: 12/05/19 Status: Ordered atorvastatin 40 mg oral tablet 1 tablet = 40 mg, By Mouth, Daily, # 90 tablet, 1 Refills, Maintenance, 12/05/19 14:01:00 EDT, [facility]/pharmacy #0693, 164, cm, 11/27/19 13:41:00 EST, Height, 74.5, kg, 01/03/19 18:01:00 EDT, Dry Weight Start Date: 12/05/19 Status: Ordered Colace sodium 100 mg oral capsule 100 mg, 1, capsule, By Mouth, 2 times a day, PRN, with plenty of water, # 20 capsule, Refills 1, Tot. Refills 1, Maintenance, for constipation, 06/13/20 8:34:00 EDT, Route to Pharmacy Electronically,[facility], 168, cm, 06/13/20 5:15:00... Start Date: 06/13/20 Status: Ordered Finacea 15% topical gel 1 application, Topically, 2 times a day, # 30 Gm, 0 Refills, Maintenance, 03/25/17 16:55:18, Gel Start Date: 03/25/17 Status: Ordered sertraline 100 mg oral tablet 2 tablet = 200 mg, By Mouth, Daily, # 180 tablet, 0 Refills, Maintenance, 05/27/20 16:27:00 EDT, [facility]/pharmacy #0693, D/C rx on file for 100mg 1 tab daily, 164, cm, 05/24/20 8:51:00 EDT, Height, 74.5,kg, 01/03/19 18:01:00 EDT, Dry Weight Start Date: 05/27/20 Status: Ordered spironolactone 25 mg oral tablet 25 mg, 1, tablet, By Mouth, Daily, # 90 tablet, Refills 3, Tot. Refills 3, Maintenance, 11/08/19 10:43:00 EST, Route to Pharmacy Electronically, [facility]/pharmacy #[id number], 164, cm, 11/08/19 9:45:00 EST, [...] MESH VENTRALIGHT ECHO CIR 6 - BARD ([id number]) 1 Bard Unknown BÁRBARA:No Information Assigning Authority: FDA MESH VENTRALIGHT ECHO20.3X25 .4 - BARD ([id number]) 1 Bard Unknown BÁRBARA:No Information Assigning Authority: FDA
--- OUTSIDE RECORDS SUMMARY | 2023-06-17 12:50 | XMS_ITS | Continuity of Care Document ---
Author Name Unknown Organization [facility] Address [address] [place] [address]- Care Team Providers Care Adoption Agent Name Role Phone Alaina WEBB, Hill Jones Primary Care Physician [phone] [facility] 10[facility] - 11/21/21 [facility] Adult [address] [place] [address]- Attending Physician: Brady Ruelas Admitting Physician: AdmBrady [...] 1Result Comment: [08/10/2018] [facility] [id number] 2Result Comment: [08/10/2018] big y[08/10/2018 Uncharted] pt states she has not had the flu vaccine this year as previously stated 3Result Comment: enterred in error 4Result Comment: [07/25/2017] [id number] 5Result Comment: influenza [facility] 6Result Comment: [02/13/2018] [facility] 0005 1971 01 7Result Comment: [07/25/2017] [id number] 8Admin Note: [id number] 9Result Comment: [07/25/2017] historical Medications amLODIPine 10 mg oral tablet 1 tablet, By Mouth, Daily, # 90 tablet, 11 Refills, [facility], 168, cm, 08/07/21 12:51:00 EST, Height, 83.8, kg, 06/17/21 13:41:00 EDT, Dry Weight Start Date: 08/13/21 Status: Ordered atenolol-chlorthalidone 100 mg-25 mg oral tablet 1 tablet, By Mouth, Daily, # 90 tablet, 11 Refills, [facility], 90, TAKE 1 TABLET BY MOUTH EVERY DAY, 168, cm, 08/07/21 12:51:00 EST, Height, 83.8, kg, 06/17/21 13:41:00 EDT, Dry Weight Start Date: 08/13/21 Status: Ordered atorvastatin 40 mg oral tablet 1 tablet, By Mouth, Daily, # 90 tablet, 1 Refills, [facility], 168, cm, 08/07/21 12:51:00 EST,Height, 83.8, kg, [...] MESH VENTRALIGHT ECHO CIR 6 - BARD ([id number]) 1 Bard Unknown BÁRBARA:No Information Assigning Authority: FDA MESH VENTRALIGHT ECHO20.3X25 .4 - BARD ([id number]) 1 Bard Unknown BÁRBARA:No Information Assigning Authority: FDA
--- OUTSIDE RECORDS SUMMARY | 2023-06-17 12:50 | XMS_ITS | Continuity of Care Document ---
Author Name Unknown Organization [facility] Address [address] [place] [address]- Care Team Providers Care Outside Sales Professional Name Role Phone Natanael Rodas MD Primary Care Physician Encounter [facility] Date(s): 11/28/20 - 12/05/20 [facility] Adult [address] [place] [address]- Encounter Diagnosis AAA - Abdominal aortic aneurysm - 4.1 cm, next CTA due 05/2021(Discharge Diagnosis) - 11/28/20 Right hip pain(Discharge Diagnosis) - 11/28/20 Hammer toes of both feet(Discharge Diagnosis) - 11/28/20 Attending Physician: Natanael Rodas MD Allergies, Adverse [...] 1Result Comment: influenza [facility] 2Result Comment: [08/10/2018] [facility] [address]11 [id number] 3Result Comment: [08/10/2018] big y[08/10/2018 Uncharted] pt states she has not had the flu vaccine this year as previously stated 4Result Comment: enterred in error 5Result Comment: [07/25/2017] [id number] 6Result Comment: [02/13/2018] [facility] 0005 1971 01 7Result Comment: [07/25/2017] [id number] 8Admin Note: [id number] 9Result Comment: [07/25/2017] historical Medications amLODIPine 10 mg oral tablet 1 tablet, By Mouth, Daily, # 90 tablet, 11 Refills, Maintenance, 12/05/19 16:46:00 EDT, [facility], 164, cm, 11/27/19 13:41:00 EST, Height, 74.5, kg, 01/03/19 18:01:00 EDT, Dry Weight Start Date: 12/05/19 Status: Ordered atenolol-chlorthalidone 100 mg-25 mg oral tablet 1 tablet, By Mouth, Daily, # 90 tablet, 11 Refills, Maintenance, 12/05/19 16:47:00 EDT, [facility], 90, TAKE 1 TABLET BY MOUTH EVERY DAY, 164, cm, 11/27/19 13:41:00 EST, Height, 74.5, kg, 01/03/19 18:01:00 EDT, Dry Weight Start Date: 12/05/19 Status: Ordered atorvastatin 40 mg oral tablet 1 tablet = 40 mg, By Mouth, Daily, # 90 tablet, 1 Refills, Maintenance, 12/05/19 14:01:00 EDT, [facility]/pharmacy #0693, 164, cm, 11/27/19 13:41:00 EST, Height, 74.5, kg, 01/03/19 18:01:00 EDT, Dry Weight Start Date: 12/05/19 Status: Ordered Colace sodium 100 mg oral capsule 100 mg, 1, capsule, By Mouth, 2 times a day, PRN, with plenty of water, # 20 capsule, Refills 1, Tot. Refills 1, Maintenance, for constipation, 06/13/20 8:34:00 EDT, Route to Pharmacy Electronically,[facility], 168, cm, 06/13/20 5:15:00... Start Date: 06/13/20 Status: Ordered Finacea 15% topical gel 1 application, Topically, 2 times a day, # 30 Gm, 0 Refills, Maintenance, 03/25/17 16:55:18, Gel Start Date: 03/25/17 Status: Ordered sertraline 100 mg oral tablet 2 tablet = 200 mg, By Mouth, Daily, # 180 tablet, 0 Refills, Maintenance, 05/27/20 16:27:00 EDT, [facility]/pharmacy #0693, D/C rx on file for 100mg 1 tab daily, 164, cm, 05/24/20 8:51:00 EDT, Height, 74.5,kg, 01/03/19 18:01:00 EDT, Dry Weight Start Date: 05/27/20 Status: Ordered spironolactone 25 mg oral tablet 25 mg, 1, tablet, By Mouth, Daily, # 90 tablet, Refills 3, Tot. Refills 3, Maintenance, 11/08/19 10:43:00 EST, Route to Pharmacy Electronically, [facility]/pharmacy #[id number], 164, cm, 11/08/19 [...] Dates Health Status Cl inical Service Informant AAA - Abdominal aortic aneurysm - 4.1 cm, next CTA due 05/2021 Discharge Diagnosis 11/28/20 Right hip pain Discharge Diagnosis 11/28/20 Hammer toes of both feet Discharge Diagnosis 11/28/20 Vital Signs Most recent to oldest [Reference Range]: 1 Height 167 cm (11/28/20 10:27 AM) Weight 84.0 kg (11/28/20 10:27 AM) Body Mass Index [18.5-24.99] 30.12 *>HHI* (11/28/20 10:27 AM) Social History Social History Type Response Smoking Status Former smoker entered on: 05/30/18 Sex Medical Equipment Implanted Date:06/11/20Target Site:Abdomen Description Quantity MRI Company Model MESH VENTRALIGHT ECHO CIR 6 - BARD ([id number]) 1 Bard Unknown BÁRBARA:No Information Assigning Authority: FDA MESH VENTRALIGHT ECHO20.3X25 .4 - BARD ([id number]) 1 Bard Unknown BÁRBARA:No Information Assigning Authority: FDA
--- OUTSIDE RECORDS SUMMARY | 2023-06-17 12:50 | XMS_ITS | Continuity of Care Document ---
Author Name Unknown Organization [facility] Seymour Milind Address [address] [place] [address]- Care Team Providers Care Pellet Machine Operator Name Role Phone Natanael Rodas MD Primary Care Physician [phone] [facility] Date[facility] 06/10/21 - 07/10/21 [facility] Adult [address] [place] [address]- Allergies, Adverse Reactions, Alerts Substance Reaction Severity [...] vaccine 9 09/26/16 Recorded 1Result Comment: [08/10/2018] [facility] 52024 [id number] 2Result Comment: [08/10/2018] big y[08/10/2018 Uncharted] pt states she has not had the flu vaccine this year as previously stated 3Result Comment: enterred in error 4Result Comment: [07/25/2017] [id number] 5Result Comment: influenza [facility] 6Result Comment: [02/13/2018] [facility] 0005 1971 01 7Result Comment: [07/25/2017] [id number] 8Admin Note: [id number] 9Result Comment: [07/25/2017] historical Medications amLODIPine 10 mg oral tablet 1 tablet, By Mouth, Daily, # 90 tablet, 11 Refills, Maintenance, 12/05/19 16:46:00 EDT, [facility], 164, cm, 11/27/19 13:41:00 EST, Height, 74.5, kg, 01/03/19 18:01:00 EDT, Dry Weight Start Date: 12/05/19 Status: Ordered atenolol-chlorthalidone 100 mg-25 mg oral tablet 1 tablet, By Mouth, Daily, # 90 tablet, 11 Refills, Maintenance, 12/05/19 16:47:00 EDT, [facility], 90, TAKE 1 TABLET BY MOUTH EVERY DAY, 164, cm, 11/27/19 13:41:00 EST, Height, 74.5, kg, 01/03/19 18:01:00 EDT, Dry Weight Start Date: 12/05/19 Status: Ordered atorvastatin 40 mg oral tablet 1 tablet = 40 mg, By Mouth, Daily, # 90 tablet, 1 Refills, Maintenance, 12/05/19 14:01:00 EDT, [facility]/pharmacy #0693, 164, cm, 11/27/19 13:41:00 EST, Height, 74.5, kg, 01/03/19 18:01:00 EDT, Dry Weight Start Date: 12/05/19 Status: Ordered Colace sodium 100 mg oral capsule 100 mg, 1, capsule, By Mouth, 2 times a day, PRN, with plenty of water, # 20 capsule, Refills 1, Tot. Refills 1, Maintenance, for constipation, 06/13/20 8:34:00 EDT, Route to Pharmacy Electronically,[facility], 168, cm, 06/13/20 5:15:00... Start Date: 06/13/20 Status: Ordered Finacea 15% topical gel 1 application, Topically, 2 times a day, # 30 Gm, 0 Refills, Maintenance, 03/25/17 16:55:18, Gel Start Date: 03/25/17 Status: Ordered sertraline 100 mg oral tablet 2 tablet = 200 mg, By Mouth, Daily, # 180 tablet, 0 Refills, Maintenance, 05/27/20 16:27:00 EDT, [facility]/pharmacy #0693, D/C rx on file [...] MESH VENTRALIGHT ECHO CIR 6 - BARD ([id number]) 1 Bard Unknown BÁRBARA:No Information Assigning Authority: FDA MESH VENTRALIGHT ECHO20.3X25 .4 - BARD ([id number]) 1 Bard Unknown BÁRBARA:No Information Assigning Authority: FDA
--- OUTSIDE RECORDS SUMMARY | 2023-06-17 12:50 | XMS_ITS | Continuity of Care Document ---
Author Name Unknown Organization [facility] Luis Carlos Milind Address [address] [place] [address]- Care Team Providers Care Filter Bed Placer Name Role Phone Alaina WEBB, Hill Jones Primary Care Physician Encounter [facility] Date(s): 09/13/22 - 09/20/22 [facility] Adult [address] [place] [address]- Encounter Diagnosis Benign hypertension(Discharge Diagnosis) - 09/13/22 Post-COVID syndrome(Discharge Diagnosis) - 09/13/22 Attending Physician: Goldie Ng Allergies, Adverse Reactions, Alerts No Known Allergies [...] vaccine 9 09/26/16 Recorded 1Result Comment: [08/10/2018] [facility] [id number] 2Result Comment: [08/10/2018] big y[08/10/2018 Uncharted] pt states she has not had the flu vaccine this year as previously stated 3Result Comment: enterred in error 4Result Comment: [07/25/2017] [id number] 5Result Comment: influenza [facility] 6Result Comment: [02/13/2018] [facility] 0005 1971 01 7Result Comment: [07/25/2017] [id number] 8Admin Note: [id number] 9Result Comment: [07/25/2017] historical Medications atenolol-chlorthalidone 100 [...] Clinical Service Informant Benign hypertension Discharge Diagnosis 09/13/22 Post-COVID syndrome Discharge Diagnosis 09/13/22 Vital Signs Most recent to oldest [Reference Range]: 1 Height 167 cm (09/13/22 1:10 PM) Weight 79.2 kg (09/13/22 1:10 PM) Oxygen Saturation [94-100 %] 97 % (09/13/22 1:10 PM) Pulse Rate [55-90 bpm] 69 bpm (09/13/22 1:10 PM) Body Mass Index [18.5-24.99 kg/m2] 28.4 kg/m2 *H* (09/13/22 1:10 PM) Blood Pressure [90-138/55-84 mm Hg] 146/ 81mm Hg *H* (09/13/22 1:10 PM) Temperature [96.8-100.4 DegF] 97.2 DegF (09/13/22 1:10 PM) Mode of Delivery (Oxygen) Room air (09/13/22 1:10 PM) Blood pressure sites Arm, left (09/13/22 1:10 PM) Temperature Route Temporal (09/13/22 1:10 PM) Weight Obtained Via Standing scale (09/13/22 1:10 PM) Social History Social History Type Response [...] Unknown Unknown 11/23/20 Unknown Unknown Active Unk davidn Procedure Provider Procedure Date Device Type Site Repair Hernia Ventral Laparoscopic Ian Ray MD 06/11/20 Unknown Abdomen Device Identifier Serial Number Lot or Batch Number Manufacturing Date Expiration Date Distinct Identification Code MRI Safety Implantable Status Assigning Authority Unknown Unknown Unknown Unknown 07/23/21 Unknown Unknown Active Un known Note * Bela David: PERFORM, SIGN, VERIFY Event Display: Patient Education/Instruction Authored Date: [id number] [facility] *BMP So Luis Carlos uDpree Clinical Summary Name AVERY FAROOQ Age 76 Years 1945 PCP Alaina WEBB, Hill Jones PCP Visit Date 09/13/2022 13:05:00 Additional Instructions: Scheduled Appointments?? Future Appointments ?[facility] ?[address],??[address]??[place],??[place],??[address] ?Phone:??[phone]?Fax:??-- ?Appt. Date:??09/22/2022?10:00 AM ?Scheduled Provider:??[facility] ?*[place] ?[address]??[place],??[address] ?Phone:??--?Fax:??-- ?Appt. Date:??11/26/2022?11:20 AM ?Scheduled Provider:??Gabo WEBB, Nai Wang Follow-Up Instructions ?? Diagnosis Cough, unspecified Medications: Please continue your medications until treatment is completed or stopped by your provider. Discuss any questions related to medications with your provider. [facility]ations [id number] [address] [place] [phone], [phone] Benzonatate (Tessalon Perles 100 mg oral capsule) 1 capsule Oral 3 times a day for 7 Days. Refills:0. Next Dose: Medications to Continue with No Changes These medications were not printed or sent to your pharmacy Atenolol-Chlorthalidone (atenolol-chlorthalidone 100 mg-25 mg oral tablet) 1 tab(s) Oral Daily. Refills: 11. Next Dose: Atorvastatin (atorvastatin 80 mg oral tablet) 1 tab(s) Oral Daily. DOSAGE INCREASE. Refills: 1. Next Dose: Azelaic Acid Topical (Finacea 15% topical gel) 1 trinh Topically twice a day. Next Dose: Cyanocobalamin (cyanocobalamin 1000 mcg/ml injectable solution) 1,000 mcg Intramuscular Vitamin B12 1000mcg q1week x 1 month and then monthly x 6 months. Refills: 0. Next Dose: Cyanocobalamin (Eligen B12 1000 mcg oral tablet) 1 tab(s) Oral Daily. Refills: 11. Next Dose: Durable Medical Equipment (Cane) Unsteady gait. Refills: 0. Next Dose: Durable Medical Equipment (Cane) Use daaily Dx: Unsteady gait.. Refills: 0. Next Dose: Multivitamin With Minerals (Centrum Silver Ultra Women's oral tablet) Oral Daily. Next Dose: Sertraline (sertraline 100 mg oral tablet) 2 tab(s) Oral Daily. Refills: 3. Next Dose: Spironolactone (spironolactone 50 mg oral tablet) 1 tab(s) Oral Daily. Refills: 3. Next Dose: Allergy Info:?? NKA Medications Given This Visit Future Orders ?Chest 2 Views Frontal and Lat? Order Date:09/13/22?- Complete on or after?09/13/22 Vital Signs Height 167 cm Weight 79.2 kg BMI 28.4 kg/m2 Blood Pressure 146 mm Hg/81 mm Hg Temperature 97.2 DegF Pulse Rate 69 bpm Respiratory Rate 02 Sat Mode of Delivery 97 %/Room air You can now view a summary of your hospital visit from the comfort of your home through a free online portal called [employer]. [employer] is a website that allows you to securely view your medical information including discharge summary, medications and follow-up visits. ??You can alsosend a secure electronic message to your doctor???s office to request appointments, renew medications or just ask a question. You can enroll at [email or web address] or register during your next office visit. Disclaimer:?? The information provided is of a general nature and is intended to be used in conjunction with the recommendations and advice of your health care practitioner. ??Every effort has been made to ensure that the information provided is accurate and complete at the time it is provided to you however, as your needs change, or, as new ??information becomes available, different or additional instructions may be required. If you have questions, please consult with your primary care provider or pharmacist, as appropriate. ??This information is not intended to serve as substitution for assessment and evaluation by a qualified health care provider. If you do not have a primary care provider, you may find a [facility] provider by calling [facility] Link at [phone]. For information about the plan of care including goals and instructions for your diagnosis, please see the patient education orders section of this document. Patient Education Materials?? The content of this educational material or handout may have been modified, supplemented, or adapted from its original content and format to support your individualized medical care. Patient Care team information Care Team Personnel Name: Claire Serra RN Position: [facility] RN Member Role: Primary Care Nurse Name: Hill Foley MD Position: [facility] Primary Care Physician Member Role: PCP Address: Address: [address] [place] [address]- Name: Katy Romo RN Position: [facility] RN Member Role: Primary Care Nurse Name: Neha Bey RN Position: [facility] SN RN Member Role: Primary Care Nurse Name: Margarita Olson RN Position: [facility] RN Member Role: Primary Care Nurse Name: Thelma Sifuentes RN Position: [facility] RN Member Role: Primary Care Nurse Name: Loren Johnson RN Position: [facility] RN Member Role: Primary Care Nurse Name: Zaida Alan RN Position: [facility] RN Member Role: Primary Care Nurse Name: Carol Brar RN Position: [facility] Onco RN Member Role: Primary Care Nurse Name: Charlotte Thompson RN Position: [facility] Hospital Hedis Abstractor Member Role: Primary Care Nurse Care Team Related Persons Name: LOUIE PACHECO Address: home [address] [place] [address] Name: LOGAN JANE Name: PRAVIN RYAN Address: [place] [address]
--- OUTSIDE RECORDS SUMMARY | 2023-06-17 12:50 | XMS_ITS | Continuity of Care Document ---
Author Name Unknown Organization [facility] Milind lt Address [address] [place] [address]- Care Team Providers Care Outreach Professional Name Role Phone Adrianna WEBB, Natanael Yoo Primary Care Physician [facility] Date[facility]s): [facility]20 - 07/19/20 [facility] Adult [address] [place] [address]- [facility] Attending Physician: Brady Ruelas Admitting Physician: Brady [...] [08/10/2018] [facility] [id number] 2Result Comment: [08/10/2018] big y[08/10/2018 Uncharted] pt states she has not had the flu vaccine this year as previously stated 3Result Comment: enterred in error 4Result Comment: [07/25/2017] [id number] 5Result Comment: [02/13/2018] [facility] 0005 1971 01 6Result Comment: [07/25/2017] [id number] 7Admin Note: [id number] 8Result Comment: [07/25/2017] historical Medications amLODIPine 10 mg oral tablet 1 tablet, By Mouth, Daily, # 90 tablet, 11 Refills, Maintenance, 12/05/19 16:46:00 EDT, [facility], 164, cm, 11/27/19 13:41:00 EST, Height, 74.5, kg, 01/03/19 18:01:00 EDT, Dry Weight Start Date: 12/05/19 Status: Ordered atenolol-chlorthalidone 100 mg-25 mg oral tablet 1 tablet, By Mouth, Daily, # 90 tablet, 11 Refills, Maintenance, 12/05/19 16:47:00 EDT, [facility], 90, TAKE 1 TABLET BY MOUTH EVERY DAY, 164, cm, 11/27/19 13:41:00 EST, Height, 74.5, kg, 01/03/19 18:01:00 EDT, Dry Weight Start Date: 12/05/19 Status: Ordered atorvastatin 40 mg oral tablet 1 tablet = 40 mg, By Mouth, Daily, # 90 tablet, 1 Refills, Maintenance, 12/05/19 14:01:00 EDT, [facility]/pharmacy #[id number], 164, cm, 11/27/19 13:41:00 EST, Height, 74.5, kg, 01/03/19 18:01:00 EDT, Dry Weight Start Date: 12/05/19 Status: Ordered Colace sodium 100 mg oral capsule 100 mg, 1, capsule, By Mouth, 2 times a day, PRN, with plenty of water, # 20 capsule, Refills 1, Tot. Refills 1, Maintenance, for constipation, 06/13/20 8:34:00 EDT, Route to Pharmacy Electronically,[facility], 168, cm, 06/13/20 5:15:00... Start Date: [...] 06/17/20 13:06:00 EDT, Route to Pharmacy Electronically, [facility], 167, cm, 202:46:00 EDT, [...] tablet, 0 Refills, Maintenance, 05/27/20 16:27:00 EDT, [facility]/pharmacy #[id number], D/C rx on file for 100mg 1 tab daily, 164, cm, 05/24/20 8:51:00 EDT, Height, 74.5,kg, 01/03/19 18:01:00 EDT, Dry Weight Start Date: 05/27/20 Status: Ordered spironolactone 25 mg oral tablet 25 mg, 1, tablet, By Mouth, Daily, # 90 tablet, Refills 3, Tot. Refills 3, Maintenance, 11/08/19 10:43:00 EST, Route to Pharmacy Electronically, [facility]/pharmacy #[id number], 164, cm, 11/08/19 9:45:00 [...] MESH VENTRALIGHT ECHO CIR 6 - BARD ([id number]) 1 Bard Unknown BÁRBARA:No Information Assigning Authority: FDA MESH VENTRALIGHT ECHO20.3X25 .4 - BARD ([id number]) 1 Bard Unknown BÁRBARA:No Information Assigning Authority: FDA
--- OUTSIDE RECORDS SUMMARY | 2023-06-17 12:50 | XMS_ITS | Continuity of Care Document ---
Author Name Unknown Organization [facility] Luis Carlos Milind lt Address [address] [place] [address]- Care Team Providers Care Molding Room Supervisor Name Role Phone Alaina WEBB, Hill Jones Primary Care Physician [facility]s): 10/01/22 - 10/31/22 [facility] Luis Carlos Adult [address] [place] [address]- Allergies, Adverse Reactions, Alerts No Known Allergies [...] 1Result Comment: [08/10/2018] [facility] [id number] 2Result Comment: [08/10/2018] big y[08/10/2018 Uncharted] pt states she has not had the flu vaccine this year as previously stated 3Result Comment: enterred in error 4Result Comment: [07/25/2017] [id number] 5Result Comment: influenza [facility] 6Result Comment: [02/13/2018] [facility] 0005 1971 01 7Result Comment: [07/25/2017] [id number] 8Admin Note: [id number] 9Result Comment: [07/25/2017] historical Medications atenolol-chlorthalidone 100 mg-25 mg oral tablet 1 tablet, By Mouth, Daily, # 90 tablet, 11 Refills, 12/01/21 12:21:00 EST, [facility]/pharmacy #0693, 90, 1 tablet By Mouth Daily, 168, cm, 12/01/21 11:53:00 EST, Height, 83.8, kg, 06/17/21 13:41:00 EDT, Dry Weight Start Date: 12/01/21 Status: Ordered atorvastatin 80 mg oral tablet 1 tablet = 80 mg, By Mouth, Daily, DOSAGE INCREASE, # 90 tablet, 1 Refills, Maintenance, 12/10/21 11:32:00 EDT, Tablet, [facility]/pharmacy #0693, Partial fill upon patient request if [...] Name: Claire Serra RN Position: [facility] RN Member Role: Primary Care Nurse Name: Hill Foley MD Position: [facility] Primary Care Physician Member Role: PCP Address: Address: [address] [place] [address]- Name: Katy Romo RN Position: [facility] RN Member Role: Primary Care Nurse Name: Neha Bey RN Position: [facility] SN RN Member Role: Primary Care Nurse Name: Margarita Olson RN Position: [facility] RN Member Role: Primary Care Nurse Name: Thelma Sifuentes RN Position: [facility] RN Member Role: Primary Care Nurse Name: Loren Johnson RN Position: [facility] RN Member Role: Primary Care Nurse Name: Zaida Alan RN Position: [facility] RN Member Role: Primary Care Nurse Name: Carol Brar RN Position: [facility] Onco RN Member Role: Primary Care Nurse Name: Charlotte Thompson RN Position: [facility] Hospital Employee Communications Specialist Member Role: Primary Care Nurse Care Team Related Persons Name: LOUIE PACHECO Address: home [address] [place] [address] Name: LOGAN JANE Name: PRAVIN RYAN Address: [place] [address]
--- OUTSIDE RECORDS SUMMARY | 2023-06-17 12:50 | XMS_ITS | Continuity of Care Document ---
Author Name Unknown Organization [facility] Milind Address [address] [place] [address]- Care Team Providers Care Bank President Name Role Phone Natanael Rodas MD Primary Care Physician [facility] Date(s): 07/22/21 - 08/21/21 [facility] Adult [address] [place] [address]- Allergies, Adverse Reactions, Alerts Substance Reaction Severity [...] Recorded 1Result Comment: [08/10/2018] [facility] [id number] 403 [id number] 2Result Comment: [08/10/2018] big y[08/10/2018 Uncharted] pt states she has not had the flu vaccine this year as previously stated 3Result Comment: enterred in error 4Result Comment: [07/25/2017] [id number] 5Result Comment: influenza [facility] 6Result Comment: [02/13/2018] [facility] 0005 1971 01 7Result Comment: [07/25/2017] [id number] 8Admin Note: [id number] 9Result Comment: [07/25/2017] historical Medications amLODIPine 10 mg oral tablet 1 tablet, By Mouth, Daily, # 90 tablet, 11 Refills, [facility], 168, cm, 08/07/21 12:51:00 EST, Height, 83.8, kg, 06/17/21 13:41:00 EDT, Dry Weight Start Date: 08/13/21 Status: Ordered atenolol-chlorthalidone 100 mg-25 mg oral tablet 1 tablet, By Mouth, Daily, # 90 tablet, 11 Refills, [facility], 90, TAKE 1 TABLET BY MOUTH EVERY DAY, 168, cm, 08/07/21 12:51:00 EST, Height, 83.8, kg, 06/17/21 13:41:00 EDT, Dry Weight Start Date: 08/13/21 Status: Ordered atorvastatin 40 mg oral tablet 1 tablet, By Mouth, Daily, # 90 tablet, 1 Refills, [facility], 168, cm, 08/07/21 12:51:00 EST,Height, 83.8, kg, 06/17/21 13:41:00 EDT, Dry Weight Start Date: 08/13/21 Status: Ordered Finacea 15% topical gel 1 application, Topically, 2 times a day, # 30 Gm, 0 Refills, Maintenance, 03/25/17 16:55:18, Gel Start Date: 03/25/17 Status: Ordered sertraline 100 mg oral tablet 2 tablet, By Mouth, Daily, # 180 tablet, 0 Refills, [facility], 168, cm, 08/07/21 12:51:00 EST, Height, 83.8, kg, 06/17/21 13:41:00 EDT, Dry Weight Start Date: 08/13/21 Status: Ordered spironolactone 50 mg oral tablet 1 tablet = 50 mg, By Mouth, Daily, # 90 tablet, 3 Refills, Maintenance, 08/07/21 13:07:00 EST, Tablet, [facility]/pharmacy #[id number], Partial fill upon patient request [...] MESH VENTRALIGHT ECHO CIR 6 - BARD ([id number]) 1 Bard Unknown BÁRBARA:No Information Assigning Authority: FDA MESH VENTRALIGHT ECHO20.3X25 .4 - BARD ([id number]) 1 Bard Unknown BÁRBARA:No Information Assigning Authority: FDA
--- OUTSIDE RECORDS SUMMARY | 2023-06-17 12:50 | XMS_ITS | Continuity of Care Document ---
Author Name Unknown Organization [facility] Address [address] [place] [address]- Care Team Providers Care Civil Engineering Design Draftsperson Name Role Phone Alaina WEBB, Hill Jones Primary Care Physician Encounter [facility] Date(s): 04/07/23 - 05/07/23 [facility] [address] [place] [address]- Attending Physician: Brady Ruelas Admitting Physician: Brady [...] 07/25/17 Given zoster vaccine, inactivated 09/06/22 Recorded [id number] 12y+ bivalent booster vax 09/06/22 Recorded SARS-CoV-2 mRNA ([id number]) vax 03/24/22 Recorded SARS-CoV-2 (COVID-19) mRNA BNT-162b2 vac 07/01/21 Recorded SARS-CoV-2 (COVID-19) mRNA BNT-162b2 vac 11/26/20 Given SARS-CoV-2 (COVID-19) mRNA BNT-162b2 vac 11/05/20 Given Influenza Virus Vaccine (oldterm) 6 06/09/20 Recor ded Influenza Virus Vaccine (oldterm) 07/10/19 Recorde d Influenza Virus Vaccine (oldterm) 09/26/18 Recorde d pneumococcal 13-valent vaccine 7 02/13/18 Given tetanus/diphtheria/pertussis, acel(Tdap) 8, 9 07/25/17 Given pneumococcal 23-valent vaccine 10 09/26/16 Mingorosalina peterson 1Result Comment: Flu [facility]#[id number] 2Result Comment: [08/10/2018] [facility] [address]00 403 [id number] 3Result Comment: [08/10/2018] big y[08/10/2018 Uncharted] pt states she has not had the flu vaccine this year as previously stated 4Result Comment: enterred in error 5Result Comment: [07/25/2017] [id number] 6Result Comment: influenza [facility] 7Result Comment: [02/13/2018] [facility] 0005 1971 01 8Result Comment: [07/25/2017] [id number] 9Admin Note: [id number] 10Result Comment: [07/25/2017] historical Medications amLODIPine 10 mg oral tablet 1 tablet, By Mouth, Daily, # 90 tablet, 1 Refills, Maintenance, 12/27/22 15:59:00 EDT, [facility]/pharmacy#0693, 167, cm, 12/23/22 9:51:00 EDT, [...] tablet, 1 Refills, Maintenance, 12/27/22 10:08:00 EDT, [facility] 332[facility], 90, TAKE 1 TABLET BY MOUTH EVERY DAY, 167, cm, 12/23/22 9:51:00 EDT, Height, 83.8, kg, 06/17/2113:41:00 EDT, Dry Weight Start Date: 12/27/22 Status: Ordered atorvastatin 80 mg oral tablet 1 tablet, By Mouth, Daily, # 90 tablet, 1 Refills, Maintenance, 12/27/22 10:10:00 EDT, [facility]/pharmacy#0693, 167, cm, 12/23/22 9:51:00 EDT, [...] Device Type Site Repair Hernia Ventral Laparoscopic Ina Ray MD 06/11/20 Unknown Abdomen Device Identifier [...] Team Personnel Name: Claire Serra RN Position: [facility] RN Member Role: Primary Care Nurse Name: Elana Warren RN Position: [facility] RN Member Role: Primary Care Nurse Name: Hill Foley MD Position: [facility] Physician - Primary Care Member Role: PCP Address: Address: [address] [place] [address]- Name: Christy Peacock RN Position: [facility] RN Member Role: Primary Care Nurse Name: Katy Romo RN Position: [facility] RN Member Role: Primary Care Nurse Name: Neha Bey RN Position: [facility] SN RN Member Role: Primary Care Nurse Name: Zayra Arevalo RN Position: [facility] RN Member Role: Primary Care Nurse Name: Margarita Olson RN Position: [facility] RN Member Role: Primary Care Nurse Name: Thelma Sifuentes RN Position: [facility] RN Member Role: Primary Care Nurse Name: Kandi Cabrera Position: [facility] Migration Specialist Member Role: Grinding Mill Operator Name: Jyoti Caal RN Position: [facility] RN Member Role: Primary Care Nurse Name: Loren Johnson RN Position: [facility] RN Member Role: Primary Care Nurse Name: Zaida Alan RN Position: [facility] RN Member Role: Primary Care Nurse Name: Carol Brar RN Position: [facility] Onco RN Member Role: Primary Care Nurse Name: Charlotte Thompson RN Position: [facility] Investment Director Member Role: Primary Care Nurse Care Team Related Persons Name: LOUIE PACHECO Address: [address] [place] [address] Name: LOGAN JANE Name: PRAVIN RYAN Address: [place] [address]
--- OUTSIDE RECORDS SUMMARY | 2023-06-17 12:50 | XMS_ITS | Continuity of Care Document ---
Author Name Unknown Organization [facility] Milind Address [address] [place] [address]- Care Team Providers Care Sign Language Teacher Name Role Phone Alaina WEBB, Hill Jones Primary Care Physician [facility] Date[facility]s): 12/24/21 - 12/31/21 [facility] Adult [address] [place] [address]- Attending Physician: Dalia CHU, Heydi Fiore Allergies, [...] 1Result Comment: [08/10/2018] [facility] [id number] 2Result Comment: [08/10/2018] big y[08/10/2018 Uncharted] pt states she has not had the flu vaccine this year as previously stated 3Result Comment: enterred in error 4Result Comment: [07/25/2017] [id number] 5Result Comment: influenza [facility] 6Result Comment: [02/13/2018] [facility] 0005 1971 01 7Result Comment: [07/25/2017] [id number] 8Admin Note: [id number] 9Result Comment: [07/25/2017] historical Medications amLODIPine 5 [...] 1 Refills, Maintenance, 12/10/21 11:32:00 EDT, Tablet, [facility]/pharmacy #[id number], Partial fill upon patient [...] oldest [Reference Range]: 1 Height 168 cm (12/24/21 10:49 AM) Weight 81.2 kg (12/24/21 10:49 AM) Oxygen Saturation [94-100 %] 98 % (12/24/21 10:49 AM) Pulse Rate [55-90 bpm] 62 bpm (12/24/21 10:49 AM) Body Mass Index [18.5-24.99] 28.77 *H* (12/24/21 10:49 AM) Blood Pressure [90-138/55-84 mm Hg] 98/5 6mm Hg (12/24/21 10:49 AM) Respiratory Rate [16-30 br/min] 16 br/mi n (12/24/21 10:49 AM) Mode of Delivery (Oxygen) Room air (12/24/21 10:49 AM) Blood pressure sites Arm, right (12/24/21 10:49 AM) Weight Obtained Via Standing scale (12/24/21 10:49 AM) Social History Social History Type Response Smoking Status Former smoker entered on: 05/30/18 Sex Medical Equipment Implanted Date:06/11/20Target Site:Abdomen Description Quantity MRI Company Model MESH VENTRALIGHT ECHO CIR 6 - BARD ([id number]) 1 Bard Unknown BÁRBARA:No Information Assigning Authority: FDA MESH VENTRALIGHT ECHO20.3X25 .4 - BARD ([id number]) 1 Bard Unknown BÁRBARA:No Information Assigning Authority: FDA
--- OUTSIDE RECORDS SUMMARY | 2023-06-17 12:50 | XMS_ITS | Continuity of Care Document ---
Author Name Unknown Organization [facility] Address [address] [place] [address]- Care Team Providers Care Auto Seat Cover Installer Name Role Phone Natanael Rodas MD Primary Care Physician [facility] Date[facility]s): 08/02/19 - 09/12/[address] [address]- [facility] Discharge Disposition: A-D/C Home Attending Physician: Natanael Rodas MD Admitting Physician: [...] vaccine 8 09/26/16 Recorded 1Result Comment: [08/10/2018] [facility] [id number] 2Result Comment: [08/10/2018] big y[08/10/2018 Uncharted] pt states she has not had the flu vaccine this year as previously stated 3Result Comment: enterred in error 4Result Comment: [07/25/2017] [id number] 5Result Comment: [02/13/2018] [facility] 0005 1971 01 6Result Comment: [07/25/2017] [id number] 7Admin Note: [id number] 8Result Comment: [07/25/2017] historical Medications acetaminophen 325 mg oral tablet 650 mg, By Mouth, Every 4 hours, PRN, Refills 0, Maintenance, Pain , Moderate, 05/18/18 9:59:35 EDT Start Date: 05/18/18 Status: Ordered amLODIPine 10 mg oral tablet 10 mg, 1, tablet, By Mouth, Daily, # 90 tablet, Refills 1, Tot. Refills 1, Maintenance, 06/11/19 16:50:00 EDT, Route to Pharmacy Electronically, [id number], [facility]/pharmacy #[id number] Start Date: 06/11/19 Status: Ordered atenolol-chlorthalidone [...]
--- OUTSIDE RECORDS SUMMARY | 2023-06-17 12:50 | XMS_ITS | Continuity of Care Document ---
Author Name Unknown Organization [facility] Address [address] [place] [address]- Care Team Providers Care Clutch Mechanic Name Role Phone Natanael Rodas MD Primary Care Physician [phone] Encounter [facility] Date(s): 09/17/21 - 10/17/21 [facility] [address] [place] [address]- Allergies, Adverse Reactions, Alerts No Known Allergies [...] Recorded 1Result Comment: [08/10/2018] [facility] [id number] 2Result Comment: [08/10/2018] big y[08/10/2018 Uncharted] pt states she has not had the flu vaccine this year as previously stated 3Result Comment: enterred in error 4Result Comment: [07/25/2017] [id number] 5Result Comment: influenza [facility] 6Result Comment: [02/13/2018] [facility] 0005 1971 01 7Result Comment: [07/25/2017] [id number] 8Admin Note: [id number] 9Result Comment: [07/25/2017] historical Medications amLODIPine 10 mg oral tablet 1 tablet, By Mouth, Daily, # 90 tablet, 11 Refills, [facility], 168, cm, 08/07/21 12:51:00 EST, Height, 83.8, kg, 06/17/21 13:41:00 EDT, Dry Weight Start Date: 08/13/21 Status: Ordered atenolol-chlorthalidone 100 mg-25 mg oral tablet 1 tablet, By Mouth, Daily, # 90 tablet, 11 Refills, [facility], 90, TAKE 1 TABLET BY MOUTH EVERY DAY, 168, cm, 08/07/21 12:51:00 EST, Height, 83.8, kg, 06/17/21 13:41:00 EDT, Dry Weight Start Date: 08/13/21 Status: Ordered atorvastatin 40 mg oral tablet 1 tablet, By Mouth, Daily, # 90 tablet, 1 Refills, [facility], 168, cm, 08/07/21 12:51:00 EST,Height, 83.8, kg, [...] MESH VENTRALIGHT ECHO CIR 6 - BARD ([id number]) 1 Bard Unknown BÁRBARA:No Information Assigning Authority: FDA MESH VENTRALIGHT ECHO20.3X25 .4 - BARD ([id number]) 1 Bard Unknown BÁRBARA:No Information Assigning Authority: FDA
--- OUTSIDE RECORDS SUMMARY | 2023-06-17 12:50 | XMS_ITS | Continuity of Care Document ---
Author Name Unknown Organization [facility] Address [address] [place] [address]- Care Team Providers Care Roll Finisher Name Role Phone Adrianna WEBB, Natanael Yoo Primary Care Physician [place] [facility] Date(s): 07/22/21 - 08/21/[address] [address] Attending Physician: Brady Ruelas Admitting Physician: AdmBrady molina Referring Physician: [id number] Allergies, Adverse Reactions, Alerts Substance Reaction Severity [...] [facility] [id number] 2Result Comment: [08/10/2018] big y[08/10/2018 Uncharted] pt states she has not had the flu vaccine this year as previously stated 3Result Comment: enterred in error 4Result Comment: [07/25/2017] [id number] 5Result Comment: influenza [facility] 6Result Comment: [02/13/2018] [facility] 0005 1971 01 7Result Comment: [07/25/2017] [id number] 8Admin Note: [id number] 9Result Comment: [07/25/2017] historical Medications amLODIPine 10 mg oral tablet 1 tablet, By Mouth, Daily, # 90 tablet, 11 Refills, [facility], 168, cm, 08/07/21 12:51:00 EST, Height, 83.8, kg, 06/17/21 13:41:00 EDT, Dry Weight Start Date: 08/13/21 Status: Ordered atenolol-chlorthalidone 100 mg-25 mg oral tablet 1 tablet, By Mouth, Daily, # 90 tablet, 11 Refills, [facility], 90, TAKE 1 TABLET BY MOUTH EVERY DAY, 168, cm, 08/07/21 12:51:00 EST, Height, 83.8, kg, 06/17/21 13:41:00 EDT, Dry Weight Start Date: 08/13/21 Status: Ordered atorvastatin 40 mg oral tablet 1 tablet, By Mouth, Daily, # 90 tablet, 1 Refills, [facility], 168, cm, 08/07/21 12:51:00 EST,Height, 83.8, kg, 06/17/21 13:41:00 EDT, Dry Weight Start Date: 08/13/21 Status: Ordered Finacea 15% topical gel 1 application, Topically, 2 times a day, # 30 Gm, 0 Refills, Maintenance, 03/25/17 16:55:18, Gel Start Date: 03/25/17 Status: Ordered sertraline 100 mg oral tablet 2 tablet, By Mouth, Daily, # 180 tablet, 0 Refills, [facility], 168, cm, 08/07/21 12:51:00 EST, Height, 83.8, kg, 06/17/21 13:41:00 EDT, Dry Weight Start Date: 08/13/21 Status: Ordered spironolactone 50 mg oral tablet 1 tablet = 50 mg, By Mouth, Daily, # 90 tablet, 3 Refills, Maintenance, 08/07/21 13:07:00 EST, Tablet, [facility], Partial fill upon patient request if the [...] MESH VENTRALIGHT ECHO CIR 6 - BARD ([id number]) 1 Bard Unknown BÁRBARA:No Information Assigning Authority: FDA MESH VENTRALIGHT ECHO20.3X25 .4 - BARD ([id number]) 1 Bard Unknown BÁRBARA:No Information Assigning Authority: FDA
--- OUTSIDE RECORDS SUMMARY | 2023-06-17 12:50 | XMS_ITS | Continuity of Care Document ---
Author Name Unknown Organization [facility] Mil[facility] Address [address] [place] [address]- Care Team Providers Care Retort Furnace Operator Name Role Phone Adrianna WEBB, Natanael Yoo Primary Care Physician [phone] [facility]counter [facility] Date(s): 03/27/20 - 04/26/20 [facility] Adult [address] [place] [address]- [facility] Attending Physician: AdmMynor molina8 Admitting Physician: AdmtrBrady Referring Physician: Admtr, Brady Allergies, Adverse Reactions, Alerts Substance Reaction Severity [...] vaccine 8 09/26/16 Recorded 1Result Comment: [08/10/2018] [facility] [address] [phone] [id number] 2Result Comment: [08/10/2018] big y[08/10/2018 Uncharted] pt states she has not had the flu vaccine this year as previously stated 3Result Comment: enterred in error 4Result Comment: [07/25/2017] [id number] 5Result Comment: [02/13/2018] [facility] 0005 1971 01 6Result Comment: [07/25/2017] [id number] 7Admin Note: [id number] 8Result Comment: [07/25/2017] historical Medications acetaminophen 325 mg oral tablet 650 mg, By Mouth, Every 4 hours, PRN, Refills 0, Maintenance, Pain , Moderate, 05/18/18 9:59:35 EDT Start Date: 05/18/18 Status: Ordered amLODIPine 10 mg oral tablet 1 tablet, By Mouth, Daily, # 90 tablet, 11 Refills, Maintenance, 12/05/19 16:46:00 EDT, [facility], 164, cm, 11/27/19 13:41:00 EST, Height, 74.5, kg, 01/03/19 18:01:00 EDT, Dry Weight Start Date: 12/05/19 Status: Ordered atenolol-chlorthalidone 100 mg-25 mg oral tablet 1 tablet, By Mouth, Daily, # 90 tablet, 11 Refills, Maintenance, 12/05/19 16:47:00 EDT, [facility], 90, TAKE 1 TABLET BY MOUTH EVERY [...]
--- OUTSIDE RECORDS SUMMARY | 2023-06-17 12:50 | XMS_ITS | Continuity of Care Document ---
Author Name Unknown Organization [facility] Milind lt Address [address] [place] [address]- Care Team Providers Care Communication Engineer Name Role Phone Natanael Rodas MD Primary Care Physician [phone] Encounter [facility] Date(s): 10/22/20 - 11/30/20 [facility] Adult [address] [place] [address]- Attending Physician: Natanael Rodas MD Allergies, Adverse [...] 1Result Comment: influenza [facility] 2Result Comment: [08/10/2018] [facility] [address] 403 [id number] 3Result Comment: [08/10/2018] big y[08/10/2018 Uncharted] pt states she has not had the flu vaccine this year as previously stated 4Result Comment: enterred in error 5Result Comment: [07/25/2017] [id number] 6Result Comment: [02/13/2018] [facility] 0005 1971 01 7Result Comment: [07/25/2017] [id number] 8Admin Note: [id number] 9Result Comment: [07/25/2017] historical Medications amLODIPine 10 mg oral tablet 1 tablet, By Mouth, Daily, # 90 tablet, 11 Refills, Maintenance, 12/05/19 16:46:00 EDT, [facility], 164, cm, 11/27/19 13:41:00 EST, Height, 74.5, kg, 01/03/19 18:01:00 EDT, Dry Weight Start Date: 12/05/19 Status: Ordered atenolol-chlorthalidone 100 mg-25 mg oral tablet 1 tablet, By Mouth, Daily, # 90 tablet, 11 Refills, Maintenance, 12/05/19 16:47:00 EDT, [facility], 90, TAKE 1 TABLET BY MOUTH EVERY DAY, 164, cm, 11/27/19 13:41:00 EST, Height, 74.5, kg, 01/03/19 18:01:00 EDT, Dry Weight Start Date: 12/05/19 Status: Ordered atorvastatin 40 mg oral tablet 1 tablet = 40 mg, By Mouth, Daily, # 90 tablet, 1 Refills, Maintenance, 12/05/19 14:01:00 EDT, [facility]/pharmacy #0693, 164, cm, 11/27/19 13:41:00 EST, Height, 74.5, kg, 01/03/19 18:01:00 EDT, Dry Weight Start Date: 12/05/19 Status: Ordered Colace sodium 100 mg oral capsule 100 mg, 1, capsule, By Mouth, 2 times a day, PRN, with plenty of water, # 20 capsule, Refills 1, Tot. Refills 1, Maintenance, for constipation, 06/13/20 8:34:00 EDT, Route to Pharmacy Electronically,[facility], 168, cm, 06/13/20 5:15:00... Start Date: 06/13/20 Status: Ordered Finacea 15% topical gel 1 application, Topically, 2 times a day, # 30 Gm, 0 Refills, Maintenance, 03/25/17 16:55:18, Gel Start Date: 03/25/17 Status: Ordered sertraline 100 mg oral tablet 2 tablet = 200 mg, By Mouth, Daily, # 180 tablet, 0 Refills, Maintenance, 05/27/20 16:27:00 EDT, [facility]/pharmacy #0693, D/C rx on file for 100mg 1 tab daily, 164, cm, 05/24/20 8:51:00 EDT, Height, 74.5,kg, 01/03/19 18:01:00 EDT, Dry Weight Start Date: 05/27/20 Status: Ordered spironolactone 25 mg oral tablet 25 mg, 1, tablet, By Mouth, Daily, # 90 tablet, Refills 3, Tot. Refills 3, Maintenance, 11/08/19 10:43:00 EST, Route to Pharmacy Electronically, [facility]/pharmacy #0693, 164, cm, 11/08/19 9:45:00 EST, Height, [...] MESH VENTRALIGHT ECHO CIR 6 - BARD ([id number]) 1 Bard Unknown BÁRBARA:No Information Assigning Authority: FDA MESH VENTRALIGHT ECHO20.3X25 .4 - BARD ([id number]) 1 Bard Unknown BÁRBARA:No Information Assigning Authority: FDA
--- OUTSIDE RECORDS SUMMARY | 2023-06-17 12:50 | XMS_ITS | Continuity of Care Document ---
Author Name Unknown Organization [facility] Address [address] [place] [address]- Care Team Providers Care Hydraulic Billet Maker Name Role Phone Alaina WEBB, Hill Jones Primary Care Physician [place] [facility] [place]/01[place]23 - 03/31/[address] [address]- Attending Physician: Brady Ruelas Admitting Physician: Brady [...] 07/25/17 Given zoster vaccine, inactivated 09/06/22 Recorded [id number] 12y+ bivalent booster vax 09/06/22 Recorded SARS-CoV-2 mRNA ([id number]) vax 03/24/22 Recorded SARS-CoV-2 (COVID-19) mRNA BNT-162b2 vac 07/01/21 Recorded SARS-CoV-2 (COVID-19) mRNA BNT-162b2 vac 11/26/20 Given SARS-CoV-2 (COVID-19) mRNA BNT-162b2 vac 11/05/20 Given Influenza Virus Vaccine (oldterm) 6 06/09/20 Recor ded Influenza Virus Vaccine (oldterm) 07/10/19 Recorde d Influenza Virus Vaccine (oldterm) 09/26/18 Recorde d pneumococcal 13-valent vaccine 7 02/13/18 Given tetanus/diphtheria/pertussis, acel(Tdap) 8, 9 07/25/17 Given pneumococcal 23-valent vaccine 10 09/26/16 [place] 1Result Comment: Flu [facility]#[id number] 2Result Comment: [08/10/2018] [facility] [address] 403 [id number] 3Result Comment: [08/10/2018] big y[08/10/2018 Uncharted] pt states she has not had the flu vaccine this year as previously stated 4Result Comment: enterred in error 5Result Comment: [07/25/2017] [id number] 6Result Comment: influenza [facility] 7Result Comment: [02/13/2018] [facility] 0005 1971 01 8Result Comment: [07/25/2017] [id number] 9Admin Note: [id number] 10Result Comment: [07/25/2017] historical Medications amLODIPine 10 [...] Refills, Maintenance, 12/27/22 10:08:00 EDT, [facility], 90, TAKE 1 TABLET BY MOUTH EVERY [...] tablet, 11 Refills, Maintenance, 07/23/22 10:48:00 EDT, [facility]/pharmacy #0693, Partial fill upon patient request if [...] Primary Care Member Role: PCP Address: Address: [address] [place] [address]- Name: Katy Romo RN Position: [facility] RN Member Role: Primary Care Nurse Name: Neha Bey RN Position: [facility] SN RN Member Role: Primary Care Nurse Name: Margarita Olson RN Position: [facility] RN Member Role: Primary Care Nurse Name: Thelma Sifuentes RN Position: [facility] RN Member Role: Primary Care Nurse Name: Loren Johnson RN Position: [facility] RN Member Role: Primary Care Nurse Name: Zaida Alan RN Position: [facility] RN Member Role: Primary Care Nurse Name: Carol Brar RN Position: [facility] Onco RN Member Role: Primary Care Nurse Name: Charlotte Thompson RN Position: [facility] Book Mender Member Role: Primary Care Nurse Care Team Related Persons Name: LOUIE PACHECO Address: [address] [address] Name: LOGAN JANE Name: PRAVIN RYAN Address: [place] [address]
--- OUTSIDE RECORDS SUMMARY | 2023-06-17 12:50 | XMS_ITS | Continuity of Care Document ---
Author Name Unknown Organization [facility] Milind lt Address [address] [place] [address]- Care Team Providers Care Unloader Name Role Phone Natanael Rodas MD Primary Care Physician [facility] Date(s): 10/31/20 - 11/07/20 [facility] Adult [address] [place] [address]- Attending Physician: Natanael Rodas MD Allergies, Adverse [...] [facility] 2Result Comment: [08/10/2018] [facility] [place] [address] 403 [id number] 3Result Comment: [08/10/2018] big y[08/10/2018 Uncharted] pt states she has not had the flu vaccine this year as previously stated 4Result Comment: enterred in error 5Result Comment: [07/25/2017] [id number] 6Result Comment: [02/13/2018] [facility] [facility] 0005 1971 01 7Result Comment: [07/25/2017] [id number] 8Admin Note: [id number] 9Result Comment: [07/25/2017] historical Medications amLODIPine 10 mg oral tablet 1 tablet, By Mouth, Daily, # 90 tablet, 11 Refills, Maintenance, 12/05/19 16:46:00 EDT, [facility], 164, cm, 11/27/19 13:41:00 EST, Height, 74.5, kg, 01/03/19 18:01:00 EDT, Dry Weight Start Date: 12/05/19 Status: Ordered atenolol-chlorthalidone 100 mg-25 mg oral tablet 1 tablet, By Mouth, Daily, # 90 tablet, 11 Refills, Maintenance, 12/05/19 16:47:00 EDT, [facility], 90, TAKE 1 TABLET BY MOUTH EVERY [...] constipation, 06/13/20 8:34:00 EDT, Route to Pharmacy Electronically,[facility], 168, cm, 06/13/20 5:15:00... Start Date: 06/13/20 Status: Ordered doxepin 25 mg oral capsule 1 capsule = 25 mg, By Mouth, Daily at bedtime, PRN Itch, # 10 capsule, 0 Refills, Maintenance, 11/05/20 16:07:00 EST, Capsule, [facility]/pharmacy #0693, Partial fill upon patient [...] 0 Refills, Maintenance, 10/31/20 8:49:00 EST, Tablet, [facility]/pharmacy #0693, Partial fill upon patient request if the prescription is for a schedule II opioid drug., 167, cm, ... Start Date: 10/31/20 Status: Ordered permethrin 5% topical cream 1 application, Topically, Once, to skin head to feet, remove by washing after 8 to 14 hours, # 60 Gm, 0 Refills, Soft Stop, 10/26/20 14:15:00 EST, Cream, [facility]/pharmacy #[id number], Partial fill upon patientrequest if the [...] oldest [Reference Range]: 1 Height 167 cm (10/31/20 8:07 AM) Weight 86.1 kg (10/31/20 8:07 AM) Oxygen Saturation [94-100 %] 98 % (10/31/20 8:07 AM) Pulse Rate [55-90 bpm] 66 bpm (10/31/20 8:07 AM) Body Mass Index [18.5-24.99] 30.87 *>HHI* (10/31/20 8:07 AM) Blood Pressure [90-138/55-84 mm Hg] 118/ 62mm Hg (10/31/20 8:07 AM) Temperature [96.8-100.4 DegF] 98.2 DegF (10/31/20 8:07 AM) Mode of Delivery (Oxygen) Room air (10/31/20 8:07 AM) Blood pressure sites Arm, left (10/31/20 8:07 AM) Temperature Route Oral (10/31/20 8:07 AM) Weight Obtained Via Standing scale (10/31/20 8:07 AM) Social History Social History Type Response Smoking Status Former smoker entered on: 05/30/18 Sex Medical Equipment Implanted Date:06/11/20Target Site:Abdomen Description Quantity MRI Company Model MESH VENTRALIGHT ECHO CIR 6 - BARD ([id number]) 1 Bard Unknown BÁRBARA:No Information Assigning Authority: FDA MESH VENTRALIGHT ECHO20.3X25 .4 - BARD ([id number]) 1 Bard Unknown BÁRBARA:No Information Assigning Authority: FDA
--- OUTSIDE RECORDS SUMMARY | 2023-06-17 12:50 | XMS_ITS | Continuity of Care Document ---
Author Name Unknown Organization [facility] Address [address] [place] [address]- Care Team Providers Care Junior High School Teacher Name Role Phone Alaina WEBB, Hill Jones Primary Care Physician [phone] [place] [facility] [place]14[place] - 07/14/22 [facility] [address] [place] [address]- Attending Physician: Bardy Ruelas Admitting Physician: AdmBrady molina Referring Physician: [...] [08/10/2018] [facility] [address] [phone] 2Result Comment: [08/10/2018] big y[08/10/2018 Uncharted] pt states she has not had the flu vaccine this year as previously stated 3Result Comment: enterred in error 4Result Comment: [07/25/2017] [id number] 5Result Comment: influenza [facility] 6Result Comment: [02/13/2018] [facility] 0005 1971 01 7Result Comment: [07/25/2017] [id number] 8Admin Note: [id number] 9Result Comment: [07/25/2017] historical Medications atenolol-chlorthalidone 100 mg-25 mg oral tablet 1 tablet, By Mouth, Daily, # 90 tablet, 11 Refills, 12/01/21 12:21:00 EST, [facility]/pharmacy #0693, 90, 1 tablet By Mouth Daily, [...] Name: Alaina WEBB, Hill Jones Address: Address: [address] [place] [address]-
--- OUTSIDE RECORDS SUMMARY | 2023-06-17 12:50 | XMS_ITS | Continuity of Care Document ---
Author Name Unknown Organization [address] [place] [address]- Care Team Providers Care Trackless Trolley Driver Name Role Phone Adrianna WEBB, Natanael Yoo Primary Care Physician [phone] [facility]counter [facility] Date(s): 12/21/19 - 12/31/[address] [place] [address]- [facility] Attending Physician: Brady Ruelas Admitting Physician: Brady [...] vaccine 8 09/26/16 Recorded 1Result Comment: [08/10/2018] [facility] [id number] [phone] 2Result Comment: [08/10/2018] big y[08/10/2018 Uncharted] pt states she has not had the flu vaccine this year as previously stated 3Result Comment: enterred in error 4Result Comment: [07/25/2017] [id number] 5Result Comment: [02/13/2018] [facility] 0005 1971 01 6Result Comment: [07/25/2017] [id number] 7Admin Note: [id number] 8Result Comment: [07/25/2017] historical Medications acetaminophen 325 mg oral tablet 650 mg, By Mouth, Every 4 hours, PRN, Refills 0, Maintenance, Pain , Moderate, 05/18/18 9:59:35 EDT Start Date: 05/18/18 Status: Ordered amLODIPine 10 mg oral tablet 1 tablet, By Mouth, Daily, # 90 tablet, 11 Refills, Maintenance, 12/05/19 16:46:00 EDT, [facility], 164, cm, 11/27/19 13:41:00 EST, Height, 74.5, kg, 01/03/19 18:01:00 EDT, Dry Weight Start Date: 12/05/19 Status: Ordered atenolol-chlorthalidone 100 mg-25 mg oral tablet 1 tablet, By Mouth, Daily, # 90 tablet, 11 Refills, Maintenance, 12/05/19 16:47:00 EDT, [facility], 90, TAKE 1 TABLET BY MOUTH EVERY [...]
--- OUTSIDE RECORDS SUMMARY | 2023-06-17 12:51 | XMS_ITS | Continuity of Care Document ---
Author Name Unknown Organization [facility] Sol tiffanie Address [address] [place] [address] [address] [place] [address]- Care Team Providers Care Software Design Analyst Name Role Phone Natanael Rodas MD Primary Care Physician [phone] [facility] Date(s): 09/10/19 - 09/17/19 [facility] [address] [place] [address]- [facility] Attending Physician: Jagjit Hernandez MD Referring Physician: Natanael Rodas MD Allergies, [...] vaccine 8 09/26/16 Recorded 1Result Comment: [08/10/2018] [facility] [id number] 2Result Comment: [08/10/2018] big y[08/10/2018 Uncharted] pt states she has not had the flu vaccine this year as previously stated 3Result Comment: enterred in error 4Result Comment: [07/25/2017] [id number] 5Result Comment: [02/13/2018] [facility] 0005 1971 01 6Result Comment: [07/25/2017] [id number] 7Ain Note: [id number] 8Result Comment: [07/25/2017] historical Medications acetaminophen 325 mg oral tablet 650 mg, By Mouth, Every 4 hours, PRN, Refills 0, Maintenance, Pain , Moderate, 05/18/18 9:59:35 EDT Start Date: 05/18/18 Status: Ordered amLODIPine 10 mg oral tablet 10 mg, 1, tablet, By Mouth, Daily, # 90 tablet, Refills 1, Tot. Refills 1, Maintenance, 06/11/19 16:50:00 EDT, Route to Pharmacy Electronically, [id number], [facility]/pharmacy #[id number] Start Date: 06/11/19 Status: Ordered [...] oldest [Reference Range]: 1 Height 164 cm (09/10/19 11:35 AM) Weight 81 kg (09/10/19 11:35 AM) Body Mass Index [18.5-24.99] 30.12 *>HHI* (09/10/19 11:35 AM) Social History Social History Type Response Smoking Status Former smoker entered on: 05/30/18 Sex
--- OUTSIDE RECORDS SUMMARY | 2023-06-17 12:51 | XMS_ITS | Continuity of Care Document ---
Author Name Unknown Organization [facility] Luis Carlos Milind Address [address] [place] [address]- Care Team Providers Care Helper Animal Laboratory Name Role Phone Alaina WEBB, Hill Jones Primary Care Physician [facility] Date[facility]s): 08/26/22 - 09/25/22 [facility] Adult [address] [place] [address]- Allergies, Adverse Reactions, Alerts No Known Allergies [...] Comment: [08/10/2018] [facility] [id number] 2Result Comment: [08/10/2018] big y[08/10/2018 Uncharted] pt states she has not had the flu vaccine this year as previously stated 3Result Comment: enterred in error 4Result Comment: [07/25/2017] [id number] 5Result Comment: influenza [facility] 6Result Comment: [02/13/2018] [facility] 0005 1971 01 7Result Comment: [07/25/2017] [id number] 8Admin Note: [id number] 9Result Comment: [07/25/2017] historical Medications atenolol-chlorthalidone 100 mg-25 mg oral tablet 1 tablet, By Mouth, Daily, # 90 tablet, 11 Refills, 12/01/21 12:21:00 EST, [facility]/pharmacy #0693, 90, 1 tablet By Mouth Daily, 168, cm, 12/01/21 11:53:00 EST, Height, 83.8, kg, 06/17/21 13:41:00 EDT, Dry Weight Start Date: 12/01/21 Status: Ordered atorvastatin 80 mg oral tablet 1 tablet = 80 mg, By Mouth, Daily, DOSAGE INCREASE, # 90 tablet, 1 Refills, Maintenance, 12/10/21 11:32:00 EDT, Tablet, [facility]/pharmacy #0693, Partial fill [...] Team Personnel Name: Claire Serra RN Position: [facility] RN Member Role: Primary Care Nurse Name: Hill Foley MD Position: [facility] Primary Care Physician Member Role: PCP Address: Address: [address] [place] [id number]- Name: Katy Romo RN Position: [facility] RN Member Role: Primary Care Nurse Name: Neha Bey RN Position: [facility] SN RN Member Role: Primary Care Nurse Name: Margarita Olson RN Position: [facility] RN Member Role: Primary Care Nurse Name: Thelma Sifuentes RN Position: [facility] RN Member Role: Primary Care Nurse Name: Loren Johnson RN Position: [facility] RN Member Role: Primary Care Nurse Name: Zaida Alan RN Position: [facility] RN Member Role: Primary Care Nurse Name: Carol Brar RN Position: [facility] Onco RN Member Role: Primary Care Nurse Name: Charlotte Thompson RN Position: [facility] Hospital Corporate Meeting Planner Member Role: Primary Care Nurse Care Team Related Persons Name: JUNIOR, LOUIE Address: home [address] [place] [address] Name: LOGAN JANE Name: PRAVIN RYAN Address: [place] [address]
--- OUTSIDE RECORDS SUMMARY | 2023-06-17 12:51 | XMS_ITS | Continuity of Care Document ---
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 [id number] 3Result Comment: [08/10/2018] big y[08/10/2018 Uncharted] pt states she has not had the flu vaccine this year as previously stated 4Result Comment: enterred in error 5Result Comment: [07/25/2017] [id number] 6Result Comment: [02/13/2018] [facility] 0005 1971 01 7Result Comment: [07/25/2017] [id number] 8Admin Note: [id number] 9Result Comment: [07/25/2017] historical Medications amLODIPine 10 mg oral tablet 1 tablet, By Mouth, Daily, # 90 tablet, 11 Refills, Maintenance, 12/05/19 16:46:00 EDT, [facility], 164, cm, 11/27/19 13:41:00 EST, Height, 74.5, kg, 01/03/19 18:01:00 EDT, Dry Weight Start Date: 12/05/19 Status: Ordered atenolol-chlorthalidone 100 mg-25 mg oral tablet 1 tablet, By Mouth, Daily, # 90 tablet, 11 Refills, Maintenance, 12/05/19 16:47:00 EDT, [facility] STORE 24045, 90, TAKE 1 TABLET BY MOUTH EVERY DAY, 164, cm, 11/27/19 13:41:00 EST, Height, 74.5, kg, 01/03/19 18:01:00 EDT, Dry Weight Start Date: 12/05/19 Status: Ordered atorvastatin 40 mg oral tablet 1 tablet = 40 mg, By Mouth, Daily, # 90 tablet, 1 Refills, Maintenance, 12/05/19 14:01:00 EDT, [facility]/pharmacy #0693, 164, cm, 11/27/19 13:41:00 EST, Height, 74.5, kg, 01/03/19 18:01:00 EDT, Dry Weight Start Date: 12/05/19 Status: Ordered Colace sodium 100 mg oral capsule 100 mg, 1, capsule, By Mouth, 2 times a day, PRN, with plenty of water, # 20 capsule, Refills 1, Tot. Refills 1, Maintenance, for constipation, 06/13/20 8:34:00 EDT, Route to Pharmacy Electronically,[facility], 168, cm, 06/13/20 5:15:00... [...] 06/17/20 13:06:00 EDT, Route to Pharmacy Electronically, [facility], 167, cm, :46:00 EDT, [...] tablet, 0 Refills, Maintenance, 05/27/20 16:27:00 EDT, [facility]/pharmacy #0693, D/C rx on file for 100mg 1 tab daily, 164, cm, 05/24/20 8:51:00 EDT, Height, 74.5,kg, 01/03/19 18:01:00 EDT, Dry Weight Start Date: 05/27/20 Status: Ordered spironolactone 25 mg oral tablet 25 mg, 1, tablet, By Mouth, Daily, # 90 tablet, Refills 3, Tot. Refills 3, Maintenance, 11/08/19 10:43:00 EST, Route to Pharmacy Electronically, [facility]/pharmacy #0693, 164, cm, 11/08/19 [...] MESH VENTRALIGHT ECHO CIR 6 - BARD ([id number]) 1 Bard Unknown BÁRBARA:No Information Assigning Authority: FDA MESH VENTRALIGHT ECHO20.3X25 .4 - BARD ([id number]) 1 Bard Unknown BÁRBARA:No Information Assigning Authority: FDA
--- OUTSIDE RECORDS SUMMARY | 2023-06-17 12:51 | XMS_ITS | Continuity of Care Document ---
Author Name Unknown Organization [facility] Luis Carlos Milind Address [address] [place] [address]- Care Team Providers Care Buckram Sewer Name Role Phone Natanael Rodas MD Primary Care Physician [phone] [facility] Date(s): 08/07/21 - 08/14/21 [facility] Adult [address] [place] [address]- Encounter Diagnosis Ventral hernia(Discharge Diagnosis) - 08/07/21 Benign hypertension(Discharge Diagnosis) - 08/07/21 Right hip pain(Discharge Diagnosis) - 08/07/21 Attending Physician: Natanael Rodas MD Allergies, Adverse [...] Comment: [08/10/2018] [facility] [id number] 2Result Comment: [08/10/2018] big y[08/10/2018 Uncharted] pt states she has not had the flu vaccine this year as previously stated 3Result Comment: enterred in error 4Result Comment: [07/25/2017] [id number] 5Result Comment: influenza [facility] 6Result Comment: [02/13/2018] [facility] 0005 1971 01 7Result Comment: [07/25/2017] [id number] 8Admin Note: [id number] 9Result Comment: [07/25/2017] historical Medications amLODIPine 10 mg oral tablet 1 tablet, By Mouth, Daily, # 90 tablet, 11 Refills, [facility], 168, cm, 08/07/21 12:51:00 EST, Height, 83.8, kg, 06/17/21 13:41:00 EDT, Dry Weight Start Date: 08/13/21 Status: Ordered atenolol-chlorthalidone 100 mg-25 mg oral tablet 1 tablet, By Mouth, Daily, # 90 tablet, 11 Refills, [facility], 90, TAKE 1 TABLET BY MOUTH EVERY DAY, 168, cm, 08/07/21 12:51:00 EST, Height, 83.8, kg, 06/17/21 13:41:00 EDT, Dry Weight Start Date: 08/13/21 Status: Ordered atorvastatin 40 mg oral tablet 1 tablet, By Mouth, Daily, # 90 tablet, 1 Refills, [facility], 168, cm, 08/07/21 12:51:00 EST,Height, 83.8, kg, 06/17/21 13:41:00 EDT, Dry Weight Start Date: 08/13/21 Status: Ordered Finacea 15% topical gel 1 application, Topically, 2 times a day, # 30 Gm, 0 Refills, Maintenance, 03/25/17 16:55:18, Gel Start Date: 03/25/17 Status: Ordered sertraline 100 mg oral tablet 2 tablet, By Mouth, Daily, # 180 tablet, 0 Refills, [facility], 168, cm, 08/07/21 12:51:00 EST, Height, 83.8, kg, 06/17/21 13:41:00 EDT, Dry Weight Start Date: 08/13/21 Status: Ordered spironolactone 50 mg oral tablet 1 tablet = 50 mg, By Mouth, Daily, # 90 tablet, 3 Refills, Maintenance, 08/07/21 13:07:00 EST, Tablet, [facility], Partial fill upon patient request if the [...] Dates Health Status Clinical Service Informant Ventral hernia Discharge Diagnosis 08/07/21 Benign hypertension Discharge Diagnosis 08/07/21 Right hip pain Discharge Diagnosis 08/07/21 Vital Signs Most recent to oldest [Reference Range]: 1 2 Height 168 cm (08/07/21 12:51 PM) 168 cm (08/07/21 12:36 PM) Weight 86.9 kg (08/07/21 12:36 PM) Oxygen Saturation [94-100 %] 97 % (08/07/21 12:36 PM) Pulse Rate [55-90 bpm] 96 bpm *H* (08/07/21 12:36 PM) Body Mass Index [18.5-24.99] 30.79 *>HHI* (08/07/21 12:36 PM) Blood Pressure [90-138/55-84 mm Hg] 171/ 92mm Hg *H* (08/07/21 12:51 PM) 169/94mm Hg *H* (08/07/21 12:36 PM) Respiratory Rate [16-30 br/min] 18 br/mi n (08/07/21 12:36 PM) Temperature [96.8-100.4 DegF] 99.2 DegF (08/07/21 12:36 PM) Mode of Delivery (Oxygen) Room air (08/07/21 12:36 PM) Blood pressure sites Arm, left (08/07/21 12:51 PM) Arm, left (08/07/21 12:36 PM) Temperature Route Oral (08/07/21 12:36 PM) Weight Obtained Via Standing scale (08/07/21 12:36 PM) Social History Social History Type Response Smoking Status Former smoker entered on: 05/30/18 Sex Medical Equipment Implanted Date:06/11/20Target Site:Abdomen Description Quantity MRI Company Model MESH VENTRALIGHT ECHO CIR 6 - BARD ([id number]) 1 Bard Unknown BÁRBARA:No Information Assigning Authority: FDA MESH VENTRALIGHT ECHO20.3X25 .4 - BARD ([id number]) 1 Bard Unknown BÁRBARA:No Information Assigning Authority: FDA
--- OUTSIDE RECORDS SUMMARY | 2023-06-17 12:51 | XMS_ITS | Continuity of Care Document ---
Author Name Unknown Organization [facility] Address [address] [place] [address]- Care Team Providers Care Compressor Mechanic Name Role Phone Natanael Rodas MD Primary Care Physician Encounter [facility] Date(s): 06/23/21 - 08/27/[address] [address] Discharge Disposition: A-D/C Home Attending Physician: Natanael [...] 09/26/16 Recorded 1Result Comment: [08/10/2018] [facility] [id number] 2Result Comment: [08/10/2018] big y[08/10/2018 Uncharted] pt states she has not had the flu vaccine this year as previously stated 3Result Comment: enterred in error 4Result Comment: [07/25/2017] [id number] 5Result Comment: influenza [facility] 6Result Comment: [02/13/2018] [facility] 0005 1971 01 7Result Comment: [07/25/2017] [id number] 8Admin Note: [id number] 9Result Comment: [07/25/2017] historical Medications amLODIPine 10 mg oral tablet 1 tablet, By Mouth, Daily, # 90 tablet, 11 Refills, [facility], 168, cm, 08/07/21 12:51:00 EST, Height, 83.8, kg, 06/17/21 13:41:00 EDT, Dry Weight Start Date: 08/13/21 Status: Ordered atenolol-chlorthalidone 100 mg-25 mg oral tablet 1 tablet, By Mouth, Daily, # 90 tablet, 11 Refills, [facility], 90, TAKE 1 TABLET BY MOUTH EVERY DAY, 168, cm, 08/07/21 12:51:00 EST, Height, 83.8, kg, 06/17/21 13:41:00 EDT, Dry Weight Start Date: 08/13/21 Status: Ordered atorvastatin 40 mg oral tablet 1 tablet, By Mouth, Daily, # 90 tablet, 1 Refills, [facility], 168, cm, 08/07/21 12:51:00 EST,Height, 83.8, kg, 06/17/21 13:41:00 EDT, Dry Weight Start Date: 08/13/21 Status: Ordered Finacea 15% topical gel 1 application, Topically, 2 times a day, # 30 Gm, 0 Refills, Maintenance, 03/25/17 16:55:18, Gel Start Date: 03/25/17 Status: Ordered sertraline 100 mg oral tablet 2 tablet, By Mouth, Daily, # 180 tablet, 0 Refills, [facility], 168, cm, 08/07/21 12:51:00 EST, Height, 83.8, kg, 06/17/21 13:41:00 EDT, Dry Weight Start Date: 08/13/21 Status: Ordered spironolactone 50 mg oral tablet 1 tablet = 50 mg, By Mouth, Daily, # 90 tablet, 3 Refills, Maintenance, 08/07/21 13:07:00 EST, Tablet, [facility], Partial fill upon patient request if the [...] MESH VENTRALIGHT ECHO CIR 6 - BARD ([id number]) 1 Bard Unknown BÁRBARA:No Information Assigning Authority: FDA MESH VENTRALIGHT ECHO20.3X25 .4 - BARD ([id number]) 1 Bard Unknown BÁRBARA:No Information Assigning Authority: FDA
--- OUTSIDE RECORDS SUMMARY | 2023-06-17 12:51 | XMS_ITS | Continuity of Care Document ---
Author Name Unknown Organization [facility] Milind lt Address [address] [place] [address]- Care Team Providers Care Training And Development Project Leader Name Role Phone Natanael Rodas MD Primary Care Physician [phone] [facility] Date(s): 11/06/20 - 12/06/20 [facility] Adult [address] [place] [address]- Allergies, Adverse Reactions, Alerts Substance Reaction Severity [...] 1Result Comment: influenza [facility] 2Result Comment: [08/10/2018] [facility] [id number] 403 [id number] 3Result Comment: [08/10/2018] big y[08/10/2018 Uncharted] pt states she has not had the flu vaccine this year as previously stated 4Result Comment: enterred in error 5Result Comment: [07/25/2017] [id number] 6Result Comment: [02/13/2018] [facility] 0005 1971 01 7Result Comment: [07/25/2017] [id number] 8Admin Note: [id number] 9Result Comment: [07/25/2017] historical Medications amLODIPine 10 mg oral tablet 1 tablet, By Mouth, Daily, # 90 tablet, 11 Refills, Maintenance, 12/05/19 16:46:00 EDT, [facility], 164, cm, 11/27/19 13:41:00 EST, Height, 74.5, kg, 01/03/19 18:01:00 EDT, Dry Weight Start Date: 12/05/19 Status: Ordered atenolol-chlorthalidone 100 mg-25 mg oral tablet 1 tablet, By Mouth, Daily, # 90 tablet, 11 Refills, Maintenance, 12/05/19 16:47:00 EDT, [facility], 90, TAKE 1 TABLET BY MOUTH EVERY DAY, 164, cm, 11/27/19 13:41:00 EST, Height, 74.5, kg, 01/03/19 18:01:00 EDT, Dry Weight Start Date: 12/05/19 Status: Ordered atorvastatin 40 mg oral tablet 1 tablet = 40 mg, By Mouth, Daily, # 90 tablet, 1 Refills, Maintenance, 12/05/19 14:01:00 EDT, [facility]/pharmacy #0693, 164, cm, 11/27/19 13:41:00 EST, Height, 74.5, kg, 01/03/19 18:01:00 EDT, Dry Weight Start Date: 12/05/19 Status: Ordered Colace sodium 100 mg oral capsule 100 mg, 1, capsule, By Mouth, 2 times a day, PRN, with plenty of water, # 20 capsule, Refills 1, Tot. Refills 1, Maintenance, for constipation, 06/13/20 8:34:00 EDT, Route to Pharmacy Electronically,[facility], 168, cm, 06/13/20 5:15:00... Start Date: 06/13/20 Status: Ordered Finacea 15% topical gel 1 application, Topically, 2 times a day, # 30 Gm, 0 Refills, Maintenance, 03/25/17 16:55:18, Gel Start Date: 03/25/17 Status: Ordered sertraline 100 mg oral tablet 2 tablet = 200 mg, By Mouth, Daily, # 180 tablet, 0 Refills, Maintenance, 05/27/20 16:27:00 EDT, [facility]/pharmacy #0693, D/C rx on file for 100mg 1 tab daily, 164, cm, 05/24/20 8:51:00 EDT, Height, 74.5,kg, 01/03/19 18:01:00 EDT, Dry Weight Start Date: 05/27/20 Status: Ordered spironolactone 25 mg oral tablet 25 mg, 1, tablet, By Mouth, Daily, # 90 tablet, Refills 3, Tot. Refills 3, Maintenance, 11/08/19 10:43:00 EST, Route to Pharmacy Electronically, [facility]/pharmacy #0693, 164, cm, 11/08/19 9:45:00 [...] MESH VENTRALIGHT ECHO CIR 6 - BARD ([id number]) 1 Bard Unknown BÁRBARA:No Information Assigning Authority: FDA MESH VENTRALIGHT ECHO20.3X25 .4 - BARD ([id number]) 1 Bard Unknown BÁRBARA:No Information Assigning Authority: FDA
--- OUTSIDE RECORDS SUMMARY | 2023-06-17 12:51 | XMS_ITS | Continuity of Care Document ---
Author Name Unknown Organization [facility] Milind Address [address] [place] [address]- Care Team Providers Care Tape Recorder Repairer Name Role Phone Adrianna WEBB, Natanael Yoo Primary Care Physician [phone] [facility] Date[facility]s): 11/08/19 - 11/18/19 [facility] [address] [place] [address]- [facility] Attending Physician: [...] Recorded 1Result Comment: [08/10/2018] [facility] [address] 403 [id number] 2Result Comment: [08/10/2018] big y[08/10/2018 Uncharted] pt states she has not had the flu vaccine this year as previously stated 3Result Comment: enterred in error 4Result Comment: [07/25/2017] [id number] 5Result Comment: [02/13/2018] [facility] 0005 1971 01 6Result Comment: [07/25/2017] [id number] 7Admin Note: [id number] 8Result Comment: [07/25/2017] historical Medications acetaminophen 325 mg oral tablet 650 mg, By Mouth, Every 4 hours, PRN, Refills 0, Maintenance, Pain , Moderate, 05/18/18 9:59:35 EDT Start Date: 05/18/18 Status: Ordered amLODIPine 10 mg oral tablet 10 mg, 1, tablet, By Mouth, Daily, # 90 tablet, Refills 1, Tot. Refills 1, Maintenance, 06/11/19 16:50:00 EDT, Route to Pharmacy Electronically, [id number], [facility]/pharmacy #0693 Start Date: 06/11/19 Status: Ordered [...]
--- OUTSIDE RECORDS SUMMARY | 2023-06-17 12:51 | XMS_ITS | Continuity of Care Document ---
Author Name Unknown Organization [facility] Milind Address [address] [place] [address]- Care Team Providers Care Ldr Rn Name Role Phone Natanael Rodas MD Primary Care Physician [phone] [facility] Date(s): 06/10/21 - 07/10/21 [facility] [place] Adult [address] [place] [address]- Allergies, Adverse Reactions, Alerts Substance Reaction Severity [...] vaccine 9 09/26/16 Recorded 1Result Comment: [08/10/2018] [facility] [id number] 403 [id number] 2Result Comment: [08/10/2018] big y[08/10/2018 Uncharted] pt states she has not had the flu vaccine this year as previously stated 3Result Comment: enterred in error 4Result Comment: [07/25/2017] [id number] 5Result Comment: influenza [facility] 6Result Comment: [02/13/2018] [facility] 0005 1971 01 7Result Comment: [07/25/2017] [id number] 8Admin Note: [id number] 9Result Comment: [07/25/2017] historical Medications amLODIPine 10 mg oral tablet 1 tablet, By Mouth, Daily, # 90 tablet, 11 Refills, Maintenance, 12/05/19 16:46:00 EDT, [facility], 164, cm, 11/27/19 13:41:00 EST, Height, 74.5, kg, 01/03/19 18:01:00 EDT, Dry Weight Start Date: 12/05/19 Status: Ordered atenolol-chlorthalidone 100 mg-25 mg oral tablet 1 tablet, By Mouth, Daily, # 90 tablet, 11 Refills, Maintenance, 12/05/19 16:47:00 EDT, [facility], 90, TAKE 1 TABLET BY MOUTH EVERY DAY, 164, cm, 11/27/19 13:41:00 EST, Height, 74.5, kg, 01/03/19 18:01:00 EDT, Dry Weight Start Date: 12/05/19 Status: Ordered atorvastatin 40 mg oral tablet 1 tablet = 40 mg, By Mouth, Daily, # 90 tablet, 1 Refills, Maintenance, 12/05/19 14:01:00 EDT, [facility]/pharmacy #0693, 164, cm, 11/27/19 13:41:00 EST, Height, 74.5, kg, 01/03/19 18:01:00 EDT, Dry Weight Start Date: 12/05/19 Status: Ordered Colace sodium 100 mg oral capsule 100 mg, 1, capsule, By Mouth, 2 times a day, PRN, with plenty of water, # 20 capsule, Refills 1, Tot. Refills 1, Maintenance, for constipation, 06/13/20 8:34:00 EDT, Route to Pharmacy Electronically,[facility], 168, cm, 06/13/20 5:15:00... Start Date: 06/13/20 Status: Ordered Finacea 15% topical gel 1 application, Topically, 2 times a day, # 30 Gm, 0 Refills, Maintenance, 03/25/17 16:55:18, Gel Start Date: 03/25/17 Status: Ordered sertraline 100 mg oral tablet 2 tablet = 200 mg, By Mouth, Daily, # 180 tablet, 0 Refills, Maintenance, 05/27/20 16:27:00 EDT, [facility]/pharmacy #0693, D/C rx on file for 100mg [...] MESH VENTRALIGHT ECHO CIR 6 - BARD ([id number]) 1 Bard Unknown BÁRBARA:No Information Assigning Authority: FDA MESH VENTRALIGHT ECHO20.3X25 .4 - BARD ([id number]) 1 Bard Unknown BÁRBARA:No Information Assigning Authority: FDA
--- OUTSIDE RECORDS SUMMARY | 2023-06-17 12:51 | XMS_ITS | Continuity of Care Document ---
Author Name Unknown Organization [facility] Luis Carlos Milind Address [address] [place] [address]- Care Team Providers Care Field Clerk Name Role Phone lAaina WEBB, Hill Jones Primary Care Physician [phone] [facility]s): 01/04[facility]22 - 01/11/22 [facility] Adult [address] [place] [address]- Attending Physician: Not on Staff, Attending MD [...] vaccine 9 09/26/16 Recorded 1Result Comment: [08/10/2018] [facility][note 3] [id number] 403 [id number] 2Result Comment: [08/10/2018] big y[08/10/2018 Uncharted] pt states she has not had the flu vaccine this year as previously stated 3Result Comment: enterred in error 4Result Comment: [07/25/2017] [id number] 5Result Comment: influenza [facility] 6Result Comment: [02/13/2018] [facility][note 3] 0005 1971 01 7Result Comment: [07/25/2017] [id number] 8Admin Note: [id number] 9Result Comment: [07/25/2017] historical Medications amLODIPine 5 [...] MESH VENTRALIGHT ECHO CIR 6 - BARD ([id number]) 1 Bard Unknown BÁRBARA:No Information Assigning Authority: FDA MESH VENTRALIGHT ECHO20.3X25 .4 - BARD ([id number]) 1 Bard Unknown BÁRBARA:No Information Assigning Authority: FDA
--- OUTSIDE RECORDS SUMMARY | 2023-06-17 12:51 | XMS_ITS | Continuity of Care Document ---
Author Name Unknown Organization [facility] Luis Carlos Milind Address [address] [place] [address]- Care Team Providers Care Dinkey Engine Mechanic Name Role Phone Adrianna WEBB, Natanael Yoo Primary Care Physician Encounter [facility] Date(s): 06/19/21 - 06/26/21 [facility] Luis Carlos Adult [address] [place] [address]- Encounter Diagnosis Fall(Discharge Diagnosis) - 06/19/21 Swelling of joint, knee, right(Discharge Diagnosis) - 06/19/21 Facial lesion(Discharge Diagnosis) - 06/19/21 Attending Physician: Not on Staff, Attending MD [...] Comment: influenza [facility] 2Result Comment: [08/10/2018] [facility] [id number] 3Result Comment: [08/10/2018] big y[08/10/2018 Uncharted] pt states she has not had the flu vaccine this year as previously stated 4Result Comment: enterred in error 5Result Comment: [07/25/2017] [id number] 6Result Comment: [02/13/2018] [facility] 0005 1971 01 7Result Comment: [07/25/2017] [id number] 8Admin Note: [id number] 9Result Comment: [07/25/2017] historical Medications amLODIPine 10 mg oral tablet 1 tablet, By Mouth, Daily, # 90 tablet, 11 Refills, Maintenance, 12/05/19 16:46:00 EDT, [facility] STORE 95009, 164, cm, 11/27/19 13:41:00 EST, Height, 74.5, kg, 01/03/19 18:01:00 EDT, Dry Weight Start Date: 12/05/19 Status: Ordered atenolol-chlorthalidone 100 mg-25 mg oral tablet 1 tablet, By Mouth, Daily, # 90 tablet, 11 Refills, Maintenance, 12/05/19 16:47:00 EDT, [facility] STORE 14106, 90, TAKE 1 TABLET BY MOUTH EVERY DAY, 164, cm, 11/27/19 13:41:00 EST, Height, 74.5, kg, 01/03/19 18:01:00 EDT, Dry Weight Start Date: 12/05/19 Status: Ordered atorvastatin 40 mg oral tablet 1 tablet = 40 mg, By Mouth, Daily, # 90 tablet, 1 Refills, Maintenance, 12/05/19 14:01:00 EDT, [facility]/pharmacy #0693, 164, cm, 11/27/19 13:41:00 EST, Height, 74.5, kg, 01/03/19 18:01:00 EDT, Dry Weight Start Date: 12/05/19 Status: Ordered Colace sodium 100 mg oral capsule 100 mg, 1, capsule, By Mouth, 2 times a day, PRN, with plenty of water, # 20 capsule, Refills 1, Tot. Refills 1, Maintenance, for constipation, 06/13/20 8:34:00 EDT, Route to Pharmacy Electronically,[facility], 168, cm, 06/13/20 5:15:00... Start Date: 06/13/20 Status: Ordered Finacea 15% topical gel 1 application, Topically, 2 times a day, # 30 Gm, 0 Refills, Maintenance, 03/25/17 16:55:18, Gel Start Date: 03/25/17 Status: Ordered sertraline 100 mg oral tablet 2 tablet = 200 mg, By Mouth, Daily, # 180 tablet, 0 Refills, Maintenance, 05/27/20 16:27:00 EDT, [facility]/pharmacy #0693, D/C rx on file for 100mg 1 tab daily, 164, cm, 05/24/20 8:51:00 EDT, Height, 74.5,kg, 01/03/19 18:01:00 EDT, Dry Weight Start Date: 05/27/20 Status: Ordered spironolactone 25 mg oral tablet 25 mg, 1, tablet, By Mouth, Daily, # 90 tablet, Refills 3, Tot. Refills 3, Maintenance, 11/08/19 10:43:00 EST, Route to Pharmacy Electronically, [facility]/pharmacy #0693, 164, cm, 11/08/19 9:45:00 [...] Dates Health Status Cl inical Service Informant Fall Discharge Diagnosis 06/19/21 Swelling of joint, knee, right Discharge Diagnosis 06/19/21 Facial lesion Discharge Diagnosis 06/19/21 Vital Signs Most recent to oldest [Reference Range]: 1 2 Height 168 cm (06/19/21 12:54 PM) 168 cm (06/19/21 12:49 PM) Weight 84.2 kg (06/19/21 12:49 PM) Oxygen Saturation [94-100 %] 97 % (06/19/21 12:49 PM) Pulse Rate [55-90 bpm] 93 bpm *H* (06/19/21 12:49 PM) Body Mass Index [18.5-24.99] 29.83 *H* (06/19/21 12:49 PM) Blood Pressure [90-138/55-84 mm Hg] 138/ 64mm Hg (06/19/21 12:54 PM) 160/68mm Hg *H* (06/19/21 12:49 PM) Temperature [96.8-100.4 DegF] 98.3 DegF (06/19/21 12:49 PM) Mode of Delivery (Oxygen) Room air (06/19/21 12:49 PM) Blood pressure sites Arm, left (06/19/21 12:54 PM) Arm, left (06/19/21 12:49 PM) Temperature Route Oral (06/19/21 12:49 PM) Weight Obtained Via Standing scale (06/19/21 12:49 PM) Social History Social History Type Response Smoking Status Former smoker entered on: 05/30/18 Sex Medical Equipment Implanted Date:06/11/20Target Site:Abdomen Description Quantity MRI Company Model MESH VENTRALIGHT ECHO CIR 6 - BARD ([id number]) 1 Bard Unknown BÁRBARA:No Information Assigning Authority: FDA MESH VENTRALIGHT ECHO20.3X25 .4 - BARD ([id number]) 1 Bard Unknown BÁRBARA:No Information Assigning Authority: FDA
--- OUTSIDE RECORDS SUMMARY | 2023-06-17 12:51 | XMS_ITS | Continuity of Care Document ---
Author Name Unknown Organization [facility] Address [address] [place] [address]- Care Team Providers Care Garbage Person Name Role Phone Adrianna WEBB, Natanael Yoo Primary Care Physician [phone] Encounter 09/21/21 - 09/28/21 [facility] [address], [address] [place] [address]- Attending Physician: Zaida Mack NP Admitting Physician: Zaida Mack NP Referring Physician: Zaida Mack NP Allergies, Adverse Reactions, Alerts Substance Reaction Severity [...] vaccine 9 09/26/16 Recorded 1Result Comment: [08/10/2018] formerly named [facility] [id number] 2Result Comment: [08/10/2018] big y[08/10/2018 Uncharted] pt states she has not had the flu vaccine this year as previously stated 3Result Comment: enterred in error 4Result Comment: [07/25/2017] [id number] 5Result Comment: influenza [facility] 6Result Comment: [02/13/2018] formerly named [facility] 0005 1971 01 7Result Comment: [07/25/2017] [id number] 8Admin Note: [id number] 9Result Comment: [07/25/2017] historical Medications amLODIPine 10 mg oral tablet 1 tablet, By Mouth, Daily, # 90 tablet, 11 Refills, [facility], 168, cm, 08/07/21 12:51:00 EST, Height, 83.8, kg, 06/17/21 13:41:00 EDT, Dry Weight Start Date: 08/13/21 Status: Ordered atenolol-chlorthalidone 100 mg-25 mg oral tablet 1 tablet, By Mouth, Daily, # 90 tablet, 11 Refills, [facility], 90, TAKE 1 TABLET BY MOUTH EVERY DAY, 168, cm, 08/07/21 12:51:00 EST, Height, 83.8, kg, 06/17/21 13:41:00 EDT, Dry Weight Start Date: 08/13/21 Status: Ordered atorvastatin 40 mg oral tablet 1 tablet, By Mouth, Daily, # 90 tablet, 1 Refills, [facility], 168, cm, 08/07/21 12:51:00 EST,Height, 83.8, kg, [...] MESH VENTRALIGHT ECHO CIR 6 - BARD ([id number]) 1 Bard Unknown BÁRBARA:No Information Assigning Authority: FDA MESH VENTRALIGHT ECHO20.3X25 .4 - BARD ([id number]) 1 Bard Unknown BÁRBARA:No Information Assigning Authority: FDA
--- OUTSIDE RECORDS SUMMARY | 2023-06-17 12:51 | XMS_ITS | Continuity of Care Document ---
Author Name Unknown Organization [facility] Luis Carlos Milind lt Address [address] [place] [address]- Care Team Providers Care Aircraft Machinist Helper Name Role Phone Hill Foley MD Primary Care Physician [facility]counter [facility] Date(s): 06/08/22 - 06/15/22 [facility] [place] Adult [address] [place] [address]- Attending Physician: Hill Foley MD Allergies, Adverse [...] Recorded 1Result Comment: [08/10/2018] [facility] [id number] 2Result Comment: [08/10/2018] big y[08/10/2018 Uncharted] pt states she has not had the flu vaccine this year as previously stated 3Result Comment: enterred in error 4Result Comment: [07/25/2017] [id number] 5Result Comment: influenza [facility] 6Result Comment: [02/13/2018] [facility] 0005 1971 01 7Result Comment: [07/25/2017] [id number] 8Admin Note: [id number] 9Result Comment: [07/25/2017] historical Medications atenolol-chlorthalidone 100 [...] Personnel Name: Alaina WEBB, Hill Jones Address: [address] [place] [address]
--- OUTSIDE RECORDS SUMMARY | 2023-06-17 12:51 | XMS_ITS | Continuity of Care Document ---
Author Name Unknown Organization [facility] Milind lt Address [address] [place] [address]- Care Team Providers Care Director Community Organization Name Role Phone Natanael Rodas MD Primary Care Physician [phone] Encounter [facility] Date(s): 10/21/20 - 11/20/20 [facility] Adult [address] [place] [address]- Allergies, Adverse Reactions, Alerts Substance Reaction Severity [...] Comment: influenza [facility] 2Result Comment: [08/10/2018] [facility] [id number] 3Result Comment: [08/10/2018] big y[08/10/2018 Uncharted] pt states she has not had the flu vaccine this year as previously stated 4Result Comment: enterred in error 5Result Comment: [07/25/2017] [id number] 6Result Comment: [02/13/2018] [facility] 0005 1971 7Result Comment: [07/25/2017] [id number] 8Admin Note: [id number] 9Result Comment: [07/25/2017] historical Medications amLODIPine 10 mg oral tablet 1 tablet, By Mouth, Daily, # 90 tablet, 11 Refills, Maintenance, 12/05/19 16:46:00 EDT, [facility] STORE 08697, 164, cm, 11/27/19 13:41:00 EST, Height, 74.5, kg, 01/03/19 18:01:00 EDT, Dry Weight Start Date: 12/05/19 Status: Ordered atenolol-chlorthalidone 100 mg-25 mg oral tablet 1 tablet, By Mouth, Daily, # 90 tablet, 11 Refills, Maintenance, 12/05/19 16:47:00 EDT, [facility] STORE 97509, 90, TAKE 1 TABLET BY MOUTH EVERY DAY, 164, cm, 11/27/19 13:41:00 EST, Height, 74.5, kg, 01/03/19 18:01:00 EDT, Dry Weight Start Date: 12/05/19 Status: Ordered atorvastatin 40 mg oral tablet 1 tablet = 40 mg, By Mouth, Daily, # 90 tablet, 1 Refills, Maintenance, 12/05/19 14:01:00 EDT, [facility]/pharmacy #0693, 164, cm, 11/27/19 13:41:00 EST, Height, 74.5, kg, 01/03/19 18:01:00 EDT, Dry Weight Start Date: 12/05/19 Status: Ordered Colace sodium 100 mg oral capsule 100 mg, 1, capsule, By Mouth, 2 times a day, PRN, with plenty of water, # 20 capsule, Refills 1, Tot. Refills 1, Maintenance, for constipation, 06/13/20 8:34:00 EDT, Route to Pharmacy Electronically,[facility], 168, cm, 06/13/20 5:15:00... Start Date: 06/13/20 Status: Ordered Finacea 15% topical gel 1 application, Topically, 2 times a day, # 30 Gm, 0 Refills, Maintenance, 03/25/17 16:55:18, Gel Start Date: 03/25/17 Status: Ordered sertraline 100 mg oral tablet 2 tablet = 200 mg, By Mouth, Daily, # 180 tablet, 0 Refills, Maintenance, 05/27/20 16:27:00 EDT, [facility]/pharmacy #0693, D/C rx on file for 100mg 1 tab daily, 164, cm, 05/24/20 8:51:00 EDT, Height, 74.5,kg, 01/03/19 18:01:00 EDT, Dry Weight Start Date: 05/27/20 Status: Ordered spironolactone 25 mg oral tablet 25 mg, 1, tablet, By Mouth, Daily, # 90 tablet, Refills 3, Tot. Refills 3, Maintenance, 11/08/19 10:43:00 EST, Route to Pharmacy Electronically, [facility]/pharmacy #0693, 164, cm, 11/08/19 9:45:00 EST, Height, [...] MESH VENTRALIGHT ECHO CIR 6 - BARD ([id number]) 1 Bard Unknown BÁRBARA:No Information Assigning Authority: FDA MESH VENTRALIGHT ECHO20.3X25 .4 - BARD ([id number]) 1 Bard Unknown BÁRBARA:No Information Assigning Authority: FDA
--- OUTSIDE RECORDS SUMMARY | 2023-06-17 12:51 | XMS_ITS | Continuity of Care Document ---
Author Name Unknown Organization [facility] Milind lt Address [address] [place] [address]- Care Team Providers Care Helicopter Dispatcher Name Role Phone Adrianna WEBB, Natanael Yoo Primary Care Physician [facility] Date(s): 04/28/20 - 05/28/20 [facility] Adult [address] [place] [address]- [facility] Allergies, Adverse Reactions, Alerts Substance Reaction Severity [...] 1Result Comment: [08/10/2018] [facility] [id number] 2Result Comment: [08/10/2018] big y[08/10/2018 Uncharted] pt states she has not had the flu vaccine this year as previously stated 3Result Comment: enterred in error 4Result Comment: [07/25/2017] [id number] 5Result Comment: [02/13/2018] [facility] 0005 1971 01 6Result Comment: [07/25/2017] [id number] 7Admin Note: [id number] 8Result Comment: [07/25/2017] historical Medications amLODIPine 10 mg oral tablet 1 tablet, By Mouth, Daily, # 90 tablet, 11 Refills, Maintenance, 12/05/19 16:46:00 EDT, [facility], 164, cm, 11/27/19 13:41:00 EST, Height, 74.5, kg, 01/03/19 18:01:00 EDT, Dry Weight Start Date: 12/05/19 Status: Ordered atenolol-chlorthalidone 100 mg-25 mg oral tablet 1 tablet, By Mouth, Daily, # 90 tablet, 11 Refills, Maintenance, 12/05/19 16:47:00 EDT, [facility], 90, TAKE 1 TABLET BY MOUTH EVERY DAY, 164, cm, 11/27/19 13:41:00 EST, Height, 74.5, kg, 01/03/19 18:01:00 EDT, Dry Weight Start Date: 12/05/19 Status: Ordered atorvastatin 40 mg oral tablet 1 tablet = 40 mg, By Mouth, Daily, # 90 tablet, 1 Refills, Maintenance, 12/05/19 14:01:00 EDT, [facility]/pharmacy #0693, 164, cm, 11/27/19 13:41:00 EST, Height, [...] tablet, 0 Refills, Maintenance, 05/27/20 16:27:00 EDT, [facility]/pharmacy #0693, D/C rx on file for 100mg 1 tab daily, 164, cm, 05/24/20 8:51:00 EDT, Height, 74.5,kg, 01/03/19 18:01:00 EDT, Dry Weight Start Date: 05/27/20 Status: Ordered spironolactone 25 mg oral tablet 25 mg, 1, tablet, By Mouth, Daily, # 90 tablet, Refills 3, Tot. Refills 3, Maintenance, 11/08/19 10:43:00 EST, Route to Pharmacy Electronically, [facility]/pharmacy #0693, 164, cm, 11/08/19 9:45:00 EST, Height, [...]
--- OUTSIDE RECORDS SUMMARY | 2023-06-17 12:51 | XMS_ITS | Continuity of Care Document ---
Author Name Unknown Organization [facility] Milind Address [address] [place] [address]- Care Team Providers Care Director Outcomes Name Role Phone Alaina WEBB, Hill Jones Primary Care Physician Encounter [facility] Date(s): 11/02/22 - 12/02/22 [facility] Adult [address] [place] [address]- Attending Physician: Brady Ruelas Admitting Physician: AdmBrady [...] 07/25/17 Given zoster vaccine, inactivated 09/06/22 Recorded [id number] 12y+ bivalent booster vax 09/06/22 Recorded SARS-CoV-2 mRNA ([id number]) vax 03/24/22 Recorded SARS-CoV-2 (COVID-19) mRNA BNT-162b2 [...] Recorde d 1Result Comment: Flu HD [facility]#[id number] 2Result Comment: [08/10/2018] [facility] [id number] 3Result Comment: [08/10/2018] big y[08/10/2018 Uncharted] pt states she has not had the flu vaccine this year as previously stated 4Result Comment: enterred in error 5Result Comment: [07/25/2017] [id number] 6Result Comment: influenza [facility] 7Result Comment: [02/13/2018] [facility] 0005 1971 01 8Result Comment: [07/25/2017] [id number] 9Admin Note: [id number] 10Result Comment: [07/25/2017] historical Medications atenolol-chlorthalidone 100 mg-25 mg oral tablet 1 tablet, By Mouth, Daily, # 90 tablet, 11 Refills, 12/01/21 12:21:00 EST, [facility]/pharmacy #0693, 90, 1 tablet By Mouth Daily, 168, cm, 12/01/21 11:53:00 EST, Height, 83.8, kg, 06/17/21 13:41:00 EDT, Dry Weight Start Date: 12/01/21 Status: Ordered atorvastatin 80 mg oral tablet 1 tablet = 80 mg, By Mouth, Daily, DOSAGE INCREASE, # 90 tablet, 1 Refills, Maintenance, 12/10/21 11:32:00 EDT, Tablet, [facility]/pharmacy #0693, Partial fill upon patient request if [...] Team Personnel Name: Claire Serra RN Position: [facility] RN Member Role: Primary Care Nurse Name: Elana Warren RN Position: S RN Member Role: Primary Care Nurse Name: Hill Foley MD Position: [facility] Primary Care Physician Member Role: PCP Address: Address: [address] [place] [address]- Name: Katy Romo RN Position: S RN Member Role: Primary Care Nurse Name: Neha Bey RN Position: [facility] RN Member Role: Primary Care Nurse Name: Margarita Olson RN Position: S RN Member Role: Primary Care Nurse Name: Thelma Sifuentes RN Position: [facility] RN Member Role: Primary Care Nurse Name: Loren Johnson RN Position: [facility] RN Member Role: Primary Care Nurse Name: Zaida Alan RN Position: [facility] RN Member Role: Primary Care Nurse Name: Carol Brar RN Position: [facility] Onco RN Member Role: Primary Care Nurse Name: Charlotte Thompson RN Position: [facility] Hospital Computer Analyst Member Role: Primary Care Nurse Care Team Related Persons Name: LOUIE PACHECO Address: [address] [address] Name: LOGAN JANE Name: PRAVIN RYAN Address: [place] [address]
--- OUTSIDE RECORDS SUMMARY | 2023-06-17 12:51 | XMS_ITS | Continuity of Care Document ---
Author Name Unknown Organization [facility] Luis Carlos Milind lt Address [address] [place] [address]- Care Team Providers Care Quality Assurance Supervisor Trim Name Role Phone Hill Floey MD Primary Care Physician Encounter [facility] Date(s): 10/15/22 - 11/14/22 [facility] Adult [address] [place] [address]- Allergies, Adverse Reactions, Alerts No Known Allergies Immunizations Given and Recorded Vaccine Date Status Refusal Reason influenza virus vaccine, inactivated 1 11/02/22 Gi sarah influenza virus vaccine, inactivated 07/01/21 Sundeep rded influenza virus vaccine, inactivated 2 08/10/18 Gi sarah influenza virus vaccine, inactivated 3 07/19/18 Re corded influenza virus vaccine, inactivated 4, 5 07/25/17 Given zoster vaccine, inactivated 09/06/22 Recorded [id number] 12y+ bivalent booster vax 09/06/22 Recorded SARS-CoV-2 mRNA ([id number]) vax 03/24/22 Recorded SARS-CoV-2 (COVID-19) mRNA BNT-162b2 [...] 1Result Comment: Flu HD [facility]#[id number] 2Result Comment: [08/10/2018] [facility] [address]2047 403 [id number] 3Result Comment: [08/10/2018] big y[08/10/2018 Uncharted] pt states she has not had the flu vaccine this year as previously stated 4Result Comment: enterred in error 5Result Comment: [07/25/2017] [id number] 6Result Comment: influenza [facility] 7Result Comment: [02/13/2018] [facility] 0005 1971 01 8Result Comment: [07/25/2017] [id number] 9Admin Note: [id number] 10Result Comment: [07/25/2017] historical Medications atenolol-chlorthalidone 100 mg-25 mg oral tablet 1 tablet, By Mouth, Daily, # 90 tablet, 11 Refills, 12/01/21 12:21:00 EST, [facility]/pharmacy #0693, 90, 1 tablet By Mouth [...] Team Personnel Name: Claire Serra RN Position: [facility] RN Member Role: Primary Care Nurse Name: Hill Foley MD Position: [facility] Primary Care Physician Member Role: PCP Address: Address: [address] [place] [address]- Name: Katy Romo RN Position: [facility] [...] Care Nurse Name: Charlotte Thompson RN Position: [facility] Hospital Transportation Economics Teacher Member Role: Primary Care Nurse Care Team Related Persons Name: LOUIE PACHECO Address: home [address] [place] [id number] Name: LOGAN JANE Name: PRAVIN RYAN Address: [place] [address]
--- OUTSIDE RECORDS SUMMARY | 2023-06-17 12:51 | XMS_ITS | Continuity of Care Document ---
Author Name Unknown Organization [facility] Milind Address [address] [place] [address]- Care Team Providers Care Estate Planning Paralegal Name Role Phone Natanael Rodas MD Primary Care Physician [facility]counter [facility] Date(s): 10/29/20 - 11/28/20 [facility] Adult [address] [place] [address]- Allergies, Adverse Reactions, Alerts Substance Reaction Severity [...] 2Result Comment: [08/10/2018] [facility] [address]759 403 [id number] 3Result Comment: [08/10/2018] big y[08/10/2018 Uncharted] pt states she has not had the flu vaccine this year as previously stated 4Result Comment: enterred in error 5Result Comment: [07/25/2017] [id number] 6Result Comment: [02/13/2018] [facility] 0005 1971 01 7Result Comment: [07/25/2017] [id number] 8Admin Note: [id number] 9Result Comment: [07/25/2017] historical Medications amLODIPine 10 mg oral tablet 1 tablet, By Mouth, Daily, # 90 tablet, 11 Refills, Maintenance, 12/05/19 16:46:00 EDT, [facility], 164, cm, 11/27/19 13:41:00 EST, Height, 74.5, kg, 01/03/19 18:01:00 EDT, Dry Weight Start Date: 12/05/19 Status: Ordered atenolol-chlorthalidone 100 mg-25 mg oral tablet 1 tablet, By Mouth, Daily, # 90 tablet, 11 Refills, Maintenance, 12/05/19 16:47:00 EDT, [facility], 90, TAKE 1 TABLET BY MOUTH EVERY DAY, 164, cm, 11/27/19 13:41:00 EST, Height, 74.5, kg, 01/03/19 18:01:00 EDT, Dry Weight Start Date: 12/05/19 Status: Ordered atorvastatin 40 mg oral tablet 1 tablet = 40 mg, By Mouth, Daily, # 90 tablet, 1 Refills, Maintenance, 12/05/19 14:01:00 EDT, [facility]/pharmacy #0693, 164, cm, 11/27/19 13:41:00 EST, Height, 74.5, kg, 01/03/19 18:01:00 EDT, Dry Weight Start Date: 12/05/19 Status: Ordered Colace sodium 100 mg oral capsule 100 mg, 1, capsule, By Mouth, 2 times a day, PRN, with plenty of water, # 20 capsule, Refills 1, Tot. Refills 1, Maintenance, for constipation, 06/13/20 8:34:00 EDT, Route to Pharmacy Electronically,[facility], 168, cm, 06/13/20 5:15:00... Start Date: 06/13/20 Status: Ordered Finacea 15% topical gel 1 application, Topically, 2 times a day, # 30 Gm, 0 Refills, Maintenance, 03/25/17 16:55:18, Gel Start Date: 03/25/17 Status: Ordered sertraline 100 mg oral tablet 2 tablet = 200 mg, By Mouth, Daily, # 180 tablet, 0 Refills, Maintenance, 05/27/20 16:27:00 EDT, [facility]/pharmacy #0693, D/C rx on file for 100mg 1 tab daily, 164, cm, 05/24/20 8:51:00 EDT, Height, 74.5,kg, 01/03/19 18:01:00 EDT, Dry Weight Start Date: 05/27/20 Status: Ordered spironolactone 25 mg oral tablet 25 mg, 1, tablet, By Mouth, Daily, # 90 tablet, Refills 3, Tot. Refills 3, Maintenance, 11/08/19 10:43:00 EST, Route to Pharmacy Electronically, [facility]/pharmacy #0693, 164, cm, 11/08/19 9:45:00 EST, Height, [...] MESH VENTRALIGHT ECHO CIR 6 - BARD ([id number]) 1 Bard Unknown BÁRBARA:No Information Assigning Authority: FDA MESH VENTRALIGHT ECHO20.3X25 .4 - BARD ([id number]) 1 Bard Unknown BÁRBARA:No Information Assigning Authority: FDA
--- OUTSIDE RECORDS SUMMARY | 2023-06-17 12:51 | XMS_ITS | Continuity of Care Document ---
Author Name Unknown Organization [facility] Address [address] [place] [address]- Care Team Providers Care Interviewing Clerk Name Role Phone Adrianna WEBB, Natanael Yoo Primary Care Physician [phone] [facility]counter [facility] Date[facility]s): [facility]20 - 06/11/20 [facility] [address] [place] [address]- [facility] Attending Physician: Brady Ruelas [...] vaccine 8 09/26/16 Recorded 1Result Comment: [08/10/2018] [facility] [id number] 2Result Comment: [08/10/2018] big y[08/10/2018 Uncharted] pt states she has not had the flu vaccine this year as previously stated 3Result Comment: enterred in error 4Result Comment: [07/25/2017] [id number] 5Result Comment: [02/13/2018] [facility] 0005 1971 01 6Result Comment: [07/25/2017] [id number] 7Admin Note: [id number] 8Result Comment: [07/25/2017] historical Medications amLODIPine 10 mg oral tablet 1 tablet, By Mouth, Daily, # 90 tablet, 11 Refills, Maintenance, 12/05/19 16:46:00 EDT, [facility], 164, cm, 11/27/19 13:41:00 EST, Height, 74.5, kg, 01/03/19 18:01:00 EDT, Dry Weight Start Date: 12/05/19 Status: Ordered atenolol-chlorthalidone 100 mg-25 mg oral tablet 1 tablet, By Mouth, Daily, # 90 tablet, 11 Refills, Maintenance, 12/05/19 16:47:00 EDT, [facility], 90, TAKE 1 TABLET BY MOUTH EVERY DAY, 164, cm, 11/27/19 13:41:00 EST, Height, 74.5, kg, 01/03/19 18:01:00 EDT, Dry Weight Start Date: 12/05/19 Status: Ordered atorvastatin 40 mg oral tablet 1 tablet = 40 mg, By Mouth, Daily, # 90 tablet, 1 Refills, Maintenance, 12/05/19 14:01:00 EDT, [facility]/pharmacy #0693, 164, cm, 11/27/19 13:41:00 EST, Height, 74.5, kg, 01/03/19 18:01:00 EDT, Dry Weight Start Date: 12/05/19 Status: Ordered Finacea 15% topical gel 1 application, Topically, 2 times a day, # 30 Gm, 0 Refills, Maintenance, 03/25/17 16:55:18, Gel Start Date: 03/25/17 Status: Ordered mupirocin 2% topical ointment small amt, Topically, 3 times a day, 0 Refills, Maintenance, 06/06/20 15:53:00 EDT Start Date: 06/06/20 Status: Ordered sertraline 100 mg oral tablet 2 tablet = 200 mg, By Mouth, Daily, # 180 tablet, 0 Refills, Maintenance, 05/27/20 16:27:00 EDT, [facility]/pharmacy #0693, D/C rx on file for 100mg 1 tab daily, 164, cm, 05/24/20 8:51:00 EDT, Height, 74.5,kg, 01/03/19 18:01:00 EDT, Dry Weight Start Date: 05/27/20 Status: Ordered spironolactone 25 mg oral tablet 25 mg, 1, tablet, By Mouth, Daily, # 90 tablet, Refills 3, Tot. Refills 3, Maintenance, 11/08/19 10:43:00 EST, Route to Pharmacy Electronically, [facility]/pharmacy #0693, 164, cm, 11/08/19 9:45:00 EST, [...] MESH VENTRALIGHT ECHO CIR 6 - BARD ([id number]) 1 Bard Unknown BÁRBARA:No Information Assigning Authority: FDA MESH VENTRALIGHT ECHO20.3X25 .4 - BARD ([id number]) 1 Bard Unknown BÁRBARA:No Information Assigning Authority: FDA
--- OUTSIDE RECORDS SUMMARY | 2023-06-17 12:51 | XMS_ITS | Continuity of Care Document ---
Author Name Unknown Organization [facility] ter Address [address] [place] [address]- Care Team Providers Care Mess Cook Name Role Phone Natanael Rodas MD Primary Care Physician [facility] Date[facility] 06[facility]20 - 06/13/[address] [address]- [facility] Discharge Disposition: A-D/C Home Attending Physician: Ian Ray MD Admitting Physician: Ian Ray MD Referring Physician: Ian Ray MD Allergies, [...] vaccine 8 09/26/16 Recorded 1Result Comment: [08/10/2018] [facility] [id number] 2Result Comment: [08/10/2018] big y[08/10/2018 Uncharted] pt states she has not had the flu vaccine this year as previously stated 3Result Comment: enterred in error 4Result Comment: [07/25/2017] [id number] 5Result Comment: [02/13/2018] [facility] 0005 1971 01 6Result Comment: [07/25/2017] [id number] 7Admin Note: [id number] 8Result Comment: [07/25/2017] historical Medications amLODIPine 10 mg oral tablet 1 tablet, By Mouth, Daily, # 90 tablet, 11 Refills, Maintenance, 12/05/19 16:46:00 EDT, [facility] STORE 18761, 164, cm, 11/27/19 13:41:00 EST, Height, 74.5, kg, 01/03/19 18:01:00 EDT, Dry Weight Start Date: 12/05/19 Status: Ordered atenolol-chlorthalidone 100 mg-25 mg oral tablet 1 tablet, By Mouth, Daily, # 90 tablet, 11 Refills, Maintenance, 12/05/19 16:47:00 EDT, [facility] 20[facility], 90, TAKE 1 TABLET BY MOUTH EVERY DAY, 164, cm, 11/27/19 13:41:00 EST, Height, 74.5, kg, 01/03/19 18:01:00 EDT, Dry Weight Start Date: 12/05/19 Status: Ordered atorvastatin 40 mg oral tablet 1 tablet = 40 mg, By Mouth, Daily, # 90 tablet, 1 Refills, Maintenance, 12/05/19 14:01:00 EDT, [facility]/pharmacy #0693, 164, cm, 11/27/19 13:41:00 EST, Height, 74.5, kg, 01/03/19 18:01:00 EDT, Dry Weight Start Date: 12/05/19 Status: Ordered Colace sodium 100 mg oral capsule 100 mg, 1, capsule, By Mouth, 2 times a day, PRN, with plenty of water, # 20 capsule, Refills 1, Tot. Refills 1, Maintenance, for constipation, 06/13/20 8:34:00 EDT, Route to Pharmacy Electronically,[facility], 168, cm, 06/13/20 5:15:00... Start Date: [...] exceed the recommended full quantity indicated., # 10 tablet, Refills 0, Tot. Refills 0, Maintenance, for pain,06/13/20 8:34:00 EDT, Route to Pharmacy Electronic[facility]... Start Date: 06/13/20 Status: Ordered sertraline 100 mg oral tablet 2 tablet = 200 mg, By Mouth, Daily, # 180 tablet, 0 Refills, Maintenance, 05/27/20 16:27:00 EDT, [facility]/pharmacy #0693, D/C rx on file for 100mg 1 tab daily, 164, cm, 05/24/20 8:51:00 EDT, Height, 74.5,kg, 01/03/19 18:01:00 EDT, Dry Weight Start Date: 05/27/20 Status: Ordered spironolactone 25 mg oral tablet 25 mg, 1, tablet, By Mouth, Daily, # 90 tablet, Refills 3, Tot. 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) Active Procedures Procedure Date Related Diagnosis Body Site Status Laparoscopic repair of incis ional hernia using biological mesh Completed Laparoscopy, surgical, enter olysis (freeing of intestinal adhesion) (separate procedure) Completed Vital Signs Most recent to oldest [Reference Range]: 1 2 3 Height 168 cm (06/13/20 7:30 AM) 168 cm (06/13/20 5:15 AM) 168 cm (06/12/20 8:00 PM) Weight 91.4 kg (06/13/20 6:09 AM) 85.2 kg (06/12/20 11:23 AM) 85.2 kg (06/12/20 8:20 AM) Oxygen Saturation [94-100 %] 66 % *L* (06/13/20 7:30 AM) 96 % (06/13/20 5:15 AM) 95 % (06/12/20 8:00 PM) Pulse Rate [55-90 bpm] 66 bpm (06/13/20 7:30 AM) 60 bpm (06/13/20 5:15 AM) 57 bpm (06/12/20 8:00 PM) Body Mass Index [18.5-24.99] 30.19 *>HHI* (06/12/20 11:23 AM) 29.41 *H* (06/11/20 10:42 AM) 29.41 *H* (06/06/20 4:20 PM) Blood Pressure [90-138/55-84 mm Hg] 113/80mm Hg (06/13/20 9:28 AM) 113/80mm Hg (06/13/20 7:30 AM) 114/57mm Hg (06/13/20 5:15 AM) Respiratory Rate [16-30 br/min] 16 br/min (06/13/20 9:28 AM) 18 br/min (06/13/20 7:30 AM) 18 br/min (06/13/20 5:15 AM) Temperature [96.8-100.4 DegF] 97.5 DegF (06/13/20 7:30 AM) 97.9 DegF (06/13/20 5:15 AM) 98.4 DegF (06/12/20 8:00 PM) Liters per Minute 1 L/min (06/12/20 4:00 AM) 1 L/min (06/12/20 12:00 AM) 1 L/min (06/11/20 8:00 PM) Mode of Delivery (Oxygen) Room air (06/13/20 7:30 AM) Room air (06/13/20 5:15 AM) Room air (06/12/20 8:00 PM) Blood pressure sites Arm, right (06/13/20 7:30 AM) Arm, left (06/13/20 5:15 AM) Arm, left (06/12/20 8:00 PM) Temperature Route Oral (06/13/20 7:30 AM) Oral (06/13/20 5:15 AM) Oral (06/12/20 8:00 PM) Dry Weight 85.2 kg (06/12/20 11:23 AM) 85.2 kg (06/11/20 10:42 AM) 83 kg (06/06/20 4:20 PM) Weight Obtained Via Bed scale (06/13/20 6:09 AM) Patient/family stated (06/06/20 4:20 PM) Dry Weight Obtained Via Patient/family s tated (06/06/20 4:20 PM) Social History Social History Type Response Smoking Status Former smoker entered on: 05/30/18 Sex Medical Equipment Implanted Date:06/11/20Target Site:Abdomen Description Quantity MRI Company Model MESH VENTRALIGHT ECHO CIR 6 - BARD ([id number]) 1 Bard Unknown BÁRBARA:No Information Assigning Authority: FDA MESH VENTRALIGHT ECHO20.3X25 .4 - BARD ([id number]) 1 Bard Unknown BÁRBARA:No Information Assigning Authority: FDA
--- OUTSIDE RECORDS SUMMARY | 2023-06-17 12:51 | XMS_ITS | Continuity of Care Document ---
Author Name Unknown Organization [facility] Address [address] [place] [address]- Care Team Providers Care Seo Consultant Name Role Phone Natanael Rodas MD Primary Care Physician [facility]): 07/28/21 - 08/27/21 [facility] Adult [address] [place] [address]- Allergies, Adverse Reactions, Alerts Substance Reaction Severity [...] vaccine 9 09/26/16 Recorded 1Result Comment: [08/10/2018] [facility] [id number] 2Result Comment: [08/10/2018] big y[08/10/2018 Uncharted] pt states she has not had the flu vaccine this year as previously stated 3Result Comment: enterred in error 4Result Comment: [07/25/2017] [id number] 5Result Comment: influenza [facility] 6Result Comment: [02/13/2018] [facility] 0005 1971 01 7Result Comment: [07/25/2017] [id number] 8Admin Note: [id number] 9Result Comment: [07/25/2017] historical Medications amLODIPine 10 mg oral tablet 1 tablet, By Mouth, Daily, # 90 tablet, 11 Refills, [facility], 168, cm, 08/07/21 12:51:00 EST, Height, 83.8, kg, 06/17/21 13:41:00 EDT, Dry Weight Start Date: 08/13/21 Status: Ordered atenolol-chlorthalidone 100 mg-25 mg oral tablet 1 tablet, By Mouth, Daily, # 90 tablet, 11 Refills, [facility], 90, TAKE 1 TABLET BY MOUTH EVERY DAY, 168, cm, 08/07/21 12:51:00 EST, Height, 83.8, kg, 06/17/21 13:41:00 EDT, Dry Weight Start Date: 08/13/21 Status: Ordered atorvastatin 40 mg oral tablet 1 tablet, By Mouth, Daily, # 90 tablet, 1 Refills, [facility], 168, cm, 08/07/21 12:51:00 EST,Height, 83.8, kg, 06/17/21 13:41:00 EDT, Dry Weight Start Date: 08/13/21 Status: Ordered Finacea 15% topical gel 1 application, Topically, 2 times a day, # 30 Gm, 0 Refills, Maintenance, 03/25/17 16:55:18, Gel Start Date: 03/25/17 Status: Ordered sertraline 100 mg oral tablet 2 tablet, By Mouth, Daily, # 180 tablet, 0 Refills, [facility], 168, cm, 08/07/21 12:51:00 EST, Height, 83.8, kg, 06/17/21 13:41:00 EDT, Dry Weight Start Date: 08/13/21 Status: Ordered spironolactone 50 mg oral tablet 1 tablet = 50 mg, By Mouth, Daily, # 90 tablet, 3 Refills, Maintenance, 08/07/21 13:07:00 EST, Tablet, [facility]/pharmacy #[id number], [...] MESH VENTRALIGHT ECHO CIR 6 - BARD ([id number]) 1 Bard Unknown BÁRBARA:No Information Assigning Authority: FDA MESH VENTRALIGHT ECHO20.3X25 .4 - BARD ([id number]) 1 Bard Unknown BÁRBARA:No Information Assigning Authority: FDA
--- OUTSIDE RECORDS SUMMARY | 2023-06-17 12:51 | XMS_ITS | Patient Health Record ---
Author Name Unknown [facility] Address [address] [place] [address] Care Team Providers Care Molder Pipe Covering Name Role Phone Natanael Rodas MD Primary Care Provider Justin Ibrahim Unavailable [phone] ALLERGIES No Known Allergies REASON FOR REFERRAL No Information MEDICATIONS Medication SIG (Take, Route, Frequency, Duration) Notes Start Date End Date Status D3 Adult Not-Taking Atenolol-Chlorthalidone 100-25 MG 1 tablet Orally Once a day Active Permethrin 5 % External for 14 Active Sertraline HCl 100 MG 1 tablet Orally On ce a day Active amLODIPine Besylate 10 MG 1 tablet Orall y Once a day Active Atorvastatin Calcium 40 MG 1 tablet Oral ly Once a day Active Spironolactone 25 MG Orally Once a day Active IMMUNIZATIONS Vaccine Route Administration Date Status Comme nts Influenza Unknown 05/27/2021 Administered SOCIAL HISTORY Tobacco Use: Social History Observation Description Date Details (start date - stop date) Never Smoker NA - NA Sex Assigned At : Social History Observation Description Sex Assigned At Unknown Tobacco Use/Smoking Question Answer Notes Are you a: nonsmoker Alcohol Screen Question Answer Notes Did you have a drink contain ing alcohol in the past year? Yes How often did you have a dri nk containing alcohol in the past year? Monthly or less (1 point) Points 1 Interpretation Negative Tobacco use other than smoking: Question Answer Notes Are you an other tobacco user? No PROBLEMS Problem Type ICD Code Onset Dates Problem Status W/U Status Risk SNOMED Code Notes Problem Hallux valgus (acquired), left foot (M20.12) Active confirmed Acquired hallux valgus (14464276) Problem Primary osteoarthrit is, right ankle and foot (M19.071) Active confirmed Localized, prim justin osteoarthritis of the ankle and/or foot (186318366) Problem Primary osteoarthrit is, left ankle and foot (M19.072) Active confirmed Localized, prim justin osteoarthritis of the ankle and/or foot (189195208) Problem Other hammer toe(s) (acquired), right foot (M20.41) Active confirmed Acquired hammer toe of right foot (9596849094082434) Problem Other hammer toe(s) (acquired), left foot (M20.42) Active confirmed Acquired hammer toe of left foot (7206846797550528) PLAN OF TREATMENT Pending Test Test Name Order Date X ray : Foot, left 2V 03/01/2018 X ray : Foot, right 2V 03/01/2018 X ray : Foot, left 3V 10/27/2020 X ray : Foot, right 3V 10/27/2020 Insurance Providers Payer Name Payer Address Payer Phone Subscriber Number Group Number Insured Name Patient Relationship to Insured Coverage Start Date Coverage End Date [facility] [address] [place] [address] [phone] [id number] Miracle Shannon Self - patient is the insured MEDICAL (GENERAL) HISTORY Medical History History ICD Code Measles Mumps Chicken pox Diverticulosis High blood pressure Surgical History Surgery Date(Month/Year) rotator cuff tear repair 2002 hemroid surgury 1974 cataracts 05/14 ileostomy 06/2018 reversal ileostomy 12/2018 Hospitalization History Reason Date(Month/Year) [facility]- [facility] day stay for Diverticulitis 03/26 [facility] day stay Dx: Diverticulitis 02/12 [facility] - Urgent care/ rash 10/26/2020
--- OUTSIDE RECORDS SUMMARY | 2023-06-17 12:51 | XMS_ITS | Continuity of Care Document ---
Author Name Unknown Organization [facility] Address [address] [place] [address]- Care Team Providers Care Jumbo Operator Name Role Phone Natanael Rodas MD Primary Care Physician [phone] [facility] Date(s): 11/04/20 - 12/04/20 [facility] Adult [address] [place] [address]- Allergies, Adverse Reactions, Alerts Substance Reaction Severity [...] 1Result Comment: influenza [facility] 2Result Comment: [08/10/2018] [facility] [id number] 3Result Comment: [08/10/2018] big y[08/10/2018 Uncharted] pt states she has not had the flu vaccine this year as previously stated 4Result Comment: enterred in error 5Result Comment: [07/25/2017] [id number] 6Result Comment: [02/13/2018] formerly named [facility] 0005 1971 01 7Result Comment: [07/25/2017] [id number] 8Admin Note: [id number] 9Result Comment: [07/25/2017] historical Medications amLODIPine 10 mg oral tablet 1 tablet, By Mouth, Daily, # 90 tablet, 11 Refills, Maintenance, 12/05/19 16:46:00 EDT, [facility], 164, cm, 11/27/19 13:41:00 EST, Height, 74.5, kg, 01/03/19 18:01:00 EDT, Dry Weight Start Date: 12/05/19 Status: Ordered atenolol-chlorthalidone 100 mg-25 mg oral tablet 1 tablet, By Mouth, Daily, # 90 tablet, 11 Refills, Maintenance, 12/05/19 16:47:00 EDT, [facility], 90, TAKE 1 TABLET BY MOUTH EVERY DAY, 164, cm, 11/27/19 13:41:00 EST, Height, 74.5, kg, 01/03/19 18:01:00 EDT, Dry Weight Start Date: 12/05/19 Status: Ordered atorvastatin 40 mg oral tablet 1 tablet = 40 mg, By Mouth, Daily, # 90 tablet, 1 Refills, Maintenance, 12/05/19 14:01:00 EDT, [facility]/pharmacy #0693, 164, cm, 11/27/19 13:41:00 EST, Height, 74.5, kg, 01/03/19 18:01:00 EDT, Dry Weight Start Date: 12/05/19 Status: Ordered Colace sodium 100 mg oral capsule 100 mg, 1, capsule, By Mouth, 2 times a day, PRN, with plenty of water, # 20 capsule, Refills 1, Tot. Refills 1, Maintenance, for constipation, 06/13/20 8:34:00 EDT, Route to Pharmacy Electronically,[facility], 168, cm, 06/13/20 5:15:00... Start Date: 06/13/20 Status: Ordered Finacea 15% topical gel 1 application, Topically, 2 times a day, # 30 Gm, 0 Refills, Maintenance, 03/25/17 16:55:18, Gel Start Date: 03/25/17 Status: Ordered sertraline 100 mg oral tablet 2 tablet = 200 mg, By Mouth, Daily, # 180 tablet, 0 Refills, Maintenance, 05/27/20 16:27:00 EDT, [facility]/pharmacy #0693, D/C rx on file for 100mg 1 tab daily, 164, cm, 05/24/20 8:51:00 EDT, Height, 74.5,kg, 01/03/19 18:01:00 EDT, Dry Weight Start Date: 05/27/20 Status: Ordered spironolactone 25 mg oral tablet 25 mg, 1, tablet, By Mouth, Daily, # 90 tablet, Refills 3, Tot. Refills 3, Maintenance, 11/08/19 10:43:00 EST, Route to Pharmacy Electronically, [facility]/pharmacy #0693, 164, cm, 11/08/19 9:45:00 EST, Height, [...] MESH VENTRALIGHT ECHO CIR 6 - BARD ([id number]) 1 Bard Unknown BÁRBARA:No Information Assigning Authority: FDA MESH VENTRALIGHT ECHO20.3X25 .4 - BARD ([id number]) 1 Bard Unknown BÁRBARA:No Information Assigning Authority: FDA
--- OUTSIDE RECORDS SUMMARY | 2023-06-17 12:51 | XMS_ITS | Continuity of Care Document ---
Author Name Unknown Organization [facility] Address [address] [place] [address]- Care Team Providers Care Drop Hammer Mechanic Name Role Phone Natanael Rodas MD Primary Care Physician [facility]s): 09[facility]21 - 10/06/21 [facility] Adult [address] [place] [address]- Attending Physician: Natanael Rodas MD Allergies, Adverse [...] Recorded 1Result Comment: [08/10/2018] [facility] [id number] 2Result Comment: [08/10/2018] big y[08/10/2018 Uncharted] pt states she has not had the flu vaccine this year as previously stated 3Result Comment: enterred in error 4Result Comment: [07/25/2017] [id number] 5Result Comment: influenza [facility] 6Result Comment: [02/13/2018] [facility] 0005 1971 01 7Result Comment: [07/25/2017] [id number] 8Admin Note: [id number] 9Result Comment: [07/25/2017] historical Medications amLODIPine 10 mg oral tablet 1 tablet, By Mouth, Daily, # 90 tablet, 11 Refills, [facility], 168, cm, 08/07/21 12:51:00 EST, Height, 83.8, kg, 06/17/21 13:41:00 EDT, Dry Weight Start Date: 08/13/21 Status: Ordered atenolol-chlorthalidone 100 mg-25 mg oral tablet 1 tablet, By Mouth, Daily, # 90 tablet, 11 Refills, [facility], 90, TAKE 1 TABLET BY MOUTH EVERY DAY, 168, cm, 08/07/21 12:51:00 EST, Height, 83.8, kg, 06/17/21 13:41:00 EDT, Dry Weight Start Date: 08/13/21 Status: Ordered atorvastatin 40 mg oral tablet 1 tablet, By Mouth, Daily, # 90 tablet, 1 Refills, [facility], 168, cm, 08/07/21 12:51:00 EST,Height, 83.8, kg, [...] [Reference Range]: 1 2 Height 168 cm (09/29/21 10:56 AM) 168 cm (09/29/21 10:49 AM) Weight 84.3 kg (09/29/21 10:49 AM) Oxygen Saturation [94-100 %] 94 % (09/29/21 10:49 AM) Pulse Rate [55-90 bpm] 62 bpm (09/29/21 10:49 AM) Body Mass Index [18.5-24.99] 29.87 *H* (09/29/21 10:49 AM) Blood Pressure [90-138/55-84 mm Hg] 109/ 63mm Hg (09/29/21 10:56 AM) 104/60mm Hg (09/29/21 10:49 AM) Mode of Delivery (Oxygen) Room air (09/29/21 10:49 AM) Blood pressure sites Arm, left (09/29/21 10:56 AM) Arm, left (09/29/21 10:49 AM) Weight Obtained Via Standing scale (09/29/21 10:49 AM) Social History Social History Type Response Smoking Status Former smoker entered on: 05/30/18 Sex Medical Equipment Implanted Date:06/11/20Target Site:Abdomen Description Quantity MRI Company Model MESH VENTRALIGHT ECHO CIR 6 - BARD ([id number]) 1 Bard Unknown BÁRBARA:No Information Assigning Authority: FDA MESH VENTRALIGHT ECHO20.3X25 .4 - BARD ([id number]) 1 Bard Unknown BÁRBARA:No Information Assigning Authority: FDA
--- OUTSIDE RECORDS SUMMARY | 2023-06-17 12:51 | XMS_ITS | Continuity of Care Document ---
Author Name Unknown Organization [facility] Address [address] [place] [address]- Care Team Providers Care Glass Furnace Tender Name Role Phone Alaina WEBB, Hill Jones Primary Care Physician Encounter [facility] Date(s): 12/21/22 - 01/20/23 [facility] Adult [address] [place] [address]- Allergies, Adverse Reactions, Alerts No Known Allergies Immunizations Given and Recorded Vaccine Date Status Refusal Reason influenza virus vaccine, inactivated 1 11/02/22 Gi sarah influenza virus vaccine, inactivated 07/01/21 Sundeep rded influenza virus vaccine, inactivated 2 08/10/18 Gi sarah influenza virus vaccine, inactivated 3 07/19/18 Re corded influenza virus vaccine, inactivated 4, 5 07/25/17 Given zoster vaccine, inactivated 09/06/22 Recorded [id number] 12y+ bivalent booster vax 09/06/22 Recorded SARS-CoV-2 mRNA ([id number]) vax 03/24/22 Recorded SARS-CoV-2 (COVID-19) mRNA BNT-162b2 [...] Flu HD [facility][id number] 2Result Comment: [08/10/2018] [facility] [id number] 403 [id number] 3Result Comment: [08/10/2018] big y[08/10/2018 Uncharted] pt states she has not had the flu vaccine this year as previously stated 4Result Comment: enterred in error 5Result Comment: [07/25/2017] [id number] 6Result Comment: influenza [facility] 7Result Comment: [02/13/2018] [facility] 0005 1971 01 8Result Comment: [07/25/2017] [id number] 9Admin Note: [id number] 10Result Comment: [07/25/2017] historical Medications amLODIPine 10 mg oral tablet 1 tablet, By Mouth, Daily, # 90 tablet, 1 Refills, Maintenance, 12/27/22 15:59:00 EDT, [facility]/pharmacy#0693, 167, cm, 12/23/22 9:51:00 EDT, Height, 83.8, kg, 06/17/21 13:41:00 EDT, Dry Weight Start Date: 12/27/22 Status: Ordered atenolol-chlorthalidone 100 mg-25 mg oral tablet 1 tablet, By Mouth, Daily, # 90 tablet, 1 Refills, Maintenance, 12/27/22 10:08:00 EDT, [facility], 90, TAKE 1 TABLET BY MOUTH EVERY [...] Care Nurse Name: Hill Foley MD Position: [facility] Primary Care Physician Member Role: PCP Address: Address: [address] [place] [address]- Name: Katy Romo RN Position: [facility] RN Member Role: Primary Care Nurse Name: Neha Bey RN Position: [facility] SN RN Member Role: Primary Care Nurse Name: Margarita Olson RN Position: [facility] RN Member Role: Primary Care Nurse Name: Thelma Sifuentes RN Position: [facility] RN Member Role: Primary Care Nurse Name: Loren Johnson RN Position: [facility] RN Member Role: Primary Care Nurse Name: Zaida Alan RN Position: [facility] RN Member Role: Primary Care Nurse Name: Carol Brar RN Position: [facility] Onco RN Member Role: Primary Care Nurse Name: Charlotte Thompson RN Position: [facility] Hospital Lead Generator Member Role: Primary Care Nurse Care Team Related Persons Name: LOUIE PACHECO Address: [address] [address] Name: LOGAN JANE Name: PRAVIN RYAN Address: [place] [address]
--- NOTE | 2023-06-17 14:07 | AM.OFFWIN_ITS ---
Intake Vital Signs 06/17/23 14:11 Height 5 ft 6 in Weight 159 lb BMI 25.7 BP 120/72 Position Sitting Pulse 66 Pulse Source Pulse Oximeter Pulse Oximetry (%) 95 Oxygen Delivery Method Room Air Intake Visit Reasons: EST/SOB and trouble walking Intake Note: Patient here for GAIT issues which has been happening for about 1 week. she also has complaints of trouble with breathing. Patient Tobacco Use Status: Former Tobacco user Allergies No Known Allergies [No Known Allergies*] Allergy (Unverified 06/17/23 14:13) Do you need a note to return to daycare/school/sports/work: No HPI HPI Comments History of Present Illness Details This is a 77-year-old female who presents to the office today for sick visit. Patient complaining of dyspnea on exertion and difficulty walking due to generalized weakness x1 week. patient states she was at a rehab following shoulder surgery but has been home for approximately 3 weeks. Patient started to notice progressive generalized weakness since being home but this has gotten worse over the past 1 week. She also reports some mild dyspnea on exertion. She denies any lower extremity edema, weight gain, paroxysmal nocturnal dyspnea, orthopnea, or abdominal distention. She denies any cough. She denies any chest pain. She denies any fevers or chills. She denies any abdominal pain or nausea/vomiting / diarrhea. She denies any dysuria, hematuria, urinary frequency, or urinary urgency. She denies any facial asymmetry, slurred speech, visual disturbances, or numbness/ paresthesias of her extremities. [facility] Social History Patient Tobacco Use Status: Former Tobacco user Review of Systems Const All systems reviewed & are unremarkable except as noted in HPI and below Reports no additional complaints Eyes Reports no additional complaints ENT Reports no additional complaints Card Reports no additional complaints Resp Reports no additional complaints GI Reports no additional complaints Reports no additional complaints Musc Reports no additional complaints Skin/Breast Reports system reviewed and no additional complaints, except as documented Neuro Reports no additional complaints Psych Reports no additional complaints Endo Reports no additional complaints Buck/Lymph Reports no additional complaints Aller/Immun Reports no additional complaints Physical Exam Vital Signs: Last Vital Signs Pulse 66 06/17/23 14:11 BP 120/72 06/17/23 14:11 Pulse Ox 95 06/17/23 14:11 Oxygen Delivery Method Room Air 06/17/23 14:11 BMI result Body Mass Index 25.7 Const Other: Vital signs reviewed. Constitutional: Non-toxic appearing. No acute distress. Well-developed and well-nourished. HEENT: Normocephalic and atraumatic. Tympanic membranes without erythema, edema, or bulging bilaterally. External auditory canals without erythema or edema bilaterally. Moist mucous membranes. No pharyngeal erythema or exudates. Skin: Warm and dry. No rashes or lesions noted. Neck: Full and painless range of motion. No cervical lymphadenopathy. Cardio: Regular rate and rhythm. No murmurs, gallops, or rubs. No lower extremity edema. No JVD. Pulmonary: No respiratory distress. No accessory muscle usage. Clear to auscultation bilaterally without wheezing, crackles, or rhonchi. Gastrointestinal: Soft, nontender, and nondistended in all 4 quadrants. Normoactive bowel sounds in all 4 quadrants. Genitourinary: No CVA tenderness. Musculoskeletal: Normal range of motion in joints throughout the body. No deformity or other signs of injury. Neuro: Alert and oriented x4. Cranial nerves 2-12 grossly intact. No focal deficits appreciated. Psych: Normal mood and affect. Assessment & Plan Assessment & Plan (1) Physical deconditioning: Code(s): R53.81 - Other malaise Plan: This is a 77-year-old female who presented to the office today complaining of generalized weakness and dyspnea on exertion. Patient is otherwise completely asymptomatic. Her physical exam is completely benign; her lungs are clear to auscultation bilaterally, she has no evidence of volume overload, and she is neurologically intact. I was able to watch patient walk from her examination room to the waiting room and she did not appear to have any gait imbalance or instability. She also did not appear to have any respiratory distress with exertion. Her vital signs stable and she is overall nontoxic appearing. Patient very likely has physical deconditioning. Patient has no infectious symptoms to suggest UTI versus pneumonia versus respiratory illness as cause of generalized weakness. Her vital signs are stable without fevers or tachycardia so occult infection is unlikely at this time. I recommended patient call her primary care physician for physical therapy referral. Patient felt safe being discharged home. The patient was instructed to follow-up here or present to the emergency room if she were to develop facial asymmetry, slurred speech, visual disturb ances, chest pain, shortness of breath, fever/chills, etc. Patient verbalized understanding and is agreeable with the plan. Coding Level of Care Code Est Pt Level 3 (05628) Diagnoses Physical deconditioning R53.81
[2023-06-17 14:11] VITALS: BP 120/72; PULSE 66; O2SAT 95; BMI 25.7
== END 2023-06-17 14:51 | disposition home or self-care (01) ==
PROVIDERS: PCP Internal Medicine; Visit Provider Physician Assistant Medical
DX: R53.81 Other malaise (principal)
CPT/HCPCS: 99213